=== PATIENT | female | born 1970 | race Caucasian/White ===

== ENCOUNTER → 2023-10-17 13:31 | Outpatient (REF) | payer OTHER, SELFPAY | LOC: RAD 13:31 | PROVIDERS: ATTENDING PHYSICIAN Internal Medicine Gastroenterology; FAMILY PHYSICIAN Family Medicine | DX: K51.211 Ulcerative (chronic) proctitis with rectal bleeding (principal) | CPT/HCPCS: 74177; Q9967 ==

== ENCOUNTER 2023-11-07 18:48 | Emergency (ER) | payer OTHER, SELFPAY ==
[2023-11-07 19:04] VITALS: BP 142/96
[2023-11-07 19:51] VITALS: BP 127/93
[2023-11-07 20:00] VITALS: BP 137/91
[2023-11-07] MEDS: MOTRIN 600 MG PO (20:14)
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
[2023-11-07 23:48] VITALS: BP 110/91
== END 2023-11-07 23:53 | disposition home or self-care (01) ==
LOC: EMR 18:48
PROVIDERS: EMERGENCY PHYSICIAN Emergency Medicine
DX: S09.90XA Unspecified injury of head, initial encounter (principal); Y04.8XXA Assault by other bodily force, initial encounter; R11.0 Nausea; H53.8 Other visual disturbances; J45.909 Unspecified asthma, uncomplicated; K21.9 Gastro-esophageal reflux disease without esophagitis; E03.9 Hypothyroidism, unspecified; E78.00 Pure hypercholesterolemia, unspecified
CPT/HCPCS: 99283; 73140

== ENCOUNTER 2023-11-15 03:37 | Inpatient (IN) | payer OTHER, MEDICARE, SELFPAY ==
[2023-11-14 23:42] VITALS: BMI 19.6
[2023-11-14 23:53] VITALS: BP 133/82
[2023-11-15] VITALS (19 sets, daily range): BP systolic 101–122; BP diastolic 67–89; PULSE 94–107; O2SAT 96–97; BMI 19.6; BMI 18.6
--- NOTE | 2023-11-15 00:40 | ED.GENMED ---
History of Present Illness
General
Chief Complaint: Vomiting Blood
Source: patient
Exam Limitations: none
Time Seen by Provider: 11/15/23 00:24
Travel History
Have you had any contact with someone who has COVID-19?: No
Do you have any symptoms of coronavirus? Fever > 100 degrees, chills, cough, shortness of breath, sore throat, loss of taste or smell, muscle aches, or headache?: No
History of Present Illness
History of Present Illness:
This is a 53 year old female that comes in with multiple complaints. States that she had Botox first and then the next day she had Remicade and the next day she had a pudental nerve block. States that after this she started with vomiting in her
sleep and this seems to be happening every night. States that she also lost control of her bowels. States that she has a sore throat and has been dizzy and off balance. States that she has white spots in her mouth and has trouble swallowing. States
that she has a fever of 100, SOB with a cough, nausea, vomiting, and diarrhea. States that she has a headache and is off balance when she walks. Denies any chills, chest pain, abd pain, urinary burning.
Past History
Past History
ED Past Medical History: Asthma, GERD, Hypercholesterolemia, Seizures, Hypothyroidism, Psychiatric and Other ( Raynaud's Syndrome, PNA, Ulcerative colitis, UTI, Interstitial cystitis, ADD, Kidney stones, POTS, thoracic outlet syndrome, Von
Willebrand disease. Gastroporesis)
ED Past Surgical History: Gynecological (Uterine ablation, ), Orthopedic (Hand surgery, neck surgery, ) and Other (Breast reduction, cataracts, Eye surgery, )
Social History
Tobacco: Non-smoker
Alcohol: Occasional
Drug: None
Personal:
Living: with family
Employment: Employed
Family History
Family History: Hypertension
Review of Systems
Review of Systems
All Other Systems: ROS reviewed and negative except as documented in HPI and ROS
Constitutional: Reports fever (Low grade); Denies chills
EENT: Reports sore throat and other (difficulty swallowing)
Respiratory: Reports cough and trouble breathing
Cardiac: Denies chest pain
ABD/GI: Reports nausea, vomiting and diarrhea; Denies abdominal pain
: Reports no symptoms; Denies dysuria, frequency or urgency
Musculoskeletal: Reports no symptoms
Skin: Reports no symptoms
Neurological: Reports dizzy and headache
Psychiatric: Reports suicidal
Phy Exam
General Physical Exam
General Presentation: no apparent distress
General age: appears stated age
General Skin: warm and dry
General Habitus: normal
General Mental: alert
General Hydration: appears well hydrated
ENT Exam
ENT Exam: TM's normal, neck supple, pharyngeal erythema (with exudate) and tonsillar exudate
Eye Exam
Eye Exam: EOMI
Cardiovascular Exam
Cardiovascular Exam: regular rate/rhythm, no edema, no murmur and normal peripheral pulses
Pulmonary Exam
Pulmonary Exam: lungs clear, no respiratory distress, no rales, chest non tender, no crackles, no rhonchi, no wheezing and no cough
Gastrointestinal Exam
Gastrointestinal Exam: normal bowel sounds, non tender, soft, no organomegaly, no pulsatile mass and non distended
Musculoskeletal Exam
Musculoskeletal Exam: full ROM and no edema
Skin Exam
Skin Exam: normal color, warm/dry, no rash and no petechia
Psychiatric Exam
Psychiatric Exam: normal mood/affect
Course
Orders/Labs/Results
Orders:
Orders
11/15/23 00:38
0.9% Sodium Chloride 1000 ml [Nss] 1,000 ml IV BOLUS
Ondansetron Injectable [Zofran] 4 mg IV NOW STA
11/15/23 00:39
CR Chest - 2 Views Urgent
Comment:
Reason For Exam: COUGh, SOB, vomiting in sleep
03/21/24 00:43
CT Head W/o Iv Contrast Urgent
Comment:
Reason For Exam: headache, off balance
11/15/23 01:34
COVID-19 Antigen Urgent
Source: Nasal Swab
Complete Blood Count/With Diff Urgent
Comprehensive Metabolic Panel Urgent
Lactic Acid Urgent
Influenza A+B Rapid Molecular Urgent
SAM Source: Nasal Swab
Specimen Description:
Rapid Strep Group A Urgent
SAM Source: Throat/Pharynx
Specimen Description:
Date Specimen was Collected: 11/15/23
Time Specimen was Collected: 00:59
11/15/23 01:35
LevoFLOXacin 500 MG/100 ML [Levaquin] 500 mg in 100 ml IV NOW
11/15/23 01:36
Electrocardiogram (*1) Urgent
Reason for Study: Shortness of Breath
EKG- Treatment ONCE
11/15/23 01:38
Urinalysis Reflex To Culture Urgent
11/15/23 01:45
Blood Culture Q30M
SAM Source: Blood/Venous
Specimen Description:
11/15/23 02:15
Blood Culture Q30M
SAM Source: Blood/Venous
Specimen Description:
Abnormal Lab Results
11/15/23
01:34
WBC 19.6 H 10^3/uL
(4.8-10.8)
Hct 36.7 L %
(37.0-47.0)
Abs Immat Gran (auto) 0.1 H 10^3/uL
(0-0.05)
Absolute Neuts (auto) 16.0 H 10^3/uL
(1.4-6.5)
Absolute Monos (auto) 1.4 H 10^3/uL
(0.1-0.6)
Neutrophils % 81.7 H %
(42.2-75.2)
Lymphocytes % 10.3 L %
(20.5-51.1)
Creatinine 0.4 L mg/dL
(0.6-1.0)
Glucose 118 H mg/dl
(70-99)
11/15/23 01:34
11/15/23 01:34
Leukocytosis, rapid strep negative. Glucose nonfasting COVID negative, rapid strep negative, Influenza negative.
Vital Signs
Initial and Last Documented VS:
Initial Vital Signs
Temp Pulse Resp BP Pulse Ox
98.5 F 114 16 133/82 97
11/14/23 23:53 11/14/23 23:53 11/14/23 23:53 11/14/23 23:53 11/14/23 23:53
Last Documented Vital Signs
Temp Pulse Resp BP Pulse Ox
98.5 F 114 16 133/82 97
11/14/23 23:53 11/14/23 23:53 11/14/23 23:53 11/14/23 23:53 11/14/23 23:53
MDM/Problems Addressed
Differential Diagnosis Includes:
Strep throat. Thrush, GI viral syndrome.
MDM/Problems Addressed:
This is a 53 year old female that comes in with multiple complaints. States that she had Botox first, then the next day Remicade and the after this a Pudental nerve block. States that she has been vomiting every since when she is asleep and has a
sore throat. States that she has a headache, dizziness and her balance is off. States that she is having a hard time swallowing.
Will check labs, Chest x-ray. Give IV fluids and Zofran.
back into see patient. Explained that she does have a Pneumonia. Will admit and start on antibiotics. Patient at this time is also requesting a urine be checked to make sure she doesn't have a UTI.
Chronic conditions affecting care:
Ulcerative colitis,
Acute Exacerbation and/or Progression of Chronic Illness:
Ulcerative colitis
*Radiology
Radiology exam reviewed: radiology read reviewed (Ct head night hawk- No acute hemorrhage, herniation or hydrocephalus. No calvarial fracture. The visualized paranasal sinuses and mastoid air cells are clear. )
*Pulse Oximetry
Patient hypoxic: no
*EKG
Interpreted by ED Provider?: NA
Rate: EKG- N/A
*Critical Care Note
Total Time (30-74mins, 75-104mins- exclusive of procedures): Not Applicable
ED Attending Note
-
Portions of this chart may have been created with voice recognition software.� Occasional wrong word or��sound alike� substitutions may have occurred due to the inherent limitations of voice recognition software.
Discharge Plan
Departure
Patient Disposition: Admit
Date of Disposition: 11/15/23
Time of Disposition: 02:08
Admit to: Med/Surg
Presentation/result/management discussed w/ accepting MD/DO: Hospitalist
Patient with high blood pressure during this ER visit?: Yes
Condition: Good
Covid-19: Negative COVID-19
Discharge Problem:
right sided Pneumonia
Prescriptions:
No Action
prednisolone acetate 1 % Drops,Suspension
1 drp RIGHT EYE TID
difluprednate [Durezol] 0.05 % Drops
1 drp RIGHT EYE HS
thyroid (pork) [[place] Thyroid] 90 mg Tablet
90 mg PO HS
tramadol 100 mg Tablet
100 mg PO TID PRN (Reason: PAIN)
Wegovy 2.4 mg/0.75 mL Pen Injector
2.4 mg SC MO
estradiol
1 dose IM .TWICEAWEEK
progesterone 200 MG
200 mg HS
testosterone cypionate
1 dose IM .TWICEAWEEK
infliximab [Remicade] 100 mg Recon Soln
100 mg IV MONTHLY
ondansetron 4 mg tablet,disintegrating
4 mg PO TIDPRN PRN (Reason: nausea/vomiting) Qty: 20 0RF
Paxlovid 300 mg (150 mg x 2)-100 mg tablets,dose pack
See Rx Instructions .ROUTE .COMPLEX Qty: 30 0RF
Rx Instructions:
take TWO 150 mg tablets of nirmatrelvir with ONE 100 mg tablet of ritonavir twice daily for 5 days
erythromycin 5 mg/gram (0.5 %) ointment
0.5 inch ophthalmic (eye) QID 7 Days Qty: 3.5 0RF
diclofenac sodium [Voltaren Arthritis Pain] 1 % gel
2 g topical QID Qty: 100 0RF
Interventions
Interventions:
*Risk Screen - Suicide Last Done: 11/14/23 23:53
*Neglect/Abuse Screening Last Done: 11/14/23 23:53
*ED COVID-19 Vaccine History Last Done: 11/14/23 23:53
[2023-11-15] MEDS: NSS 1000 IV ×2 (01:46→15:32)
[2023-11-15] MEDS: ZOFRAN 4 MG IV (01:47)
[2023-11-15 01:48] LABS: % Basophils 0.2 % (0-2); % Eosinophils 0.4 % (0-6); % Immature Granulocytes 0.5 % (0-0.5); % Lymphocytes 10.3 % (20.5-51.1); % Monocytes 6.9 % (1.7-9.3); % Neutrophils 81.7 % (42.2-75.2); Absolute Eosinophils 0.1 10^3/uL (0-0.7); Absolute Immature Granulocytes 0.1 10^3/uL (0-0.05); Absolute Monocytes 1.4 10^3/uL (0.1-0.6); Hematocrit 36.7 % (37.0-47.0); Hemoglobin 12.7 g/dL (12.0-16.0); Mean Corp Hgb Conc. 34.6 g/dL (33.0-37.0); Mean Corpuscular Hgb 29.5 pg (27.0-31.0); Mean Corpuscular Volume 85.2 fL (81.0-99.0); Mean Platelet Volume 10.1 fL (7.4-10.4); Nucleated Red Blood Cells % 0 %; Platelet Count 282 10^3/uL (130-400); Red Blood Cell Count 4.31 10^6/uL (4.20-5.40); Red Cell Dist. Width 13.6 % (11.5-14.5); White Blood Cell Count 19.6 10^3/uL (4.8-10.8)
[2023-11-15 02:07] LABS: ALT (SGPT) 12 U/L (0-35); AST (SGOT) 15 U/L (14-36); Albumin 3.8 g/dl (3.5-5.0); Alkaline Phosphatase 60 U/L (38-126); Blood Urea Nitrogen 14 mg/dl (7-17); COVID-19 Antigen Negative (Negative); Calcium 9.2 mg/dl (8.4-10.2); Carbon Dioxide 28 mmol/L (22-30); Chloride 99 mmol/L (98-107); Glucose 118 mg/dl (70-99); Potassium 3.9 mmol/L (3.5-5.1); Sodium 136 mmol/L (135-145); Total Bilirubin 0.8 mg/dl (0.2-1.3); Total Protein 6.5 g/dl (6.3-8.2); eGFR > 60.00
[2023-11-15 02:13] LABS: Lactic Acid 1.1 mmol/L (0.7-2.0)
[2023-11-15] MEDS: LEVAQUIN 100 IV (02:21)
--- NOTE | 2023-11-15 03:07 | EDRN ---
Received pt. at this time, per outgoing RN pt. had 35ml of Levaquin infused IV, then began to develop red streaks up arm at IV site, infusion stopped and flushed, MD Rosado aware. Pt. w/ no airway compromise or swelling, pt. to await admitting MD
evaluation for further orders. Will continue to monitor.
--- NOTE | 2023-11-15 03:14 | HPS.HSE ---
Addendum entered and electronically signed by Curtis De Leon MD 11/15/23 03:43:
Correction
Dizziness with subjective balance dysfunction
NEG Nystagmus. <del>Nystagmus</del>
Symmetric coordination
- Ortho VSS
- NEG HCT'
- PT/OT
Original Note:
Family Physician
-
Family Physician:
Chief Complaint
-
vomiting, fever , cough, sore throat
History of Present Illness
53F Extensive PMHx including Asthma, UC, gastroparesis p/w multple complaints.
Reports vomiting in her sleep since pudentla nerve block
Cough
At home, reports fever up to 100. Denied chills
Assciated los control of bowels
ROS
Sore throat and Trouble swallowing
Dizziness and felt like balace dysfunction
Medical History
Past Medical History
Past Medical History: Reports Other
Additional Past Medical History:
Asthma/PNA
GERD
HTN
HLD
Sz
Hypothyroid
Psychiatric
Raynaud's Syndrome
Ulcerative colitiis
UTI, Interstitial cystitis
ADD
Kidney stones
POTS
Thoracic outlet syndrome,
Von Willebrand disease
Gastroporesis
Past Surgical History: Reports Other
Additional Past Surgical History:
Gynecological (Uterine ablation,
Hand surgery, neck surgery
Breast reduction
cataracts
Social History
Tobacco: Non-smoker
Alcohol: Occasional
Personal:
Living: With Family
Family History
Family History: Hypertension
Allergies / Home Medications
Allergies reflects when Allergies were last updated in [employer].
Home Medications with original date entered in [employer]
Allergy/Medication List:
Allergies
Allergy/AdvReac Type Severity Reaction Status Date / Time
latex Allergy Rash Verified 11/14/23 23:56
levetiracetam Allergy MATTY Verified 11/14/23 23:56
JOHNSONS
SYNDROME
levofloxacin [From Levaquin] Allergy Rash Verified 11/15/23 03:04
penicillin V Allergy Hives Verified 11/14/23 23:56
Penicillins Allergy Hives Verified 11/14/23 23:56
Sulfa (Sulfonamide Allergy Anaphylaxis Verified 11/14/23 23:56
Antibiotics)
sulfasalazine Allergy Anaphylaxis Verified 11/14/23 23:56
adhesive AdvReac Rash Verified 11/14/23 23:56
Cephalosporins AdvReac Nausea / Verified 11/14/23 23:56
Vomiting
ciprofloxacin [From Cipro] AdvReac Nausea / Verified 11/14/23 23:56
Vomiting
Home Medications
estradiol 1 dose IM .TWICEEEK 04/25/22
infliximab 100 mg intravenous solution (Remicade) 100 mg IV MONTHLY 04/25/22
progesterone 200 mg HS 04/25/22
semaglutide (weight loss) 2.4 mg/0.75 mL subcutaneous pen injector (Wegovy) 2.4 mg SC MO 04/25/22
testosterone cypionate 1 dose IM .TWICEEEK 04/25/22
thyroid (pork) 90 mg tablet ([place] Thyroid) 90 mg PO HS 04/25/22
erythromycin 5 mg/gram (0.5 %) eye ointment 0.5 inch ophthalmic (eye) QID 7 days #3.5 grams 08/15/22
diclofenac sodium 1 % topical gel (Voltaren Arthritis Pain) 2 g topical QID #100 grams 12/07/22
levothyroxine 50 mcg tablet 50 mcg PO DAILY 11/15/23
Review of Systems
-
Constitutional: Reports Fever
EENT: Reports Sore Throat
Respiratory: Reports Cough
Cardiac: Reports No Symptoms
Abdomen/GI: Reports Nausea and Vomiting
: Reports No Symptoms
Musculoskeletal: Reports No Symptoms
Skin: Reports No Symptoms
Neurological: Reports No Symptoms
Endocrine: Reports No Symptoms
Hematologic/Lymphatic: Reports No Symptoms
Psych: Reports No Symptoms
Physical Exam
Vital Signs
Vital Signs
Temp Pulse Resp BP Pulse Ox
98.5 F 114 16 107/75 98
11/14/23 23:53 11/14/23 23:53 11/14/23 23:53 11/15/23 02:23 11/15/23 02:30
Physical Exam
General: No Apparent Distress and Comfortable; No Chills
HEENT: NormoCephalic and Anicteric
Respiratory: Clear; No Wheezes or Rales
Cardiac: S1/S2 and Regular Rhythm
Breast: Deferred by me
GI: Soft, Non Tender, Non Distended and Normal Bowel Sounds
Rectal: Deferred by Provider
Genito-urinary: Deferred by me
Musculoskeletal: No Edema
Skin: Warm and Dry
Neuro: AO x 3
Psych: Calm
Laboratory Results
-
11/15/23 01:34
11/15/23 01:34
Laboratory Results
Lactic Acid 1.1 mmol/L (0.7-2.0) 11/15/23:34
Total Bilirubin 0.8 mg/dl (0.2-1.3) 11/15/23:34
AST 15 U/L (14-36) 11/15/23 01:34
ALT 12 U/L (0-35) 11/15/23:34
Alkaline Phosphatase 60 U/L (38-126) 11/15/23 01:34
Data Reviewed
-
Diagnostic Radiology: Image Personally Visualized and interpreted
Lab Data: Labs Reviewed by me
Old Records: Reviewed
Impression/Plan
-
Data
WCC 19s
Unremarkable CMP
BG 118
Pending LA
Pending PCT
NEG Covid
NEG HCT
My read on CXR - PNA on the right ?
ASSESSMENT & PLAN
Presumed sepsis - Rt side PNA plus tachycardia and Leucocytosis
? Aspiration pneumonitis with vomiting while asleep
Adequate Oxygenation on RA
HX PCN allergy
- await LA. PCT
- f/u radiologist read on CXR
- Empiric IV LVQ and Flagyl
- Monitor QTc
- Trend WCC and T
- f/u BCx
Sore throat with pharyngeal erythema with exudate and tonsillar exudate
- rapid Steep Group A Antigen
- on IV Zosyn for possible PNA
Vomiting DDX: Gastroparesis flare
- Hr Systems Analyst consult for suggestion
Dizziness with subjective balance dysfunction
Nystagmus
Coordination
- NEG HCT'
- PT/OT
Hypothyroid on LT5
- check TSH
HX chronic pelvic pain
s/p 3rd pudendal block
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
HX CAD age 31.
HX Hypercalcemia
HX Attention deficit disorder
Anxiety
DVT Px: LMWH
Full code
Ip MS
--- NOTE | 2023-11-15 05:01 | EDRN ---
RN notified admitting team via [place] [employer] that pt. is allergic to Levaquin, notified that pt. immediately got rash at IV site traveling up arm s/p Levaquin administration during ED stay.
[2023-11-15 05:44] LABS: Urine Albumin Negative (Neg - Trace); Urine Bilirubin Negative (Negative); Urine Character Clear (Clear); Urine Color Yellow; Urine Glucose Negative (Negative); Urine Ketone Negative (Negative); Urine Leukocyte Negative (Negative); Urine Nitrite Negative (Negative); Urine Occult Blood Negative (Negative); Urine Urobilinogen Negative (Neg - 1+)
--- NOTE | 2023-11-15 05:55 | W.PN.UPDATE ---
Update Note
Progress Note Update
RN noted rash at IV site upon IV Levaquin infusion, RN stoped the IV Levaquin. Patient has multiple antibiotic allergies, will consult ID. Dr. Bansal made aware.
[2023-11-15 06:06] LABS: Procalcitonin < 0.05 ng/ml (0.0-0.25)
[2023-11-15] MEDS: FLAGYL 500 MG 100 IV ×3 (06:19→23:23)
--- NOTE | 2023-11-15 08:41 | CON.ID ---
Consultation
-
Date/Time Consultation Requested: 11/15/2023, 0554
Date/Time Consultation Performed: 11/15/2023, 0845
Requesting Provider: Dr. Sonya Fletcher
Performing Provider: Dr. Aleksandra Mayen
Reason for Consultation: Sepsis, multiple abx allergies
Chief Complaint / Past History
Chief Complaint
vomiting, difficulty swallowing
History of Present Illness
53 year old female with multiple medical problems with UC on infliximab, raynaud's, thoracic outlet syndrome s/p scalene botox 14d ago, constipation/chronic pelvic pain s/p pudendal block 11/09/23 who has been having dysphagia for the past one to two
weeks. 2 days ago, she started vomiting during sleep. She thinks she aspirated. She also developed through pain, worsening difficulty swallowing. + dry cough today. + temp 100.1. Also had episode of stool incontinence at home. She noted her white
coating on her tongue. She came to the ED last night. WBC 19.6. Rapid group A strep negative. She was given a dose of IV levofloxacin then developed redness along the vein during infusion; abx discontinued. Denies ill-contacts. + frontal PAULSON. No
sinus congestion or rhinorrhea. Both conjunctiva are pink - she thinks either from vomiting or her scratching her eyes while under anaesthesia (has happend before). No recent abx use.
Past History
Additional Past Medical History:
Ulcerative colitis on infliximab q 6 weeks
Hypothyroidism
Asthma
Raynaud's
gastroparesis
nephrolithiasis
POTS( thoracic outlet syndrome) - tx with botox to scalene muscles
ADD
Interstitial cystitis
hx of hyperglycemia, placed on Wegovey since 2020
Von Willebrand disease
Chronic pelvic pain - tx with pudendal block
Hand surgery
breast reduction
Allergy History:
latex Allergy (Verified 11/14/23 23:56)
Rash
levetiracetam Allergy (Verified 11/14/23 23:56)
MATTY JOHNSONS SYNDROME
levofloxacin [From Levaquin] Allergy (Verified 11/15/23 03:04)
Rash
penicillin V Allergy (Verified 11/14/23 23:56)
Hives
Penicillins Allergy (Verified 11/14/23 23:56)
Hives
Sulfa (Sulfonamide Antibiotics) Allergy (Verified 11/14/23 23:56)
Anaphylaxis
sulfasalazine Allergy (Verified 11/14/23 23:56)
Anaphylaxis
adhesive Adverse Reaction (Verified 11/14/23 23:56)
Rash
Cephalosporins Adverse Reaction (Verified 11/14/23 23:56)
Nausea / Vomiting
ciprofloxacin [From Cipro] Adverse Reaction (Verified 11/14/23 23:56)
Nausea / Vomiting
Medications Reviewed: Yes
Current Antibiotics:
s/p levofloxacin
metronidazole
Social History
Tobacco: Non-Smoker
Alcohol: Occasional
Drug: None
Personal:
Living: With Family ()
Family History
Family History: Not Pertinent
Review of Systems
Review of Systems
General: Fever, Chills and Change in Appetite
HEENT: Headache and Pharyngitis; Negative Sinus Problems
Respiratory: Dyspnea and Cough; Negative Sputum Production
Gasteroenterology: Vomiting and Other (no diarrhea)
Genital / Urological: Dysuria and Flank Pain
Endocrine: Weakness
Skin / Hair / Nails: Negative Rash
Neurological: Headache and Dizziness
All systems: All other systems were reviewed and were negative
Vital Signs
Temp Pulse Resp BP Pulse Ox
98.5 F 101 16 121/76 94
11/14/23 23:53 11/15/23 03:05 11/15/23 03:05 11/15/23 06:01 11/15/23 06:45
Physical Exam
Physical Exam
Constitutional: No Acute Distress and Other (thin)
Eyes: Sclera Anicteric and Erythema (Mild conjunctival erythema L>R)
Oral: Thrush (Significant white patches on bilateral buccal mucosa, tongue, and few on pharynx. Patches scrapes off. )
Cardiovascular: Regular Rate and S1/S2
Pulmonary: Clear
Gastrointestinal: Soft, Non Tender, Non Distended and Normal Bowel Sounds
Genito-Urinary: Negative Ramey or CVA Tenderness
Extremities: Negative Edema
Neurological: AO x 3; Negative Meningeal Signs
Lab / Diagnostic Study Results
11/15/23:34
11/15/23:34
Abs Immat Gran (auto) 0.1 10^3/uL (0-0.05) H 11/15/23:34
Absolute Neuts (auto) 16.0 10^3/uL (1.4-6.5) H 11/15/23:34
Absolute Lymphs (auto) 2.0 10^3/uL (1.2-3.4) 11/15/23:34
Absolute Monos (auto) 1.4 10^3/uL (0.1-0.6) H 11/15/23:34
Absolute Basos (auto) 0.0 10^3/uL (0-0.2) 11/15/23:34
Immature Gran % 0.5 % (0-0.5) 11/15/23:34
Neutrophils % 81.7 % (42.2-75.2) H 11/15/23:34
Lymphocytes % 10.3 % (20.5-51.1) L 11/15/23:34
Monocytes % 6.9 % (1.7-9.3) 11/15/23:34
Eosinophils % 0.4 % (0-6) 11/15/23:34
Basophils % 0.2 % (0-2) 11/15/23:34
Lactic Acid 1.0 mmol/L (0.7-2.0) 11/15/23 03:16
Procalcitonin < 0.05 ng/ml (0.0-0.25) 11/15/23 05:18
Microbiology Results
Micro:
11/15/23 02:30 Blood Culture - Pending
Blood/Venous
11/15/23 01:34 Influenza Types A & B (TORI) - Final
Nasal Swab Negative for Influenza A & B, NAAT
Negative results must be combined with clinical observations
and patient history.
Nucleic Acid Amplification test (NAAT)performed on the
[employer] platform.
11/15/23 01:34 Streptococcus Screen (SAM) - Pending
Throat/Pharynx Streptococcus Rapid Screen - Final
Rapid Strep Screen (Group A) Negative
11/15/23 01:45 Blood Culture - Pending
Blood/Venous
11/15/[address]: normal
Assessment / Plan
# Severe oropharyngeal candidiasis
# Dysphagia - suspect salvador esophagitis
- DC nystatin
- Start fluconazole 200mg IV q24. QTc normal.
-Pt verbally consented to HIV screen.
# R lung aspiration pneumonia
-Risk factor: emesis during sleep and dysphagia from candidiasis
- Start ceftriaxone IV.
-Continue metronidazole for now.
# Leukocytosis
- trend wbc
#Additional medical history
Ulcerative colitis on infliximab q 6 weeks
Hypothyroidism
Asthma
Raynaud's
gastroparesis
nephrolithiasis
POTS( thoracic outlet syndrome) - tx with botox to scalene muscles
ADD
Interstitial cystitis
hx of hyperglycemia, placed on Wegovey since 2020
Von Willebrand disease
Chronic pelvic pain - tx with pudendal block
Hand surgery
breast reduction
Care Review
Plan reviewed with: Physician (Dr. Fletcher)
[2023-11-15] MEDS: ERYTHROMYCIN 0.5% OPHTHALMIC OINTMENT 1 APPLIC OPHTH ×4 (08:57→23:34)
--- NOTE | 2023-11-15 09:41 | W.PN.HOSP.TC ---
Today's Communication/Plan
-
IVF
aquaphor for skin irritation on face (patient states from vomit)
abx per ID
PT/OT
Nystatin
Assessment / Plan
Assessment / Plan
CXR
IMPRESSION:
1. Airspace consolidation within the right middle lobe and possibly right upper lobe, suggestive of pneumonia.
2. No significant parapneumonic effusion.
ASSESSMENT & PLAN
Sepsis 2/2 Right Sided Pneumonia
concern for aspiration as patient reports vomiting while sleeping
Adequate Oxygenation on RA
HX PCN allergy
- procal negative but with elevated WBC and CXR finding would continue antibiotics
- IV Flagyl ordered
- ID consulted given hx multiple allergies. Discussed starting cef doxy - will follow up further ID recs
- IVF
- PT/OT
Sore throat with� pharyngeal erythema with exudate and tonsillar exudate
- rapid Steep Group A Antigen negative
- thrush seen on exam - start nystatin
- abx as above
Vomiting� DDX: Gastroparesis flare
- Counter Helper consult for suggestion
Dizziness with subjective balance dysfunction
Nystagmus
Coordination
- improving this AM with fluids
- NEG HCT'
- PT/OT
Hypothyroid on LT5
- TSH low in setting of infection - repeat as outpatient
HX chronic pelvic pain
s/p 3rd pudendal block
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
HX CAD� age 31.
HX Hypercalcemia
HX Attention deficit disorder
Anxiety
DVT Px: LMWH
Full code
Ip MS
Anticipated Discharge: 24 - 48 hours
Subjective/Interval History
-
Date of Service: November 15, 2023
she is feeling a little better this morning
Objective Data
-
Labs:
Laboratory Results
11/15/23
01:34
WBC 19.6 H
Hgb 12.7
Hct 36.7 L
Plt Count 282
Sodium 136
Potassium 3.9
Chloride 99
Carbon Dioxide 28
BUN 14
Creatinine 0.4 L
Glucose 118 H
Calcium 9.2
Total Bilirubin 0.8
AST 15
ALT 12
Alkaline Phosphatase 60
Vital Signs:
Vital Signs
Temp Pulse Resp BP Pulse Ox
98.2 F 97 16 101/75 97
11/15/23 09:28 11/15/23 09:28 11/15/23 03:05 11/15/23 09:02 11/15/23 09:02
Review of Systems
-
History Source: Patient
All other systems: Reviewed and negative
Physical Exam
-
General: No Apparent Distress
HEENT: PERRLA and Other (skin irritation under eyes )
Respiratory: Clear to Auscultation; Negative Wheezes
Cardiac: Regular Rhythm and S1/S2
GI: Soft and Nontender
Musculoskeletal: No Edema
Skin: Warm, Dry and Rash (under eyes )
Neuro: AO x 3
Psych: Calm
Data Reviewed
-
Diagnostic Radiology: Report Reviewed by me
Labs: Labs Reviewed by me
--- NOTE | 2023-11-15 10:43 | PTCARENOTE ---
pt aaox3. states having a sore throat. tongue and mouth white. relayed to DR holland. room air bilat base diminished.
--- NOTE | 2023-11-15 12:16 | PTOTSP ---
pt currently demonstrates ability to complete simple ADLs, functional transfers, ambulation with supervision to no assistance. no acute OT needs identified at this time, will sign off.
--- NOTE | 2023-11-15 15:20 | PTCARENOTE ---
pt states that she feels food is stuck in her throat. and she is afraid she is going to choke and vomit like at home. dr holland notified. changed diet to full liquids and consult speech for eval.
[2023-11-15] MEDS: ROCEPHIN 1000 MG IV (15:32)
[2023-11-15] MEDS: STERILE WATER FOR INJECTION 10 ML IV (15:32)
[2023-11-15] MEDS: TORADOL 15 MG IV ×2 (15:58→23:01)
--- NOTE | 2023-11-15 16:40 | PTCARENOTE ---
pt transferred to floor with all belongings. ivf running.
[2023-11-15] MEDS: CYTOMEL 10 MICROGRAM PO (17:04)
[2023-11-15] MEDS: DETROL LA 2 MG PO (17:04)
[2023-11-15] MEDS: ARMOUR THYROID 60 MG PO (17:05)
[2023-11-15] MEDS: HYDROPHOR 1 APPLIC TOPICAL ×2 (17:05→23:35)
[2023-11-15] MEDS: DIFLUCAN 200 MG 100 IV (17:06)
[2023-11-15] MEDS: LOVENOX 40 MG SC (17:49)
[2023-11-15] MEDS: VALIUM 2.5 MG VAG ×3 (17:53→23:44)
[2023-11-15] MEDS: LYRICA 75 MG PO (17:53)
[2023-11-15] MEDS: TOBREX 0.3% EYE DROPS 1 DROP BOTH EYES (18:26)
[2023-11-15] MEDS: PROTONIX 40 MG PO (23:17)
[2023-11-15] MEDS: MELATONIN 5 MG PO (23:44)
[2023-11-16] MEDS: TORADOL 15 MG IV ×3 (04:31→20:49)
[2023-11-16] MEDS: FLAGYL 500 MG 100 IV ×3 (06:08→21:46)
[2023-11-16] MEDS: ERYTHROMYCIN 0.5% OPHTHALMIC OINTMENT 1 APPLIC OPHTH ×4 (08:10→21:54)
[2023-11-16] MEDS: LYRICA 75 MG PO (08:10)
[2023-11-16] MEDS: PROTONIX 40 MG PO ×2 (08:10→20:49)
[2023-11-16 08:14] VITALS: BP 124/78
[2023-11-16] MEDS: HYDROPHOR 1 APPLIC TOPICAL ×3 (08:30→21:54)
[2023-11-16] MEDS: ARMOUR THYROID 60 MG PO (09:19)
[2023-11-16] MEDS: CYTOMEL 10 MICROGRAM PO (09:19)
[2023-11-16] MEDS: DETROL LA 2 MG PO (09:19)
[2023-11-16 09:41] LABS: Hematocrit 35.1 % (37.0-47.0); Hemoglobin 11.8 g/dL (12.0-16.0); Mean Corp Hgb Conc. 33.6 g/dL (33.0-37.0); Mean Corpuscular Hgb 29.1 pg (27.0-31.0); Mean Corpuscular Volume 86.7 fL (81.0-99.0); Mean Platelet Volume 10.8 fL (7.4-10.4); Platelet Count 278 10^3/uL (130-400); Red Blood Cell Count 4.05 10^6/uL (4.20-5.40); Red Cell Dist. Width 13.7 % (11.5-14.5); White Blood Cell Count 12.1 10^3/uL (4.8-10.8)
[2023-11-16 09:50] VITALS: BP 124/81; BP 127/82; PULSE 91
[2023-11-16 10:20] LABS: ALT (SGPT) 10 U/L (0-35); AST (SGOT) 15 U/L (14-36); Albumin 3.3 g/dl (3.5-5.0); Alkaline Phosphatase 56 U/L (38-126); Blood Urea Nitrogen 15 mg/dl (7-17); Calcium 9.2 mg/dl (8.4-10.2); Carbon Dioxide 26 mmol/L (22-30); Chloride 100 mmol/L (98-107); Estimated Creatinine Clearance 89 ml/min; Glucose 98 mg/dl (70-99); Potassium 4.1 mmol/L (3.5-5.1); Sodium 134 mmol/L (135-145); Total Bilirubin 1.3 mg/dl (0.2-1.3); eGFR > 60.00
--- NOTE | 2023-11-16 12:40 | W.PN.HOSP.TC ---
Addendum entered and electronically signed by Sonya Fletcher MD 11/16/23 13:54:
Underweight
-appreciate dietary
Original Note:
Today's Communication/Plan
-
IV Cef/Flagyl
IV Fluconazole
increase Lyrica; discussed outpatient accupuncture
appreciate ID
ST consult
Fulls for now
Assessment / Plan
Assessment / Plan
CXR
IMPRESSION:
1. Airspace consolidation within the right middle lobe and possibly right upper lobe, suggestive of pneumonia.
2. No significant parapneumonic effusion.
ASSESSMENT & PLAN
Sepsis 2/2 Right Sided Pneumonia
concern for aspiration as patient reports vomiting while sleeping
Adequate Oxygenation on RA
HX PCN allergy
- procal negative but with elevated WBC and CXR finding would continue antibiotics
- IV Ceftriaxone/Flagyl
- ID consulted appreciated
- IVF now off
- PT/OT
Candidial Esophagitis
-appreciate ID, IV Fluconazole started on 11/14
-will need GI consult if fails to improve on this therapy; reassuring some improvement today
-full liquids for now
Vomiting� DDX: Gastroparesis flare
- Sewing Room Supervisor consult for suggestion
-ST consult
-she is on full liquids for now
Dizziness with subjective balance dysfunction
Nystagmus
Coordination
- improving this AM
- NEG HCT'
- PT/OT
Hypothyroid on LT5
- TSH low in setting of infection - repeat as outpatient
HX chronic pelvic pain
s/p 3rd pudendal block without efect
-will increase Lyrica
-discussed with patient trial of accupuncture
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
HX CAD� age 31.
HX Hypercalcemia
HX Attention deficit disorder
Anxiety
DVT Px: LMWH
Full code
Ip MS
Anticipated Discharge: 24 - 48 hours
Subjective/Interval History
-
Date of Service: November 16, 2023
states some improvement in pain today; mouth looks better
she didn't vomit last night, able to eat a little bit
Objective Data
-
Labs:
Laboratory Results
11/16/23
07:29
WBC 12.1 H
Hgb 11.8 L
Hct 35.1 L
Plt Count 278
Sodium 134 L
Potassium 4.1
Chloride 100
Carbon Dioxide 26
BUN 15
Creatinine 0.5 L
Glucose 98
Calcium 9.2
Total Bilirubin 1.3
AST 15
ALT 10
Alkaline Phosphatase 56
Vital Signs:
Vital Signs
Temp Pulse Resp BP Pulse Ox
97.7 F 85 16 124/78 95
11/16/23 08:14 11/16/23 08:14 11/16/23 08:14 11/16/23 08:14 11/16/23 08:14
I&O
11/15/23 11/16/23 11/17/23
06:59 06:59 06:59
Intake Total 480 / 480
Balance 480 / 480
Review of Systems
-
History Source: Patient
All other systems: Reviewed and negative
Physical Exam
-
General: No Apparent Distress
HEENT: PERRLA and Other (skin irritation under eyes improving; thrush improving )
Respiratory: Clear to Auscultation; Negative Wheezes
Cardiac: Regular Rhythm and S1/S2
GI: Soft and Nontender
Musculoskeletal: No Edema
Skin: Warm, Dry and Rash (under eyes )
Neuro: AO x 3
Psych: Calm
Data Reviewed
-
Diagnostic Radiology: Report Reviewed by me
Labs: Labs Reviewed by me
--- NOTE | 2023-11-16 12:51 | PN.CDI ---
CDI
- -
CDI:
Physician Documentation Request
Admit Date: 11/15/23 03:37
Dear Doctor Justine,
Patient admitted with sepsis.
Please review the following and provide your response in the progress notes.
Clinical Indicators:
Height: 5' 6'
Weight: 115 lb 6 oz
BMI: 18.6
Please provide an associated diagnosis related to the abnormal BMI, such as:
Underweight
Cachectic
Anorexia
BMI is not significant
Other
BMI < or = to 19
Underweight
Weight Loss
Cachectic
Anorexia
Use of terms such as suspected, likely, concern for, or probable (associated with a specific diagnosis that is being evaluated, monitored, or treated as if it exists) are acceptable and can be coded in the inpatient setting, when documented at the
time of discharge.
Thank you,
Shante RICE,RN,CCDS
CDI Specialist
Available via [employer] text
Please use your independent medical judgment in providing your response.
--- NOTE | 2023-11-16 13:10 | CM ---
sales performance manager reviewed patient's chart and met with patient and patient states she lives with her spouse in a 2 story home, patient is independent with adl's and ambulation, no dme.
Pharmacy: [facility]
PCP: Dr. Lang.
[2023-11-16] MEDS: ROCEPHIN 1000 MG IV (13:25)
[2023-11-16] MEDS: STERILE WATER FOR INJECTION 10 ML IV (13:25)
[2023-11-16] MEDS: VALIUM 5 MG VAG ×2 (13:26→21:46)
[2023-11-16] MEDS: LYRICA 25 MG PO (13:26)
[2023-11-16] MEDS: MIRALAX 17 GRAMS PO (14:15)
[2023-11-16] MEDS: COLACE 100 MG PO ×2 (14:15→20:49)
--- NOTE | 2023-11-16 14:21 | W.PN.ID1 ---
Date of Service
Date of Service: November 16, 2023
Today's Communication
continue fluconazole
Assessment / Plan
# Severe oropharyngeal candidiasis
# Dysphagia - suspect salvador esophagitis
# Ulcerative colitis on infliximab q 6 weeks
# Cachexia
- continue fluconazole 200mg IV q24; eventual transition to oral. QTc normal.
- Pt verbally consented to HIV screen - ordered
- check a1c - reports senior living hyperglycemia, semaglutide for hyperglycemia per
- TNFaI use may be the predisposing factor
# R lung aspiration pneumonia
# Reported Allergy to Cephalosporins - however tolerating ceftriaxone
- Risk factor: emesis during sleep and dysphagia from candidiasis
- continue ceftriaxone IV.
- Continue metronidazole for now.
# Leukocytosis
- trend wbc - improved
#Additional medical history
Hypothyroidism
Asthma
Raynaud's
gastroparesis
nephrolithiasis
POTS( thoracic outlet syndrome) - tx with botox to scalene muscles
ADD
Interstitial cystitis
hx of hyperglycemia, placed on Wegovey since 2020
Von Willebrand disease
Chronic pelvic pain - tx with pudendal block
Hand surgery
breast reduction
Chief Complaint
-: Leukocytosis and Other (candidal esophagitis)
Subjective / Review of Systems
afebrile
bp stable
improving leukocytosis
cr stable
blood cultures x2 no growth
11/14 qtc 430
reports senior living hyperglycemia with semaglutide for hyperglycemia
reports ongoing dysphagia
Vital Signs / Physical Exam
Vital Signs
Vital Signs
Temp Pulse Resp BP Pulse Ox
97.7 F 85 16 124/78 95
11/16/23 08:14 11/16/23 08:14 11/16/23 08:14 11/16/23 08:14 11/16/23 08:14
Physical Exam
Constitutional: No Acute Distress and Chronically Ill
Head: Other (minimal residual thrush)
Cardiovascular: Regular Rate and S1/S2; Negative Murmur or Rub
Pulmonary: Clear and Symmetric; Negative Wheezes or Rales
Gastrointestinal: Soft, Non Tender, Non Distended and Normal Bowel Sounds
Skin: Warm and Dry; Negative Rash or Jaundice
Objective Data
Lab Data
Lab Results
11/16/23 07:29
11/16/23 07:29
Estimated Creat Clear 89 ml/min 11/16/23 07:29
Lactic Acid 1.0 mmol/L (0.7-2.0) 11/15/23 03:16
Total Bilirubin 1.3 mg/dl (0.2-1.3) 11/16/23 07:29
AST 15 U/L (14-36) 11/16/23 07:29
ALT 10 U/L (0-35) 11/16/23 07:29
Alkaline Phosphatase 56 U/L (38-126) 11/16/23 07:29
Most recent labs reviewed.
Micro Results:
11/15/23 01:34 Streptococcus Screen (SAM) - Preliminary
Throat/Pharynx Culture in Progress
Streptococcus Rapid Screen - Final
Rapid Strep Screen (Group A) Negative
11/15/23 02:30 Blood Culture - Preliminary
Blood/Venous No Growth in 24 hours- Final report to follow
11/15/23 01:45 Blood Culture - Preliminary
Blood/Venous No Growth in 24 hours- Final report to follow
11/15/23 01:34 Influenza Types A & B (TORI) - Final
Nasal Swab Negative for Influenza A & B, NAAT
Negative results must be combined with clinical observations
and patient history.
Nucleic Acid Amplification test (NAAT)performed on the
[employer] platform.
--- NOTE | 2023-11-16 15:05 | PTOTSP ---
Dysphagia Evaluation
Patient presents with signs concerning for pharyngoesophageal dysphagia (i.e., c/o stasis and coughing /'I'm aspirating' with soft solids; need for increased effort but no s/s of aspiration to swallow liquids and purees.) Patient reported symptoms
began 14 days ago after Botox in her neck as a treatment for pain related to thoracic outlet syndrome. She is also being treated for candidal esophagitis and has a history of gastroparesis which may be impacting presentation.
Recommend:
1. Continue diet as ordered (Full Liquids), Thin Liquids
2. Medications - as best tolerated
3. Strategies: upright to 90 degrees, small single sips/bites, double swallows, remain upright 30 minutes after eating/drinking
4. Video swallow study to objectively assess swallowing and rule out pharyngeal dysphagia/aspiration
[2023-11-16 15:06] VITALS: BP 134/87
[2023-11-16] MEDS: DIFLUCAN 200 MG 100 IV (16:20)
[2023-11-16] MEDS: LOVENOX 40 MG SC (16:36)
[2023-11-16] MEDS: TOBREX 0.3% EYE DROPS 1 DROP BOTH EYES (16:55)
[2023-11-16] MEDS: LYRICA 100 MG PO (20:49)
[2023-11-16] MEDS: MELATONIN 5 MG PO (21:46)
[2023-11-16 23:00] VITALS: BP 115/72
[2023-11-17] MEDS: TORADOL 15 MG IV ×2 (04:45→13:43)
[2023-11-17] MEDS: VALIUM 5 MG VAG ×2 (05:49→13:43)
[2023-11-17] MEDS: FLAGYL 500 MG 100 IV ×2 (05:50→13:13)
[2023-11-17 07:00] VITALS: BP 118/76
[2023-11-17 07:32] LABS: % Basophils 0.4 % (0-2); % Eosinophils 0.8 % (0-6); % Immature Granulocytes 0.7 % (0-0.5); % Lymphocytes 21.3 % (20.5-51.1); % Monocytes 6.7 % (1.7-9.3); % Neutrophils 70.1 % (42.2-75.2); Absolute Eosinophils 0.1 10^3/uL (0-0.7); Absolute Immature Granulocytes 0.1 10^3/uL (0-0.05); Absolute Lymphocytes 1.8 10^3/uL (1.2-3.4); Absolute Monocytes 0.6 10^3/uL (0.1-0.6); Absolute Neutrophils 5.9 10^3/uL (1.4-6.5); Hemoglobin 11.7 g/dL (12.0-16.0); Mean Corp Hgb Conc. 33.4 g/dL (33.0-37.0); Mean Corpuscular Hgb 29.1 pg (27.0-31.0); Mean Corpuscular Volume 87.1 fL (81.0-99.0); Nucleated Red Blood Cells % 0 %; Platelet Count 270 10^3/uL (130-400); Red Blood Cell Count 4.02 10^6/uL (4.20-5.40); Red Cell Dist. Width 13.4 % (11.5-14.5); White Blood Cell Count 8.5 10^3/uL (4.8-10.8)
[2023-11-17 08:25] LABS: Blood Urea Nitrogen 14 mg/dl (7-17); Calcium 8.6 mg/dl (8.4-10.2); Carbon Dioxide 25 mmol/L (22-30); Chloride 104 mmol/L (98-107); Estimated Creatinine Clearance 89 ml/min; Glucose 96 mg/dl (70-99); Potassium 4.3 mmol/L (3.5-5.1); Sodium 133 mmol/L (135-145); eGFR > 60.00
[2023-11-17] MEDS: LYRICA 100 MG PO ×2 (08:38→19:37)
[2023-11-17] MEDS: ARMOUR THYROID 60 MG PO (08:39)
[2023-11-17] MEDS: PROTONIX 40 MG PO (08:39)
[2023-11-17] MEDS: NON-FORMULARY ITEM 1 MG PO (08:40)
[2023-11-17] MEDS: CYTOMEL 10 MICROGRAM PO (08:40)
[2023-11-17] MEDS: COLACE PO (08:41)
[2023-11-17] MEDS: MIRALAX PO (08:41)
[2023-11-17] MEDS: ERYTHROMYCIN 0.5% OPHTHALMIC OINTMENT 1 APPLIC OPHTH ×4 (08:41→21:11)
[2023-11-17] MEDS: DICLOFENAC 1% TOPICAL GEL 2 GRAM TOPICAL (08:42)
[2023-11-17 08:43] LABS: Glycohemoglobin (HgbA1c) 5.4 % (4.0-5.6)
[2023-11-17] MEDS: HYDROPHOR 1 APPLIC TOPICAL ×3 (08:46→21:13)
[2023-11-17 09:06] LABS: HIV Combo Negative (Negative)
--- NOTE | 2023-11-17 11:51 | W.PN.HOSP.TC ---
Today's Communication/Plan
-
IV Fluconazole
IV Cef/Flagyl
VSE on Sunday
Ophthalmology consult
pain control
Assessment / Plan
Assessment / Plan
CXR
IMPRESSION:
1. Airspace consolidation within the right middle lobe and possibly right upper lobe, suggestive of pneumonia.
2. No significant parapneumonic effusion.
ASSESSMENT & PLAN
Sepsis 2/2 Right Sided Pneumonia
concern for aspiration as patient reports vomiting while sleeping
Adequate Oxygenation on RA
HX PCN allergy
- procal negative but with elevated WBC and CXR finding would continue antibiotics
- IV Ceftriaxone/Flagyl (day 3)
- ID consult appreciated
- IVF now off
- PT/OT
Candidial Esophagitis
Dysphagia, Odynophagia
-appreciate ID, IV Fluconazole started on 11/14
-will need GI consult if fails to improve on this therapy;
-VSE on Sunday
-appreciate ST
-full liquids for now
Vomiting� DDX: Gastroparesis flare
- Wealth Management Director consult for suggestion
-ST consult
-she is on full liquids for now
-no further vomiting this admission
Dizziness with subjective balance dysfunction
Nystagmus
Coordination
- improving
- NEG HCT'
- PT/OT
Hypothyroid on LT5
- TSH low in setting of infection - repeat as outpatient
HX chronic pelvic pain
s/p 3rd pudendal block without efect
-will increase Lyrica
-patient wants to be on Tolterodine given here (not Gemtesa prescribed outpatient)
-discussed with patient trial of accupuncture
Blurry vision left eye
-no erythema or discharge. 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
-Ophtho consulted
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
HX CAD� age 31.
HX Hypercalcemia
HX Attention deficit disorder
Anxiety
DVT Px: LMWH
Full code
Ip MS
Anticipated Discharge: > 48 hours
Subjective/Interval History
-
Date of Service: November 17, 2023
continues to complain blurry vision left eye; pain wtih eye movement
breathing stable
continues to have pain swallowing
Objective Data
-
Labs:
Laboratory Results
11/17/23
07:17
WBC 8.5
Hgb 11.7 L
Hct 35.0 L
Plt Count 270
Sodium 133 L
Potassium 4.3
Chloride 104
Carbon Dioxide 25
BUN 14
Creatinine 0.6
Glucose 96
Calcium 8.6
Vital Signs:
Vital Signs
Temp Pulse Resp BP Pulse Ox
98.1 F 98 16 118/76 96
11/17/23 07:00 11/17/23 07:00 11/17/23 07:00 11/17/23 07:00 11/17/23 07:00
I&O
11/16/23 11/17/23 11/18/23
06:59 06:59 06:59
Intake Total 480 / 480 240 / 240
Balance 480 / 480 240 / 240
Review of Systems
-
History Source: Patient
All other systems: Reviewed and negative
Physical Exam
-
General: No Apparent Distress
HEENT: PERRLA and Other (skin irritation under eyes improving; thrush improving )
Respiratory: Clear to Auscultation; Negative Wheezes
Cardiac: Regular Rhythm and S1/S2
GI: Soft and Nontender
Musculoskeletal: No Edema
Skin: Warm, Dry and Rash (under eyes )
Neuro: AO x 3
Psych: Calm
Data Reviewed
-
Diagnostic Radiology: Report Reviewed by me
Labs: Labs Reviewed by me
[2023-11-17] MEDS: ROCEPHIN 1000 MG IV (13:13)
[2023-11-17] MEDS: STERILE WATER FOR INJECTION 10 ML IV (13:13)
--- NOTE | 2023-11-17 13:39 | W.PN.ID1 ---
Date of Service
Date of Service: November 17, 2023
Today's Communication
continue fluconazole/ceftriaxone
stop metro
Assessment / Plan
# Severe oropharyngeal candidiasis
# Dysphagia - suspect salvador esophagitis
# Ulcerative colitis on infliximab q 6 weeks
# Cachexia
- continue fluconazole 200mg IV q24; eventual transition to oral. QTc normal.
- HIV negative
- a1c 5.4
- TNFaI use may be the predisposing factor
# R lung aspiration pneumonia
# Reported Allergy to Cephalosporins - however tolerating ceftriaxone
- Risk factor: emesis during sleep and dysphagia from candidiasis
- continue ceftriaxone IV.
- stop metronidazole
# Leukocytosis
- trend wbc - improved
#Additional medical history
Hypothyroidism
Asthma
Raynaud's
gastroparesis
nephrolithiasis
POTS( thoracic outlet syndrome) - tx with botox to scalene muscles
ADD
Interstitial cystitis
hx of hyperglycemia, placed on Wegovey since 2020
Von Willebrand disease
Chronic pelvic pain - tx with pudendal block
Hand surgery
breast reduction
Chief Complaint
-: Leukocytosis and Other (candidal esophagitis)
Subjective / Review of Systems
afebrile
bp stable
resolved leukocytosis
cr stable
blood cultures no growth to date
Vital Signs / Physical Exam
Vital Signs
Vital Signs
Temp Pulse Resp BP Pulse Ox
98.1 F 98 16 118/76 96
11/17/23 07:00 11/17/23 07:00 11/17/23 07:00 11/17/23 07:00 11/17/23 07:00
Objective Data
Lab Data
Lab Results
11/17/23 07:17
11/17/23 07:17
Estimated Creat Clear 89 ml/min 11/17/23 07:17
Lactic Acid 1.0 mmol/L (0.7-2.0) 11/15/23 03:16
Total Bilirubin 1.3 mg/dl (0.2-1.3) 11/16/23 07:29
AST 15 U/L (14-36) 11/16/23 07:29
ALT 10 U/L (0-35) 11/16/23 07:29
Alkaline Phosphatase 56 U/L (38-126) 11/16/23 07:29
Most recent labs reviewed.
Micro Results:
11/15/23 01:34 Streptococcus Screen (SAM) - Final
Throat/Pharynx No Beta Hemolytic Streptococci Isolated
Streptococcus Rapid Screen - Final
Rapid Strep Screen (Group A) Negative
11/15/23 02:30 Blood Culture - Preliminary
Blood/Venous No Growth in 48 hours- Final report to follow
11/15/23 01:45 Blood Culture - Preliminary
Blood/Venous No Growth in 48 hours- Final report to follow
11/15/23 01:34 Influenza Types A & B (TORI) - Final
Nasal Swab Negative for Influenza A & B, NAAT
Negative results must be combined with clinical observations
and patient history.
Nucleic Acid Amplification test (NAAT)performed on the
[employer] platform.
--- NOTE | 2023-11-17 14:08 | PTOTSP ---
ST Follow-Up
Pt exhibits signs of suspected mild to moderate pharyngoesophageal dysphagia characterized by globus sensation, reported regurgitation back into oral cavity, piecemeal deglutition, change in vocal quality, and throat clearing with thicker food
consistencies. Pt's candidiasis and dysphagia are likely related to remicade and/or botox.
Recommendations:
- Advance diet to pureed solids with thin liquids, meds whole one at a time, per pt preference
- Aspiration & reflux precautions
- Video fluoroscopic swallow study on Sunday
[2023-11-17 15:00] VITALS: BP 119/73
[2023-11-17] MEDS: DIFLUCAN 200 MG 100 IV (17:58)
[2023-11-17] MEDS: TOBREX 0.3% EYE DROPS 1 DROP BOTH EYES (17:59)
[2023-11-17] MEDS: NORCO 5/325 1 TABLET PO ×2 (18:01→22:06)
[2023-11-17] MEDS: LOVENOX SC (18:08)
[2023-11-17] MEDS: COLACE 100 MG PO (19:37)
[2023-11-17] MEDS: PROTONIX PO ×2 (19:37→22:10)
[2023-11-17] MEDS: MELATONIN 5 MG PO (22:06)
[2023-11-17 23:34] VITALS: BP 116/74
[2023-11-18] MEDS: NORCO 5/325 1 TABLET PO ×5 (03:12→21:25)
[2023-11-18 07:00] VITALS: BP 124/86
[2023-11-18] MEDS: MIRALAX PO (07:58)
[2023-11-18] MEDS: LYRICA 100 MG PO ×2 (08:00→19:42)
[2023-11-18] MEDS: CYTOMEL 10 MICROGRAM PO (08:00)
[2023-11-18] MEDS: COLACE PO ×2 (08:00→19:42)
[2023-11-18] MEDS: DETROL LA 2 MG PO (08:03)
[2023-11-18] MEDS: ERYTHROMYCIN 0.5% OPHTHALMIC OINTMENT 1 APPLIC OPHTH (08:04)
[2023-11-18] MEDS: ARMOUR THYROID 60 MG PO (08:05)
[2023-11-18] MEDS: HYDROPHOR 1 APPLIC TOPICAL ×3 (08:05→21:32)
[2023-11-18] MEDS: VALIUM 5 MG VAG ×3 (08:07→20:07)
[2023-11-18] MEDS: ZOFRAN 4 MG IV (10:23)
[2023-11-18] MEDS: PROTONIX 40 MG PO ×2 (10:23→21:24)
[2023-11-18] MEDS: TORADOL 15 MG IV ×2 (10:24→20:07)
--- NOTE | 2023-11-18 12:44 | W.PN.HOSP.TC ---
Today's Communication/Plan
-
VSE tomorrow AM
IV Cef/Flagyl
IV Fluconazole
Appreciate ID
Appreciate Ophtho
pain control for chronic pelvic pain, acute exacerbation
Assessment / Plan
Assessment / Plan
CXR
IMPRESSION:
1. Airspace consolidation within the right middle lobe and possibly right upper lobe, suggestive of pneumonia.
2. No significant parapneumonic effusion.
ASSESSMENT & PLAN
Sepsis 2/2 Right Sided Pneumonia
concern for aspiration as patient reports vomiting while sleeping
Adequate Oxygenation on RA
HX PCN allergy
- procal negative but with elevated WBC and CXR finding would continue antibiotics
- IV Ceftriaxone/Flagyl (day 4)
- ID consult appreciated
- IVF now off
- PT/OT
Candidial Esophagitis
Dysphagia, Odynophagia
-appreciate ID, IV Fluconazole started on 11/14
-will need GI consult if fails to improve on this therapy; discussed with patient will wait for results of VSE tomorrow and then may need GI consult
-VSE on Sunday
-appreciate ST
-full liquids for now
Vomiting� DDX: Gastroparesis flare
-ST consult
-she is on full liquids for now
-no further vomiting this admission
Dizziness with subjective balance dysfunction
Nystagmus
Coordination
- improving
- NEG HCT'
- PT/OT
Hypothyroid on LT5
- TSH low in setting of infection - repeat as outpatient
HX chronic pelvic pain
s/p 3rd pudendal block without effect
-will increase Lyrica
-patient wants to be on Tolterodine given here (not Gemtesa prescribed outpatient)
-discussed with patient trial of accupuncture outpatient
-norco PRN for severe pain
-*patient has telemedicine appt with her outpatient physician jo ann at 8:30 AM - given list of meds she is receiving here for this
Blurry vision left eye
-no erythema or discharge. 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
-Ophtho consult appreciated
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
HX CAD� age 31.
HX Hypercalcemia
HX Attention deficit disorder
Anxiety
DVT Px: LMWH
Full code
Ip MS
Anticipated Discharge: > 48 hours
Subjective/Interval History
-
Date of Service: November 18, 2023
states norco helped significantly with pelvic pain
left eye remains blurry
no improvement in odynophagia but then asked for solid food
Objective Data
-
Vital Signs:
Vital Signs
Temp Pulse Resp BP Pulse Ox
97.9 F 86 16 124/86 98
11/18/23 07:00 11/18/23 07:00 11/18/23 07:00 11/18/23 07:00 11/18/23 07:00
I&O
11/17/23 11/18/23 11/19/23
06:59 06:59 06:59
Intake Total 240 / 240 1680 / 1680
Balance 240 / 240 1680 / 1680
Review of Systems
-
History Source: Patient
All other systems: Reviewed and negative
Physical Exam
-
General: No Apparent Distress
HEENT: PERRLA and Other (skin irritation under eyes improving; thrush improving; EOMI, no scleral erythema, reports pain eye movement on left )
Respiratory: Clear to Auscultation; Negative Wheezes
Cardiac: Regular Rhythm and S1/S2
GI: Soft and Nontender
Musculoskeletal: No Edema
Skin: Warm, Dry and Rash (under eyes )
Neuro: AO x 3
Psych: Calm
Data Reviewed
-
Diagnostic Radiology: Report Reviewed by me
Labs: Labs Reviewed by me
[2023-11-18 15:00] VITALS: BP 137/84
[2023-11-18] MEDS: ROCEPHIN 1000 MG IV (15:17)
[2023-11-18] MEDS: STERILE WATER FOR INJECTION 10 ML IV (15:17)
[2023-11-18] MEDS: DIFLUCAN 200 MG 100 IV (16:06)
[2023-11-18] MEDS: REFRESH EYE DROPS (PF) 1 DROPS BOTH EYES ×2 (16:08→21:24)
--- NOTE | 2023-11-18 16:29 | W.PN.ID1 ---
Date of Service
Date of Service: November 18, 2023
Today's Communication
day 5 of ceftriaxone
continue fluconazole
Assessment / Plan
# Severe oropharyngeal candidiasis
# Dysphagia - suspect salvador esophagitis
# Ulcerative colitis on infliximab q 6 weeks
# Cachexia
- continue fluconazole 200mg IV q24; eventual transition to oral. QTc normal.
- HIV negative
- a1c 5.4
# R lung aspiration pneumonia
# Reported Allergy to Cephalosporins - however tolerating ceftriaxone
- Risk factor: emesis during sleep and dysphagia from candidiasis
- continue ceftriaxone IV day 5
# Leukocytosis
- trend wbc - improved
#Additional medical history
Hypothyroidism
Asthma
Raynaud's
gastroparesis
nephrolithiasis
POTS( thoracic outlet syndrome) - tx with botox to scalene muscles
ADD
Interstitial cystitis
hx of hyperglycemia, placed on Wegovey since 2020
Von Willebrand disease
Chronic pelvic pain - tx with pudendal block
Hand surgery
breast reduction
Chief Complaint
-: Leukocytosis and Other (candidal esophagitis)
Subjective / Review of Systems
afebrile
bp stable
still complaining of dysphagia
Vital Signs / Physical Exam
Vital Signs
Vital Signs
Temp Pulse Resp BP Pulse Ox
97.9 F 86 16 124/86 98
11/18/23 07:00 11/18/23 07:00 11/18/23 07:00 11/18/23 07:00 11/18/23 07:00
Physical Exam
Constitutional: No Acute Distress
Cardiovascular: Regular Rate and S1/S2; Negative Murmur or Rub
Pulmonary: Clear and Symmetric; Negative Wheezes or Rales
Gastrointestinal: Soft, Non Tender, Non Distended and Normal Bowel Sounds
Skin: Warm and Dry; Negative Rash or Jaundice
Objective Data
Lab Data
Lab Results
11/17/23 07:17
11/17/23 07:17
Estimated Creat Clear 89 ml/min 11/17/23 07:17
Lactic Acid 1.0 mmol/L (0.7-2.0) 11/15/23 03:16
Total Bilirubin 1.3 mg/dl (0.2-1.3) 11/16/23 07:29
AST 15 U/L (14-36) 11/16/23 07:29
ALT 10 U/L (0-35) 11/16/23 07:29
Alkaline Phosphatase 56 U/L (38-126) 11/16/23 07:29
Most recent labs reviewed.
Micro Results:
11/15/23 02:30 Blood Culture - Preliminary
Blood/Venous No Growth in 72 hours- Final report to follow
11/15/23 01:45 Blood Culture - Preliminary
Blood/Venous No Growth in 72 hours- Final report to follow
11/15/23 01:34 Streptococcus Screen (SAM) - Final
Throat/Pharynx No Beta Hemolytic Streptococci Isolated
Streptococcus Rapid Screen - Final
Rapid Strep Screen (Group A) Negative
11/15/23 01:34 Influenza Types A & B (TORI) - Final
Nasal Swab Negative for Influenza A & B, NAAT
Negative results must be combined with clinical observations
and patient history.
Nucleic Acid Amplification test (NAAT)performed on the
[employer] platform.
[2023-11-18] MEDS: LOVENOX 40 MG SC (17:04)
[2023-11-18] MEDS: PRED FORTE 1% EYE DROPS 1 DROP OPHTH ×2 (17:04→21:27)
[2023-11-18] MEDS: TOBREX 0.3% EYE DROPS 1 DROP BOTH EYES (17:06)
--- NOTE | 2023-11-18 19:07 | PTCARENOTE ---
Patient endorses no BM since 11/05. Miralax, colace, and PRN Dulcolax refused. Per patient, 'they do not work.'
[2023-11-18] MEDS: MELATONIN 5 MG PO (21:24)
[2023-11-18 23:00] VITALS: BP 94/57
[2023-11-19] MEDS: NORCO 5/325 1 TABLET PO ×5 (01:28→19:28)
[2023-11-19] MEDS: ZOFRAN 4 MG IV ×2 (01:51→12:46)
[2023-11-19] MEDS: TORADOL 15 MG IV ×2 (02:16→17:46)
[2023-11-19 08:08] VITALS: BP 136/96
[2023-11-19 09:35] LABS: % Basophils 0.4 % (0-2); % Eosinophils 0.4 % (0-6); % Immature Granulocytes 0.6 % (0-0.5); % Lymphocytes 29.9 % (20.5-51.1); % Monocytes 6.8 % (1.7-9.3); % Neutrophils 61.9 % (42.2-75.2); Absolute Immature Granulocytes 0.1 10^3/uL (0-0.05); Absolute Lymphocytes 2.4 10^3/uL (1.2-3.4); Absolute Monocytes 0.6 10^3/uL (0.1-0.6); Hematocrit 37.1 % (37.0-47.0); Hemoglobin 12.5 g/dL (12.0-16.0); Mean Corp Hgb Conc. 33.7 g/dL (33.0-37.0); Mean Corpuscular Hgb 29.3 pg (27.0-31.0); Mean Corpuscular Volume 87.1 fL (81.0-99.0); Mean Platelet Volume 9.8 fL (7.4-10.4); Nucleated Red Blood Cells % 0 %; Platelet Count 324 10^3/uL (130-400); Red Blood Cell Count 4.26 10^6/uL (4.20-5.40); Red Cell Dist. Width 13.2 % (11.5-14.5); White Blood Cell Count 8.1 10^3/uL (4.8-10.8)
[2023-11-19] MEDS: COLACE PO ×2 (09:47→19:30)
[2023-11-19] MEDS: MIRALAX PO (09:48)
[2023-11-19] MEDS: REFRESH EYE DROPS (PF) 1 DROPS BOTH EYES ×3 (09:50→21:12)
[2023-11-19] MEDS: DETROL LA 2 MG PO (09:51)
[2023-11-19] MEDS: ARMOUR THYROID 60 MG PO (09:51)
[2023-11-19] MEDS: CYTOMEL 10 MICROGRAM PO (09:51)
[2023-11-19] MEDS: LYRICA 100 MG PO ×2 (09:52→19:28)
[2023-11-19] MEDS: HYDROPHOR 1 APPLIC TOPICAL ×3 (09:52→21:15)
[2023-11-19] MEDS: PRED FORTE 1% EYE DROPS 1 DROP OPHTH ×4 (09:53→21:10)
--- NOTE | 2023-11-19 09:57 | CM ---
Chart reviewed and disability case manager will follow with patient progress to assist with discharge planning for patient.
Plan; Home with family when stable.
[2023-11-19 10:12] LABS: Blood Urea Nitrogen 16 mg/dl (7-17); Calcium 9.4 mg/dl (8.4-10.2); Carbon Dioxide 29 mmol/L (22-30); Chloride 96 mmol/L (98-107); Estimated Creatinine Clearance 76 ml/min; Glucose 94 mg/dl (70-99); Magnesium 2.1 mg/dl (1.6-2.3); Potassium 4.7 mmol/L (3.5-5.1); Sodium 132 mmol/L (135-145); eGFR > 60.00
[2023-11-19] MEDS: VALIUM 5 MG VAG ×2 (10:14→21:12)
[2023-11-19] MEDS: PROTONIX 40 MG PO ×2 (12:07→21:11)
--- NOTE | 2023-11-19 12:48 | W.PN.HOSP.TC ---
Today's Communication/Plan
-
monitor vitals
see plan
GI eval
cw fulls for now
Assessment / Plan
Assessment / Plan
CXR
IMPRESSION:
1. Airspace consolidation within the right middle lobe and possibly right upper lobe, suggestive of pneumonia.
2. No significant parapneumonic effusion.
ASSESSMENT & PLAN
Sepsis 2/2 Right Sided Pneumonia
concern for aspiration as patient reports vomiting while sleeping
Adequate Oxygenation on RA
HX PCN allergy
- procal negative but with elevated WBC and CXR finding would continue antibiotics
- cw CFTX
on flucanazole
- ID following
- IVF now off
- PT/OT
Candidial Esophagitis
Dysphagia, Odynophagia
-appreciate ID, IV Fluconazole started on 11/14
-VSE noted; GI consulted
-appreciate ST
-full liquids for now; can try solids when ok with GI
Vomiting� DDX: Gastroparesis flare
-ST following
-she is on full liquids for now
-no further vomiting this admission
Mild hyponatremia
monitor
Dizziness with subjective balance dysfunction
Nystagmus
Coordination
- improving
- NEG HCT'
- PT/OT
Hypothyroid on LT5
- TSH low in setting of infection - repeat as outpatient
HX chronic pelvic pain
s/p 3rd pudendal block without effect
-will increase Lyrica
-patient wants to be on Tolterodine given here (not Gemtesa prescribed outpatient)
-discussed with patient trial of accupuncture outpatient
-norco PRN for severe pain
-patient had telemedicine appt with her outpatient physician11/18; rec to continue narco for pain
Blurry vision left eye
-no erythema or discharge. 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
-Ophtho was consulted by dr holland; patient to f/u outpt
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
HX CAD� age 31.
HX Hypercalcemia
HX Attention deficit disorder
Anxiety
DVT Px: LMWH
Full code
General: No Apparent Distress
HEENT: PERRLA
Respiratory: Clear to Auscultation; Negative Wheezes
Cardiac: Regular Rhythm and S1/S2
GI: Soft and Nontender
Musculoskeletal: No Edema
Neuro: AO x 3
Psych: Calm
I spent a total of 52 minutes with the patient or on the floor. More than 50% of this time involved counseling and coordination of care.
Anticipated Discharge: > 48 hours
Subjective/Interval History
-
Date of Service: November 19, 2023
Still having difficulty with eating
Objective Data
-
Labs:
Laboratory Results
11/19/23
09:05
WBC 8.1
Hgb 12.5
Hct 37.1
Plt Count 324
Sodium 132 L
Potassium 4.7
Chloride 96 L
Carbon Dioxide 29
BUN 16
Creatinine 0.7
Glucose 94
Calcium 9.4
Vital Signs:
Vital Signs
Temp Pulse Resp BP Pulse Ox
98.4 F 98 18 136/96 96
11/19/23 08:08 11/19/23 08:08 11/19/23 08:08 11/19/23 08:08 11/19/23 08:08
I&O
11/18/23 11/19/23 11/20/23
06:59 06:59 06:59
Intake Total 1680 / 1680 1500 / 1500
Balance 1680 / 1680 1500 / 1500
[2023-11-19] MEDS: ROCEPHIN 1000 MG IV (14:53)
[2023-11-19] MEDS: STERILE WATER FOR INJECTION 10 ML IV (14:53)
--- NOTE | 2023-11-19 15:12 | PTOTSP ---
Video Swallow Study
Patient presents with WFL oral and WFL-mild pharyngeal stage of swallowing. No aspiration occurred. Esophageal stage concerning for esophageal dysphagia due to retention throughout the esophagus after solids which did not clear with a liquid wash.
Risk for bottom up aspiration is elevated. Suspect esophageal dysphagia is the cause of reported episodes of regurgitation back to oral/nasal cavity. Please see patient care note for full details of penetration and swallowing physiology.
Recommend:
1. Continue diet as ordered (Full Liquids) until GI consult completed. Can advance solids to regular if cleared by GI.
2. Medications - as best tolerated
3. Strategies: upright to 90 degrees, small single sips/bites, double swallows, alternate solids and liquids, remain upright 30 minutes after eating/drinking
4. Gastroenterology consult to further assess esophageal stage of swallowing.
5. Will follow up briefly for patient education and instruction in compensations.
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
[2023-11-19 16:01] VITALS: BP 119/85
--- NOTE | 2023-11-19 16:01 | W.PN.ID1 ---
Date of Service
Date of Service: November 19, 2023
Today's Communication
Continue current antibiotics. For tentative EGD tomorrow. Rpt EKG in AM.
Assessment / Plan
# Severe oropharyngeal candidiasis
# Dysphagia - suspect salvador esophagitis
# Ulcerative colitis on infliximab q 6 weeks
# Cachexia
- continue fluconazole 200mg IV q24; eventual transition to oral. QTc normal.
- HIV negative
- a1c 5.4
# R lung aspiration pneumonia
# Reported Allergy to Cephalosporins - however tolerating ceftriaxone
- Risk factor: emesis during sleep and dysphagia from candidiasis
- continue ceftriaxone IV day 5
# Leukocytosis
- trend wbc - improved
#Additional medical history
Hypothyroidism
Asthma
Raynaud's
gastroparesis
nephrolithiasis
POTS( thoracic outlet syndrome) - tx with botox to scalene muscles
ADD
Interstitial cystitis
hx of hyperglycemia, placed on Wegovey since 2020
Von Willebrand disease
Chronic pelvic pain - tx with pudendal block
Hand surgery
breast reduction
Chief Complaint
-: Leukocytosis and Other (candidal esophagitis)
Subjective / Review of Systems
Patient seen and examined. Reports odynophagia has improved.
Review of Systems: No Fever and No Chills
Vital Signs / Physical Exam
Vital Signs
Vital Signs
Temp Pulse Resp BP Pulse Ox
98.4 F 98 18 136/96 96
11/19/23 08:08 11/19/23 08:08 11/19/23 08:08 11/19/23 08:08 11/19/23 08:08
Physical Exam
Constitutional: No Acute Distress, Comfortable and Non-toxic
Oropharyngeal: Negative Thrush or Ulcers
Pulmonary: Non Labored
Extremities: Negative Edema
Neurological: Awake and Alert
Psychological: Calm
Objective Data
Lab Data
Lab Results
11/19/23 09:05
11/19/23 09:05
Estimated Creat Clear 76 ml/min 11/19/23 09:05
Lactic Acid 1.0 mmol/L (0.7-2.0) 11/15/23 03:16
Total Bilirubin 1.3 mg/dl (0.2-1.3) 11/16/23 07:29
AST 15 U/L (14-36) 11/16/23 07:29
ALT 10 U/L (0-35) 11/16/23 07:29
Alkaline Phosphatase 56 U/L (38-126) 11/16/23 07:29
Most recent labs reviewed.
Micro Results:
11/15/23 02:30 Blood Culture - Preliminary
Blood/Venous No Growth in 4 days- Final report to follow
11/15/23 01:45 Blood Culture - Preliminary
Blood/Venous No Growth in 4 days- Final report to follow
11/15/23 01:34 Streptococcus Screen (SAM) - Final
Throat/Pharynx No Beta Hemolytic Streptococci Isolated
Streptococcus Rapid Screen - Final
Rapid Strep Screen (Group A) Negative
11/15/23 01:34 Influenza Types A & B (TORI) - Final
Nasal Swab Negative for Influenza A & B, NAAT
Negative results must be combined with clinical observations
and patient history.
Nucleic Acid Amplification test (NAAT)performed on the
[employer] platform.
[2023-11-19] MEDS: LOVENOX 40 MG SC (17:32)
[2023-11-19] MEDS: VISBIOME 1 CAP PO (17:33)
[2023-11-19] MEDS: TOBREX 0.3% EYE DROPS 1 DROP BOTH EYES (17:35)
[2023-11-19] MEDS: DIFLUCAN 200 MG IV (18:02)
[2023-11-19] MEDS: DIFLUCAN 200 MG 100 MG IV (18:43)
[2023-11-19 23:00] VITALS: BP 94/64
[2023-11-20] MEDS: NORCO 5/325 1 TABLET PO ×6 (00:13→23:29)
[2023-11-20] MEDS: TORADOL 15 MG IV ×4 (00:13→22:59)
[2023-11-20 07:40] VITALS: BP 126/77
[2023-11-20 08:21] LABS: % Basophils 0.5 % (0-2); % Eosinophils 0.4 % (0-6); % Immature Granulocytes 0.7 % (0-0.5); % Lymphocytes 29.5 % (20.5-51.1); % Monocytes 7.4 % (1.7-9.3); % Neutrophils 61.5 % (42.2-75.2); Absolute Basophils 0.1 10^3/uL (0-0.2); Absolute Immature Granulocytes 0.1 10^3/uL (0-0.05); Absolute Lymphocytes 3.2 10^3/uL (1.2-3.4); Absolute Monocytes 0.8 10^3/uL (0.1-0.6); Absolute Neutrophils 6.6 10^3/uL (1.4-6.5); Hemoglobin 13.5 g/dL (12.0-16.0); Mean Corp Hgb Conc. 32.9 g/dL (33.0-37.0); Mean Corpuscular Hgb 29.3 pg (27.0-31.0); Mean Corpuscular Volume 88.9 fL (81.0-99.0); Mean Platelet Volume 9.9 fL (7.4-10.4); Nucleated Red Blood Cells % 0 %; Platelet Count 406 10^3/uL (130-400); Red Blood Cell Count 4.61 10^6/uL (4.20-5.40); Red Cell Dist. Width 13.3 % (11.5-14.5); White Blood Cell Count 10.8 10^3/uL (4.8-10.8)
[2023-11-20] MEDS: CYTOMEL 10 MICROGRAM PO (08:28)
[2023-11-20] MEDS: DETROL LA 2 MG PO (08:28)
[2023-11-20] MEDS: ARMOUR THYROID 60 MG PO (08:28)
[2023-11-20] MEDS: LYRICA 100 MG PO ×2 (08:28→19:27)
[2023-11-20] MEDS: VISBIOME 1 CAP PO (08:28)
[2023-11-20] MEDS: PRED FORTE 1% EYE DROPS 1 DROP OPHTH ×4 (08:29→21:28)
[2023-11-20] MEDS: MIRALAX PO (08:29)
[2023-11-20] MEDS: REFRESH EYE DROPS (PF) 1 DROPS BOTH EYES ×3 (08:30→21:28)
[2023-11-20] MEDS: HYDROPHOR 1 APPLIC TOPICAL ×3 (08:31→21:33)
[2023-11-20] MEDS: PROTONIX PO (08:37)
[2023-11-20] MEDS: COLACE PO ×2 (08:37→19:28)
[2023-11-20 08:39] LABS: Blood Urea Nitrogen 15 mg/dl (7-17); Calcium 9.8 mg/dl (8.4-10.2); Carbon Dioxide 33 mmol/L (22-30); Chloride 96 mmol/L (98-107); Estimated Creatinine Clearance 59 ml/min; Glucose 98 mg/dl (70-99); Potassium 4.1 mmol/L (3.5-5.1); Sodium 135 mmol/L (135-145); eGFR > 60.00
[2023-11-20] MEDS: VALIUM 5 MG VAG ×3 (08:44→22:20)
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
--- NOTE | 2023-11-20 12:57 | W.PN.ID1 ---
Date of Service
Date of Service: November 20, 2023
Today's Communication
Continue current antibiotics for now.
Assessment / Plan
# Severe oropharyngeal candidiasis, improving
# Dysphagia - suspect salvador esophagitis, improving
# Ulcerative colitis on infliximab q 6 weeks
# Cachexia
- continue fluconazole 200mg IV q24 (d6) for now.
eventual transition to oral; pt reports she aspirated during barium esophagram this am with dysphagia again.
- HIV negative
- a1c 5.4
# R lung aspiration pneumonia
# Reported Allergy to Cephalosporins - however tolerating ceftriaxone
- Risk factor: emesis during sleep and dysphagia from candidiasis
- continue ceftriaxone IV day 6.
Eventual po abx when dysphagia improves.
# Leukocytosis -resolved
#Additional medical history
Hypothyroidism
Asthma
Raynaud's
gastroparesis
nephrolithiasis
POTS( thoracic outlet syndrome) - tx with botox to scalene muscles
ADD
Interstitial cystitis
hx of hyperglycemia, placed on Wegovey since 2020
Von Willebrand disease
Chronic pelvic pain - tx with pudendal block
Hand surgery
breast reduction
Chief Complaint
-: Leukocytosis and Other (candidal esophagitis)
Subjective / Review of Systems
Thrush better.
She reports she aspirated during barium esophagram study this am. + cough again.
Vital Signs / Physical Exam
Vital Signs
Vital Signs
Temp Pulse Resp BP Pulse Ox
97.9 F 91 16 126/77 97
11/20/23 07:40 11/20/23 07:40 11/20/23 07:40 11/20/23 07:40 11/20/23 07:40
Physical Exam
Constitutional: No Acute Distress and Comfortable
Oropharyngeal: Thrush (improving, few white patches on tongue)
Cardiovascular: Regular Rate and S1/S2
Pulmonary: Coarse (bases)
Gastrointestinal: Soft, Non Tender and Non Distended
Neurological: AO x 3
Objective Data
Lab Data
Lab Results
11/20/23 07:43
11/20/23 07:43
Estimated Creat Clear 59 ml/min 11/20/23 07:43
Lactic Acid 1.0 mmol/L (0.7-2.0) 11/15/23 03:16
Total Bilirubin 1.3 mg/dl (0.2-1.3) 11/16/23 07:29
AST 15 U/L (14-36) 11/16/23 07:29
ALT 10 U/L (0-35) 11/16/23 07:29
Alkaline Phosphatase 56 U/L (38-126) 11/16/23 07:29
Most recent labs reviewed.
Micro Results:
11/15/23 02:30 Blood Culture - Final
Blood/Venous No Growth - Final Report
11/15/23 01:45 Blood Culture - Final
Blood/Venous No Growth - Final Report
11/15/23 01:34 Streptococcus Screen (SAM) - Final
Throat/Pharynx No Beta Hemolytic Streptococci Isolated
Streptococcus Rapid Screen - Final
Rapid Strep Screen (Group A) Negative
11/15/23 01:34 Influenza Types A & B (TORI) - Final
Nasal Swab Negative for Influenza A & B, NAAT
Negative results must be combined with clinical observations
and patient history.
Nucleic Acid Amplification test (NAAT)performed on the
[employer] platform.
[2023-11-20] MEDS: ROCEPHIN 1000 MG IV (12:59)
[2023-11-20] MEDS: STERILE WATER FOR INJECTION 10 ML IV (12:59)
[2023-11-20 15:30] VITALS: BP 126/89
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
[2023-11-20] MEDS: DIFLUCAN 200 MG 100 MG IV (17:33)
[2023-11-20] MEDS: CYTOTEC 200 MCG PO (17:33)
[2023-11-20] MEDS: LOVENOX 40 MG SC (17:33)
[2023-11-20] MEDS: TOBREX 0.3% EYE DROPS 1 DROP BOTH EYES (17:35)
[2023-11-20] MEDS: PROTONIX 40 MG PO (21:28)
[2023-11-20] MEDS: MELATONIN 5 MG PO (21:29)
[2023-11-20 22:33] VITALS: BP 127/84
[2023-11-21] MEDS: NORCO 5/325 1 TABLET PO ×3 (03:35→12:22)
--- NOTE | 2023-11-21 03:40 | DOWNTIME ---
There was a [facility]TT Client Center Lead Consultant Downtime on 11/21/2023 from 0100 to 11/21/2023 at 0322. Downtime documentation of patient's care, including medication administrations, has been reconciled in the electronic record per guidelines. Refer to the
patient's paper chart under the miscellaneous tab to see printed paper medication records and downtime forms.
[2023-11-21 07:50] LABS: % Basophils 0.5 % (0-2); % Eosinophils 0.3 % (0-6); % Immature Granulocytes 0.8 % (0-0.5); % Lymphocytes 30.9 % (20.5-51.1); % Monocytes 5.9 % (1.7-9.3); % Neutrophils 61.6 % (42.2-75.2); Absolute Immature Granulocytes 0.1 10^3/uL (0-0.05); Absolute Lymphocytes 2.4 10^3/uL (1.2-3.4); Absolute Monocytes 0.5 10^3/uL (0.1-0.6); Absolute Neutrophils 4.7 10^3/uL (1.4-6.5); Hematocrit 33.3 % (37.0-47.0); Hemoglobin 11.5 g/dL (12.0-16.0); Mean Corp Hgb Conc. 34.5 g/dL (33.0-37.0); Mean Corpuscular Hgb 29.6 pg (27.0-31.0); Mean Corpuscular Volume 85.6 fL (81.0-99.0); Mean Platelet Volume 9.8 fL (7.4-10.4); Nucleated Red Blood Cells % 0 %; Platelet Count 285 10^3/uL (130-400); Red Blood Cell Count 3.89 10^6/uL (4.20-5.40); Red Cell Dist. Width 13.1 % (11.5-14.5); White Blood Cell Count 7.7 10^3/uL (4.8-10.8)
[2023-11-21 08:15] VITALS: BP 115/73
[2023-11-21] MEDS: VISBIOME 1 CAP PO (08:21)
[2023-11-21] MEDS: REFRESH EYE DROPS (PF) 1 DROPS BOTH EYES (08:21)
[2023-11-21 08:22] LABS: Blood Urea Nitrogen 15 mg/dl (7-17); Carbon Dioxide 28 mmol/L (22-30); Chloride 100 mmol/L (98-107); Estimated Creatinine Clearance 76 ml/min; Glucose 89 mg/dl (70-99); Potassium 4.1 mmol/L (3.5-5.1); Sodium 132 mmol/L (135-145); eGFR > 60.00
[2023-11-21] MEDS: DETROL LA 2 MG PO (08:22)
[2023-11-21] MEDS: LYRICA 100 MG PO (08:22)
[2023-11-21] MEDS: ARMOUR THYROID 60 MG PO (08:22)
[2023-11-21] MEDS: CYTOMEL 10 MICROGRAM PO (08:22)
[2023-11-21] MEDS: MIRALAX PO (08:22)
[2023-11-21] MEDS: HYDROPHOR 1 APPLIC TOPICAL (08:23)
[2023-11-21] MEDS: COLACE PO (08:23)
[2023-11-21] MEDS: PRED FORTE 1% EYE DROPS 1 DROP OPHTH ×2 (08:24→12:21)
[2023-11-21] MEDS: PROTONIX 40 MG PO (08:25)
[2023-11-21] MEDS: CYTOTEC 200 MCG PO ×2 (09:03→12:20)
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
--- NOTE | 2023-11-21 11:54 | W.PN.ID1 ---
Date of Service
Date of Service: November 21, 2023
Today's Communication
transition to po fluconazole 200mg qd x 7 more days
dc ceftriaxone.
Assessment / Plan
# Severe oropharyngeal candidiasis, resolving
# Dysphagia - suspect salvador esophagitis, improving
# Ulcerative colitis on infliximab q 6 weeks
# Cachexia
- transition IV fluconazole 200mg IV q24 (d7) to po fluconazole 200mg qd x 7 more days
- HIV negative
- a1c 5.4
# R lung aspiration pneumonia
# Reported Allergy to Cephalosporins - however tolerating ceftriaxone
- Risk factor: emesis during sleep and dysphagia from candidiasis
- Can discontinue ceftriaxone IV (d7)
# Leukocytosis -resolved
#Additional medical history
Hypothyroidism
Asthma
Raynaud's
gastroparesis
nephrolithiasis
POTS( thoracic outlet syndrome) - tx with botox to scalene muscles
ADD
Interstitial cystitis
hx of hyperglycemia, placed on Wegovey since 2020
Von Willebrand disease
Chronic pelvic pain - tx with pudendal block
Hand surgery
breast reduction
Chief Complaint
-: Other (candidal esophagitis)
Subjective / Review of Systems
Feels better.
Vital Signs / Physical Exam
Vital Signs
Vital Signs
Temp Pulse Resp BP Pulse Ox
98.1 F 74 16 115/73 96
11/21/23 08:15 11/21/23 08:15 11/21/23 08:15 11/21/23 08:15 11/21/23 08:15
Physical Exam
Constitutional: No Acute Distress
Oropharyngeal: Thrush (mild)
Pulmonary: Clear
Gastrointestinal: Soft, Non Tender and Non Distended
Objective Data
Lab Data
Lab Results
11/21/23 06:50
11/21/23 06:50
Estimated Creat Clear 76 ml/min 11/21/23 06:50
Lactic Acid 1.0 mmol/L (0.7-2.0) 11/15/23 03:16
Total Bilirubin 1.3 mg/dl (0.2-1.3) 11/16/23 07:29
AST 15 U/L (14-36) 11/16/23 07:29
ALT 10 U/L (0-35) 11/16/23 07:29
Alkaline Phosphatase 56 U/L (38-126) 11/16/23 07:29
Most recent labs reviewed.
Micro Results:
11/15/23 02:30 Blood Culture - Final
Blood/Venous No Growth - Final Report
11/15/23 01:45 Blood Culture - Final
Blood/Venous No Growth - Final Report
11/15/23 01:34 Streptococcus Screen (SAM) - Final
Throat/Pharynx No Beta Hemolytic Streptococci Isolated
Streptococcus Rapid Screen - Final
Rapid Strep Screen (Group A) Negative
11/15/23 01:34 Influenza Types A & B (TORI) - Final
Nasal Swab Negative for Influenza A & B, NAAT
Negative results must be combined with clinical observations
and patient history.
Nucleic Acid Amplification test (NAAT)performed on the
[employer] platform.
Care Review
Plan reviewed with: Physician (Dr. Robles)
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
[2023-11-21] MEDS: ROCEPHIN 1000 MG IV (13:13)
[2023-11-21] MEDS: STERILE WATER FOR INJECTION 10 ML IV (13:13)
== END 2023-11-21 14:20 | disposition home or self-care (01) | DRG 871 ==
LOC: 4 WEST ACU 03:37
PROVIDERS: Clinical Nurse Specialist Family Health; Student in an Organized Health Care Education/Training Program; ADMITTING PHYSICIAN Internal Medicine; ATTENDING PHYSICIAN Internal Medicine; CONSULT PHYSICIAN Internal Medicine Gastroenterology; CONSULT PHYSICIAN Ophthalmology; EMERGENCY PHYSICIAN Emergency Medicine; FAMILY PHYSICIAN Family Medicine; OTHER PHYSICIAN Internal Medicine Infectious Disease
DX: A41.89 Other specified sepsis (principal); J69.0 Pneumonitis due to inhalation of food and vomit; K51.90 Ulcerative colitis, unspecified, without complications; Z68.1 Body mass index [BMI] 19.9 or less, adult; E87.1 Hypo-osmolality and hyponatremia; Z11.52 Encounter for screening for COVID-19; E03.9 Hypothyroidism, unspecified; R63.6 Underweight
CPT/HCPCS: 70450; 71046; 74221; 74230; 80048; 80053; 81003; 83036; 83605; 83735; 84145; 84439; 84443; 85025; 85027; 87040; 87070; 87389; 87502; 87811; 87880; 92526; 92610; 92611; 93005; 96361; 96365; 96375; 97116; 97165; 99285

== ENCOUNTER 2023-11-26 01:25 | Observation (INO) | payer OTHER, MEDICARE, SELFPAY ==
[2023-11-25 21:33] VITALS: BP 130/66
--- NOTE | 2023-11-25 23:09 | ED.GENMED ---
History of Present Illness
General
Chief Complaint: Urinary Symptoms
Source: patient
Exam Limitations: none
Time Seen by Provider: 11/25/23 23:08
Nursing documentation reviewed up to this point in time: agreed with
Travel History
Have you had any contact with someone who has COVID-19?: No
Do you have any symptoms of coronavirus? Fever > 100 degrees, chills, cough, shortness of breath, sore throat, loss of taste or smell, muscle aches, or headache?: No
History of Present Illness
History of Present Illness:
53-year-old female that presents with abdominal pain, pink tissue per rectum, bladder issues and generalized chronic pain. Patient has a history of constipation and states that 'she has not had a bowel movement in 3 months. 'Patient also has
gastroparesis, anxiety, and chronic pelvic pain. She states that for the last day she has been having lower rectal pain. Last evening, her significant other had to 'push some pink tissue back into her '. They are unsure if it was rectal or
vaginal. Patient states that she has a rectocele and is due to have surgery in January with colorectal surgery, pain management, and GI. Patient states that the pain has increased for the last few days. She states that she has had some yellow
discharge from what she thinks is her rectum. Patient is on Remicade and had a pudendal nerve block and Botox treatment. Patient has a recent history of losing control of her bowels.
Past History
Past History
ED Past Medical History: Asthma, GERD, Hypercholesterolemia, Seizures, Hypothyroidism, Psychiatric and Other ( Raynaud's Syndrome, PNA, Ulcerative colitis, UTI, Interstitial cystitis, ADD, Kidney stones, POTS, thoracic outlet syndrome, Von
Willebrand disease. Gastroporesis)
ED Past Surgical History: Gynecological (Uterine ablation, ), Orthopedic (Hand surgery, neck surgery, ) and Other (Breast reduction, cataracts, Eye surgery, )
Social History
Tobacco: Non-smoker
Alcohol: Occasional
Drug: None
Personal:
Living: with family
Employment: Employed
Family History
Family History: Hypertension
Review of Systems
Review of Systems
Allergies reviewed?: Yes
All Other Systems: ROS reviewed and negative except as documented in HPI and ROS
ABD/GI: Reports abdominal pain and constipated
Neurological: Reports no symptoms
Hematologic/Lymphatic: Reports no symptoms
Phy Exam
General Physical Exam
General Presentation: well appearing and mild distress
General age: appears stated age
General Skin: warm and dry
General Habitus: normal
General Mental: alert and anxious
Gastrointestinal Exam
Palpation: generalized: Minimal tenderness
Rectal Exam: hemorrhoids (prolapsed), tight spinchter tone and other (Rectal exam performed in the presence of nursing)
Neurological Exam
Neurological Exam: alert and oriented x3
Musculoskeletal Exam
Musculoskeletal Exam: full ROM
Skin Exam
Skin Exam: normal color and warm/dry
Psychiatric Exam
Psychiatric Exam: normal mood/affect and anxious
Course
Orders/Labs/Results
Orders:
Orders
11/25/23 23:24
CR Obstruct Series W/pa Chest Urgent
Comment:
Reason For Exam: abdominal pain
11/25/23 23:47
Complete Blood Count/With Diff Urgent
Comprehensive Metabolic Panel Urgent
Lipase Urgent
11/25/23 23:51
Urinalysis Reflex To Culture Urgent
Date Specimen was Collected: 11/25/23
Time Specimen was Collected: 23:49
Urine Microscopic Reflex Cult Urgent
11/26/23 00:59
Admit/Transfer Patient As Directed
Co-Sign Provider:
Level of Care: Observation services
Assign to:: Medical/Surgical
Physician / Group: [email or web address]
Diagnosis: acute rectal pain,External thrombosed hemorrhoid, Possible rectal prolapse
11/26/23 01:02
Code Status As Directed
Resuscitation Status: Full Code
11/26/23 01:31
Acetaminophen [Tylenol] 1,000 mg PO DAILYPRN PRN
HYDROmorphone [Dilaudid] 0.5 mg IV Q4HPRN PRN
diazepam See Dose Instructions VAG TIDPRN PRN
11/26/23 01:31
ColoRectal Surgery Consult Routine
Consulting Provider: Ignacio Fox
Was physician already notified: No
Reason for consult: Acute rectal pain with reducible pick tissue prolapse ? rectal prolaspe
Consult Notification Routine
Specialty to Notify: Colorectal Surgery
Activity As Directed
Activity Level: With Assistance
Vital Signs As Directed
Frequency: Per unit guidelines
DX Deep Vein Thrombosis Video Routine
11/26/23 Breakfast
Regular
Basic Metabolic Panel IN AM
Complete Blood Count/No Diff IN AM
11/26/23 07:30
miSOPROStol [Cytotec] 200 mcg PO AC
11/26/23 08:00
Artificial Tears (Pf) [Refresh Eye Drops (Pf)] 1 drops BOTH EYES TID
Docusate Sodium [Colace] 100 mg PO BID
Fluconazole [Diflucan] 200 mg PO DAILY
Lactobac/Bifidobac [Visbiome] 1 cap PO DAILY
Liothyronine [Cytomel] 10 microgram PO DAILY
Pantoprazole [Protonix] 40 mg PO BID
Polyethylene Glycol Powder [Miralax] 17 grams PO DAILY
Prednisolone Acetate [Pred Forte 1% Eye Drops] 1 drop OPHTH QID
Pregabalin [Lyrica] 75 mg PO BID
plecanatide [Trulance] See Dose Instructions PO DAILY
11/26/23 15:00
Tobramycin 0.3% [Tobrex 0.3% Eye Drops] 2 drop BOTH EYES DAILY@1500
11/26/23 18:00
Enoxaparin Sodium [Lovenox] 40 mg SC QPM
11/26/23 22:00
Anusol Hc Suppository [Anusol Hc] 25 mg RECTAL HS
bimatoprost See Dose Instructions BOTH EYES HS
progesterone micronized See Dose Instructions PO HS
Abnormal Lab Results
11/25/23 11/25/23
23:47 23:51
RBC 4.13 L 10^6/uL
(4.20-5.40)
Hct 34.8 L %
(37.0-47.0)
Abs Immat Gran (auto) 0.1 H 10^3/uL
(0-0.05)
Immature Gran % 0.6 H %
(0-0.5)
Sodium 132 L mmol/L
(135-145)
Glucose 101 H mg/dl
(70-99)
ALT 45 H U/L
(0-35)
Ur Occult Blood Reflex 1+ A
(Negative)
11/25/23 23:47
11/25/23 23:47
Vital Signs
Initial and Last Documented VS:
Initial Vital Signs
Temp Pulse Resp BP Pulse Ox
97.9 F 91 16 130/66 97
11/25/23 21:33 11/25/23 21:33 11/25/23 21:33 11/25/23 21:33 11/25/23 21:33
Last Documented Vital Signs
Temp Pulse Resp BP Pulse Ox
97.9 F 83 16 112/66 98
11/25/23 21:33 11/26/23 02:15 11/26/23 00:32 11/26/23 02:15 11/26/23 02:15
*Critical Care Note
Total Time (30-74mins, 75-104mins- exclusive of procedures): Not Applicable
Update Note
Update Note:
53-year-old female with multiple complaints. I feel she had a recent rectal prolapse based on significant other's description of the tissue protruding from her rectum. Currently she has 2 external hemorrhoids which appear to be thrombosed. Rectal
exam, performed in the presence of female, patient severe pain on digital exam.
Differential includes rectal prolapse, thrombosed hemorrhoid, constipation
ED Attending Note
-
Portions of this chart may have been created with voice recognition software.� Occasional wrong word or��sound alike� substitutions may have occurred due to the inherent limitations of voice recognition software.
Discharge Plan
Departure
Patient Disposition: Admit
Date of Disposition: 11/26/23
Time of Disposition: 00:20
Admit to: Med/Surg
Presentation/result/management discussed w/ accepting MD/DO: Hospitalist
Condition: Good
Discharge Problem:
External hemorrhoid, thrombosed, Possible rectal prolapse, Chronic pain, Constipation
Interventions
Interventions:
*Risk Screen - Suicide Last Done: 11/25/23 21:33
*Neglect/Abuse Screening Last Done: 11/25/23 21:33
ED- Fall Risk Assessment Last Done: 11/25/23 21:33
*ED COVID-19 Vaccine History Last Done: 11/25/23 21:33
ED-Female Genitourinary Assessment Last Done: 11/26/23 00:19
[2023-11-25 23:54] LABS: % Basophils 0.5 % (0-2); % Eosinophils 0.3 % (0-6); % Immature Granulocytes 0.6 % (0-0.5); % Lymphocytes 33.3 % (20.5-51.1); % Monocytes 6.9 % (1.7-9.3); % Neutrophils 58.4 % (42.2-75.2); Absolute Immature Granulocytes 0.1 10^3/uL (0-0.05); Absolute Lymphocytes 2.9 10^3/uL (1.2-3.4); Absolute Monocytes 0.6 10^3/uL (0.1-0.6); Absolute Neutrophils 5.1 10^3/uL (1.4-6.5); Hematocrit 34.8 % (37.0-47.0); Hemoglobin 12.1 g/dL (12.0-16.0); Mean Corp Hgb Conc. 34.8 g/dL (33.0-37.0); Mean Corpuscular Hgb 29.3 pg (27.0-31.0); Mean Corpuscular Volume 84.3 fL (81.0-99.0); Mean Platelet Volume 9.7 fL (7.4-10.4); Nucleated Red Blood Cells % 0 %; Platelet Count 332 10^3/uL (130-400); Red Blood Cell Count 4.13 10^6/uL (4.20-5.40); White Blood Cell Count 8.7 10^3/uL (4.8-10.8)
[2023-11-25 23:57] LABS: Urine Albumin Negative (Neg - Trace); Urine Bilirubin Negative (Negative); Urine Character Clear (Clear); Urine Color Yellow; Urine Glucose Negative (Negative); Urine Ketone Negative (Negative); Urine Leukocyte Negative (Negative); Urine Nitrite Negative (Negative); Urine Occult Blood 1+ (Negative); Urine Specific Gravity 1.005 (<1.030); Urine Urobilinogen Negative (Neg - 1+)
[2023-11-26] VITALS (7 sets, daily range): BP systolic 110–127; BP diastolic 66–96
[2023-11-26 00:16] LABS: Urine Squamous Cell >30 /LPF (Few)
[2023-11-26 00:16] LABS: ALT (SGPT) 45 U/L (0-35); AST (SGOT) 25 U/L (14-36); Albumin 3.8 g/dl (3.5-5.0); Alkaline Phosphatase 47 U/L (38-126); Blood Urea Nitrogen 15 mg/dl (7-17); Calcium 9.4 mg/dl (8.4-10.2); Carbon Dioxide 28 mmol/L (22-30); Chloride 101 mmol/L (98-107); Glucose 101 mg/dl (70-99); Lipase 110 U/L (23-300); Potassium 4.1 mmol/L (3.5-5.1); Sodium 132 mmol/L (135-145); Total Protein 6.5 g/dl (6.3-8.2); eGFR > 60.00
[2023-11-26 00:17] LABS: Urine Red Blood Cell 0-2 /HPF (0-2); Urine White Cell 0-2 /HPF (0-5)
--- NOTE | 2023-11-26 00:50 | HPS.HSE ---
Family Physician
-
Family Physician: Matty Lang
Chief Complaint
-
rectal pain
History of Present Illness
53F HX chronic pelvic pain, HX pudendal block Tx, HX ulcerative colitis on Remicade q6wks at home, asthma, GERD, Gastroparesis, hyperlipidemia, Raynaud's, UTI, interstitial cystitis, ADD, kidney stone, POTS, thoracic outlet syndrome, Botox
performed on 11/08/2023.
She was DC'd on 11/20 s/p sepsis, Rt sided PNA, Carol Esophagitis who pw abdominal pain, prolapse pink tissue per rectum, bladder issues and generalized chronic pelvic pain.
Yesterday , onset of lower rectal pain associated with prolapse of pick issue per rectum witnessed by spouse.
Last evening, her significant other had to 'push some pink tissue back into her '.
Per patient HX rectocele and is due to have surgery in January with colorectal surgery, pain management, and GI.
Patient has a recent history of losing control of her bowels.
Medical History
Past Medical History
Past Medical History: Reports Other
Additional Past Medical History:
Asthma/PNA
GERD
HTN
HLD
Sz
Hypothyroid
Psychiatric
Raynaud's Syndrome
Ulcerative colitiis
UTI, Interstitial cystitis
ADD
Kidney stones
POTS
Thoracic outlet syndrome,
Von Willebrand disease
Gastroporesis
Past Surgical History: Reports Other
Additional Past Surgical History:
Uterine ablation,
Hand surgery, neck surgery
Breast reduction
cataracts
Social History
Tobacco: Non-smoker
Alcohol: Occasional
Personal:
Living: With Family
Family History
Family History: Not pertinent
Allergies / Home Medications
Allergies reflects when Allergies were last updated in [facility].
Home Medications with original date entered in [facility]
Allergy/Medication List:
Allergies
Allergy/AdvReac Type Severity Reaction Status Date / Time
adhesive Allergy Rash Verified 11/15/23 14:47
Cephalosporins Allergy Nausea / Verified 11/16/23 14:23
Vomiting/HIVES
CHILD
ciprofloxacin [From Cipro] Allergy Nausea / Verified 11/15/23 14:47
Vomiting
latex Allergy Rash Verified 11/14/23 23:56
levetiracetam Allergy MATTY Verified 11/14/23 23:56
JOHNSONS
SYNDROME
levofloxacin [From Levaquin] Allergy Phlebitis Verified 11/15/23 10:43
at IV site
during
infusion
penicillin V Allergy HIVES Verified 11/15/23 15:58
CHILD
Penicillins Allergy HIVES Verified 11/15/23 15:58
CHILD
Sulfa (Sulfonamide Allergy Anaphylaxis Verified 11/14/23 23:56
Antibiotics)
sulfasalazine Allergy Anaphylaxis Verified 11/14/23 23:56
Home Medications
acetaminophen 500 mg tablet (Tylenol Extra Strength) 1,000 mg PO DAILYPRN PRN mild pain 11/15/23
bimatoprost 0.03 % eye drops 1 drp BOTH EYES HS Eye Condition 11/15/23
diazepam 5 mg vaginal TIDPRN PRN pelvic spasm 11/15/23
diclofenac sodium 1 % topical gel 2 g topical QID PRN apply to B/L neck 11/15/23
estradiol cypionate 1 dose IM MOTH@0800 11/15/23
ferrous sulfate 325 mg (65 mg iron) tablet (iron) 325 mg PO DAILY Supplement 11/15/23
ibuprofen 200 mg tablet 400 mg PO Q6H PRN mild pain 11/15/23
infliximab 100 mg intravenous solution (Remicade) 0 mg IV Q6W Autoimmune Disorder 11/15/23
liothyronine 5 mcg tablet 10 mcg PO DAILY Thyroid 11/15/23
pantoprazole 40 mg tablet,delayed release 40 mg PO BID Gastrointestinal Issue 11/15/23
plecanatide 3 mg tablet (Trulance) 3 mg PO DAILY Constipation 11/15/23
pregabalin 75 mg capsule 75 mg PO BID Neurological Condition 11/15/23
progesterone micronized 100 mg capsule 100 mg vaginal HS 11/15/23
semaglutide (weight loss) 2.4 mg/0.75 mL subcutaneous pen injector (Wegovy) 2.4 mg SC SALMERON@0800 11/15/23
testosterone cypionate 200 mg/mL intramuscular oil 8 mg IM MOTH@0800 11/15/23
thyroid (pork) 60 mg tablet ([place] Thyroid) 60 mg PO DAILY Thyroid 11/15/23
tobramycin 0.3 % eye drops 2 drp BOTH EYES .AFTERNOON Eye Condition 11/15/23
tretinoin 0.025 % topical cream 1 applic topical Q48H@2200 apply to face 11/15/23
zinc 1 tab PO DAILY 11/15/23
Lactobac/Bifidobac [Visbiome] 1 cap PO DAILY ##0 11/21/23
docusate sodium 100 mg capsule 100 mg PO BID #0 caps 11/21/23
fluconazole 200 mg tablet 200 mg PO DAILY #7 tabs 11/21/23
hydrocodone 5 mg-acetaminophen 325 mg tablet 1 tab PO Q4HPRN PRN SEVERE PAIN #20 tabs 11/21/23
misoprostol 200 mcg tablet 200 mcg PO AC #0 tabs 11/21/23
polyethylene glycol 3350 17 gram oral powder packet (HealthyLax) 17 g PO DAILY #0 ea 11/21/23
polyvinyl alcohol-povidone (PF) 1.4 %-0.6 % eye drops in a dropperette (Refresh Classic (PF)) 1 drp BOTH EYES TID #50 ea 11/21/23
prednisolone acetate 1 % eye drops,suspension 1 drp ophthalmic (eye) QID #15 mL 11/21/23
white petrolatum 42 % topical ointment (Hydrophor) 1 applic topical TID #454 grams 11/21/23
Review of Systems
-
Constitutional: Reports No Symptoms
EENT: Reports No Symptoms
Respiratory: Reports No Symptoms
Cardiac: Reports No Symptoms
Abdomen/GI: Reports See HPI
: Reports No Symptoms
Musculoskeletal: Reports No Symptoms
Skin: Reports No Symptoms
Neurological: Reports No Symptoms
Endocrine: Reports No Symptoms
Hematologic/Lymphatic: Reports No Symptoms
Psych: Reports No Symptoms
Physical Exam
Vital Signs
Vital Signs
Temp Pulse Resp BP Pulse Ox
97.9 F 94 16 119/78 95
11/25/23 21:33 11/26/23 00:32 11/26/23 00:32 11/26/23 00:32 11/26/23 00:32
Physical Exam
General: Conversant and Appears in Distress (mild )
HEENT: NormoCephalic, Anicteric and Moist mucous membranes
Respiratory: Clear
Cardiac: S1/S2 and Regular Rhythm
Breast: Deferred by me
GI: Soft, Non Tender and Non Distended
Rectal: Deferred by Provider
Genito-urinary: Deferred by me
Musculoskeletal: No Edema
Neuro: AO x 3
Psych: Anxious
Laboratory Results
-
11/25/23 23:47
11/25/23 23:47
Laboratory Results
Total Bilirubin 1.0 mg/dl (0.2-1.3) 11/25/23 23:47
AST 25 U/L (14-36) 11/25/23 23:47
ALT 45 U/L (0-35) H 11/25/23 23:47
Alkaline Phosphatase 47 U/L (38-126) 11/25/23 23:47
Lipase 110 U/L (23-300) 11/25/23 23:47
Data Reviewed
-
Diagnostic Radiology: Report Reviewed by me
Lab Data: Labs Reviewed by me
Old Records: Reviewed
Impression/Plan
-
Reviewed VS: unremarkable and stable
11/26/23 CXR/AXR : pending final report
11/20/23 RF Esophagus-Double Contrast
Mild gastroesophageal reflux. No stricture or obstruction. No hiatal hernia. No radiographic evidence of esophagitis.
10/17/23 CT Enterography
1. No acute findings within the abdomen or pelvis.
2. Moderate amount of stool within the proximal colon. The distal colon and rectum is underdistended, limiting evaluation.
3. Couple of mildly prominent right inguinal and right pelvic sidewall lymph nodes, which may be reactive in nature. These nodes are slightly enlarged compared to the prior CT from 08/17/2022.
4. 12 mm right renal cyst.
5. Additional findings above.
Last hospitalist admission: 11/15/23 -11/21/23 DC Dxs:
Sepsis secondary to right-sided pneumonia, esophagitis, Dysphagia, odynophagia
Chronic pelvic pain
Suspect keratitis
ASSESSMENT & PLAN
Acute rectal pain with reducible pick tissue prolapse
Per ER attd NITO: External hemorrhoid, thrombosed, Possible rectal prolapse - too painful with initial NITO so did not complete
HX Rectocele per patient : due to have surgery in January with colorectal surgery, pain management, and GI
- Narcotic Pain control PRN
- Anusol HS
- CRS consult eval in AM
Recent HX sepsis 2/2 Right Sided Pneumonia concern for aspiration on last admission
HX PCN allergy but tolerate cephalosporins
S/P CFTX for 7 days
Carol Esophagitis on PO Fluconazole 7 moreday from 11/21/23 (total 14 days course)
NEG HIV
Dysphagia, Odynophagia
-appreciate ID, IV Fluconazole started on 11/14
- Evaluation completed such as VSE, Barium Esophagram 11/19 on last admission
- Patient is now tolerating regular diet
HX ulcerative colitis on Remicade(every 6 weeks) with her last infusion on 11/07/2023
Dizziness with subjective balance dysfunction
- NEG HCT' on last admission
Hypothyroid on liothyronine
HX chronic pelvic pain
s/p 3rd pudendal block without effect
- on Lyrica
- narcotic PRN for severe pain
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
HX CAD age 31.
HX Hypercalcemia
HX Attention deficit disorder
Anxiety
DVT Px: LMWH
Full code
Obs MS
--- NOTE | 2023-11-26 01:38 | EDRN ---
Patient placed in hospital bed for comfort and given a waffle cushion for her bottom, patient reports she gets bed sores, asked if she is able to ambulate around, patient can, she was able to stand so I a hospital bed could be brought in and swapped
out with ER stretcher. Patient asked about melatonin, dominik texted hospitalist to ask for order
[2023-11-26] MEDS: MELATONIN 5 MG PO ×2 (02:03→22:05)
[2023-11-26] MEDS: DILAUDID 0.5 MG IV ×4 (02:08→20:10)
--- NOTE | 2023-11-26 02:15 | EDRN ---
Patient asking for pain meds, gave as ordered, call ames in reach.
[2023-11-26 06:51] LABS: Hematocrit 34.7 % (37.0-47.0); Mean Corp Hgb Conc. 34.6 g/dL (33.0-37.0); Mean Corpuscular Hgb 29.5 pg (27.0-31.0); Mean Corpuscular Volume 85.3 fL (81.0-99.0); Mean Platelet Volume 9.9 fL (7.4-10.4); Platelet Count 273 10^3/uL (130-400); Red Blood Cell Count 4.07 10^6/uL (4.20-5.40); Red Cell Dist. Width 13.1 % (11.5-14.5); White Blood Cell Count 7.2 10^3/uL (4.8-10.8)
[2023-11-26 07:33] LABS: Blood Urea Nitrogen 12 mg/dl (7-17); Calcium 9.2 mg/dl (8.4-10.2); Carbon Dioxide 26 mmol/L (22-30); Chloride 102 mmol/L (98-107); Glucose 94 mg/dl (70-99); Potassium 3.9 mmol/L (3.5-5.1); Sodium 133 mmol/L (135-145); eGFR > 60.00
[2023-11-26] MEDS: VISBIOME 1 CAP PO (07:37)
[2023-11-26] MEDS: PROTONIX 40 MG PO ×2 (07:37→19:57)
[2023-11-26] MEDS: CYTOTEC 200 MCG PO ×3 (07:38→17:09)
[2023-11-26] MEDS: CYTOMEL 10 MICROGRAM PO (07:38)
[2023-11-26] MEDS: DIFLUCAN 200 MG PO (07:39)
[2023-11-26] MEDS: LYRICA 75 MG PO ×2 (07:39→09:39)
[2023-11-26] MEDS: COLACE PO (07:46)
[2023-11-26] MEDS: MIRALAX PO (07:46)
[2023-11-26] MEDS: PRED FORTE 1% EYE DROPS 1 DROP OPHTH ×4 (07:49→22:05)
[2023-11-26] MEDS: REFRESH EYE DROPS (PF) 1 DROPS BOTH EYES ×3 (07:49→22:07)
[2023-11-26] MEDS: MIRALAX 17 GRAMS PO (09:30)
--- NOTE | 2023-11-26 13:03 | CON.CRS ---
Consultation
-
Date/Time Consultation Requested: 11/26/2023, 01:31
Date/Time Consultation Performed: 11/26/2023, 09:30
Requesting Provider: Curtis De Leon MD
Performing Provider: Guillermo Duckworth MD
Reason for Consultation: Hemorrhoid
Medical History
-
Chief Complaint: Rectal pain and prolapse
History of Present Illness:
53-year-old female with a history of ulcerative colitis on Remicade, gastroparesis, Raynaud's syndrome, interstitial cystitis, known rectocele, internal hemorrhoids, presents to the ER with rectal pain for the past couple days. The patient states
that she was recently hospitalized at [facility] due to oropharyngeal candidiasis and right lung aspiration pneumonia and has been vomiting and having diarrhea in her sleep. Due to the diarrhea she felt a hemorrhoid occur a few days ago.
She took a picture and send it to her mother who is a nurse and she was advised to go to the ER. She states she has had no bleeding. Her pain is little bit better.
She is currently a patient of Dr. Kumar with gastroenterology due to her ulcerative proctitis. She also saw Dr. Vazquez in consult and recently spoke to him and February. She wants to be considered for hemorrhoidectomy. She was to follow-up with
Dr. Janna Pettit about whether she is a candidate for InterStim. At that time he was advised hold off on hemorrhoid surgery for now until other pelvic floor issues were addressed.
Past Medical History
Past Medical History: Other (Asthma/PNA, GERD, HTN, HLD, Sz Hypothyroid, Raynaud's Syndrome, Ulcerative colitis, UTI, Interstitial cystitis, ADD, Kidney stones, POTS Thoracic outlet syndrome, Von Willebrand disease, Gastroporesis)
Past Surgical History: Other (Hand surgery, neck surgery, uterine ablation, breast reduction, cataracts)
Social History
Tobacco: Non-Smoker
Alcohol: Occasional
Personal:
Family History
Family History: Reviewed & Not Pertinent
Allergies / Home Medications
Allergy/AdvReac Type Severity Reaction Status Date / Time
adhesive Allergy Rash Verified 11/15/23 14:47
Cephalosporins Allergy Nausea / Verified 11/16/23 14:23
Vomiting/HIVES
CHILD
ciprofloxacin [From Cipro] Allergy Nausea / Verified 11/15/23 14:47
Vomiting
latex Allergy Rash Verified 11/14/23 23:56
levetiracetam Allergy MATTY Verified 11/14/23 23:56
JOHNSONS
SYNDROME
levofloxacin [From Levaquin] Allergy Phlebitis Verified 11/15/23 10:43
at IV site
during
infusion
penicillin V Allergy HIVES Verified 11/15/23 15:58
CHILD
Penicillins Allergy HIVES Verified 11/15/23 15:58
CHILD
Sulfa (Sulfonamide Allergy Anaphylaxis Verified 11/14/23 23:56
Antibiotics)
sulfasalazine Allergy Anaphylaxis Verified 11/14/23 23:56
�Medication �Instructions �Recorded �Confirmed �Type
diazepam 5 mg vaginal TID 11/15/23 11/26/23 History
diclofenac sodium 1 % topical gel 2 g topical QID PRN apply to B/L 11/15/23 11/26/23 History
neck
estradiol cypionate 1 dose IM MOTH@0800 Hormonal Agent 11/15/23 11/26/23 History
ibuprofen 200 mg tablet 400 mg PO Q6H PRN mild pain 11/15/23 11/26/23 History
infliximab 100 mg intravenous 0 mg IV Q6W Ulcerative Colitis 11/15/23 11/26/23 History
solution (Remicade)
liothyronine 5 mcg tablet 10 mcg PO DAILY Thyroid 11/15/23 11/26/23 History
pantoprazole 40 mg tablet,delayed 40 mg PO BID Gastrointestinal Issue 11/15/23 11/26/23 History
release
pregabalin 75 mg capsule 150 mg PO BID Neurological 11/15/23 11/26/23 History
Condition
progesterone micronized 100 mg 100 mg vaginal HS Hormonal Agent 11/15/23 11/26/23 History
capsule
testosterone cypionate 200 mg/mL 8 mg IM MOTH@0800 Hormonal Agent 11/15/23 11/26/23 History
intramuscular oil
thyroid (pork) 60 mg tablet 60 mg PO DAILY Thyroid 11/15/23 11/26/23 History
([place] Thyroid)
tobramycin 0.3 % eye drops 2 drp BOTH EYES .AFTERNOON Eye 11/15/23 11/26/23 History
Condition
tretinoin 0.025 % topical cream 1 applic topical WEEKLY apply to 11/15/23 11/26/23 History
face
zinc 1 tab PO DAILY Supplement 11/15/23 11/26/23 History
Lactobac/Bifidobac [Visbiome] 1 cap PO DAILY ##0 11/21/23 11/26/23 Rx
misoprostol 200 mcg tablet 200 mcg PO AC #0 tabs 11/21/23 11/26/23 Rx
polyethylene glycol 3350 17 gram 17 g PO DAILY #0 ea 11/21/23 11/26/23 Rx
oral powder packet (HealthyLax)
polyvinyl alcohol-povidone (PF) 1 drp BOTH EYES TID #50 ea 11/21/23 11/26/23 Rx
1.4 %-0.6 % eye drops in a
dropperette (Refresh Classic (PF))
prednisolone acetate 1 % eye 1 drp ophthalmic (eye) QID #15 mL 11/21/23 11/26/23 Rx
drops,suspension
white petrolatum 42 % topical 1 applic topical TID #454 grams 11/21/23 11/26/23 Rx
ointment (Hydrophor)
bimatoprost 0.03 % drops with 1 applic topical HS 11/26/23 11/26/23 History
applicator, eyelash base
estradiol 0.01% (0.1 mg/gram) 1 applic vaginal MOWEFR@2000 11/26/23 11/26/23 History
vaginal cream
fluconazole 100 mg tablet 100 mg PO DAILY 11/26/23 11/26/23 History
hydrocodone 5 mg-acetaminophen 325 1 tab PO Q4 chronic pain 11/26/23 11/26/23 History
mg tablet
linaclotide 290 mcg capsule 290 mcg PO DAILY 11/26/23 11/26/23 History
(Linzess)
meloxicam 15 mg tablet 15 mg PO DAILYPRN PRN mild pain 11/26/23 11/26/23 History
metaxalone 800 mg tablet 800 mg PO DAILY PRN muscle spasm 11/26/23 11/26/23 History
mirabegron 25 mg tablet,extended 25 mg PO DAILY 11/26/23 11/26/23 History
release 24 hr (Myrbetriq)
plecanatide 3 mg tablet (Trulance) 3 mg PO DAILY 11/26/23 11/26/23 History
Review of Systems
-
History Source: Patient
Abdomen/GI: Other (Rectal pain and prolapse)
A 10 point review of systems was completed, and was negative except as per HPI.
Physical Exam
Vital Signs
Temp 97.6 F 11/26/23 06:52
Pulse 78 11/26/23 06:52
Resp Rate 16 11/26/23 06:52
Blood pressure 111/76 11/26/23 06:52
SaO2 98 11/26/23 06:52
11/25/23 11/26/23 11/27/23
06:59 06:59 06:59
Actual Weight 55 kg
Lab Results / Allergies
11/26/23 06:26
11/26/23 06:26
WBC 7.2 10^3/uL (4.8-10.8) 11/26/23 06:26
Hgb 12.0 g/dL (12.0-16.0) 11/26/23 06:26
Hct 34.7 % (37.0-47.0) L 11/26/23 06:26
Plt Count 273 10^3/uL (130-400) 11/26/23 06:26
Abs Immat Gran (auto) 0.1 10^3/uL (0-0.05) H 11/25/23 23:47
Neutrophils % 58.4 % (42.2-75.2) 11/25/23 23:47
Allergy/AdvReac Type Severity Reaction Status Date / Time
adhesive Allergy Rash Verified 11/15/23 14:47
Cephalosporins Allergy Nausea / Verified 11/16/23 14:23
Vomiting/HIVES
CHILD
ciprofloxacin [From Cipro] Allergy Nausea / Verified 11/15/23 14:47
Vomiting
latex Allergy Rash Verified 11/14/23 23:56
levetiracetam Allergy MATTY Verified 11/14/23 23:56
JOHNSONS
SYNDROME
levofloxacin [From Levaquin] Allergy Phlebitis Verified 11/15/23 10:43
at IV site
during
infusion
penicillin V Allergy HIVES Verified 11/15/23 15:58
CHILD
Penicillins Allergy HIVES Verified 11/15/23 15:58
CHILD
Sulfa (Sulfonamide Allergy Anaphylaxis Verified 11/14/23 23:56
Antibiotics)
sulfasalazine Allergy Anaphylaxis Verified 11/14/23 23:56
Physical Exam
General: Well Developed, Well Nourished and No Apparent Distress
GI: Soft, Non Tender and Non Distended
Rectal: Other (Left posterior thrombosed hemorrhoid on visual inspection, NITO: Rectocele noted, stool in the rectal vault, no impaction noted)
Neuro: AO x 3
Data Reviewed
-
Labs: Labs Reviewed by me and Discussed with Nurse
Assessment / Plan
-
Assessment: 53-year-old female with a history of hemorrhoids and pelvic floor issues, presents to the ER complaining of rectal pain. Posterior thrombosed hemorrhoid found on exam.
Plan: Given the patient has had this problem for 3 days, we advised her to hold off on any surgery for this at this time. At this point the thrombosed hemorrhoid will start to resolve in about 4 to 5 days and surgery would not help with her pain.
We recommended she apply Dibucaine to the area as needed. Sitz bath twice a day for a week. Tylenol or ibuprofen as needed for pain control. Daily fiber supplement. Stool softeners as needed if using narcotics. Follow-up in the office as an
outpatient with Dr. Vazquez for any hemorrhoid related symptoms.
--- NOTE | 2023-11-26 15:11 | W.PN.UPDATE ---
Update Note
Progress Note Update
Pt seen independently of operator helper
agree with his plan
spouse and pt mother updated
pt and family with concerns regarding constipation have requested GI to see
[2023-11-26] MEDS: NULYTELY SOLUTION 2 LITERS PO (16:29)
[2023-11-26] MEDS: TOBREX 0.3% EYE DROPS 2 DROP BOTH EYES (16:30)
[2023-11-26] MEDS: LOVENOX 40 MG SC (19:55)
[2023-11-26] MEDS: COLACE 100 MG PO (19:57)
[2023-11-26] MEDS: ZOFRAN 4 MG IV (19:57)
[2023-11-26] MEDS: LYRICA 150 MG PO (19:57)
[2023-11-27 00:10] VITALS: BP 123/85
[2023-11-27] MEDS: DILAUDID 0.5 MG IV ×3 (01:23→14:09)
[2023-11-27 07:00] VITALS: BP 96/62
[2023-11-27] MEDS: NUPERCAINAL 1% OINTMENT 1 APPLIC TOPICAL (08:19)
[2023-11-27] MEDS: CYTOMEL 10 MICROGRAM PO (08:19)
[2023-11-27] MEDS: CYTOTEC 200 MCG PO ×2 (08:20→13:59)
[2023-11-27] MEDS: LYRICA 150 MG PO (08:20)
[2023-11-27] MEDS: PROTONIX 40 MG PO (08:20)
[2023-11-27] MEDS: DIFLUCAN 200 MG PO (08:20)
[2023-11-27] MEDS: REFRESH EYE DROPS (PF) 1 DROPS BOTH EYES (08:20)
[2023-11-27] MEDS: VISBIOME 1 CAP PO (08:21)
[2023-11-27] MEDS: PRED FORTE 1% EYE DROPS 1 DROP OPHTH ×2 (08:21→14:00)
[2023-11-27] MEDS: COLACE PO (08:24)
[2023-11-27] MEDS: MIRALAX PO (08:24)
[2023-11-27 08:43] LABS: % Basophils 0.8 % (0-2); % Eosinophils 0.5 % (0-6); % Immature Granulocytes 0.7 % (0-0.5); % Lymphocytes 45.7 % (20.5-51.1); % Monocytes 6.5 % (1.7-9.3); % Neutrophils 45.8 % (42.2-75.2); Absolute Basophils 0.1 10^3/uL (0-0.2); Absolute Immature Granulocytes 0.1 10^3/uL (0-0.05); Absolute Lymphocytes 3.4 10^3/uL (1.2-3.4); Absolute Monocytes 0.5 10^3/uL (0.1-0.6); Absolute Neutrophils 3.4 10^3/uL (1.4-6.5); Hematocrit 35.1 % (37.0-47.0); Hemoglobin 11.9 g/dL (12.0-16.0); Mean Corp Hgb Conc. 33.9 g/dL (33.0-37.0); Mean Corpuscular Hgb 29.2 pg (27.0-31.0); Mean Platelet Volume 10.3 fL (7.4-10.4); Nucleated Red Blood Cells % 0 %; Platelet Count 289 10^3/uL (130-400); Red Blood Cell Count 4.08 10^6/uL (4.20-5.40); Red Cell Dist. Width 13.2 % (11.5-14.5); White Blood Cell Count 7.4 10^3/uL (4.8-10.8)
[2023-11-27 09:14] LABS: ALT (SGPT) 37 U/L (0-35); AST (SGOT) 23 U/L (14-36); Albumin 3.6 g/dl (3.5-5.0); Alkaline Phosphatase 38 U/L (38-126); Blood Urea Nitrogen 12 mg/dl (7-17); Calcium 9.2 mg/dl (8.4-10.2); Carbon Dioxide 28 mmol/L (22-30); Chloride 102 mmol/L (98-107); Estimated Creatinine Clearance 93 ml/min; Glucose 88 mg/dl (70-99); Potassium 4.3 mmol/L (3.5-5.1); Sodium 133 mmol/L (135-145); Total Protein 6.1 g/dl (6.3-8.2); eGFR > 60.00
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
--- NOTE | 2023-11-27 11:29 | CM ---
Patient seen bedside, initial assessment completed. Patient reports she lives with her spouse in a two story home, two steps to enter. Patient reports she has an IV nurse come to her home every 6 weeks, denies SNF. Patient denies DME in home,
reports she will use the wall to hold on if she needs. Patient confirms PCP Francis Lang, pharmacy [facility]. CM provided [facility] form, patient refused to sign, patient upset she is observation status. TT sent to CM regarding observation
status. CM will continue to follow for discharge planning needs.
Plan; home no needs, watch for VN needs.
[2023-11-27] MEDS: TOBREX 0.3% EYE DROPS 2 DROP BOTH EYES (14:00)
--- NOTE | 2023-11-27 14:58 | W.DS.TRANS ---
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
-
Discharge Instructions:
Instructions:
Stand-Alone Forms:
Changes to Home Medications: No
Discharge Medications:
DC Medications w/original date entered in [employer]
diazepam 5 mg vaginal TID SPASMS 11/15/23
diclofenac sodium 1 % topical gel 2 g topical QID PRN apply to B/L neck 11/15/23
estradiol cypionate 1 dose IM MOTH@0800 Hormonal Agent 11/15/23
ibuprofen 200 mg tablet 400 mg PO Q6H PRN mild pain 11/15/23
infliximab 100 mg intravenous solution (Remicade) 0 mg IV Q6W Ulcerative Colitis 11/15/23
liothyronine 5 mcg tablet 10 mcg PO DAILY Thyroid 11/15/23
pantoprazole 40 mg tablet,delayed release 40 mg PO BID Gastrointestinal Issue 11/15/23
pregabalin 75 mg capsule 150 mg PO BID Neurological Condition 11/15/23
progesterone micronized 100 mg capsule 100 mg vaginal HS Hormonal Agent 11/15/23
testosterone cypionate 200 mg/mL intramuscular oil 8 mg IM MOTH@0800 Hormonal Agent 11/15/23
thyroid (pork) 60 mg tablet ([place] Thyroid) 60 mg PO DAILY Thyroid 11/15/23
tobramycin 0.3 % eye drops 2 drp BOTH EYES .AFTERNOON Eye Condition 11/15/23
tretinoin 0.025 % topical cream 1 applic topical WEEKLY apply to face 11/15/23
zinc 1 tab PO DAILY Supplement 11/15/23
Lactobac/Bifidobac [Visbiome] 1 cap PO DAILY ##0 11/21/23
misoprostol 200 mcg tablet 200 mcg PO AC #0 tabs 11/21/23
polyethylene glycol 3350 17 gram oral powder packet (HealthyLax) 17 g PO DAILY #0 ea 11/21/23
polyvinyl alcohol-povidone (PF) 1.4 %-0.6 % eye drops in a dropperette (Refresh Classic (PF)) 1 drp BOTH EYES TID #50 ea 11/21/23
prednisolone acetate 1 % eye drops,suspension 1 drp ophthalmic (eye) QID #15 mL 11/21/23
white petrolatum 42 % topical ointment (Hydrophor) 1 applic topical TID #454 grams 11/21/23
bimatoprost 0.03 % drops with applicator, eyelash base 1 applic topical HS Eye Condition 11/26/23
estradiol 0.01% (0.1 mg/gram) vaginal cream 1 applic vaginal MOWEFR@1999 Hormonal Agent 11/26/23
fluconazole 100 mg tablet 100 mg PO DAILY Infection 11/26/23
hydrocodone 5 mg-acetaminophen 325 mg tablet 1 tab PO Q4 chronic pain 11/26/23
linaclotide 290 mcg capsule (Linzess) 290 mcg PO DAILY bowels 11/26/23
meloxicam 15 mg tablet 15 mg PO DAILYPRN PRN mild pain 11/26/23
metaxalone 800 mg tablet 800 mg PO DAILY PRN muscle spasm 11/26/23
mirabegron 25 mg tablet,extended release 24 hr (Myrbetriq) 25 mg PO DAILY Urinary Issue 11/26/23
plecanatide 3 mg tablet (Trulance) 3 mg PO DAILY Gastrointestinal Issue 11/26/23
Home Medication Changes
Pending Results: No
Total time spent discharging patient (in min): 39
--- NOTE | 2023-11-27 15:08 | W.PN.UPDATE ---
Update Note
Progress Note Update
billing purposes only
--- NOTE | 2023-11-27 15:08 | W.DCSUMMARY ---
Discharge Summary
Discharge Data
Date of Admission: 11/26/23
Date of Discharge: 11/27/23
Total time spent discharging patient (in min): 39
-
Pending Results: No
Hospital Course
53 F presents with rectal pain from prolapsed hemorrhoid, improved. Seen by CRS, recommended no acute surgery. Pt seen by GI for constipation related to pelvic floor dysfunction, longstanding issue, pt did have bm with go-lytely.
GEN: NAD
HEENT : NO JVD
LUNGS : CTA B
PSYCH: CALM
ABD: NON DISTENDED POS BOWEL NON TENDER
NEURO : NO FOCAL
EXTREM: NO EDEMA
CV: RRR NO MRG
ASSESSMENT & PLAN
Acute rectal pain with reducible pick tissue prolapse
External hemorrhoid, thrombosed,
HX Rectocele per patient : due to have surgery in January with colorectal surgery, pain management, and GI
- Narcotic Pain control PRN
- Anusol HS
- CRS consult eval in AM - sitz bath, tylenol, conservative measures. No acute surgical intervention. Outpt follow up with CRS service.
Constipation, refractory
Pt with complex hx of constipation thought to be from pelvic floor dysfunction
apprec GI
ok for discharge
misoprostol stopped -> colchicine
pt did have BM here.
Recent HX sepsis 2/2 Right Sided Pneumonia concern for aspiration on last admission
HX PCN allergy but tolerate cephalosporins
S/P CFTX for 7 days
Carol Esophagitis on PO Fluconazole 7 moreday from 11/21/23 (total 14 days course)
NEG HIV
Dysphagia, Odynophagia
-appreciate ID, IV Fluconazole started on 11/14
- Evaluation completed such as VSE, Barium Esophagram 11/19 on last admission
- Patient is now tolerating regular diet
HX ulcerative colitis on Remicade(every 6 weeks) with her last infusion on 11/07/2023
Dizziness with subjective balance dysfunction
- NEG HCT' on last admission
Hypothyroid on liothyronine
HX chronic pelvic pain
s/p 3rd pudendal block without effect
- on Lyrica
- narcotic PRN for severe pain
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
HX CAD age 31.
HX Hypercalcemia
HX Attention deficit disorder
Anxiety
DVT Px: LMWH
Full code
Obs MS
Discharge Plan
-
Patient Disposition: Home (Routine Discharge)
Discharge Diagnosis/Procedures: hemorrhoid
Diet: As tolerated
Activity: As tolerated
Referrals:
Francis Lang DO [Family Provider] -
Prescriptions:
New
plecanatide 3 mg Tablet
3 mg PO DAILY Qty: 30 0RF
bimatoprost 0.03 % Drops
1 drp BOTH EYES HS Qty: 5 0RF
docusate sodium 100 mg Capsule
100 mg PO BID Qty: 60 0RF
colchicine 0.6 mg capsule
0.6 mg PO TID Qty: 180 0RF
Continued
tretinoin 0.025 % Cream
1 applic TOPICAL WEEKLY
liothyronine 5 mcg Tablet
10 mcg PO DAILY
Rx Instructions:
11/15/2023, take with 60 mg of [place] Thyroid daily.
pantoprazole 40 mg Tablet,Delayed Release (Dr/Ec)
40 mg PO BID
tobramycin 0.3 % Drops
2 drp BOTH EYES .AFTERNOON
infliximab [Remicade] 100 mg Recon Soln
0 mg IV Q6W
ibuprofen 200 mg Tablet
400 mg PO Q6H PRN (Reason: mild pain)
testosterone cypionate 200 mg/mL Oil
8 mg IM MOTH@0800
progesterone micronized 100 mg Capsule
100 mg vaginal HS
pregabalin 75 mg Capsule
150 mg PO BID
Patient Comments:
11/15/2023, pt. filled this med. on 11/03/2023 for 60 capsules per PDMP.
diclofenac sodium 1 % Gel
2 g TOPICAL QID PRN (Reason: apply to B/L neck)
thyroid (pork) [[place] Thyroid] 60 mg Tablet
60 mg PO DAILY
Rx Instructions:
11/15/2023, take with 10 mcg of Liothyronine daily.
diazepam 5 mg tablet
5 mg vaginal TID
Patient Comments:
11/15/2023, inserted vaginally/rectally; pt. filled this med. on 10/29/2023 for 90 tablets per PDMP.
estradiol cypionate 5 mg/ml oil
1 dose IM MOTH@0800
Patient Comments:
11/14/2024, per pt., they use '0.15mg/10ml'.
zinc
1 tab PO DAILY
white petrolatum [Hydrophor] 42 % Ointment
1 applic topical TID Qty: 454 0RF
polyethylene glycol 3350 [HealthyLax] 17 gram Powder In Packet
17 g PO DAILY Qty: 0 0RF
Refresh Classic (PF) 1.4-0.6 % Dropperette
1 drp BOTH EYES TID Qty: 50 0RF
prednisolone acetate 1 % Drops,Suspension
1 drp ophthalmic (eye) QID Qty: 15 0RF
Patient Comments:
left eye
Lactobac/Bifidobac [Visbiome]
1 cap PO DAILY Qty: 0 0RF
fluconazole 100 mg tablet
100 mg PO DAILY
hydrocodone-acetaminophen 5-325 mg tablet
1 tab PO Q4
meloxicam 15 mg tablet
15 mg PO DAILYPRN PRN (Reason: mild pain)
estradiol 0.01 % (0.1 mg/gram) cream
1 applic VAGINAL MOWEFR@2000
metaxalone 800 mg tablet
800 mg PO DAILY PRN (Reason: muscle spasm)
bimatoprost 0.03 % drops with applicator
1 applic TOPICAL HS
Rx Instructions:
both eyes
Myrbetriq 25 mg tablet extended release 24 hr
25 mg PO DAILY
Linzess 290 mcg capsule
290 mcg PO DAILY
Trulance 3 mg tablet
3 mg PO DAILY
Discontinued
misoprostol 200 mcg Tablet
200 mcg PO AC Qty: 0 0RF
Discharge Orders:
Discharge Patient (As Directed); Ordered 11/27/23
Ordered By: Neela Felipe
Discharge Date and Time
Print Language: FAROESE
[2023-11-27 15:37] VITALS: BP 120/78
[2023-11-27] MEDS: REFRESH EYE DROPS (PF) BOTH EYES (15:51)
[2023-11-27] MEDS: CYTOTEC PO (15:52)
--- NOTE | 2023-11-27 16:22 | PTCARENOTE ---
Pt DC'd by YUVAL Wiley
== END 2023-11-27 16:18 | disposition home or self-care (01) ==
LOC: 4 WEST ACU 01:25
PROVIDERS: ADMITTING PHYSICIAN Internal Medicine; ATTENDING PHYSICIAN Internal Medicine; EMERGENCY PHYSICIAN Student in an Organized Health Care Education/Training Program; FAMILY PHYSICIAN Family Medicine; OTHER PHYSICIAN Internal Medicine Gastroenterology; OTHER PHYSICIAN Surgery
DX: K64.5 Perianal venous thrombosis (principal); G89.29 Other chronic pain; B37.0 Candidal stomatitis; K31.84 Gastroparesis; R15.9 Full incontinence of feces; I73.00 Raynaud's syndrome without gangrene; N81.6 Rectocele; J18.9 Pneumonia, unspecified organism; R10.2 Pelvic and perineal pain; K59.09 Other constipation; G54.0 Brachial plexus disorders; G90.A Postural orthostatic tachycardia syndrome [POTS]; F41.9 Anxiety disorder, unspecified; J45.909 Unspecified asthma, uncomplicated; D68.00 Von Willebrand disease, unspecified; E78.00 Pure hypercholesterolemia, unspecified; K64.8 Other hemorrhoids; I10 Essential (primary) hypertension; E03.9 Hypothyroidism, unspecified; K21.00 Gastro-esophageal reflux disease with esophagitis, without bleeding; I25.10 Atherosclerotic heart disease of native coronary artery without angina pectoris; K51.20 Ulcerative (chronic) proctitis without complications; Z82.49 Family history of ischemic heart disease and other diseases of the circulatory system; Z87.440 Personal history of urinary (tract) infections; Z87.442 Personal history of urinary calculi; Z87.01 Personal history of pneumonia (recurrent); Z87.19 Personal history of other diseases of the digestive system; Z79.890 Hormone replacement therapy; Z88.0 Allergy status to penicillin; Z88.2 Allergy status to sulfonamides; Z88.1 Allergy status to other antibiotic agents; Z91.040 Latex allergy status
CPT/HCPCS: 74022; 80048; 80053; 81003; 81015; 83690; 85025; 85027; 93005; 99285; G0378

== ENCOUNTER → 2023-12-10 16:43 | Outpatient (REF) | payer OTHER, SELFPAY | LOC: RAD 16:43 | PROVIDERS: ATTENDING PHYSICIAN Internal Medicine Gastroenterology; FAMILY PHYSICIAN Family Medicine | DX: K59.00 Constipation, unspecified (principal) | CPT/HCPCS: 74018 ==

== ENCOUNTER → 2023-12-11 11:07 | Outpatient (REF) | payer OTHER, SELFPAY | LOC: RAD 11:07 | PROVIDERS: ATTENDING PHYSICIAN Family Medicine | DX: J15.8 Pneumonia due to other specified bacteria (principal) | CPT/HCPCS: 71046 ==

== ENCOUNTER 2023-12-17 13:08 | Outpatient (RCR) | payer OTHER, SELFPAY | END 2023-12-17 23:59 | disposition home or self-care (01) | LOC: RPT 13:08 | PROVIDERS: ATTENDING PHYSICIAN Urology; FAMILY PHYSICIAN Family Medicine | DX: N81.6 Rectocele (principal); Z73.6 Limitation of activities due to disability; K59.00 Constipation, unspecified; N30.10 Interstitial cystitis (chronic) without hematuria; K52.9 Noninfective gastroenteritis and colitis, unspecified; K31.84 Gastroparesis | CPT/HCPCS: 97162; 97535 ==

== ENCOUNTER → 2024-01-14 06:30 | Day surgery (SDC) | payer OTHER, SELFPAY ==
[2024-01-11 08:10] VITALS: BMI 16.6
[2024-01-11 08:51] LABS: % Basophils 0.6 % (0-2); % Eosinophils 2.8 % (0-6); % Immature Granulocytes 0.4 % (0-0.5); % Lymphocytes 31.1 % (20.5-51.1); % Monocytes 6.1 % (1.7-9.3); Absolute Basophils 0.1 10^3/uL (0-0.2); Absolute Eosinophils 0.2 10^3/uL (0-0.7); Absolute Lymphocytes 2.5 10^3/uL (1.2-3.4); Absolute Monocytes 0.5 10^3/uL (0.1-0.6); Absolute Neutrophils 4.7 10^3/uL (1.4-6.5); Hematocrit 40.7 % (37.0-47.0); Hemoglobin 13.4 g/dL (12.0-16.0); Mean Corp Hgb Conc. 32.9 g/dL (33.0-37.0); Mean Corpuscular Hgb 29.4 pg (27.0-31.0); Mean Corpuscular Volume 89.3 fL (81.0-99.0); Mean Platelet Volume 10.4 fL (7.4-10.4); Nucleated Red Blood Cells % 0 %; Platelet Count 264 10^3/uL (130-400); Red Blood Cell Count 4.56 10^6/uL (4.20-5.40); Red Cell Dist. Width 13.2 % (11.5-14.5); White Blood Cell Count 7.9 10^3/uL (4.8-10.8)
[2024-01-11 08:54] LABS: Urine Albumin Negative (Neg - Trace); Urine Bilirubin 1+ (Negative); Urine Character Slightly Cloudy (Clear); Urine Color Yellow; Urine Glucose Negative (Negative); Urine Ketone Trace (Negative); Urine Leukocyte Trace (Negative); Urine Nitrite Negative (Negative); Urine Occult Blood 2+ (Negative); Urine Specific Gravity 1.025 (<1.030); Urine Urobilinogen Negative (Neg - 1+)
[2024-01-11 09:00] LABS: INR 1.06; PT 13.7 Sec (11.4-14.6)
[2024-01-11 09:01] LABS: APTT 28.8 Sec (23.4-35.0)
[2024-01-11 09:05] LABS: Blood Urea Nitrogen 12 mg/dl (7-17); Calcium 9.5 mg/dl (8.4-10.2); Carbon Dioxide 27 mmol/L (22-30); Chloride 101 mmol/L (98-107); Estimated Creatinine Clearance 84 ml/min; Glucose 86 mg/dl (70-99); Potassium 3.6 mmol/L (3.5-5.1); Sodium 136 mmol/L (135-145); eGFR > 60.00
[2024-01-11 09:12] LABS: Urine Mucus Moderate; Urine Squamous Cell >30 /LPF (Few)
[2024-01-11 09:14] LABS: Urine Amorphous Seen; Urine Bacteria Few (Negative); Urine Red Blood Cell 0-2 /HPF (0-2); Urine White Cell 0-2 /HPF (0-5)
[2024-01-14] VITALS (11 sets, daily range): BP systolic 85–132; BP diastolic 54–90; BMI 16.6
[2024-01-14] MEDS: Pyridium 200 MG PO (07:41)
[2024-01-14] MEDS: NORMOSOL-R 1000 IV (08:21)
[2024-01-14] MEDS: DILAUDID 0.25 MG IV ×2 (09:55→10:08)
[2024-01-14] MEDS: VALIUM 5 MG PO (10:14)
--- NOTE | 2024-01-14 12:51 | PTCARENOTE ---
pt called [facility] today at [address] Pettit wanted her to take an antibiotic at home. [facility] RN reached out to Dr Pettit. per no other antibiotics needed. [facility] RN called pt and left her a message at 1245 to notify her.
== END ==
LOC: SDS 06:30
PROVIDERS: ATTENDING PHYSICIAN Urology; FAMILY PHYSICIAN Family Medicine; OTHER PHYSICIAN Obstetrics & Gynecology
DX: N30.10 Interstitial cystitis (chronic) without hematuria (principal); G89.29 Other chronic pain; G24.9 Dystonia, unspecified
CPT/HCPCS: 52287; 52260; 88305; 36415; 80048; 81003; 81015; 85025; 85610; 85730; 87086; 93005; J0585

== ENCOUNTER 2024-01-22 14:08 | Outpatient (RCR) | payer OTHER, SELFPAY | END 2024-01-22 23:59 | disposition home or self-care (01) | LOC: RPT 14:08 | PROVIDERS: ATTENDING PHYSICIAN Urology; FAMILY PHYSICIAN Family Medicine | DX: N30.00 Acute cystitis without hematuria (principal); M62.89 Other specified disorders of muscle; R10.2 Pelvic and perineal pain; G58.8 Other specified mononeuropathies | CPT/HCPCS: 97110; 97140; 97530 ==

== ENCOUNTER → 2024-01-29 07:10 | Outpatient (REF) | payer OTHER, SELFPAY | LOC: RCS 07:10 | PROVIDERS: ATTENDING PHYSICIAN Internal Medicine Cardiovascular Disease; FAMILY PHYSICIAN Family Medicine; REFERRING PHYSICIAN Internal Medicine Critical Care Medicine | DX: R07.9 Chest pain, unspecified (principal); R06.02 Shortness of breath | CPT/HCPCS: 93017; 93306 ==

== ENCOUNTER 2024-02-15 13:12 | Outpatient (RCR) | payer OTHER, SELFPAY | END 2024-02-15 23:59 | disposition home or self-care (01) | LOC: RPT 13:12 | PROVIDERS: ATTENDING PHYSICIAN Urology; FAMILY PHYSICIAN Family Medicine | DX: N30.00 Acute cystitis without hematuria (principal); M62.89 Other specified disorders of muscle; R10.2 Pelvic and perineal pain; G58.8 Other specified mononeuropathies; Z73.6 Limitation of activities due to disability | CPT/HCPCS: 97140; 97530 ==

== ENCOUNTER 2024-03-26 14:04 | Outpatient (RCR) | payer OTHER, SELFPAY | END 2024-03-26 23:59 | disposition home or self-care (01) | LOC: RPT 14:04 | PROVIDERS: ATTENDING PHYSICIAN Urology; FAMILY PHYSICIAN Family Medicine | DX: N30.00 Acute cystitis without hematuria (principal); M62.89 Other specified disorders of muscle; R10.2 Pelvic and perineal pain; G58.8 Other specified mononeuropathies | CPT/HCPCS: 97140; 97530 ==

== ENCOUNTER 2024-04-09 19:23 | Emergency (ER) | payer OTHER, SELFPAY ==
[2024-04-09 19:26] VITALS: BP 124/89
--- NOTE | 2024-04-09 19:54 | ED.GENMED ---
History of Present Illness
General
Chief Complaint: Cold/Flu/URI Symptoms
Source: patient
Exam Limitations: none
Time Seen by Provider: 04/09/24 19:36
History of Present Illness
History of Present Illness:
This is a 54 year old female that comes in with c/o SOB. States that she has COVID 12 days ago. States that she is not feeling any better. States that she is SOB when she goes up the steps and is dizzy. States that she chronicle has abd pain and she
has vomited. States that she has a headache and feel lightheaded. States that she also has left sided chest pain. Denies any fever, chills, nausea, diarrhea. urinary burning.
Past History
Past History
ED Past Medical History: Asthma, GERD, Hypercholesterolemia, Seizures, Hypothyroidism, Psychiatric (Denies anxiety history), Other ( Raynaud's Syndrome, PNA, Ulcerative colitis, UTI, Interstitial cystitis, ADD, Kidney stones, POTS, thoracic outlet
syndrome, Von Willebrand disease. Gastroparesis, Back and neck pain, ) and Other (Slow Motility, Difficulty swallowing that she is being worked up for. )
ED Past Surgical History: Gynecological (Uterine ablation, ), Orthopedic (Hand surgery, neck surgery, ) and Other (Breast reduction, cataracts, Eye surgery, )
Social History
Tobacco: Non-smoker
Alcohol: Occasional
Drug: None
Personal:
Living: with family
Employment: Employed
Family History
Family History: Hypertension
Review of Systems
Review of Systems
All Other Systems: ROS reviewed and negative except as documented in HPI and ROS
Constitutional: Reports no symptoms; Denies fever or chills
EENT: Reports no symptoms
Respiratory: Reports trouble breathing; Denies cough
Cardiac: Reports chest pain (Left sided)
ABD/GI: Reports abdominal pain (Chronic) and vomiting; Denies nausea or diarrhea
: Reports no symptoms; Denies dysuria, frequency, incontinence or urgency
Musculoskeletal: Reports no symptoms
Skin: Reports no symptoms
Neurological: Reports headache and other (Lightheaded)
Psychiatric: Reports no symptoms
Phy Exam
General Physical Exam
General Presentation: well appearing and no apparent distress
General age: appears stated age
General Skin: warm and dry
General Habitus: normal
General Mental: alert
General Hydration: appears well hydrated
ENT Exam
ENT Exam: TM's normal, pharynx normal and neck supple
Eye Exam
Eye Exam: EOMI
Cardiovascular Exam
Cardiovascular Exam: regular rate/rhythm, no edema, no murmur and normal peripheral pulses
Pulmonary Exam
Pulmonary Exam: lungs clear, no respiratory distress, no rales, chest non tender, no crackles, no rhonchi, no wheezing and no cough
Gastrointestinal Exam
Gastrointestinal Exam: normal bowel sounds, non tender, soft, no organomegaly, no pulsatile mass and non distended
Musculoskeletal Exam
Musculoskeletal Exam: full ROM and no edema
Skin Exam
Skin Exam: normal color, warm/dry, no rash and no petechia
Psychiatric Exam
Psychiatric Exam: normal mood/affect
Course
Orders/Labs/Results
Orders:
Orders
04/09/24 19:30
Electrocardiogram (*1) Urgent
Reason for Study: Shortness of Breath
EKG- Treatment ONCE
04/09/24 19:54
CR Chest - 2 Views Urgent
Comment:
Reason For Exam: SOB
04/09/24 20:06
Complete Blood Count/With Diff Urgent
Comprehensive Metabolic Panel Urgent
D-Dimer Urgent
Troponin I Urgent
04/09/24 22:44
Troponin I Urgent
Abnormal Lab Results
04/09/24
20:06
Sodium 134 L mmol/L
(135-145)
Glucose 103 H mg/dl
(70-99)
Total Bilirubin 1.7 H mg/dl
(0.2-1.3)
04/09/24 20:06
04/09/24 20:06
Glucose nonfasting. Total nancy slightly elevated. D-dimer <0.27, Troponin 0.018
Troponin 0.017
Vital Signs
Initial and Last Documented VS:
Initial Vital Signs
Temp Pulse Resp BP Pulse Ox
97.8 F 125 18 124/89 98
04/09/24 19:26 04/09/24 19:26 04/09/24 19:26 04/09/24 19:26 04/09/24 19:26
Last Documented Vital Signs
Temp Pulse Resp BP Pulse Ox
97.8 F 125 18 124/89 98
04/09/24 19:26 04/09/24 19:26 04/09/24 19:26 04/09/24 19:26 04/09/24 19:26
MDM/Problems Addressed
Differential Diagnosis Includes:
Post COVID SOB, PE
MDM/Problems Addressed:
This is a 54 year old female that comes in with c/o SOB. State that she has COVID 12 days ago and feels that she is not betting any better. State that she is SOB when going up the steps and has left sided chest pain. .
Will check labs, Chest x-ray, D-dimer
Back into see patient. Explained that her Chest X-ray is normal and her D-dimer is negative. Troponin is normal but will repeat. As long as stays negative will discharge patient home with follow up with the family doctor.
Back into see patient and her second Troponin is also normal. Will discharge patient home and have patient followup with the Family doctor. This may all be related to post COVID. Patient to return with any concerns.
Chronic conditions affecting care:
NA
Acute Exacerbation and/or Progression of Chronic Illness:
NA
*Radiology
Radiology exam reviewed: radiology read reviewed (Chest- No acute cardiopulmonary process. )
*Pulse Oximetry
Patient hypoxic: no
*EKG
Interpreted by ED Provider?: Yes
Heart Rate: 113
Rate: tachycardiac
Rhythm: sinus tachycardia
[place]: normal axis
Interval: normal interval
QRS Pattern: normal QRS
Ischemia: no ischemia
*Surgical Pathologist Interpretation
Rate: Surgical Pathologist- N/A
*Critical Care Note
Total Time (30-74mins, 75-104mins- exclusive of procedures): Not Applicable
ED Attending Note
-
Portions of this chart may have been created with voice recognition software.� Occasional wrong word or��sound alike� substitutions may have occurred due to the inherent limitations of voice recognition software.
Discharge Plan
Departure
Patient Disposition: Home (Routine Discharge)
Date of Disposition: 04/09/24
Time of Disposition: 23:36
Patient with high blood pressure during this ER visit?: No
Condition: Good
Covid-19: Not Applicable
Discharge Problem:
Chest pain, SOB (shortness of breath)
Instructions: Shortness of breath, Chest Pain PCP Follow Up
Prescriptions:
No Action
liothyronine 5 mcg Tablet
10 mcg PO DAILY
Rx Instructions:
11/15/2023, take with 60 mg of Sunspot Thyroid daily.
pantoprazole 40 mg Tablet,Delayed Release (Dr/Ec)
40 mg PO BID
infliximab [Remicade] 100 mg Recon Soln
0 mg IV Q6W
ibuprofen 200 mg Tablet
400 mg PO Q6H PRN (Reason: mild pain)
testosterone cypionate 200 mg/mL Oil
8 mg IM MOTH@0800
diclofenac sodium 1 % Gel
2 g TOPICAL PRN PRN (Reason: apply to B/L neck)
diazepam 5 mg tablet
15 mg vaginal TID
Patient Comments:
11/15/2023, inserted vaginally/rectally; pt. filled this med. on 10/29/2023 for 90 tablets per PDMP.
estradiol cypionate 5 mg/ml oil
15 dose IM MOTH@0800
Patient Comments:
11/14/2024, per pt., they use '0.15mg/10ml'.
white petrolatum [Hydrophor] 42 % Ointment
1 applic topical TID Qty: 454 0RF
polyethylene glycol 3350 [HealthyLax] 17 gram Powder In Packet
17 g PO DAILY Qty: 0 0RF
Refresh Classic (PF) 1.4-0.6 % Dropperette
1 drp BOTH EYES TID Qty: 50 0RF
estradiol 0.01 % (0.1 mg/gram) cream
1 applic VAGINAL MOTH
colchicine 0.6 mg capsule
0.6 mg PO TID Qty: 180 0RF
clotrimazole [Mycelex] 10 mg Loi
10 mg MUCOUS MEMBRANE 5/D
metaxalone 400 mg Tablet
400 mg PO PRN PRN (Reason: Pain)
tamsulosin 0.4 mg Capsule
0.4 mg PO DAILY
calcium carbonate [Tums] 200 mg calcium (500 mg) Tablet,Chewable
200 mg PO MEALS
pregabalin [Lyrica] 100 mg Capsule
150 mg PO DAILY
progesterone micronized 100 mg Insert
100 mg vaginal HS
Rx Instructions:
Rectal
thyroid (pork) [Sunspot Thyroid] 60 mg Tablet
60 mg PO DAILY
Movantik 25 mg Tablet
25 mg PO DAILY
Gemtesa 75 mg Tablet
75 mg PO DAILY
Epidiolex 100 mg/mL Solution
1 PO PRN PRN (Reason: Pain)
Referrals:
Francis Lang DO [Family Provider] - Follow up in 2-3 days
Activity Restrictions/Additional Instructions:
As discussed, your blood work is normal. Both Troponin are negative an your D-dimer is negative. This may be related to COVID. This will just take time to go away. Please follow up the family doctor for further evaluation. IF YOU HAVE INCREASED OR
CHANGING PAIN, OR YOU HAVE ANY OTHER CONCERNS PLEASE RETURN TO THE EMERGENCY ROOM.
Interventions
Interventions:
ED- Pulmonary Assessment Last Done: 04/09/24 20:14
Discharge Date and Time
Print Language: MONTENEGRIN
[2024-04-09 20:11] LABS: % Basophils 0.4 % (0-2); % Eosinophils 0.6 % (0-6); % Immature Granulocytes 0.5 % (0-0.5); % Lymphocytes 25.8 % (20.5-51.1); % Monocytes 7.6 % (1.7-9.3); % Neutrophils 65.1 % (42.2-75.2); Absolute Eosinophils 0.1 10^3/uL (0-0.7); Absolute Lymphocytes 2.1 10^3/uL (1.2-3.4); Absolute Monocytes 0.6 10^3/uL (0.1-0.6); Absolute Neutrophils 5.2 10^3/uL (1.4-6.5); Hematocrit 38.4 % (37.0-47.0); Hemoglobin 13.6 g/dL (12.0-16.0); Mean Corp Hgb Conc. 35.4 g/dL (33.0-37.0); Mean Corpuscular Hgb 28.7 pg (27.0-31.0); Mean Platelet Volume 10.2 fL (7.4-10.4); Nucleated Red Blood Cells % 0 %; Platelet Count 334 10^3/uL (130-400); Red Blood Cell Count 4.74 10^6/uL (4.20-5.40); Red Cell Dist. Width 13.2 % (11.5-14.5)
[2024-04-09 20:26] LABS: D-Dimer < 0.27 ug/mlFEU (0.00-0.50)
[2024-04-09 20:48] LABS: ALT (SGPT) 14 U/L (0-35); AST (SGOT) 20 U/L (14-36); Alkaline Phosphatase 49 U/L (38-126); Blood Urea Nitrogen 13 mg/dl (7-17); Calcium 9.7 mg/dl (8.4-10.2); Carbon Dioxide 24 mmol/L (22-30); Chloride 102 mmol/L (98-107); Glucose 103 mg/dl (70-99); Sodium 134 mmol/L (135-145); Total Bilirubin 1.7 mg/dl (0.2-1.3); Total Protein 6.5 g/dl (6.3-8.2); eGFR > 60.00
[2024-04-09 20:59] LABS: Troponin I 0.018 ng/ml
[2024-04-09 23:14] LABS: Troponin I 0.017 ng/ml
[2024-04-09 23:49] VITALS: BP 105/75
== END 2024-04-09 23:50 | disposition home or self-care (01) ==
LOC: EMR 19:23
PROVIDERS: Clinical Nurse Specialist Family Health; EMERGENCY PHYSICIAN Emergency Medicine; FAMILY PHYSICIAN Family Medicine
DX: R07.89 Other chest pain (principal); R06.02 Shortness of breath; R42 Dizziness and giddiness; R51.9 Headache, unspecified; R11.10 Vomiting, unspecified; U07.1 COVID-19; R13.10 Dysphagia, unspecified; K21.9 Gastro-esophageal reflux disease without esophagitis; J45.909 Unspecified asthma, uncomplicated; E78.00 Pure hypercholesterolemia, unspecified; K31.84 Gastroparesis; D68.00 Von Willebrand disease, unspecified; R56.9 Unspecified convulsions; I73.00 Raynaud's syndrome without gangrene; K51.90 Ulcerative colitis, unspecified, without complications; G90.A Postural orthostatic tachycardia syndrome [POTS]; G54.0 Brachial plexus disorders; E03.9 Hypothyroidism, unspecified; Z87.440 Personal history of urinary (tract) infections; Z87.442 Personal history of urinary calculi; Z88.1 Allergy status to other antibiotic agents; Z88.3 Allergy status to other anti-infective agents; Z91.040 Latex allergy status; Z88.0 Allergy status to penicillin; Z88.2 Allergy status to sulfonamides; Z88.8 Allergy status to other drugs, medicaments and biological substances; Z91.048 Other nonmedicinal substance allergy status
CPT/HCPCS: 99283; 71046; 80053; 84484; 85025; 85379; 93005

== ENCOUNTER 2024-04-29 20:55 | Inpatient (IN) | payer OTHER, SELFPAY ==
[2024-04-29 14:44] VITALS: BP 112/72
[2024-04-29 15:05] LABS: % Basophils 0.3 % (0-2); % Eosinophils 0.1 % (0-6); % Immature Granulocytes 0.4 % (0-0.5); % Lymphocytes 12.9 % (20.5-51.1); % Monocytes 4.7 % (1.7-9.3); % Neutrophils 81.6 % (42.2-75.2); Absolute Basophils 0.1 10^3/uL (0-0.2); Absolute Immature Granulocytes 0.1 10^3/uL (0-0.05); Absolute Lymphocytes 2.6 10^3/uL (1.2-3.4); Absolute Neutrophils 16.8 10^3/uL (1.4-6.5); Hematocrit 34.4 % (37.0-47.0); Mean Corp Hgb Conc. 34.9 g/dL (33.0-37.0); Mean Corpuscular Hgb 29.1 pg (27.0-31.0); Mean Corpuscular Volume 83.5 fL (81.0-99.0); Nucleated Red Blood Cells % 0 %; Platelet Count 302 10^3/uL (130-400); Red Blood Cell Count 4.12 10^6/uL (4.20-5.40); Red Cell Dist. Width 14.2 % (11.5-14.5); White Blood Cell Count 20.5 10^3/uL (4.8-10.8)
[2024-04-29 15:16] LABS: ALT (SGPT) 14 U/L (0-35); AST (SGOT) 19 U/L (14-36); Albumin 3.9 g/dl (3.5-5.0); Alkaline Phosphatase 46 U/L (38-126); Blood Urea Nitrogen 9 mg/dl (7-17); Calcium 9.2 mg/dl (8.4-10.2); Carbon Dioxide 23 mmol/L (22-30); Chloride 104 mmol/L (98-107); Glucose 98 mg/dl (70-99); Lipase 52 U/L (23-300); Potassium 3.9 mmol/L (3.5-5.1); Sodium 136 mmol/L (135-145); Total Bilirubin 2.6 mg/dl (0.2-1.3); Total Protein 6.3 g/dl (6.3-8.2); eGFR > 60.00
--- NOTE | 2024-04-29 15:36 | ED.GENMED ---
History of Present Illness
<Yvette Hancock PA-C - Last Filed: 04/30/24 09:04>
General
Chief Complaint: Abdominal Pain
Source: patient
Exam Limitations: none
Time Seen by Provider: 04/29/24 15:35
Nursing documentation reviewed up to this point in time: agreed with
History of Present Illness
History of Present Illness:
Patient is a 54 year old female presenting to the emergency department with abdominal pain associated with vomiting and fever. Patient states yesterday evening she started with lower abdominal discomfort. Pain was so severe she began vomiting and
then 'fell asleep on the toilet'. She has been unable to have a bowel movement. Patient's last bowel movement was 5 days ago, although this is normal per patient. This morning�patient states she had a fever of 102F at home. In addition�this
morning patient felt she was having a hard time urinating. Patient denies any chest pain, shortness of breath, cough.
Patient spoke with her GI doctor, Dr. Graham who recommended she come to the emergency department for evaluation.
Patient does have a history of ulcerative colitis and ongoing issues with her esophagus and constipation for which she follows with GI.
Past History
<Yvette Hancock PA-C - Last Filed: 04/30/24 09:04>
Past History
ED Past Medical History: Asthma, GERD, Hypercholesterolemia, Seizures, Hypothyroidism, Psychiatric (Denies anxiety history), Other ( Raynaud's Syndrome, PNA, Ulcerative colitis, UTI, Interstitial cystitis, ADD, Kidney stones, POTS, thoracic outlet
syndrome, Von Willebrand disease. Gastroparesis, Back and neck pain, ) and Other (Slow Motility, Difficulty swallowing that she is being worked up for. )
ED Past Surgical History: Gynecological (Uterine ablation, ), Orthopedic (Hand surgery, neck surgery, ) and Other (Breast reduction, cataracts, Eye surgery, )
Social History
Tobacco: Non-smoker
Alcohol: Occasional
Drug: None
Personal:
Living: with family
Employment: Employed
Family History
Family History: Hypertension
Phy Exam
<Yvette Hancock PA-C - Last Filed: 04/30/24 09:04>
Physical Exam
Physical Exam:
Vitals: Tachycardic, otherwise vital signs stable on arrival. Afebrile
General: Patient is uncomfortable appearing due to pain.
Skin: Warm and dry, no rashes or lesions
Head: Normocephalic, atraumatic
Eyes: Sclera nonicteric. EOMs intact. No nystagmus.
Throat: Protecting airway
Neck: Normal ROM, no cervical spine tenderness, no meningismus
Cardiac: Tachycardic, normal rhythm, no murmurs.
Pulm: Normal respiratory effort, no wheezes, rales, rhonchi heard on exam.
Abdomen: Abdomen soft. Moderate diffuse abdominal tenderness without rebound tenderness or guarding. No CVA tenderness
Extremities: No evidence of cyanosis or edema. Great distal pulses
Neuro: Grossly intact.
Psychiatric: Normal affect.
Course
<Yvette Hancock PA-C - Last Filed: 04/30/24 09:04>
Orders/Labs/Results
Orders:
Orders
04/29/24 Breakfast
NPO
Allow oral meds: No
Allow clear liquids: Sips of Clears
NPO with Ice Chips: Yes
04/29/24 14:52
Complete Blood Count/With Diff Urgent
Comprehensive Metabolic Panel Urgent
HCG, Serum Qualitative Screen Urgent
Comment: ADD ON
Lipase Urgent
04/29/24 15:48
Add On- LAB Urgent
Tests Added?: lipase, HCG
Morphine Sulfate 4 mg IV NOW STA
Ondansetron Injectable [Zofran] 4 mg IV NOW STA
04/29/24 15:52
CT Abd/Pel (IV only)-DH only Urgent
Comment: hx UC
Reason For Exam: diffuse abdominal pain, vomiting
0.9% Sodium Chloride 1000 ml [Nss] 1,000 ml IV BOLUS
04/29/24 16:15
Lactic Acid Q4H
Comment: CANCEL 2nd LACTIC ACID IF 1st LACTIC ACID IS LESS THAN 2
Blood Culture Urgent
SAM Source: Blood/Venous
Specimen Description:
04/29/24 16:31
Blood Culture Urgent
SAM Source: Blood/Venous
Specimen Description:
04/29/24 16:34
Cefepime HCl [Maxipime] 2,000 mg IV NOW STA
MetroNIDAZOLE 500 MG/100 ML [Flagyl 500 mg] 100 ml IV NOW
04/29/24 16:46
Chest Single View Frontal CR [CR Chest Single View] Urgent
Comment:
Reason For Exam: severe abdominal pain
04/29/24 17:08
Urinalysis Reflex To Culture Urgent
Date Specimen was Collected: 04/29/24
Time Specimen was Collected: 17:05
04/29/24 19:53
Admit/Transfer Patient As Directed
Co-Sign Provider:
Level of Care: Inpatient admission
Assign to:: Medical/Surgical
Physician / Group: Iveth
Diagnosis: Abdominal Pain / GI Dysmotility
Reason for Hospitalization: IVFs, IV abx
Expected length of stay greater than two midnights?: Yes
ELOS- Estimated Length of Stay in days: 3
I certify the patient meets the requirements for IP care: Yes
PRN Pain Medication Management As Directed
May give lesser potent ordered pain med per pt: Yes
preference::
Protocol:: Medication orders for pain may be administered in a
manner that supports deferring to patient preference
when the pt is:
- Requesting an ordered lesser potent pain medication.
Least to most potent pain medications are defined
as: acetaminophen < NSAID < tramadol < opioids
(morphine, oxycodone, hydromorphone).
- Requesting a lesser dose of the same medication IF
ORDERED.
- Requesting a less intrusive route of administration
if both routes are prescribed by the provider (PO <
IV).
04/29/24 19:57
Code Status As Directed
Resuscitation Status: Full Code
04/29/24 20:20
Gastrointestinal Tubes As Directed
Type: [place] sump
To suction?: Yes
Type of suction: Low intermittent
Irrigate tube?: No
04/29/24 22:56
Acetaminophen 1000MG/100Ml [Ofirmev] 1,000 mg in 100 ml IV Q6HPRN
Acetaminophen IV Indication:: Ileus/Delayed Bowel Func.
Dextrose 5%/0.9%Sodchl 1000 ml [D5/0.9% Sodium Chloride] 1,000 ml IV 100 mls/hr
HYDROmorphone [Dilaudid] 0.25 mg IV Q3HPRN PRN
Ondansetron Injectable [Zofran] 4 mg IV Q6HPRN PRN
04/29/24 22:56
GASTROINTESTINAL CONSULT Routine
Consulting Provider: Jarrod Johnston
Was physician already notified: Yes
SURGICAL CONSULT Routine
Consulting Provider: Ignacio Fox
Was physician already notified: Yes
Activity As Directed
Activity Level: Out of Bed-Early Mobility
With Assistance
I&O [Intake/ Output] As Directed
Frequency: q12h
Vital Signs As Directed
Frequency: Per unit guidelines
Weight As Directed
Frequency: Daily
DX Deep Vein Thrombosis Video Routine
04/30/24 00:00
Piperacillin/Tazo 3.375 Gram [Zosyn] 3.375 gram in 50 ml IV Q6H
04/30/24 05:08
Basic Metabolic Panel IN AM
Magnesium IN AM
04/30/24 18:00
Enoxaparin Sodium [Lovenox] 40 mg SC QPM
Abnormal Lab Results
04/29/24
14:52
WBC 20.5 H 10^3/uL
(4.8-10.8)
RBC 4.12 L 10^6/uL
(4.20-5.40)
Hct 34.4 L %
(37.0-47.0)
Abs Immat Gran (auto) 0.1 H 10^3/uL
(0-0.05)
Absolute Neuts (auto) 16.8 H 10^3/uL
(1.4-6.5)
Absolute Monos (auto) 1.0 H 10^3/uL
(0.1-0.6)
Neutrophils % 81.6 H %
(42.2-75.2)
Lymphocytes % 12.9 L %
(20.5-51.1)
Creatinine 0.5 L mg/dL
(0.6-1.0)
Total Bilirubin 2.6 H mg/dl
(0.2-1.3)
04/29/24 14:52
04/29/24 14:52
Vital Signs
Initial and Last Documented VS:
Initial Vital Signs
Temp Pulse Resp BP Pulse Ox
97.7 F 109 16 112/72 98
04/29/24 14:44 04/29/24 14:44 04/29/24 14:44 04/29/24 14:44 04/29/24 14:44
Last Documented Vital Signs
Temp Pulse Resp BP Pulse Ox
97.6 F 83 18 88/51 99
04/30/24 07:35 04/30/24 07:35 04/30/24 07:35 04/30/24 07:35 04/30/24 08:52
<Tia Zimmer MD - Last Filed: 04/29/24 19:08>
Orders/Labs/Results
Orders:
Orders
04/29/24 Breakfast
NPO
Allow oral meds: No
Allow clear liquids: Sips of Clears
NPO with Ice Chips: Yes
04/29/24 14:52
Complete Blood Count/With Diff Urgent
Comprehensive Metabolic Panel Urgent
HCG, Serum Qualitative Screen Urgent
Comment: ADD ON
Lipase Urgent
04/29/24 15:48
Add On- LAB Urgent
Tests Added?: lipase, HCG
Morphine Sulfate 4 mg IV NOW STA
Ondansetron Injectable [Zofran] 4 mg IV NOW STA
04/29/24 15:52
CT Abd/Pel (IV only)-DH only Urgent
Comment: hx UC
Reason For Exam: diffuse abdominal pain, vomiting
0.9% Sodium Chloride 1000 ml [Nss] 1,000 ml IV BOLUS
04/29/24 16:15
Lactic Acid Q4H
Comment: CANCEL 2nd LACTIC ACID IF 1st LACTIC ACID IS LESS THAN 2
Blood Culture Urgent
SAM Source: Blood/Venous
Specimen Description:
04/29/24 16:31
Blood Culture Urgent
SAM Source: Blood/Venous
Specimen Description:
04/29/24 16:34
Cefepime HCl [Maxipime] 2,000 mg IV NOW STA
MetroNIDAZOLE 500 MG/100 ML [Flagyl 500 mg] 100 ml IV NOW
04/29/24 16:46
Chest Single View Frontal CR [CR Chest Single View] Urgent
Comment:
Reason For Exam: severe abdominal pain
04/29/24 17:08
Urinalysis Reflex To Culture Urgent
Date Specimen was Collected: 04/29/24
Time Specimen was Collected: 17:05
04/29/24 19:53
Admit/Transfer Patient As Directed
Co-Sign Provider:
Level of Care: Inpatient admission
Assign to:: Medical/Surgical
Physician / Group: Iveth
Diagnosis: Abdominal Pain / GI Dysmotility
Reason for Hospitalization: IVFs, IV abx
Expected length of stay greater than two midnights?: Yes
ELOS- Estimated Length of Stay in days: 3
I certify the patient meets the requirements for IP care: Yes
PRN Pain Medication Management As Directed
May give lesser potent ordered pain med per pt: Yes
preference::
Protocol:: Medication orders for pain may be administered in a
manner that supports deferring to patient preference
when the pt is:
- Requesting an ordered lesser potent pain medication.
Least to most potent pain medications are defined
as: acetaminophen < NSAID < tramadol < opioids
(morphine, oxycodone, hydromorphone).
- Requesting a lesser dose of the same medication IF
ORDERED.
- Requesting a less intrusive route of administration
if both routes are prescribed by the provider (PO <
IV).
04/29/24 19:57
Code Status As Directed
Resuscitation Status: Full Code
04/29/24 20:20
Gastrointestinal Tubes As Directed
Type: [place] sump
To suction?: Yes
Type of suction: Low intermittent
Irrigate tube?: No
04/29/24 22:56
Acetaminophen 1000MG/100Ml [Ofirmev] 1,000 mg in 100 ml IV Q6HPRN
Acetaminophen IV Indication:: Ileus/Delayed Bowel Func.
Dextrose 5%/0.9%Sodchl 1000 ml [D5/0.9% Sodium Chloride] 1,000 ml IV 100 mls/hr
HYDROmorphone [Dilaudid] 0.25 mg IV Q3HPRN PRN
Ondansetron Injectable [Zofran] 4 mg IV Q6HPRN PRN
04/29/24 22:56
GASTROINTESTINAL CONSULT Routine
Consulting Provider: Jarrod Johnston
Was physician already notified: Yes
SURGICAL CONSULT Routine
Consulting Provider: Ignacio Fox
Was physician already notified: Yes
Activity As Directed
Activity Level: Out of Bed-Early Mobility
With Assistance
I&O [Intake/ Output] As Directed
Frequency: q12h
Vital Signs As Directed
Frequency: Per unit guidelines
Weight As Directed
Frequency: Daily
DX Deep Vein Thrombosis Video Routine
04/30/24 00:00
Piperacillin/Tazo 3.375 Gram [Zosyn] 3.375 gram in 50 ml IV Q6H
04/30/24 05:08
Basic Metabolic Panel IN AM
Magnesium IN AM
04/30/24 18:00
Enoxaparin Sodium [Lovenox] 40 mg SC QPM
Abnormal Lab Results
04/29/24
14:52
WBC 20.5 H 10^3/uL
(4.8-10.8)
RBC 4.12 L 10^6/uL
(4.20-5.40)
Hct 34.4 L %
(37.0-47.0)
Abs Immat Gran (auto) 0.1 H 10^3/uL
(0-0.05)
Absolute Neuts (auto) 16.8 H 10^3/uL
(1.4-6.5)
Absolute Monos (auto) 1.0 H 10^3/uL
(0.1-0.6)
Neutrophils % 81.6 H %
(42.2-75.2)
Lymphocytes % 12.9 L %
(20.5-51.1)
Creatinine 0.5 L mg/dL
(0.6-1.0)
Total Bilirubin 2.6 H mg/dl
(0.2-1.3)
04/29/24 14:52
04/29/24 14:52
Vital Signs
Initial and Last Documented VS:
Initial Vital Signs
Temp Pulse Resp BP Pulse Ox
97.7 F 109 16 112/72 98
04/29/24 14:44 04/29/24 14:44 04/29/24 14:44 04/29/24 14:44 04/29/24 14:44
Last Documented Vital Signs
Temp Pulse Resp BP Pulse Ox
97.6 F 83 18 88/51 99
04/30/24 07:35 04/30/24 07:35 04/30/24 07:35 04/30/24 07:35 04/30/24 08:52
<Yvette Hancock PA-C - Last Filed: 04/30/24 09:04>
MDM/Problems Addressed
Differential Diagnosis Includes:
Not limited to: Small bowel obstruction, large bowel obstruction, bowel perforation, fistula, ulcerative colitis flare, diverticulitis, appendicitis, UTI
MDM/Problems Addressed:
54-year-old female with extensive abdominal history including ulcerative colitis presenting to the emergency department with 1 day of lower abdominal discomfort, vomiting, fever. Temp of 102F at home. Last bowel movement was 5 days ago�which is
normal for patient. Patient not tolerating oral intake since last night. Patient closely followed by Dr. Graham with GI. Patient tachycardic, otherwise vital signs stable on arrival. Patient is afebrile. Patient does appear uncomfortable due
to pain. Physical exam as above. Patient's abdomen is soft diffusely tender in lower abdomen. Heart regular rate and rhythm. Lungs clear bilaterally. Patient is perfusing well. Labs initiated in triage show a leukocytosis of 20.5 with left
shift. No other clinically significant abnormalities on chemistry. Patient does have an elevated total bilirubin of 2.6�although hx Gilbert syndrome. Urine does not appear infected. Differential broad although concern for possible acute
intra-abdominal infection versus ulcerative colitis complication including flare versus fistula, bowel obstruction, or perforation. Will check lactic, blood cultures. Will obtain CT abdomen/pelvis with IV contrast�as patient will not tolerate oral
contrast at this time. Given patient's significant leukocytosis and history of fever�concern for possible infectious etiology. Will empirically start broad-spectrum antibiotics with a dose of cefepime and Flagyl given patient's penicillin allergy.
She has tolerated Rocephin in the past. Will give IV fluids, pain management. Patient will likely require admission. Will closely monitor and reassess.
1 view chest x-ray obtained which shows no evidence of free air. Into reassess patient and patient's pain under much better control. At this point�Case was signed out to attending physician pending CT report. Anticipate admission.
Chronic conditions affecting care:
Ulcerative colitis
Acute Exacerbation and/or Progression of Chronic Illness:
N/A
<Yvette Hancock PA-C - Last Filed: 04/30/24 09:04>
*Radiology
Radiology exam reviewed: preliminary read by ED provider and radiology read reviewed (Chest x-ray shows no free air)
*Pulse Oximetry
Patient hypoxic: no
*EKG
Interpreted by ED Provider?: NA
*Custodial Services Manager Interpretation
Rate: Custodial Services Manager- N/A
*Critical Care Note
Total Time (30-74mins, 75-104mins- exclusive of procedures): Not Applicable
ED Attending Note
<Yvette Hancock PA-C - Last Filed: 04/30/24 09:04>
-
Portions of this chart may have been created with voice recognition software.� Occasional wrong word or��sound alike� substitutions may have occurred due to the inherent limitations of voice recognition software.
<Tia Zimmer MD - Last Filed: 04/29/24 19:08>
ED Attending Note
Patient seen and examined by attending physician: Yes
I performed the substantive portion of visit, reviewed & personally made and approve the management plan that is documented in note by myself or SASKIA.: Yes
ED Attending Note:
Patient is a 54-year-old woman with history of extensive past abdominal history including history of ulcerative colitis on Remicade presented to the emergency department with abdominal pain fevers and vomiting. She states that the abdominal pain is
suprapubic. She is also been having difficulty urinating though she does have interstitial cystitis. She had a fever of 102 this morning. Last bowel movement was 5 days ago but that is normal for her. No chest pain or difficulty breathing. She
does state that she has history of sepsis. She has ongoing issues with her esophagus as well. She is afebrile here. Exam she is well-appearing though she does have abdominal tenderness worse in the suprapubic region to palpation. Concern for
complications of ulcerative colitis such as fistula or flare or could be obstruction or UTI. Will empirically give antibiotics. White count is elevated. Will obtain lactate blood cultures. Will obtain CT scan. Patient will need admission.
Discharge Plan
Departure
Patient Disposition: Admit
Date of Disposition: 04/29/24
Time of Disposition: 19:07
Presentation/result/management discussed w/ accepting MD/DO: Hospitalist
Discharge Problem:
Abdominal pain
Interventions
Interventions:
*Risk Screen - Suicide Last Done: 04/29/24 14:44
*General Assessment Last Done: 04/29/24 14:44
*Neglect/Abuse Screening Last Done: 04/29/24 14:44
ED- Fall Risk Assessment Last Done: 04/29/24 17:04
*ED COVID-19 Vaccine History Last Done: 04/29/24 16:02
*Nursing Disposition Last Done: 04/29/24 23:19
WW-Lyxyhd-Zlaojxcgpw Assessment Last Done: 04/29/24 17:04
Discharge Date and Time
Discharge Date/Time: 04/29/24 23:19
[2024-04-29 16:01] VITALS: BMI 18.3
[2024-04-29 16:06] VITALS: BP 108/69
[2024-04-29] MEDS: NSS 1000 IV (16:17)
[2024-04-29] MEDS: ZOFRAN 4 MG IV (16:17)
[2024-04-29] MEDS: MORPHINE SULFATE 4 MG IV (16:18)
[2024-04-29 16:25] LABS: HCG, Serum Qualitative Screen Negative
[2024-04-29 16:40] LABS: Lactic Acid 0.8 mmol/L (0.7-2.0)
[2024-04-29 17:19] LABS: Urine Albumin Negative (Neg - Trace); Urine Bilirubin Negative (Negative); Urine Character Clear (Clear); Urine Glucose Negative (Negative); Urine Ketone Negative (Negative); Urine Leukocyte Negative (Negative); Urine Nitrite Negative (Negative); Urine Occult Blood Negative (Negative); Urine Urobilinogen Negative (Neg - 1+)
[2024-04-29] MEDS: MAXIPIME 2000 MG IV (18:09)
[2024-04-29] MEDS: FLAGYL 500 MG 100 IV (18:09)
[2024-04-29 18:14] VITALS: BP 108/77
[2024-04-29 19:00] VITALS: BP 113/78
[2024-04-29 20:00] VITALS: BP 101/67
--- NOTE | 2024-04-29 20:05 | HPS.HSE ---
Family Physician
-
Family Physician: Hien Graham MD
Chief Complaint
-
Abdominal Pain
History of Present Illness
Patient is a 54 y/o female past medical history of ulcerative colitis, gastroparesis and GI motility disorder who presents with increased abdominal pain, vomiting and fever. Patient reports acute worsening of her symptoms since yesterday. She
reports severe vomiting yesterday, and notes sleeping in the bathroom as her symptoms were so severe. She reports constipation without a bowel movement for 5 days, though notes this is not uncommon. This morning she notes fever at home of 102F.
She was in touch with her local GI physician who instructed her to come to the emergency department for evaluation.
Medical History
Past Medical History
Past Medical History: Reports Other
Additional Past Medical History:
Ulcerative Colitis
Gastroparesis / Motility Disorder
Interstitial Cystitis
Asthma
Essential Hypertension
Hyperlipidemia
Coronary Artery Disease
Raynaud's
Chronic Pelvic Pain s/p Pudendal Block
Hypothyroidism
ADD
POTS
Thoracic
Past Surgical History: Reports Other
Additional Past Surgical History:
Uterine ablation,
Hand surgery, neck surgery
Breast reduction
cataracts
Social History
Tobacco: Non-smoker
Alcohol: Occasional
Personal:
Living: With Family
Family History
Family History: Not pertinent
Allergies / Home Medications
Allergies reflects when Allergies were last updated in [facility].
Home Medications with original date entered in [facility]
Allergy/Medication List:
Allergies
Allergy/AdvReac Type Severity Reaction Status Date / Time
adhesive Allergy Rash Verified 04/29/24 14:44
Cephalosporins Allergy Nausea / Verified 04/29/24 14:44
Vomiting/HIVES
CHILD
ciprofloxacin [From Cipro] Allergy Nausea / Verified 04/29/24 14:44
Vomiting
latex Allergy Rash Verified 04/29/24 14:44
levetiracetam Allergy MATTY Verified 04/29/24 14:44
JOHNSONS
SYNDROME
levofloxacin [From Levaquin] Allergy Phlebitis Verified 04/29/24 14:44
at IV site
during
infusion
penicillin V Allergy took Verified 04/29/24 14:44
amoxicillin
w/o
adverse
reaction
Penicillins Allergy ok w/ Verified 04/29/24 14:44
amoxicillin
silver Allergy Redness, Verified 04/29/24 14:44
[From Tegaderm AG Mesh] eczema
reaction
Sulfa (Sulfonamide Allergy Recently Verified 04/29/24 14:44
Antibiotics) took w/o
adverse
reaction
sulfasalazine Allergy Recently Verified 04/29/24 14:44
took sulfa
med w/o
adverse
reaction
Home Medications
estradiol cypionate 15 dose IM MOTH@0800 Hormonal Agent 11/15/23
ibuprofen 200 mg tablet 400 mg PO Q6HPRN PRN mild pain 11/15/23
infliximab 100 mg intravenous solution (Remicade) 0 mg IV Q6W Ulcerative Colitis 11/15/23
liothyronine 5 mcg tablet 10 mcg PO DAILY Thyroid 11/15/23
testosterone cypionate 200 mg/mL intramuscular oil 8 mg IM MOTH@0800 Hormonal Agent 11/15/23
polyethylene glycol 3350 17 gram oral powder packet (HealthyLax) 17 g PO DAILY #0 ea 11/21/23
polyvinyl alcohol-povidone (PF) 1.4 %-0.6 % eye drops in a dropperette (Refresh Classic (PF)) 1 drp BOTH EYES TID #50 ea 11/21/23
estradiol 0.01% (0.1 mg/gram) vaginal cream 1 applic vaginal MOTH Hormonal Agent 11/26/23
colchicine 0.6 mg capsule 0.6 mg PO TID #180 caps 11/27/23
calcium carbonate (Tums) 200 mg PO MEALS 01/10/24
metaxalone 400 mg tablet 400 mg PO DAILYPRN PRN Mild Pain 01/10/24
progesterone micronized 100 mg vaginal insert 100 mg vaginal HS 01/10/24
thyroid (pork) 60 mg tablet ([place] Thyroid) 60 mg PO DAILY 01/10/24
Amitriptyline-Baclofen 1 dose vaginal DAILYPRN PRN pelvic pain 04/29/24
Cbd 1 drp PO DAILYPRN PRN mild pain 04/29/24
albuterol sulfate 90 mcg/actuation aerosol inhaler (Ventolin HFA) 2 puff inhalation R QIDPRN PRN sob 04/29/24
clotrimazole 10 mg lindsay 10 mg mucous membrane 5/D PRN with antibiotics 04/29/24
cranberry extract 200 mg capsule (Ellura) 200 mg PO BID 04/29/24
diazepam 15 mg vaginal TID 04/29/24
methenam 118 mg-m.blue 10 mg-s.phos 40.8 mg-p.salic 36 mg-hyos capsule (Uro-MP) 1 tab PO QID 04/29/24
minocycline 100 mg capsule 100 mg PO BID 04/29/24
mirabegron 25 mg tablet,extended release 24 hr (Myrbetriq) 25 mg PO DAILY 04/29/24
Review of Systems
-
A 12 point ROS was completed and negative except as noted: Yes
Constitutional: Reports Fever; Denies Chills
Respiratory: Denies Cough or Trouble Breathing
Cardiac: Denies Chest Pain or Palpitations
Abdomen/GI: Reports See HPI
Physical Exam
Vital Signs
Vital Signs
Temp Pulse Resp BP Pulse Ox
97.7 F 94 13 113/78 98
04/29/24 14:44 04/29/24 19:15 04/29/24 19:15 04/29/24 19:00 04/29/24 14:44
Physical Exam
General: Comfortable and Conversant
HEENT: Anicteric and Moist mucous membranes
Respiratory: Clear and Non Labored Respirations
Cardiac: S1/S2 and Regular Rhythm
GI: Soft, Non Tender and Other (Hypoactive Bowel Sounds)
Rectal: Deferred by Provider
Genito-urinary: Clear Urine
Musculoskeletal: No Clubbing, No Cyanosis and No Edema
Skin: Warm and Dry
Neuro: Awake, Oriented and Nonfocal/grossly intact
Psych: Calm
Laboratory Results
-
04/29/24 14:52
04/29/24 14:52
Laboratory Results
Lactic Acid 0.8 mmol/L (0.7-2.0) 04/29/24 16:15
Total Bilirubin 2.6 mg/dl (0.2-1.3) H 04/29/24 14:52
AST 19 U/L (14-36) 04/29/24 14:52
ALT 14 U/L (0-35) 04/29/24 14:52
Alkaline Phosphatase 46 U/L (38-126) 04/29/24 14:52
Lipase 52 U/L (23-300) 04/29/24 14:52
Abd/Pelvis CT Scan
Fluid distention throughout the duodenum extending to the junction of the third and fourth segments, where there appears to be transition in caliber at the level of the superior mesenteric artery. This raises possibility of SMA syndrome in the
proper clinical setting.
No other evidence to suggest bowel obstruction.
There are a few small bowel loops in the anterior mid pelvis, demonstrating intraluminal solid content, without associated dilatation. This could suggest nonspecific dysmotility.
Data Reviewed
-
CT Scan: Report Reviewed by me
Lab Data: Labs Reviewed by me
Impression/Plan
-
Abdominal Pain secondary to possibly SMA syndrome vs acute exacerbation of chronic GI motlity disorder
-Consult Surgery and GI
-Place NG tube
-Continue IVFs
-Continue anti-emetics, and pain control - Attempt to limit narcotic
-Continue Zosyn in setting of reported fever pending culture data
Hypothyroidism
-Oral meds on hold - Consider IV if unable to resume in a few days
Ulcerative Colitis
-Last Remicade dose Apr 21
Interstitial Cystitis
DVT proph: Lovenox
Code Status: Full Code
--- NOTE | 2024-04-29 21:13 | W.PN.UPDATE ---
Update Note
Progress Note Update
Patient seen and discussed with COOK HOUSE SUPERVISOR. I agree with findings on history and physical as well as are assessment and plan
This is a 54-year-old female with past medical history of ulcerative colitis on Remicade, history of gastroparesis and recurrent constipation who presents to the emergency department with acute episode of abdominal discomfort with nausea and
vomiting that started today. She also reports 1 episode of fever to about 101 �F today without chills diaphoresis. She denies any respiratory symptoms. There is been no rash. She denies having any diarrhea.
In the ED she had a CT of the abdomen pelvis which showed distention of the distal duodenum with possible SMA syndrome. There was no mention of colitis or abscess. Chest x-ray was clear. She had significant leukocytosis to 20,000. Otherwise her
labs are unremarkable.
Plan
Bowel obstruction - SBO possibly secondary to SMA
- npo, ng tube placement, maintenance fluids, pain control and antiemetics
- Gen surg consult, GI consult
Fever - No fever in ED, no respiratory symptoms, clear lungs and xray, no rash, joint swelling. U/A is clear. No recurrence
- blood cultures sent in ED
- check CoVID
- s/p zosyn x 1 pending results given recent remicaide infusion.
Rest of plan per COOK HOUSE SUPERVISOR note.
[2024-04-29 23:43] VITALS: BP 116/77; BMI 17.8
--- NOTE | 2024-04-30 00:02 | PTCARENOTE ---
Received pt from the ED via stretcher, pt ambulated steadily into the room to hospital bed, reports generalized weakness/malaise. AAOx3, lungs sound clear/diminished, regular heart tones noted. Remainder of assessment as documented. Pt's at
the bedside; both pt and anxious about NG tube placement. Thorough education provided on NG tube benefits vs risks, reason for order and steps for procedure. Pt oriented to unit and call ames, updated on POC for the evening, including NG
tube placement.
[2024-04-30] MEDS: ZOSYN 50 IV ×4 (00:15→22:59)
[2024-04-30] MEDS: D5/0.9% SODIUM CHLORIDE 1000 IV ×2 (00:15→16:02)
[2024-04-30] MEDS: DILAUDID 0.25 MG IV ×5 (00:55→20:49)
--- NOTE | 2024-04-30 01:25 | PTCARENOTE ---
Pt ordered NG tube; Pt and expressing concerns about pt's GI PMHx (esophageal achalasia). Pt states previously she's had to have an NG tube placed by scope. D/c covering MACHINE SPLITTER who spoke to admitting PA, no contraindication for bedside RN to
place NG tube. Pt and agreeable. Pt medicated appropriately prior to procedure, PRN 0.25mg IV Dilaudid given, see MAR. Pt states in previous years, NG tube placement through the L nare has been unsuccessful. NG tube placement attempted x1
through R nare, met with resistance approximately at the pharnyx; pt reports she is too uncomfortable, is not agreeable to another attempt. Covering MACHINE SPLITTER made aware. GI and general surgery consulted for pt in the AM.
[2024-04-30] MEDS: ZOFRAN 4 MG IV ×2 (04:29→19:27)
[2024-04-30 06:00] VITALS: BMI 17.8
[2024-04-30 07:07] LABS: COVID-19 Antigen Negative (Negative)
[2024-04-30 07:10] LABS: Blood Urea Nitrogen 6 mg/dl (7-17); Calcium 8.1 mg/dl (8.4-10.2); Carbon Dioxide 24 mmol/L (22-30); Chloride 109 mmol/L (98-107); Estimated Creatinine Clearance 84 ml/min; Glucose 87 mg/dl (70-99); Magnesium 1.7 mg/dl (1.6-2.3); Potassium 3.4 mmol/L (3.5-5.1); Sodium 137 mmol/L (135-145); eGFR > 60.00
[2024-04-30 07:35] VITALS: BP 88/51
--- NOTE | 2024-04-30 07:58 | CON.GI ---
Addendum entered and electronically signed by Juanpablo Robbins DO 04/30/24 12:16:
I saw and examined the patient.
The TECHNICAL OPERATIONS SPECIALIST's note was reviewed and I agree with the note.
Comment: Ms Persaud is a 54 y.o female with an extensive past medical history including UC (on IFX 5 mg/kg) in remission, severe chronic constipation, pelvic floor dysfunction, esophageal dysmotility (c/f achalasia ?), aspiration pneumonia, and
Raynaud's who initially came to the ED for abdominal pain along with nausea/vomiting and fevers. She is well known to our GI practice here and follows closely with Dr. Graham for her several chronic GI conditions and was felt to be doing well when
she was last seen during a telemedicine vist on 03/27 and has also been following with Dr. Lamb (at [place]) for her chronic GI issues and work-up of achalasia. However, over the past few days she states worsening abdominal cramping that came on
suddenly after eating [place] food. She denies any other known sick contacts, but does note previous COVID-19 infection about 3 weeks ago with URI symptoms. She noted her symptoms became worse yesterday with multiple episodes of non-bloody, bilious
emesis with fevers. Denies any bloody stools or diarrhea, but notes significant constipation with her last BM being approximately two weeks ago. She reports significant chronic constipation at baseline, moving her bowels once every two weeks despite
several regiments (including Amitiza, Linzess, misoprostol, Movantik, Ibsrela and Trulance). Breifly regarding her UC history, her last colonoscopy was back on 07/2023 and revealed Mcconnell Score 0 and nml biopsies consistent with deep remission. She is
compliance with her IFX with last dose about one week ago and without any current symptoms to suggset a UC flare. Given her worsening nausea/vomiting and abdominal pain she came to the ED for further evaluation. Labs notable for leukocytosis with
WBC 20.5k, BUN 6 and Insulation Batting Machine Operator 0.6. Lipase 52. CT Abd/pelvis w/ IV contrast revealed fluid distention throughout the duodenum extending to the junction of the third and fourth segments where there appears to be a transition in caliber at the level of the
superior mesenteric artery raising possibility of SMA syndrome. There is no other evidence of bowel obstruction.
Overall impression is concerning for an infectious etiology given her fevers, leukocytosis and possibly an underlying gastroenteritis given her acute onset of symptoms after recent concern for spoiled food (? ate [place] food and shortly developed
symptoms). Possible superimposed bacterial infection after her recent COVID-19 infection given her profound leukocytosis and fever of 102 in an immunosuppressed patient given her IBD and on IFX. No other concern for UC flare given her symptoms and
most recent colonoscopy back on 07/2023. However, CT concerning for possible SMA syndrome given her distension extending to the junction at the third and fourth segments with an abrupt transition. She does report weight loss and given her BMI < 18
SMA syndrome remains on differential, however unclear if this is fully responsible for her acute presentation.
Recommendations:
- Keep NPO pending UGIS and trial with small sips of liquids
- Continue IVF to maintain euvolemia. Optimize electrolytes, K > 4.0 and Mg > 2.0
- Recommend UGI with SBFT today. Discussed with surgery at bedside and in agreement
- Continue infectious work-up and monitoring blood cultures
- Agree with empiric IV antibiotics with IV Zosyn for now
- No concern for UC flare at this time and no role for steroids
- Limit narcotics as much as possible as this may worsen her underlying abdominal pain and chronic GI motility disorder
- Strict avoidance of all NSAIDs
- Ensure VTE ppx as IBD pts are high risk for VTE while in hospital
- Surgery following, appreciate recs
- Would benefit from Nutrition consult once able to tolerate p.o intake and supplementation with Ensures
- Will need close follow-up with both her primary Insight Director, Dr. Graham along with her GI provider at [facility]
- Rest of care per primary team
GI team will continue to follow while inpatient.
Original Note:
Consultation
-
Date/Time Consultation Requested: 04/29/24 @ 22:56
Date/Time Consultation Performed: 04/30/24 @ 08:45
Requesting Provider: Barbie Fitzpatrick PA-C
Performing Provider: RYLEI Hansen; Dr. Juanpablo Robbins
Reason for Consultation: abdominal pain, ?SMA syndrome v motility disorder
Medical History
Chief Complaint / HPI
Chief Complaint: abdominal pain
History of Present Illness:
The patient is a 54-year-old female, with a past medical history significant for ulcerative colitis on infliximab 5 mg/kg every 6 weeks in remission, chronic constipation, pelvic floor dysfunction, esophageal dysmotility undergoing workup for
achalasia, aspiration pneumonia, chronic heartburn, anxiety, Raynaud's, ADD, asthma, who presented to the emergency room with complaints of abdominal pain which we are being asked to evaluate for. Upon review of records she is well-known to "Carmelo"Gladys in our office, following with her closely for a multitude of chronic GI complaints primarily with chronic GI motility disorder. She was last seen via telemedicine visit on 03/27 continue on her infliximab therapy for ulcerative colitis which
is in remission upon most recent colonoscopy and based upon symptoms. She also suffers from chronic constipation and has tried a multitude of regimens including Amitiza, Linzess, misoprostol, Movantik, Ibsrela, and Trulance. She has been on
colchicine 3 times daily. She is also following with Dr. Lamb and Dr. Campbell out of [place] for second opinion for her chronic GI issues/workup of achalasia given her abnormal esophageal manometry study and aspiration pneumonia. She is on
twice daily PPI along with Gaviscon postprandial for her chronic reflux is symptoms. Today she reports 2 days ago she developed cramping in her abdomen. Overall she was not feeling very well. Prior to this she had eaten [place] food and thought
maybe she was developing a stomach virus. She then yesterday began vomiting with multiple episodes of bilious emesis. She continues to feel unwell and developed a fever of as high as 102. She did take Tylenol and Motrin and this resolved her
fever and has had no fever since. She notes she did have some small amount of runny stools during this episode but this has since resolved. She does have chronic constipation and has tried numerous medications as above, now maintained on
colchicine 3 times daily although she feels this has stopped working at this point. She also notes that she typically does not drink alcohol but did have [place] bloody [place] in [place]. She also
reports having COVID about 19 days ago but feels she has improved since that time. She chronically has constipation moving her bowels once every 2 weeks on average. She denies any overt melena or hematochezia. She reports that she is having
surgery on Sunday for a repair of her rectocele that she is hoping that she will not have to miss. She also is seeing a doctor at [facility] [place] Dr. Lamb for workup of her chronic GI problems and had testing done last Sunday in which she was told she has
achalasia. She has chronic heartburn despite use of PPI and Gaviscon. She reports that she takes Zofran on a daily basis which helps keep her vomiting and nausea controlled. She reports that she has early satiety with every meal and is only able
to eat a small amount at a time otherwise she will vomit. She does admit to an 8 pound weight loss over the past several months due to her ongoing GI issues. She denies any smoking history. She denies any regular use of NSAIDs. She is compliant
with her infliximab with her last dose about 8 days ago. Her last colonoscopy was done in July 2023 showing Mcconnell score 0 with no inflammation in the colon consistent with quiescent colitis. She had a CT enterography in September 2023 which
showed a moderate amount of stool otherwise no acute findings in the small bowel with some enlarged lymph nodes that were thought to be reactive in nature. Routine labs on admission showed WBC 20.5, hemoglobin 12.0, platelets 302,000, sodium 137,
potassium 3.4, BUN 6, creatinine 0.6, magnesium 1.7, total bilirubin 2.6, AST 19, ALT 14, alk phos 46, lipase 52, hCG negative. A CT of the abdomen and pelvis with IV contrast only was done showing fluid distention throughout the duodenum extending
to the junction of the third and fourth segments where there appears to be a transition in caliber at the level of the superior mesenteric artery raising possibility of SMA syndrome. There is no other evidence of bowel obstruction. Other findings
of the small bowel loops could suggest possible nonspecific dysmotility. Other findings as noted below. Chest x-ray was done showing no evidence of pneumonia. An NG tube placement was attempted but they were unable to place this. She has not had
no further vomiting. She was made n.p.o., admitted for further evaluation by GI and general surgery due to the abnormal CT findings. She was placed on Zosyn given her fevers and leukocytosis.
Past Medical History
Past Medical History: Asthma, GERD, Psychiatric (Anxiety) and Other (Ulcerative colitis on infliximab 5 mg/kg every 6 weeks, chronic constipation, GI dysmotility, rectocele, Raynaud's, gastroparesis, hemorrhoids)
Past Surgical History: Gynecological (Vaginal surgery), Orthopedic (Left hand surgery) and Other (Breast reduction, cataract surgery, prior nerve block)
Social History
Tobacco: Non-Smoker
Alcohol: Other (Rare alcohol use)
Drug: None
Family History
Family History: Reviewed & Not Pertinent
Allergies / Home Medications
Allergy/AdvReac Type Severity Reaction Status Date / Time
adhesive Allergy Rash Verified 04/29/24 14:44
Cephalosporins Allergy Nausea / Verified 04/29/24 14:44
Vomiting/HIVES
CHILD
ciprofloxacin [From Cipro] Allergy Nausea / Verified 04/29/24 14:44
Vomiting
latex Allergy Rash Verified 04/29/24 14:44
levetiracetam Allergy MATTY Verified 04/29/24 14:44
JOHNSONS
SYNDROME
levofloxacin [From Levaquin] Allergy Phlebitis Verified 04/29/24 14:44
at IV site
during
infusion
penicillin V Allergy took Verified 04/29/24 22:58
amoxicillin
w/o
adverse
reaction
Penicillins Allergy ok w/ Verified 04/29/24 22:58
amoxicillin
silver Allergy Redness, Verified 04/29/24 14:44
[From Tegaderm AG Mesh] eczema
reaction
Sulfa (Sulfonamide Allergy Recently Verified 04/29/24 22:58
Antibiotics) took w/o
adverse
reaction
sulfasalazine Allergy Recently Verified 04/29/24 22:58
took sulfa
med w/o
adverse
reaction
�Medication �Instructions �Recorded
estradiol cypionate 15 dose IM MOTH@0800 Hormonal Agent 11/15/23
ibuprofen 200 mg tablet 400 mg PO Q6HPRN PRN mild pain 11/15/23
infliximab 100 mg intravenous 0 mg IV Q6W Ulcerative Colitis 11/15/23
solution (Remicade)
liothyronine 5 mcg tablet 10 mcg PO DAILY Thyroid 11/15/23
testosterone cypionate 200 mg/mL 8 mg IM MOTH@0800 Hormonal Agent 11/15/23
intramuscular oil
polyethylene glycol 3350 17 gram 17 g PO DAILY #0 ea 11/21/23
oral powder packet (HealthyLax)
polyvinyl alcohol-povidone (PF) 1 drp BOTH EYES TID #50 ea 11/21/23
1.4 %-0.6 % eye drops in a
dropperette (Refresh Classic (PF))
estradiol 0.01% (0.1 mg/gram) 1 applic vaginal MOTH Hormonal 11/26/23
vaginal cream Agent
colchicine 0.6 mg capsule 0.6 mg PO TID #180 caps 11/27/23
calcium carbonate (Tums) 200 mg PO MEALS 01/10/24
metaxalone 400 mg tablet 400 mg PO DAILYPRN PRN Mild Pain 01/10/24
progesterone micronized 100 mg 100 mg vaginal HS 01/10/24
vaginal insert
thyroid (pork) 60 mg tablet 60 mg PO DAILY 01/10/24
(Redding Thyroid)
Amitriptyline-Baclofen 1 dose vaginal DAILYPRN PRN pelvic 04/29/24
pain
Cbd 1 drp PO DAILYPRN PRN mild pain 04/29/24
albuterol sulfate 90 mcg/actuation 2 puff inhalation R QIDPRN PRN sob 04/29/24
aerosol inhaler (Ventolin HFA)
clotrimazole 10 mg lindsay 10 mg mucous membrane 5/D PRN with 04/29/24
antibiotics
cranberry extract 200 mg capsule 200 mg PO BID 04/29/24
(Ellura)
diazepam 15 mg vaginal TID 04/29/24
methenam 118 mg-m.blue 10 1 tab PO QID 04/29/24
mg-s.phos 40.8 mg-p.salic 36
mg-hyos capsule (Uro-MP)
minocycline 100 mg capsule 100 mg PO BID 04/29/24
mirabegron 25 mg tablet,extended 25 mg PO DAILY 04/29/24
release 24 hr (Myrbetriq)
Review of Systems
-
History Source: Patient
Constitutional: Reports Fever, Weight Loss, Fatigue and Chills
EENT: Reports No Symptoms
Respiratory: Reports No Symptoms
Cardiac: Reports No Symptoms
Abdomen/GI: Reports Abdominal Pain, Nausea, Vomiting, Constipated and Anorexia
: Reports No Symptoms
Musculoskeletal: Reports No Symptoms
Skin: Reports No Symptoms
Vital Signs
Temp Pulse Resp BP Pulse Ox
97.6 F 90 17 116/77 97
04/29/24 23:43 04/29/24 23:43 04/29/24 23:43 04/29/24 23:43 04/29/24 23:43
Physical Exam
Exam
General: Well Developed, Well Nourished, No Apparent Distress and Poor Appetite
HEENT: Normocephalic, Anicteric and Atraumatic
Respiratory: Clear
Cardiac: S1/S2 and Regular Rhythm
Breast: Deferred by me
GI: Soft, Non Distended, Normal Bowel Sounds and Tender (generalized abdominal tenderness)
Rectal: Deferred by Provider
Musculoskeletal: No Edema
Skin: Warm and Dry
Neuro: Awake, Alert and Oriented
Psych: Other (anxious, cooperative)
Results
WBC 20.5 10^3/uL (4.8-10.8) H 04/29/24 14:52
Hgb 12.0 g/dL (12.0-16.0) 04/29/24 14:52
Hct 34.4 % (37.0-47.0) L 04/29/24 14:52
MCV 83.5 fL (81.0-99.0) 04/29/24 14:52
Plt Count 302 10^3/uL (130-400) 04/29/24 14:52
Absolute Neuts (auto) 16.8 10^3/uL (1.4-6.5) H 04/29/24 14:52
Sodium 137 mmol/L (135-145) 04/30/24 05:08
Potassium 3.4 mmol/L (3.5-5.1) L 04/30/24 05:08
Chloride 109 mmol/L (98-107) H 04/30/24 05:08
Carbon Dioxide 24 mmol/L (22-30) 04/30/24 05:08
BUN 6 mg/dl (7-17) L 04/30/24 05:08
Creatinine 0.6 mg/dL (0.6-1.0) 04/30/24 05:08
Calcium 8.1 mg/dl (8.4-10.2) L 04/30/24 05:08
Total Bilirubin 2.6 mg/dl (0.2-1.3) H 04/29/24 14:52
AST 19 U/L (14-36) 04/29/24 14:52
ALT 14 U/L (0-35) 04/29/24 14:52
Alkaline Phosphatase 46 U/L (38-126) 04/29/24 14:52
Lipase 52 U/L (23-300) 04/29/24 14:52
Diagnostic Image Results:
04/29/24 CT A/P w/IV contrast: IMPRESSION: Fluid distention throughout the duodenum extending to the junction of the third and fourth segments, where there appears to be transition in caliber at the level of the superior mesenteric artery. This raises
possibility of SMA syndrome in the proper clinical setting. No other evidence to suggest bowel obstruction. There are a few small bowel loops in the anterior mid pelvis, demonstrating intraluminal solid content, without associated dilatation. This
could suggest nonspecific dysmotility. No obstructive uropathy. The appendix is difficult to identify with certainty. No secondary signs to suggest acute appendicitis.
04/29/24 CXR: No radiographically demonstrable pneumonia. No evidence of pneumothorax or pleural effusion. The heart is normal in size. Hilar and mediastinal margins are unremarkable
11/20/23 esophagram:IMPRESSION: Mild gastroesophageal reflux. No stricture or obstruction. No hiatal hernia. No radiographic evidence of esophagitis.
Prior GI Procedures:
EGD: none one file
Colonoscopy: 08/22/2023 Dr. Graham: The examined portion of the ileum was normal. Biopsied. Inactive (Mcconnell Score 0) proctitis ulcerative colitis, in remission since the last examination. Biopsied. Internal hemorrhoids. Mild diverticulosis at
the hepatic flexure.
08/15/2022 Dr. Graham: Preparation of the colon was poor. The examined portion of the ileum was normal. Biopsied. Inactive (Mcconnell Score 0) ulcerative colitis, in remission, improved since the last examination.
Biopsied. Diverticulosis at the hepatic flexure. Internal hemorrhoids. Anal papilla(e) were hypertrophied. Stool in the entire examined colon.
Assessment / Plan
-
The patient is a 54-year-old female, with a past medical history significant for ulcerative colitis on infliximab 5 mg/kg every 6 weeks in remission, chronic constipation, pelvic floor dysfunction, esophageal dysmotility undergoing workup for
achalasia, aspiration pneumonia, chronic heartburn, anxiety, Raynaud's, ADD, asthma, hypothyroidism, interstitial cystitis, who presented to the emergency room with complaints of abdominal pain with findings concerning for possible SMA syndrome with
fluid distention throughout the duodenum extending to the junction of the third and fourth segments with appearance of a transition in caliber at the level of the superior mesenteric artery along with a few small bowel loops in the anterior mid
pelvis demonstrating intraluminal soft contents suggestive of possible nonspecific dysmotility. She notes acute onset of abdominal cramping with nausea and vomiting above her baseline and fevers as high as 102. She has a chronic GI motility issues
including chronic constipation and currently undergoing workup for achalasia at [facility]. She is a longstanding patient of Dr. Graham'madhuri with extensive workup outpatient. She also has history of ulcerative colitis which has been in clinical and
endoscopic remission on infliximab 5 mg/kg every 6 weeks which she is compliant with. Pertinent labs on admission include WBC 20.5, total bilirubin 2.6, lipase 52, AST 19, ALT 14, alk phos 46, BUN 9, creatinine 0.5, sodium 136, potassium 3.9.
Urinalysis was normal. Chest x-ray showing no findings to explain suggest infection/pneumonia. She was started on IV Zosyn pending evaluation by surgery and GI.
Problem list:
-abdominal pain, CT showing fluid distention of the duodenum with transition in caliber at the SMA
-leukocytosis and fever
-acute on chronic nausea/vomiting
-severe esophageal dysmotility, undergoing w/u for achalasia
-chronic constipation on colchicine TID (failed numerous other regimens)
-hypokalemia, mild
-UC on Infliximab [id number], in histologic and clinical remission
Other pertinent medical hx:
-Pelvic floor dysfunction
-Aspiration pneumonia
-Chronic heartburn
-Asthma
-Raynaud's
-Hypothyroidism
-Interstitial cystitis
-rectocele
Recommendations:
-Etiology of current symptoms suspicious for underlying infectious process given her leukocytosis and fevers (superimposed gastroenteritis) versus chronic motility disorder exacerbated with recent COVID infection versus less likely obstructive
process versus other. CT findings also suggest possible SMA syndrome.
-At this time given her clinical picture this sounds more infectious. Agree with IV antibiotics for now.
-Discussed with Dr. Robbins who spoke with surgery with plan for upper GI series with small bowel follow-through
-Can start with sips of clears as tolerated after UGI study given she has had no further vomiting
-PRN antiemetics
-Limit use of narcotics as able
-Pending upper GI study to consider further imaging if she has ongoing symptoms to evaluate for SMA syndrome
-Very unlikely to be a flare of her IBD. No role for steroids at this time.
-Monitor for recurrent fever
-Replete electrolytes, defer to hospitalist
-She will need close outpatient follow-up with Dr. Graham and her doctor at [facility] for her workup and treatment of her ongoing chronic GI motility disorder
-Further management forthcoming
-
-
Thank you for consultation and allowing me to participate in the patient's care. Please call the chronic manager GI physician during the after hours with any questions or concerns.
[2024-04-30] MEDS: FLUSH (NSS) 1 FLUSH IV ×4 (08:03→19:27)
--- NOTE | 2024-04-30 10:45 | CON.GS ---
Consultation
-
Requesting Provider: Thad
Performing Provider: Dominique
Reason for Consultation: Concern for SMA syndrome
Medical History
-
Chief Complaint: PO intolerance, abd pain
History of Present Illness:
54F with long and complex GI history with known UC, gastroparesis, possible motility disorder with progressive mod-sev lower abd pain. Reports 102F fever at home. Reports progressive difficulty with PO over past few months along with about a 15lb wt
loss. Currently being evaluated downtown for possible endoscopic procedure for achalasia. No BM for several days, reports this is normal for her. Unable to place NGT in ED.
Past Medical History
Past Medical History: Other (Ulcerative Colitis Gastroparesis / Motility Disorder Interstitial Cystitis Asthma Essential Hypertension Hyperlipidemia Coronary Artery Disease Raynaud's Chronic Pelvic Pain s/p Pudendal Block Hypothyroidism ADD POTS)
Past Surgical History: Other (Uterine ablation, Hand surgery, neck surgery Breast reduction cataracts)
Social History
Tobacco: Non-Smoker
Alcohol: Occasional
Personal:
Living: With Family
Family History
Family History: Reviewed & Noncontributory
Allergies / Home Medications
Allergy/AdvReac Type Severity Reaction Status Date / Time
adhesive Allergy Rash Verified 04/29/24 14:44
Cephalosporins Allergy Nausea / Verified 04/29/24 14:44
Vomiting/HIVES
CHILD
ciprofloxacin [From Cipro] Allergy Nausea / Verified 04/29/24 14:44
Vomiting
latex Allergy Rash Verified 04/29/24 14:44
levetiracetam Allergy MATTY Verified 04/29/24 14:44
JOHNSONS
SYNDROME
levofloxacin [From Levaquin] Allergy Phlebitis Verified 04/29/24 14:44
at IV site
during
infusion
penicillin V Allergy took Verified 04/29/24 22:58
amoxicillin
w/o
adverse
reaction
Penicillins Allergy ok w/ Verified 04/29/24 22:58
amoxicillin
silver Allergy Redness, Verified 04/29/24 14:44
[From Tegaderm AG Mesh] eczema
reaction
Sulfa (Sulfonamide Allergy Recently Verified 04/29/24 22:58
Antibiotics) took w/o
adverse
reaction
sulfasalazine Allergy Recently Verified 04/29/24 22:58
took sulfa
med w/o
adverse
reaction
�Medication �Instructions �Recorded �Confirmed �Type
estradiol cypionate 15 dose IM MOTH@0800 Hormonal Agent 11/15/23 04/29/24 History
ibuprofen 200 mg tablet 400 mg PO Q6HPRN PRN mild pain 11/15/23 04/29/24 History
infliximab 100 mg intravenous 0 mg IV Q6W Ulcerative Colitis 11/15/23 04/29/24 History
solution (Remicade)
liothyronine 5 mcg tablet 10 mcg PO DAILY Thyroid 11/15/23 04/29/24 History
testosterone cypionate 200 mg/mL 8 mg IM MOTH@0800 Hormonal Agent 11/15/23 04/29/24 History
intramuscular oil
polyethylene glycol 3350 17 gram 17 g PO DAILY #0 ea 11/21/23 04/29/24 Rx
oral powder packet (HealthyLax)
polyvinyl alcohol-povidone (PF) 1 drp BOTH EYES TID #50 ea 11/21/23 04/29/24 Rx
1.4 %-0.6 % eye drops in a
dropperette (Refresh Classic (PF))
estradiol 0.01% (0.1 mg/gram) 1 applic vaginal MOTH Hormonal 11/26/23 04/29/24 History
vaginal cream Agent
colchicine 0.6 mg capsule 0.6 mg PO TID #180 caps 11/27/23 04/29/24 Rx
calcium carbonate (Tums) 200 mg PO MEALS 01/10/24 04/29/24 History
metaxalone 400 mg tablet 400 mg PO DAILYPRN PRN Mild Pain 01/10/24 04/29/24 History
progesterone micronized 100 mg 100 mg vaginal HS 01/10/24 04/29/24 History
vaginal insert
thyroid (pork) 60 mg tablet 60 mg PO DAILY 01/10/24 04/29/24 History
(Deaver Thyroid)
Amitriptyline-Baclofen 1 dose vaginal DAILYPRN PRN pelvic 04/29/24 04/29/24 History
pain
Cbd 1 drp PO DAILYPRN PRN mild pain 04/29/24 04/29/24 History
albuterol sulfate 90 mcg/actuation 2 puff inhalation R QIDPRN PRN sob 04/29/24 04/29/24 History
aerosol inhaler (Ventolin HFA)
clotrimazole 10 mg lindsay 10 mg mucous membrane 5/D PRN with 04/29/24 04/29/24 History
antibiotics
cranberry extract 200 mg capsule 200 mg PO BID 04/29/24 04/29/24 History
(Ellura)
diazepam 15 mg vaginal TID 04/29/24 04/29/24 History
methenam 118 mg-m.blue 10 1 tab PO QID 04/29/24 04/29/24 History
mg-s.phos 40.8 mg-p.salic 36
mg-hyos capsule (Uro-MP)
minocycline 100 mg capsule 100 mg PO BID 04/29/24 04/29/24 History
mirabegron 25 mg tablet,extended 25 mg PO DAILY 04/29/24 04/29/24 History
release 24 hr (Myrbetriq)
Review of Systems
-
A 10 point review of systems was completed, and was negative except as per HPI.
Physical Exam
Vital Signs
Temp Pulse Resp BP Pulse Ox
97.6 F 83 18 88/51 99
04/30/24 07:35 04/30/24 07:35 04/30/24 07:35 04/30/24 07:35 04/30/24 08:52
04/29/24 04/30/24 05/01/24
06:59 06:59 06:59
Actual Weight 50.037 kg
Body Mass Index (BMI) 17.8
Lab Results
04/29/24 14:52
04/30/24 05:08
WBC 20.5 10^3/uL (4.8-10.8) H 04/29/24 14:52
Hgb 12.0 g/dL (12.0-16.0) 04/29/24 14:52
Hct 34.4 % (37.0-47.0) L 04/29/24 14:52
Plt Count 302 10^3/uL (130-400) 04/29/24 14:52
Abs Immat Gran (auto) 0.1 10^3/uL (0-0.05) H 04/29/24 14:52
Neutrophils % 81.6 % (42.2-75.2) H 04/29/24 14:52
Physical Exam
HEENT: Other (thin)
GI: Soft, Non Distended and Tender (very mild ttp to suprapubic area)
Skin: Warm and Dry
Neuro: AO x 3
Psych: Calm
Data Reviewed
-
CT Scan: Image Personally Visualized and interpreted, Report Reviewed by me, Discussed with Physician and Discussed with Patient
Labs: Labs Reviewed by me
Old Records: Reviewed
Assessment / Plan
-
54F with possible SMA syndrome
There is recent 15lb wt loss, BMI <18, n/v, and dilated proximal duodenum on CT with apparent abrupt transition at the midline. Unclear why stomach is not also dilated.
Plan for UGI with SBFT today
NPO/IVF
GI is following with us
Further mgmt will be guided by imaging result
All other care as per primary team
[2024-04-30 11:32] VITALS: BMI 17.8
--- NOTE | 2024-04-30 14:30 | W.PN.UPDATE ---
Update Note
Progress Note Update
Patient is down in X-Ray Department for small bowel follow-through study and morning down. Repeat evaluation in
Re attempt to see in afternoon and again in radio department. will try to find patient in radiology department.
--- NOTE | 2024-04-30 14:44 | W.PN.HOSP.TC ---
Today's Communication/Plan
-
Further management will be guided by imaging results
Assessment / Plan
Assessment / Plan
1. Abdominal pain
Nausea, Vomiting
Bowel Obstruction
Possible SMA
- No fever, has not had a bowel movement for several days
- Leucocytosis- wbc count 20.5 (04/29)
- Ct scan abdomen pelvis (04/29) - distention in the duodenum extending to the third and fourth segments, appears to be a transition at the level of superior mesenteric artery. Raises the possibility of SMA syndrome.
- Chest xray (04/29)- Normal
- upper gastrointestinal xray series done today (04/30)- results pending
- Blood cultures ordered, might be an infectious source, pt has no fever at admission- results pending
- Continue on Zosyn IV
- Avoid narcotics/ Nsaids
- Supplement with Ensure
- ordered Miralax 17 g now
- F/u with [facility], Dr. Graham.
- VTE prophylaxes with Lovenox
Anticipated Discharge: 24 - 48 hours
Subjective/Interval History
-
Date of Service: April 30, 2024
Pt was getting upper gastrointestinal series xray in the morning and not in the room. Pt is NPO.
Objective Data
-
Labs:
Laboratory Results
04/30/24
05:08
Sodium 137
Potassium 3.4 L
Chloride 109 H
Carbon Dioxide 24
BUN 6 L
Creatinine 0.6
Glucose 87
Calcium 8.1 L
Vital Signs:
Vital Signs
Temp Pulse Resp BP Pulse Ox
97.6 F 83 18 88/51 99
04/30/24 07:35 04/30/24 07:35 04/30/24 07:35 04/30/24 07:35 04/30/24 08:52
I&O
04/29/24 04/30/24 05/01/24
06:59 06:59 06:59
Intake Total 700 / 700
Balance 700 / 700
Review of Systems
-
Unable to obtain full review of systems at this time due to: Other (pt not in room b/c getting UGI)
Physical Exam
-
General: Well Developed and Well Nourished
Data Reviewed
-
Labs: Labs Reviewed by me and Discussed with Physician
[2024-04-30 15:20] VITALS: BP 104/68
[2024-04-30] MEDS: ZOSYN IV (15:20)
--- NOTE | 2024-04-30 16:17 | PTCARENOTE ---
Pt returned from UGI series via stretcher; ambulatory to bed; no c/o weakness/dizziness. VSS. On room air- pulse ox 98%, no SOB noted. Abd soft, sl rounded, pt still c/o lower mid-abd discomfort; IV Dilaudid given; will assess effectiveness. To
start clear liquid diet. Voiding in BR without difficulty. IVF's D5 NSS @ 100 ml/hr resumed via Rt forearm site; currently infusing without sx of infiltration. Resting in bed at present. Will continue to monitor.
[2024-04-30] MEDS: MIRALAX 17 GRAMS PO (16:58)
[2024-04-30] MEDS: OFIRMEV 100 IV (17:14)
[2024-04-30] MEDS: LOVENOX 40 MG SC (17:32)
--- NOTE | 2024-04-30 19:32 | PTCARENOTE ---
Pt vomited large amts orange-timged fluid after clearliquid dinner; c/o nausea. Zofran 4 mg IV given. Will continue to monitor.
[2024-04-30 23:43] VITALS: BP 113/36
[2024-05-01] MEDS: DILAUDID 0.25 MG IV ×5 (00:53→15:14)
[2024-05-01] MEDS: D5/0.9% SODIUM CHLORIDE 1000 IV (04:10)
[2024-05-01] MEDS: ZOSYN 50 IV ×3 (04:10→15:15)
[2024-05-01 06:00] VITALS: BMI 18.4
[2024-05-01 07:24] LABS: Blood Urea Nitrogen 4 mg/dl (7-17); Calcium 8.2 mg/dl (8.4-10.2); Carbon Dioxide 25 mmol/L (22-30); Chloride 106 mmol/L (98-107); Estimated Creatinine Clearance 87 ml/min; Glucose 93 mg/dl (70-99); Potassium 3.3 mmol/L (3.5-5.1); Sodium 140 mmol/L (135-145); eGFR > 60.00
[2024-05-01 08:12] LABS: Hematocrit 27.9 % (37.0-47.0); Hemoglobin 9.5 g/dL (12.0-16.0); Mean Corp Hgb Conc. 34.1 g/dL (33.0-37.0); Mean Corpuscular Hgb 29.4 pg (27.0-31.0); Mean Corpuscular Volume 86.4 fL (81.0-99.0); Mean Platelet Volume 10.3 fL (7.4-10.4); Platelet Count 213 10^3/uL (130-400); Red Blood Cell Count 3.23 10^6/uL (4.20-5.40); White Blood Cell Count 5.1 10^3/uL (4.8-10.8)
--- NOTE | 2024-05-01 08:26 | CM ---
met with patient at bedside.patient lives with her and son in house with 3 ivonne,her bed and bath is on the second floor.she amb i and is i with her adl.she received iv remicade infusion every 6 weeks from [facility] in [place].she has
never been to ip rehab.
pcp is dr annel smith and she uses [facility] in [place].
PMH:gerd,raynaud's disease,pna,add,asthma,pot,gastroparesis
patient is adm with abd pain/dysmobility.patient has a complicated gi history.she had a sb follow through,on iv zosyn,not able to pass ng tube in the ed.is now on clear liquids but continues with vomiting,wbc down from 20 to 5.1.she mentions being
transferred to [facility] [place] for sma.she is also asking for her records to be placed on disc but is having dificulty doing this..plan:home with no needs vs transfer to acute hospital.
--- NOTE | 2024-05-01 08:38 | W.PN.UPDATE ---
Addendum entered and electronically signed by Roberto Lynn MD 05/01/24 16:20:
Add on diagnosis list :
Moderate PCM
Original Note:
Update Note
Progress Note Update
I saw and evaluated the patient. I reviewed the resident�s note and agree with findings and plan as documented in the resident�s note.
Patient unable to have any clear liquid overnight. Underwent bilious vomiting after trying
Continues to have right-sided abdominal pain
Patient visibly frustrated and agitated, concerned about CT abdomen pelvis suggestive of possible SMA syndrome. Discussed findings of small bowel follow-through
CT a/p
Fluid distention throughout the duodenum extending to the junction of the third and fourth segments, where there appears to be transition in caliber at the level of the superior mesenteric artery. This raises possibility of SMA syndrome in the
proper clinical setting.
No other evidence to suggest bowel obstruction.
There are a few small bowel loops in the anterior mid pelvis, demonstrating intraluminal solid content, without associated dilatation. This could suggest nonspecific dysmotility.
No obstructive uropathy.
The appendix is difficult to identify with certainty. No secondary signs to suggest acute appendicitis.

1. Intractable Nausea/vomiting
Chronic abdominal pain
Suspected motility disorder
- Patient continues to have persistent nausea/vomiting, not able to tolerate liquid diet
- Patient have long history of GI issues and following with GI outpatient basis. Patient has been following up with [facility] for presumed motility issues
- CT abdomen pelvis finding as above.
- Question of SMA syndrome on CT abdomen pelvis although small bowel follow-through showing contrast passing through SB, contrast slow to pass through
- General Surgery/GI following and discussed care plan
- Trial of few days of IV Reglan to help improve nausea and vomiting
- Maintain on clear liquid diet for now
2. Postmenopausal replacement therapy
- F/us with Dr Murray from [facility] and being given estradiol/progesterone/testosterone
3. Ulcerative colitis
- No clinical concern of flare-up
- GI recommended to strongly avoid NSAIDs
- Patient to be given every 6 periodically infliximab
Patient have complex medical history and on complex regimen.
Care plan discussed with GI/GS
Discussed with [facility] consultant for possible need of transfer patient unable to tolerate diet with medical therapy.
DVTPPX - Lovenox
Full code
Total time spent : 60 mins
I personally saw and examined the patient.
I have reviewed all diagnostic interpretations and treatment plans as written.
Time includes patient management by me, time spent at the patients bedside, time to review lab and imaging results, discussing patient care, documentation in the medical record, and time spent with the family or caregiver and discussing care plan
with RN/Consultants.
[2024-05-01 08:44] VITALS: BP 110/74
[2024-05-01] MEDS: REGLAN 10 MG IV (08:53)
--- NOTE | 2024-05-01 10:47 | W.PN.GI.CBS2 ---
Today's Communication / Plan
-
Improving symptoms and tolerating diet. Recommending discontinuing IV abx. SBFT with delayed SB transit. Needs further motility testing as outpatient (has appt at [facility] on 05/02). See full recommendations as detailed below.
Assessment / Plan
-
#Leukocytosis #Fevers- Resolved
#Abnormal CT Scan with fluid distention c/f possible SMA Syndrome
#Intractable Nausea/Vomiting- Improving
#Hx of Severe Esophageal Dysmotility (c/f Achalasia -undergoing EGD with [facility] for further w/u ?)
#Severe, Chronic Idiopathic Constipation likely 2/2 #Underlying SB Motility Disorder #Delayed SB Transit
#Hx of UC (in deep remission, well controlled on IFX q 6 weeks)
Ms Persaud is a 54 y.o female with an extensive past medical history including UC (on IFX 5 mg/kg) in remission, severe chronic constipation, pelvic floor dysfunction, esophageal dysmotility (c/f achalasia ?), aspiration pneumonia, and Raynaud's who
initially came to the ED for abdominal pain along with nausea/vomiting and fevers. She is well known to our GI practice here and follows closely with Dr. Graham for her several chronic GI conditions and was felt to be doing well when she was last
seen during a telemedicine vist on 03/27 and has also been following with Dr. Lamb (at [place]) for her chronic GI issues and work-up of achalasia. However, over the past few days she states worsening abdominal cramping that came on suddenly after
eating [place] food. She denies any other known sick contacts, but does note previous COVID-19 infection about 3 weeks ago with URI symptoms. She noted her symptoms became worse yesterday with multiple episodes of non-bloody, bilious emesis with
fevers. Denies any bloody stools or diarrhea, but notes significant constipation with her last BM being approximately two weeks ago. She reports significant chronic constipation at baseline, moving her bowels once every two weeks despite several
regiments (including Amitiza, Linzess, misoprostol, Movantik, Ibsrela and Trulance). Breifly regarding her UC history, her last colonoscopy was back on 07/2023 and revealed Mcconnell Score 0 and nml biopsies consistent with deep remission. She is
compliance with her IFX with last dose about one week ago and without any current symptoms to suggset a UC flare. Given her worsening nausea/vomiting and abdominal pain she came to the ED for further evaluation. Labs notable for leukocytosis with
WBC 20.5k, BUN 6 and Referral Agent 0.6. Lipase 52. CT Abd/pelvis w/ IV contrast revealed fluid distention throughout the duodenum extending to the junction of the third and fourth segments where there appears to be a transition in caliber at the level of the
superior mesenteric artery raising possibility of SMA syndrome. There is no other evidence of bowel obstruction.
Overall impression is concerning for an infectious etiology given her fevers, leukocytosis and possibly an underlying gastroenteritis given her acute onset of symptoms after recent concern for spoiled food (? ate [place] food and shortly developed
symptoms). Possible superimposed bacterial infection after her recent COVID-19 infection given her profound leukocytosis and subjective fever (up to 102 at home - afebrile here in hospital) in an immunosuppressed patient given her IBD and on IFX. No
other concern for UC flare given her symptoms and most recent colonoscopy back on 07/2023. However, CT concerning for possible SMA syndrome given her distension extending to the junction at the third and fourth segments with an abrupt transition.
She does report weight loss and given her BMI < 18 SMA syndrome remains on differential, however unclear if this is fully contributing to her symptomatology and suspect underlying SB motility disorder given her severe, idiopathic constipatoin
(despite multiple regimens) and delayed transit on SBFT without obstruction.
Etiology of current symptoms suspicious for underlying infectious process given her leukocytosis and fevers (superimposed gastroenteritis) versus chronic motility disorder exacerbated with recent COVID infection versus less likely obstructive
process versus other. CT findings also suggest possible SMA syndrome and SBFT with significant delayed SB transit further supporting an underlying motitilty disorder
UGIS w/ SBFT 04/30: with delayed passage of oral contrast material through the SB which does not reach the colon until 3 hrs and 45 minutes; otherwise, no evidence of mechanical SBO, only noting mild distension of proximal duodenum without evidence of
obstruction
Recommendations:
- Tolerating CLD with improvement, okay to ADAT to low-fiber, low-residue diet as tolerated
- Supplement diet with Ensures and Boosts given her BMI and significant sarcopenia. Appreciate Nutrition recommendations regarding further optimization
- Further weight gain may help given concern for the possibility of SMA, surgery following
- Infectious w/u thus far negative and resolved leukocytosis (possibly reactive ?), consider discontinuing IV antibiotics while monitoring blood cultures. Currently NGTD x 24 hrs
- Continue home bowel regimen (on cholchicine) as an outpatient along with anti-emetics
- Agree with IV Reglan while inpatient especially given her improvement, but would not discharge on this given concern for irreversible custodial side effects (ie tardive dyskinesia). Discussed with patient
- No other concern for UC flare, she should continue her IFX q 6 weeks
- Will further discuss with Dr. Graham later today as well as sending records for her appointment at [facility] tomorrow, 05/02/2024, if patient continues to improve over next 24 hours
- If patient continues to improve, reasonable to discharge so she might make her appointment in [place] tomorrow. Needs very close follow-up with GI along with Nutrition
- Avoidance of all opioids, NSAIDs
- Rest of care per primary team
Discussed with internal medicine team this AM.
Subjective
Subjective
Date of Service: May 01, 2024
- UGIS w/ SBFT 04/30: with delayed passage of oral contrast material through the SB which does not reach the colon until 3 hrs and 45 minutes; otherwise, no evidence of mechanical SBO, only noting mild distension of proximal duodenum without evidence
of obstruction
- Worsening nausea overnight, otherwise no acute events
Feeling much better this morning, tolerated her entire breakfast (liquids) without difficulty. Denies any abdominal pain or worsening distension. Nausea much improved with starting IV Reglan ordered by primary team. Passing flatus, but has not yet
had a BM. No fevers, chills or other constitutional symptoms. Has a follow-up appointment tomorrow at [facility], hoping to be discharged later this evening to make it to her GI appt.
Objective
Data Reviewed
Laboratory Data:
Laboratory Results
05/01/24 06:29
05/01/24 06:29
Laboratory Results
Magnesium 1.7 mg/dl (1.6-2.3) 04/30/24 05:08
Total Bilirubin 2.6 mg/dl (0.2-1.3) H 04/29/24 14:52
AST 19 U/L (14-36) 04/29/24 14:52
ALT 14 U/L (0-35) 04/29/24 14:52
Alkaline Phosphatase 46 U/L (38-126) 04/29/24 14:52
Lipase 52 U/L (23-300) 04/29/24 14:52
Vital Signs and I&O:
Vital Signs
Temp Pulse Resp BP Pulse Ox
97.9 F 83 16 110/74 98
05/01/24 08:44 05/01/24 08:44 05/01/24 08:44 05/01/24 08:44 05/01/24 08:44
I&O
04/30/24 05/01/24 05/02/24
06:59 06:59 06:59
Intake Total 700 / 700 1410 / 1410 1200 / 1200
Balance 700 / 700 1410 / 1410 1200 / 1200
Physical Exam
Physical Exam
HEENT: Anicteric and Moist mucous membranes
Cardiology: Normal Sinus Rhythm
Pulmonary: Clear and Other (Normal WOB on room air)
GI: Soft, Non Distended, Flat and Non Tender
Extremities: No Edema
Neuro: Non Focal
--- NOTE | 2024-05-01 11:14 | VATNOTE ---
R arm IV site phlebitis noted, IV removed and restarted in L arm. Heat applied to phlebitic site.
[2024-05-01] MEDS: KCL 160 MEQ IV (12:06)
--- NOTE | 2024-05-01 13:07 | PN.CDI ---
CDI
- -
CDI:
Physician Documentation Request
Admit Date: 04/29/24 20:55
Dear Doctor Shane,
Clinical Indicators:
Patient admitted with intractable nausea & vomiting.
BMI 18.4
05/01 GI PN, '-Supplement diet with Ensures and Boosts given her BMI and significant sarcopenia.'
RD note/assessment: -'BMI 17.8 underweight range...RD able to observe temporal wasting, protrusion of clavical,
dark circles under orbital area.'
-'With < 75% estimated needs > 1 month and observed muscle and fat wasting pt meets
AND/ASPEN criteria for moderate proten calorie malnutrition of chronic illness. '
Based on the above information and your assessment, which of the following most accurately represents the patient's nutritional status?
Moderate Protein Calorie Malnutrition
Mild Protein Calorie Malnutrition
Underweight without malnutrition
Other (please specify)
[place] Criteria (ACP Hospitalist 2017)
2 or more criteria must be present for either
non severe or severe malnutrition
Note that the criteria differs related to the
presence of an acute or chronic illness
Acute Illness Chronic Illness
Energy Intake Non Severe: <75% for >7 days Non Severe: <75% for >1 month
Severe: <50% for >5 days Severe: <75% for >1 month
Weight Loss Non Severe: 1-2% over 1 week Non Severe: 5% over 1 month
5% over 1 month 7.5% over 3 months
7.5% over 3 months 10% over 6 months
1 year N/A 20% over 1 year
Severe: >2% over 1 week Severe: >5% over 1 month
>5% over 1 month >7.5% over 3 months
>7.5% over 3 months >10% over 6 months
1 year N/A >20% over 1 year
Body Fat Non Severe: Mild Decrease Non Severe: Mild Loss
Severe: Moderate Decrease Severe: Severe Loss
Muscle Mass Non Severe: Mild Decrease Non Severe: Mild Loss
Severe: Moderate Decrease Severe: Severe Loss
Fluid Accumulation Non Severe: Mild Accumulation Non Severe: Mild Accumulation
Severe: Moderate to severe Severe: Moderate to severe
accumulation accumulation
Reduced Moth Proofer Strength Non Severe: N/A Non Severe: N/A
Severe: Measurably reduced Severe: Measurably reduced
Additional criteria that can be used to Determine if Mild or Moderate Malnutrition (Merck Manual 2018)
Mild Moderate Severe
Albumin gm/dl <3.0 gm/dl <2.5 gm/dl <2.0 gm/dl
Pre Albumin mg/dl <15 gm/dl <10 mg/dl <5.0 mg/dl
BMI <18.5 <17 <16
Use of terms such as suspected, likely, concern for, or probable (associated with a specific diagnosis that is being evaluated, monitored, or treated as if it exists) are acceptable and can be coded in the inpatient setting, when documented at the
time of discharge.
Thank you,
Cora Sheehan RN BSN
CDI Specialist
available via tiger text
Please use your independent medical judgment in providing your response.
--- NOTE | 2024-05-01 13:19 | CM ---
CM following for discharge vs. possible transfer to another hospital. Pt has been cleared for discharge to home today. She has an appointment at [facility] tomorrow. Family will transport to that visit.
Plan: Discharge to home with family; plan for f/u at [facility] for testing tomorrow.
[2024-05-01] MEDS: MIRALAX 17 GRAMS PO (13:33)
[2024-05-01] MEDS: D5/0.9% SODIUM CHLORIDE IV (14:18)
[2024-05-01 16:13] VITALS: BP 115/62
== END 2024-05-01 18:15 | disposition home or self-care (01) | DRG 392 ==
LOC: 4 EAST ACU 20:55
PROVIDERS: Emergency Medicine; Physician Assistant; Physician Assistant Medical; ADMITTING PHYSICIAN Internal Medicine; ATTENDING PHYSICIAN Hospitalist; CONSULT PHYSICIAN Surgery; EMERGENCY PHYSICIAN Student in an Organized Health Care Education/Training Program; FAMILY PHYSICIAN Internal Medicine Gastroenterology; OTHER PHYSICIAN Student in an Organized Health Care Education/Training Program
DX: K31.84 Gastroparesis (principal); K51.90 Ulcerative colitis, unspecified, without complications; D84.821 Immunodeficiency due to drugs; Z68.1 Body mass index [BMI] 19.9 or less, adult; E44.0 Moderate protein-calorie malnutrition; K56.609 Unspecified intestinal obstruction, unspecified as to partial versus complete obstruction; J45.909 Unspecified asthma, uncomplicated; E03.9 Hypothyroidism, unspecified; I10 Essential (primary) hypertension; R63.4 Abnormal weight loss; G90.A Postural orthostatic tachycardia syndrome [POTS]; N30.10 Interstitial cystitis (chronic) without hematuria; G89.29 Other chronic pain; K21.9 Gastro-esophageal reflux disease without esophagitis; E78.00 Pure hypercholesterolemia, unspecified; F41.9 Anxiety disorder, unspecified; I25.10 Atherosclerotic heart disease of native coronary artery without angina pectoris; K22.4 Dyskinesia of esophagus; I73.00 Raynaud's syndrome without gangrene; K64.9 Unspecified hemorrhoids; N81.6 Rectocele; R13.10 Dysphagia, unspecified; M54.2 Cervicalgia; M54.9 Dorsalgia, unspecified; Z79.620 Long term (current) use of immunosuppressive biologic; Z79.899 Other long term (current) drug therapy; Z86.16 Personal history of COVID-19; Z86.19 Personal history of other infectious and parasitic diseases; Z88.0 Allergy status to penicillin; Z88.1 Allergy status to other antibiotic agents; Z88.2 Allergy status to sulfonamides; Z91.040 Latex allergy status
CPT/HCPCS: 51798; 71045; 74177; 74240; 74248; 80048; 80053; 81003; 83605; 83690; 83735; 84703; 85025; 85027; 87040; 87811; 96361; 96365; 96375; 99285; Q9967

== ENCOUNTER 2024-05-05 06:22 | Day surgery (SDC) | payer OTHER, SELFPAY ==
--- NOTE | 2024-04-29 15:53 | PTCARENOTE ---
Abnormal EKG reviewed by Dr Craft, no further action requested.
[2024-05-05 10:49] VITALS: BMI 17.6
[2024-05-05 10:50] VITALS: BP 120/78; BMI 17.6
[2024-05-05] MEDS: Pyridium 200 MG PO (10:56)
[2024-05-05 11:19] LABS: B.E. - POC 0.3 mmol/L; Glucose - POC 76 mg/dl (70-99); HCO3 - POC 25 mmol/L (21-29); Hematocrit - POC 34 % PCV (37-47); Hemodilution- POC No; Hemoglobin Calculated - POC 11.4; Ionized Calcium - POC 1.27 mmol/L (1.12-1.27); O2 Saturation %Calculated-POC 65.3 5 (92-96); PCO2 - POC 39 mmHg (35-45); PO2 - POC 33 mmHg (80-100); Potassium - POC 3.3 mmol/L (3.6-5.0); Sodium - POC 138 mmol/L (135-145); pH - POC 7.42 (7.35-7.45)
[2024-05-05 11:30] LABS: Hematocrit 32.9 % (37.0-47.0); Hemoglobin 11.2 g/dL (12.0-16.0); Mean Corpuscular Hgb 28.5 pg (27.0-31.0); Mean Corpuscular Volume 83.7 fL (81.0-99.0); Mean Platelet Volume 10.1 fL (7.4-10.4); Platelet Count 276 10^3/uL (130-400); Red Blood Cell Count 3.93 10^6/uL (4.20-5.40); Red Cell Dist. Width 14.1 % (11.5-14.5); White Blood Cell Count 8.6 10^3/uL (4.8-10.8)
[2024-05-05] MEDS: NORMOSOL-R/PLASMALYTE-A 1000 IV (11:30)
[2024-05-05 11:47] LABS: Blood Urea Nitrogen 6 mg/dl (7-17); Carbon Dioxide 21 mmol/L (22-30); Chloride 102 mmol/L (98-107); Estimated Creatinine Clearance 83 ml/min; Glucose 80 mg/dl (70-99); Potassium 3.5 mmol/L (3.5-5.1); Sodium 139 mmol/L (135-145); eGFR > 60.00
== END 2024-05-05 15:43 | disposition home or self-care (01) ==
LOC: SDS 06:22
PROVIDERS: ATTENDING PHYSICIAN Obstetrics & Gynecology
DX: N81.6 Rectocele (principal); Z53.8 Procedure and treatment not carried out for other reasons
CPT/HCPCS: 57520; 80048; 85027; 86850; 86900; 86901; J1580

== ENCOUNTER → 2024-05-13 15:08 | Outpatient (REF) | payer OTHER, SELFPAY ==
[2024-05-13 15:57] LABS: INR 1.02; PT 13.2 Sec (11.4-14.6)
[2024-05-13 15:58] LABS: APTT 30.7 Sec (23.4-35.0)
== END ==
LOC: REG 15:08
PROVIDERS: ATTENDING PHYSICIAN Internal Medicine Hematology & Oncology; FAMILY PHYSICIAN Family Medicine; OTHER PHYSICIAN Obstetrics & Gynecology
DX: D68.9 Coagulation defect, unspecified (principal); N62 Hypertrophy of breast
CPT/HCPCS: 36415; 85240; 85245; 85246; 85247; 85610; 85730

== ENCOUNTER 2024-06-25 16:29 | Inpatient (IN) | payer OTHER, SELFPAY ==
--- NOTE | 2024-06-25 12:29 | EDRN ---
[facility], she was not speaking or responding when spoken to by this triage pivot RN, male friend speaking for pt during this time. This RN stood and approached pt with additional triage question sheet for
screening and pt refused to answer. Pt was immediately seen by RN and triaged, noted to have thrush issue and when pt returned to waiting are pt asked with clear and appropriate voice for copy of questionnaire. Pts male friend approached this RN
and asked why pt was asked these questions, informed pts friend it is a screening for triage and that she had not been able to state her chief complaint. Male spoke under his breath and walked away from desk. Pt appears in no acute distress in
waiting area and male friend is seated next to her. Will continue to monitor.
[2024-06-25 12:32] VITALS: BP 121/85
--- NOTE | 2024-06-25 13:52 | ED.GENMED ---
History of Present Illness
General
Chief Complaint: Throat Problem
Source: patient
Exam Limitations: none
Time Seen by Provider: 06/25/24 12:58
Nursing documentation reviewed up to this point in time: agreed with
History of Present Illness
History of Present Illness:
54 yo female w extensive past medical history including UC on Remicaide, last dose 8 days ago, severe chronic constipation, pelvic floor dysfunction, thoracic outlet syndrome s/p scalene botox 14d ago esophageal dysmotility (c/f achalasia ?),
aspiration pneumonia, and Raynaud's, s/p pudendal block 11/09/23 and 06/19/24
She was intubated for the pudendal block 6 days ago, her throat has gotten progressively more sore and irritated. She notes thrush infection (she has had this in the past and needed hospitalization for IV Diflucan and ID intervention) and feels her
symptoms are the same as at that time. She did take Diflucan 2 days ago with worsening symptoms and now she feels burning in her bronchial airways similar to in the past. Her last Remicade was 10 days ago.
She denies fever/chills. Is swallowing her saliva but much discomfort with swallowing fluids.
Past History
Past History
ED Past Medical History: Asthma, GERD, Hypercholesterolemia, Seizures, Hypothyroidism, Psychiatric (Denies anxiety history), Other ( Raynaud's Syndrome, PNA, Ulcerative colitis, UTI, Interstitial cystitis, ADD, Kidney stones, POTS, thoracic outlet
syndrome, Von Willebrand disease. Gastroparesis, Back and neck pain, ) and Other (Slow Motility, Difficulty swallowing that she is being worked up for. )
ED Past Surgical History: Gynecological (Uterine ablation, ), Orthopedic (Hand surgery, neck surgery, ) and Other (Breast reduction, cataracts, Eye surgery, )
Social History
Tobacco: Non-smoker
Alcohol: Occasional
Drug: None
Personal:
Living: with family
Employment: Employed
Family History
Family History: Hypertension
Review of Systems
Review of Systems
Allergies reviewed?: Yes
All Other Systems: ROS reviewed and negative except as documented in HPI and ROS
Constitutional: Denies fever
EENT: Reports sore throat
Respiratory: Reports other (feels 'burning pain' esophagus and upper airway); Denies cough or trouble breathing
Cardiac: Denies chest pain
ABD/GI: Denies abdominal pain, nausea or vomiting
Musculoskeletal: Reports no symptoms
Skin: Reports no symptoms
Neurological: Reports no symptoms
Phy Exam
Physical Exam
Physical Exam:
GENERAL: No acute distress. A&Ox3.
CONSTITUTIONAL: Afebrile.
EYES: clear, conjunctivae normal
Neck: Supple
ENMT: moist mucus membranes, tongue and pharynx with white patches of thrush. Speaking in whisper, swallowing saliva and sucking on ice chips.
RESPIRATORY: Regular respirations, nonlabored, lungs clear.
CARDIOVASCULAR: Regular rate and rhythm, no murmurs, no rubs.
GI: Soft, nontender
MUSCULOSKELETAL: Moves with ease. Well perfused.
SKIN: Warm, dry, pink
PSYCH: Normal mood and affect. Well kept, interactive and appropriate
NEUROLOGIC: Awake, alert and oriented. No focal neurological deficits
Course
Orders/Labs/Results
Orders:
Orders
06/25/24 Lunch
Regular
At Your Request: Full Participation
Does patient need a safe tray?: No
06/25/24 14:39
Complete Blood Count/With Diff Urgent
Comprehensive Metabolic Panel Urgent
Direct Bilirubin Urgent
Comment: ADD ON
LDH Urgent
Comment: ADD ON
TSH Urgent
Comment: ADD ON
06/25/24 15:11
Add On- LAB Routine
Tests Added?: TSH
CR Chest - 2 Views Urgent
Comment:
Reason For Exam: throat pain
06/25/24 15:17
COVID-19 Antigen Stat
Source: Nasal Swab
06/25/24 15:41
Admit/Transfer Patient As Directed
Co-Sign Provider:
Level of Care: Inpatient admission
Assign to:: Medical/Surgical
Physician / Group: Timoteo Lerma
Diagnosis: Fungal esophagitis
Reason for Hospitalization: Fungal esophagitis
Expected length of stay greater than two midnights?: Yes
ELOS- Estimated Length of Stay in days: 3
I certify the patient meets the requirements for IP care: Yes
06/25/24 15:43
PRN Pain Medication Management As Directed
May give lesser potent ordered pain med per pt: Yes
preference::
Protocol:: Medication orders for pain may be administered in a
manner that supports deferring to patient preference
when the pt is:
- Requesting an ordered lesser potent pain medication.
Least to most potent pain medications are defined
as: acetaminophen < NSAID < tramadol < opioids
(morphine, oxycodone, hydromorphone).
- Requesting a lesser dose of the same medication IF
ORDERED.
- Requesting a less intrusive route of administration
if both routes are prescribed by the provider (PO <
IV).
06/25/24 15:44
Code Status As Directed
Resuscitation Status: Full Code
06/25/24 15:48
Add On- LAB Routine
Tests Added?: direct bili, LDH
06/25/24 15:51
Carol/Yeast Culture Routine
SAM Source: Mouth/Oral Cavity
Specimen Description:
Fluconazole 400 mg/200 ml [Diflucan 400 mg] 200 ml IV NOW
06/25/24 15:54
INFECTIOUS DISEASE CONSULT Routine
Consulting Provider: Judy Enrique
Was physician already notified: Yes
06/25/24 16:00
Flush (0.9% Sodium Chloride) [Flush (Nss)] See Dose Instructions IV PER PROTOCOL
06/25/24 17:09
Fungus Blood Culture Routine
SAM Source: Blood/Venous
Specimen Description:
Date Specimen was Collected: 06/25/24
Time Specimen was Collected: 16:12
HIV Combo Routine
06/25/24 18:28
0.9% Sodium Chloride 1000 ml [Nss] 1,000 ml IV 100 mls/hr
CefTRIAXone [Rocephin] 1,000 mg IV Q24H
Doxycycline Hyclate [Vibramycin] 100 mg 0.9% Sodium Chloride 250 ml [Nss] 250 ml IV Q12H
Enoxaparin Sodium [Lovenox] 40 mg SC QPM
Fluconazole 200 mg/100 ml [Diflucan 200 mg] 100 ml IV Q24H
Mag&Al/Sim/Diphenhyd/Lidocaine [First-Mouthwash Blm Suspension] 5 ml PO QIDPRN PRN
06/25/24 18:28
Activity As Directed
Activity Level: Ambulate
Vital Signs As Directed
Frequency: Per unit guidelines
DX Deep Vein Thrombosis Video Routine
06/26/24 06:00
Basic Metabolic Panel IN AM
Complete Blood Count/No Diff IN AM
06/27/24 06:00
Basic Metabolic Panel IN AM
Complete Blood Count/No Diff IN AM
06/28/24 06:00
Basic Metabolic Panel IN AM
Complete Blood Count/No Diff IN AM
Abnormal Lab Results
06/25/24
14:39
WBC 19.6 H 10^3/uL
(4.8-10.8)
Abs Immat Gran (auto) 0.1 H 10^3/uL
(0-0.05)
Absolute Neuts (auto) 15.5 H 10^3/uL
(1.4-6.5)
Absolute Monos (auto) 1.1 H 10^3/uL
(0.1-0.6)
Immature Gran % 0.6 H %
(0-0.5)
Neutrophils % 78.8 H %
(42.2-75.2)
Lymphocytes % 14.5 L %
(20.5-51.1)
Total Bilirubin 1.7 H mg/dl
(0.2-1.3)
06/25/24 14:39
06/25/24 14:39
Vital Signs
Initial and Last Documented VS:
Initial Vital Signs
Temp Pulse Resp BP Pulse Ox
97.8 F 122 20 121/85 100
06/25/24 12:32 06/25/24 12:32 06/25/24 12:32 06/25/24 12:32 06/25/24 12:32
Last Documented Vital Signs
Temp Pulse Resp BP Pulse Ox
97.8 F 96 18 102/64 99
06/25/24 12:32 06/25/24 17:12 06/25/24 17:12 06/25/24 17:12 06/25/24 17:12
MDM/Problems Addressed
MDM/Problems Addressed:
54 yo female w extensive past medical history including UC on Remicaide, last dose 8 days ago, severe chronic constipation, pelvic floor dysfunction, thoracic outlet syndrome s/p scalene botox 14d ago esophageal dysmotility (c/f achalasia ?),
aspiration pneumonia, and Raynaud's, s/p pudendal block 11/09/23 and 06/19/24
She was intubated for the pudendal block 6 days ago, her throat has gotten progressively more sore and irritated. She notes thrush infection (she has had this in the past and needed hospitalization for IV Diflucan and ID intervention) and feels her
symptoms are the same as at that time. She did take Diflucan 2 days ago with worsening symptoms and now she feels burning in her bronchial airways similar to in the past. Her last Remicade was 10 days ago.
She denies fever/chills. Is swallowing her saliva but much discomfort with swallowing fluids.
3:00 p.m.
CBC: WBC 19.6
CMP with no clinically significant abnormality
Plan admit: significant thrush esophagitis nonresponsive to outpatient Diflucan, leukocytosis
ID and Hospitalist notified of admission.
*Critical Care Note
Total Time (30-74mins, 75-104mins- exclusive of procedures): Not Applicable
ED Attending Note
-
Portions of this chart may have been created with voice recognition software.� Occasional wrong word or��sound alike� substitutions may have occurred due to the inherent limitations of voice recognition software.
Discharge Plan
Departure
Patient Disposition: Admit
Date of Disposition: 06/25/24
Time of Disposition: 15:06
Admit to: Med/Surg
Presentation/result/management discussed w/ accepting MD/DO: Hospitalist
Condition: Fair
Discharge Problem:
Esophagitis
Interventions
Interventions:
*Risk Screen - Suicide Last Done: 06/25/24 13:44
*General Assessment Last Done: 06/25/24 13:44
*Neglect/Abuse Screening Last Done: 06/25/24 13:44
ED- Fall Risk Assessment Last Done: 06/25/24 13:44
*ED COVID-19 Vaccine History Last Done: 06/25/24 13:44
ED-EENT Assessment Last Done: 06/25/24 13:44
ED- Pulmonary Assessment Last Done: 06/25/24 13:44
[2024-06-25 14:49] LABS: % Basophils 0.4 % (0-2); % Eosinophils 0.3 % (0-6); % Immature Granulocytes 0.6 % (0-0.5); % Lymphocytes 14.5 % (20.5-51.1); % Monocytes 5.4 % (1.7-9.3); % Neutrophils 78.8 % (42.2-75.2); Absolute Basophils 0.1 10^3/uL (0-0.2); Absolute Eosinophils 0.1 10^3/uL (0-0.7); Absolute Immature Granulocytes 0.1 10^3/uL (0-0.05); Absolute Lymphocytes 2.9 10^3/uL (1.2-3.4); Absolute Monocytes 1.1 10^3/uL (0.1-0.6); Absolute Neutrophils 15.5 10^3/uL (1.4-6.5); Hematocrit 38.9 % (37.0-47.0); Hemoglobin 13.3 g/dL (12.0-16.0); Mean Corp Hgb Conc. 34.2 g/dL (33.0-37.0); Mean Corpuscular Hgb 29.7 pg (27.0-31.0); Mean Corpuscular Volume 86.8 fL (81.0-99.0); Mean Platelet Volume 9.9 fL (7.4-10.4); Nucleated Red Blood Cells % 0 %; Platelet Count 349 10^3/uL (130-400); Red Blood Cell Count 4.48 10^6/uL (4.20-5.40); Red Cell Dist. Width 12.8 % (11.5-14.5); White Blood Cell Count 19.6 10^3/uL (4.8-10.8)
[2024-06-25 15:09] LABS: ALT (SGPT) 14 U/L (0-35); AST (SGOT) 17 U/L (14-36); Albumin 4.3 g/dl (3.5-5.0); Alkaline Phosphatase 45 U/L (38-126); Blood Urea Nitrogen 12 mg/dl (7-17); Calcium 9.8 mg/dl (8.4-10.2); Carbon Dioxide 27 mmol/L (22-30); Chloride 99 mmol/L (98-107); Glucose 89 mg/dl (70-99); Potassium 4.1 mmol/L (3.5-5.1); Sodium 138 mmol/L (135-145); Total Bilirubin 1.7 mg/dl (0.2-1.3); Total Protein 7.2 g/dl (6.3-8.2); eGFR > 60.00
--- NOTE | 2024-06-25 15:17 | HPS.HSE ---
Family Physician
-
Family Physician:
Chief Complaint
-
Mouth/throat sores
History of Present Illness
Patient is a [id number] with past medical history significant for ulcerative colitis on Remicade, pelvic floor dysfunction, history of gastroparesis and GI motility disorder who presented to [facility] for evaluation of sore throat and mouth.
Patient states that just about a week ago she had a pudendal block with complete intubation and has had difficulty every since. She stated this happened with thrush infection previous (s/p intubation) and required IV Diflucan to treat. Patients last
Remicade injection was approximately 10 days ago. Patient complains of discomfort with even just swallowing salvia and swallowing fluids or food is very painful. She denies fever any fevers or chills.
Medical History
Past Medical History
Past Medical History: Reports Other
Additional Past Medical History:
Ulcerative colitis on Remicade
Gastroparesis / Motility Disorder
pelvic floor dysfunction
hypothyroidism
Asthma
Essential Hypertension
Hyperlipidemia
Coronary Artery Disease
Raynaud's
Past Surgical History: Reports None
Additional Past Surgical History:
Uterine ablation,
Hand surgery, neck surgery
Breast reduction
cataracts
Social History
Tobacco: Non-smoker
Alcohol: Occasional
Drug: None
Personal:
Living: With Family
Employment: Disabled
Family History
Family History: Not pertinent
Allergies / Home Medications
Allergies reflects when Allergies were last updated in [employer].
Home Medications with original date entered in [employer]
Allergy/Medication List:
Allergies
Allergy/AdvReac Type Severity Reaction Status Date / Time
adhesive Allergy Rash Verified 06/25/24 12:33
Cephalosporins Allergy Nausea / Verified 06/25/24 12:33
Vomiting/HIVES
CHILD
ciprofloxacin [From Cipro] Allergy Nausea / Verified 06/25/24 12:33
Vomiting
latex Allergy Rash Verified 06/25/24 12:33
levetiracetam Allergy MATTY Verified 06/25/24 12:33
JOHNSONS
SYNDROME
levofloxacin [From Levaquin] Allergy Phlebitis Verified 06/25/24 12:33
at IV site
during
infusion
penicillin V Allergy took Verified 06/25/24 12:33
amoxicillin
w/o
adverse
reaction
Penicillins Allergy ok w/ Verified 06/25/24 12:33
amoxicillin
silver Allergy Redness, Verified 06/25/24 12:33
[From Tegaderm AG Mesh] eczema
reaction
Sulfa (Sulfonamide Allergy Recently Verified 06/25/24 12:33
Antibiotics) took w/o
adverse
reaction
sulfasalazine Allergy Recently Verified 06/25/24 12:33
took sulfa
med w/o
adverse
reaction
Home Medications
estradiol cypionate 1 dose IM MOTH@0800 Hormonal Agent 11/15/23
ibuprofen 200 mg tablet 400 mg PO Q6HPRN PRN mild pain 11/15/23
infliximab 100 mg intravenous solution (Remicade) 0 mg IV Q6W Ulcerative Colitis 11/15/23
liothyronine 5 mcg tablet 5 mcg PO DAILY Thyroid 11/15/23
testosterone cypionate 200 mg/mL intramuscular oil 8 mg IM MOTH@0800 Hormonal Agent 11/15/23
estradiol 0.01% (0.1 mg/gram) vaginal cream 1 applic vaginal MOTH Hormonal Agent 11/26/23
calcium carbonate (Tums) 200 mg PO MEALS 01/10/24
progesterone micronized 100 mg vaginal insert 200 mg vaginal HS 01/10/24
thyroid (pork) 60 mg tablet ([place] Thyroid) 60 mg PO DAILY 01/10/24
Amitriptyline-Baclofen 1 dose vaginal DAILYPRN PRN pelvic pain 04/29/24
albuterol sulfate 90 mcg/actuation aerosol inhaler (Ventolin HFA) 2 puff inhalation R QIDPRN PRN sob 04/29/24
cranberry extract 200 mg capsule (Ellura) 200 mg PO BID 04/29/24
diazepam 15 mg vaginal TID 04/29/24
methenam 118 mg-m.blue 10 mg-s.phos 40.8 mg-p.salic 36 mg-hyos capsule (Uro-MP) 1 tab PO QID 04/29/24
dibucaine 1 dose SD TIDPRN PRN rectal pain 05/05/24
Lactobac no.2-Bifidobac no.1-S. thermo 112.5 billion cell capsule (Visbiome) 1 cap PO DAILY 06/25/24
clotrimazole 10 mg lindsay 10 mg mucous membrane DAILYPRN PRN with oral antibiotics 06/25/24
cyclosporine 0.05 % eye drops in a dropperette 1 drp BOTH EYES TID 06/25/24
nortriptyline 10 mg capsule 10 mg PO TID 06/25/24
omeprazole 40 mg capsule,delayed release 40 mg PO DAILY 06/25/24
ondansetron 4 mg disintegrating tablet 4 mg PO DAILYPRN PRN nausea 06/25/24
prucalopride 2 mg tablet (Motegrity) 2 mg PO DAILY 06/25/24
semaglutide (weight loss) 2.4 mg/0.75 mL subcutaneous pen injector (Wegovy) 2.4 mg SC SALMERON 06/25/24
tretinoin 0.025 % topical cream 1 applic topical HS face 06/25/24
vibegron 75 mg tablet (Gemtesa) 75 mg PO DAILY 06/25/24
Review of Systems
-
History Source: Patient
Constitutional: Reports No Symptoms
EENT: Reports Sore Throat, Mouth Pain and Other (difficulty swallowing)
Respiratory: Reports No Symptoms
Cardiac: Reports No Symptoms
Abdomen/GI: Reports No Symptoms
: Reports No Symptoms
Musculoskeletal: Reports No Symptoms
Skin: Reports No Symptoms
Neurological: Reports No Symptoms
Endocrine: Reports No Symptoms
Hematologic/Lymphatic: Reports No Symptoms
Psych: Reports No Symptoms
Physical Exam
Vital Signs
Vital Signs
Temp Pulse Resp BP Pulse Ox
97.8 F 122 20 121/85 100
06/25/24 12:32 06/25/24 12:32 06/25/24 12:32 06/25/24 12:32 06/25/24 12:32
Physical Exam
General: Well Developed, Well Nourished, No Apparent Distress and Comfortable
HEENT: NormoCephalic, Moist mucous membranes, Atraumatic, Thrush (severe), Nose Appears Normal and Ears Appear Normal
Respiratory: Clear and Non Labored Respirations; No Wheezes, Rales, Rhonchi or Crackles
Cardiac: S1/S2 and Regular Rhythm; No Murmur, Rub or Gallop
Breast: Deferred by me
GI: Soft, Non Tender, Non Distended and Normal Bowel Sounds; No Organomegaly
Rectal: Deferred by Provider
Genito-urinary: Deferred by me
Musculoskeletal: No Clubbing, No Cyanosis, No Edema and Normal Gait & Station
Skin: Warm, Dry and IV/Catheter Site; No Rash
Neuro: Awake, Alert, AO x 3 and Nonfocal/grossly intact
Hematologic/Lymphatic: No Lymphadenopathy
Psych: Calm and Intact Judgment/Insight
Laboratory Results
-
06/25/24 14:39
06/25/24 14:39
Laboratory Results
Total Bilirubin 1.7 mg/dl (0.2-1.3) H 06/25/24 14:39
AST 17 U/L (14-36) 06/25/24 14:39
ALT 14 U/L (0-35) 06/25/24 14:39
Alkaline Phosphatase 45 U/L (38-126) 06/25/24 14:39
Data Reviewed
-
Lab Data: Labs Reviewed by me (WBC 19.6, Neut 78.8, )
Impression/Plan
-
IMPRESSION/PLAN:
#Fungal esophagitis
#thrush
- Admit to M/S
- bacterial vs. fungal infection
- Consult ID
- Fungal mouth swab, fungal blood cultures: pending
- Covid swab pending
- Hx repeat fungal infections, ageed to HIV testing
- Diflucan IV
- PRN magic mouthwash
- IVF
#Cough with recent intubation
- CXR pending
- Ceftriaxone IV
- Doxycycline IV
#pelvic floor dysfunction
#hx chronic pelvic pain
- s/p pudendal block last week
- continue home hormonal regimen
#Asthma
- continue PRN albuterol
#Hypothyroidism
- continue thyroid, lothyronine
#Ulcerative colitis on Remicade
- Last Remicade injection 10 days ago
#Gastroparesis / Motility Disorder
- hold semaglutide
Full Code
DVT Px: Lovenox Sq
--- NOTE | 2024-06-25 15:49 | W.PN.UPDATE ---
Addendum entered and electronically signed by Timoteo Lerma MD 06/25/24 17:12:
I have independently examined the patient and agree with H&P written on the same date
Original Note:
Update Note
Progress Note Update
54yo F with UC on Ramicade, esophageal dysmotilety, asthma, GERD, seizure d/o, hypothyroidism, Raynaud, POTS, von Willebrand disease came with worsening throat pain and significant oral thrush started few days ago as per patient after she had
pudendial block and was intubated for it. Also started with cough and generalized malaise. Hx of significant candidal infection in December 2023.CBC showed leukocytosis
A/P:
#Oral thrush, possible salvador esophagitis in immunocompromised patient
IV Fluconazol
Fungal cultures of the oral lesions and blood
ID consult
Patient is agreeable for HIV test
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
Magic mouthwash before meals
#Cough with recent intubation
high risk for aspiration
Ceftriaxone/DOxy pending chest XR
#chronic mild bilirubinemai
at least since 2012
check direct bili and LDH
#Asthma, not in exacerbation
#Raynaulds
#Seoizure d/o
#GERD
#Hypothyroidism
#POTS
IVF
check TSH
cont home meds
Seizure precautions
DVT ppx on lovenox
Full code
I have spent at least 78min reviewing chart, test results, communication with consultants and direct patient care
[2024-06-25 16:01] LABS: COVID-19 Antigen Negative (Negative)
[2024-06-25 16:15] LABS: Direct Bilirubin 0.2 mg/dl (0.0-0.4); LDH 147 U/L (120-246)
[2024-06-25 16:40] LABS: TSH 1.18 uIU/ml (0.47-4.68)
[2024-06-25] MEDS: DIFLUCAN 400 MG 200 IV (17:10)
[2024-06-25 17:12] VITALS: BP 102/64
[2024-06-25 19:18] VITALS: BMI 17.8
[2024-06-25 19:50] VITALS: BP 110/86; BMI 17.0
[2024-06-25] MEDS: NSS 1000 IV (21:29)
[2024-06-25] MEDS: ROCEPHIN 1000 MG IV (21:36)
[2024-06-25] MEDS: LOVENOX 40 MG SC (21:36)
[2024-06-25] MEDS: STERILE WATER FOR INJECTION 10 ML IV (21:36)
[2024-06-25] MEDS: RESTASIS 0.05% OPHTHALMIC EMULSION 1 DROPS BOTH EYES (21:37)
--- NOTE | 2024-06-25 22:00 | PTCARENOTE ---
pt arrived to 3 via stretcher and ambulated to bed. Assessment and admission completed by RN. VSS, medications administered, no further requests at this time.
[2024-06-25] MEDS: VIBRAMYCIN 260 MG IV (22:21)
[2024-06-25] MEDS: PAMELOR 10 MG PO (22:22)
[2024-06-25] MEDS: FIRST-MOUTHWASH BLM SUSPENSION 5 ML PO (22:22)
[2024-06-25 23:10] VITALS: BP 107/64
[2024-06-26] MEDS: ARMOUR THYROID 60 MG PO (06:15)
[2024-06-26] MEDS: CYTOMEL 5 MICROGRAM PO (06:15)
[2024-06-26 06:50] LABS: Hematocrit 36.5 % (37.0-47.0); Hemoglobin 12.2 g/dL (12.0-16.0); Mean Corp Hgb Conc. 33.4 g/dL (33.0-37.0); Mean Corpuscular Hgb 28.1 pg (27.0-31.0); Mean Corpuscular Volume 84.1 fL (81.0-99.0); Mean Platelet Volume 9.8 fL (7.4-10.4); Platelet Count 303 10^3/uL (130-400); Red Blood Cell Count 4.34 10^6/uL (4.20-5.40); Red Cell Dist. Width 12.8 % (11.5-14.5); White Blood Cell Count 9.4 10^3/uL (4.8-10.8)
[2024-06-26 07:29] LABS: Blood Urea Nitrogen 11 mg/dl (7-17); Calcium 8.8 mg/dl (8.4-10.2); Carbon Dioxide 25 mmol/L (22-30); Chloride 103 mmol/L (98-107); Estimated Creatinine Clearance 80 ml/min; Glucose 100 mg/dl (70-99); Potassium 4.6 mmol/L (3.5-5.1); Sodium 138 mmol/L (135-145); eGFR > 60.00
[2024-06-26 07:53] VITALS: BP 102/66
--- NOTE | 2024-06-26 08:27 | W.PN.HOSP.TC ---
Today's Communication/Plan
-
Thrush resolved
cont Abx, pending ID
Assessment / Plan
Assessment / Plan
54yo F with UC on Ramicade, esophageal dysmotilety, asthma, GERD, seizure d/o, hypothyroidism, Raynaud, POTS, von Willebrand disease came with worsening throat pain and significant oral thrush started few days ago as per patient after she had
pudendial block and was intubated for it. Also started with cough and generalized malaise. Hx of significant candidal infection in December 2023.CBC showed leukocytosis
A/P:
#Oral thrush, possible salvador esophagitis in immunocompromised patient
IV Fluconazol
Fungal cultures of the oral lesions and blood
ID consult
Patient is agreeable for HIV test
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
Magic mouthwash before meals
#Cough with recent intubation with concern for CAP, with unspecified organism
high risk for aspiration
Ceftriaxone/DOxy
chest XR with Mild patchy left midlung airspace disease
COVID-19 neg
#chronic mild indirect bilirubinemia most likely 2/2 [place]
LDH WNL
at least since 2012
#Asthma, not in exacerbation
#Raynaulds
#Seoizure d/o
#GERD
#Hypothyroidism
#POTS
IVF
TSH WNL
cont home meds
Seizure precautions
DVT ppx on lovenox
Full code
I have spent at least 58min reviewing chart, test results, communication with consultants and direct patient care
Anticipated Discharge: Within 24 hours
Subjective/Interval History
-
Date of Service: June 26, 2024
Objective Data
-
Labs:
Laboratory Results
06/26/24
06:25
WBC 9.4
Hgb 12.2
Hct 36.5 L
Plt Count 303
Sodium 138
Potassium 4.6
Chloride 103
Carbon Dioxide 25
BUN 11
Creatinine 0.5 L
Glucose 100 H
Calcium 8.8
Vital Signs:
Vital Signs
Temp Pulse Resp BP Pulse Ox
98.2 F 91 16 102/66 98
06/26/24 07:53 06/26/24 07:53 06/26/24 07:53 06/26/24 07:53 06/26/24 08:03
I&O
06/25/24 06/26/24 06/27/24
06:59 06:59 06:59
Intake Total 1480 / 1480
Balance 1480 / 1480
Review of Systems
-
History Source: Patient
All other systems: Reviewed and negative
Physical Exam
-
General: No Apparent Distress
HEENT: Normocephalic
Respiratory: Clear to Auscultation
Cardiac: Regular Rhythm
GI: Soft
Musculoskeletal: No Clubbing, No Cyanosis and No Edema
Skin: Warm
Neuro: Awake, Alert, Oriented and AO x 3
Psych: Calm
[2024-06-26] MEDS: DETROL LA 4 MG PO (09:17)
[2024-06-26] MEDS: VIBRAMYCIN 100 MG PO (09:17)
[2024-06-26] MEDS: PAMELOR 10 MG PO ×2 (09:17→17:19)
[2024-06-26] MEDS: PROTONIX 40 MG PO (09:17)
[2024-06-26] MEDS: RESTASIS 0.05% OPHTHALMIC EMULSION 1 DROPS BOTH EYES ×2 (09:18→17:20)
[2024-06-26] MEDS: VISBIOME 1 CAP PO (09:18)
[2024-06-26] MEDS: FIRST-MOUTHWASH BLM SUSPENSION 5 ML PO (09:18)
[2024-06-26] MEDS: NSS 1000 IV (09:19)
[2024-06-26] MEDS: VIBRAMYCIN IV (09:39)
--- NOTE | 2024-06-26 10:15 | CON.ID ---
Addendum entered and electronically signed by Aleksandra Mayen MD 06/26/24 12:31:
Also dc doxycycline.
Per now taking po meds. Change IV fluconazole to po 200mg daily x 10 day course.
Original Note:
Consultation
-
Date/Time Consultation Requested: June 25, 2024 1554
Date/Time Consultation Performed: June 26, 2024 1015
Requesting Provider: Dr. Timoteo Lerma
Performing Provider: Dr. Aleksandra Mayen
Reason for Consultation: Esophagitis
Chief Complaint / Past History
Chief Complaint
difficulty swallowing
History of Present Illness
54 year old female with multiple medical problems with UC on infliximab, raynaud's, thoracic outlet syndrome receives scalene botox, gastropareses/GI motility disorder constipation/chronic pelvic pain s/p pudendal block under full anaesthesia 06/19.
She was extubated then discharged to home. However that evening she had severe esophageal spasms all night with burning chest pain, cough and she believes she may have aspirated. She then developed the white coating on her throat and tongue as
previous. She could not swallow food or drink fluids. Has significant odynophagia. No fever. She came to the ER yesterday. White count 19.6 which resolved. She was started on IV fluconazole and ceftriaxone. Today she reports the white coating
has significantly improved. She had similar episode back in October 2023 with severe Carol esophagitis improved with fluconazole. Patient reports also she gets vaginal yeast infections. She has made an appointment with Immunology at [facility]
to assess for immune deficiency. HIV was negative. No fevers or chills. No cough.
Past History
Additional Past Medical History:
Ulcerative colitis on infliximab q 6 weeks
Hypothyroidism
Asthma
Raynaud's
gastroparesis/GI motility disorder
nephrolithiasis
POTS( thoracic outlet syndrome) - tx with botox to scalene muscles
ADD
Interstitial cystitis
hx of hyperglycemia, placed on Wegovey since 2021
Von Willebrand disease
Chronic pelvic pain - tx with pudendal block
Hand surgery
breast reduction
Allergy History:
adhesive Allergy (Verified 06/25/24 12:33)
Rash
Cephalosporins Allergy (Verified 06/25/24 12:33)
Nausea / Vomiting/HIVES CHILD
ciprofloxacin [From Cipro] Allergy (Verified 06/25/24 12:33)
Nausea / Vomiting
latex Allergy (Verified 06/25/24 12:33)
Rash
levetiracetam Allergy (Verified 06/25/24 12:33)
MATTY JOHNSONS SYNDROME
levofloxacin [From Levaquin] Allergy (Verified 06/25/24 12:33)
Phlebitis at IV site during infusion
penicillin V Allergy (Verified 06/25/24 12:33)
took amoxicillin w/o adverse reaction
Penicillins Allergy (Verified 06/25/24 12:33)
ok w/ amoxicillin
silver [From Tegaderm AG Mesh] Allergy (Verified 06/25/24 12:33)
Redness, eczema reaction
Sulfa (Sulfonamide Antibiotics) Allergy (Verified 06/25/24 12:33)
Recently took w/o adverse reaction
sulfasalazine Allergy (Verified 06/25/24 12:33)
Recently took sulfa med w/o adverse reaction
Medications Reviewed: Yes
Current Antibiotics:
IV fluconazole
ceftriaxone
Social History
Tobacco: Non-Smoker
Alcohol: Occasional
Drug: None
Personal:
Living: With Family ()
Family History
Family History: Not Pertinent
Review of Systems
Review of Systems
General: Change in Appetite; Negative Fever or Chills
HEENT: Pharyngitis; Negative Sinus Problems or Headache
Cardiovascular: Negative Chest Pain
Respiratory: Negative Dyspnea or Cough
Gasteroenterology: Negative Diarrhea
Genital / Urological: Negative Dysuria or Flank Pain
Neurological: Negative Headache or Dizziness
All systems: All other systems were reviewed and were negative
Vital Signs
Temp Pulse Resp BP Pulse Ox
98.2 F 91 16 102/66 98
06/26/24 07:53 06/26/24 07:53 06/26/24 07:53 06/26/24 07:53 06/26/24 08:03
Physical Exam
Physical Exam
Constitutional: No Acute Distress and Cachetic
Head: Other (No frontal or max or sinus tenderness)
Eyes: No Conjunctival Hemorrhage and Sclera Anicteric
Pharynx: Negative Erythema
Oral: Thrush (on tongue, buccal mucosa)
Cardiovascular: Regular Rate and S1/S2
Pulmonary: Clear
Gastrointestinal: Soft, Non Tender, Non Distended and Normal Bowel Sounds
Extremities: Negative Edema
Neurological: AO x 3
Lab / Diagnostic Study Results
06/26/24 06:25
06/26/24 06:25
Abs Immat Gran (auto) 0.1 10^3/uL (0-0.05) H 06/25/24 14:39
Absolute Neuts (auto) 15.5 10^3/uL (1.4-6.5) H 06/25/24 14:39
Absolute Lymphs (auto) 2.9 10^3/uL (1.2-3.4) 06/25/24 14:39
Absolute Monos (auto) 1.1 10^3/uL (0.1-0.6) H 06/25/24 14:39
Absolute Basos (auto) 0.1 10^3/uL (0-0.2) 06/25/24 14:39
Immature Gran % 0.6 % (0-0.5) H 06/25/24 14:39
Neutrophils % 78.8 % (42.2-75.2) H 06/25/24 14:39
Lymphocytes % 14.5 % (20.5-51.1) L 06/25/24 14:39
Monocytes % 5.4 % (1.7-9.3) 06/25/24 14:39
Eosinophils % 0.3 % (0-6) 06/25/24 14:39
Basophils % 0.4 % (0-2) 06/25/24 14:39
Microbiology Results
Micro:
06/25/24 17:09 Blood Fungal Culture - Pending
Blood/Venous
06/15/24 CXR: Mild patchy left midlung airspace disease may reflect atelectasis or pneumonia.
Assessment / Plan
# Suspect oropharyngeal candidiasis - recurrent
# Odynophagia/dysphagia after recent intubation for procedure
# GI motility disorder
# UC on Remicade
- Can continue IV fluconazole until able to take po.
- Can dc ceftriaxone.
- For outpt immunodeficiency workup with Allergy/[facility].
[2024-06-26] MEDS: ZOFRAN 4 MG IV (11:02)
--- NOTE | 2024-06-26 11:35 | PTOTSP ---
Patient demonstrates independence with mobility and managing her IV pole without issues.
Does not demonstrate further need for skilled therapy at this time; will discharge.
If needs change, please re-consult.
[2024-06-26 12:42] VITALS: BMI 17.0
--- NOTE | 2024-06-26 12:55 | W.DCSUMMARY ---
Addendum entered and electronically signed by Timoteo Lerma MD 06/27/24 13:56:
#MAlnutrition, protein calorie
BMI 17.0
Advised to increase calorie intake
Original Note:
Discharge Summary
Discharge Data
Date of Admission: 06/25/24
Date of Discharge: 06/26/24
-
Pending Results: Yes
Additional Pending Results:
Blood fungal Cx and Yeast Cx
Hospital Course
54yo F with UC on Remicade, esophageal dysmotility, asthma, GERD, seizure d/o, hypothyroidism, Raynaud, POTS, von Willebrand disease came with worsening throat pain and significant oral thrush started few days ago as per patient after she had
pudendal block and was intubated for it. Also started with cough and generalized malaise. Hx of significant candidal infection in December 2023.CBC showed leukocytosis. Patient had minimal cough and XR concerning for airway disease in midlung. With
recent intubation will favor short course of Doxy/Cefpodoxime (patient was informed to avoid direct sunlight and calcium supplements while taking doxy also tolerated Ceftiraxone without adverse reaction in hospital). As per ID - can start oral
Fluconazole for 10 days. Patient able to keep food down and medically stable for d/c
I have spent 39min discharging the patient
Patient was managed for:
#Oral thrush, possible salvador esophagitis in immunocompromised patient
#Cough with recent intubation with concern for CAP, with unspecified organism
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
#Asthma, not in exacerbation
#Raynaud
#Seizure d/o
#GERD
#Hypothyroidism
#POTS
Discharge Plan
-
Patient Disposition: Home (Routine Discharge)
Discharge Diagnosis/Procedures: Oral thrush
Diet: Regular
Activity: As tolerated
Driving Restrictions: As prior to admission
Referrals:
Francis Lang, [Family Provider] -
Prescriptions:
New
fluconazole 200 mg Tablet
200 mg PO Q24H Qty: 10 0RF
doxycycline hyclate 100 mg capsule
100 mg PO BID Qty: 10 0RF
cefpodoxime 200 mg tablet
200 mg PO BID Qty: 10 0RF
Continued
liothyronine 5 mcg Tablet
5 mcg PO DAILY
infliximab [Remicade] 100 mg Recon Soln
0 mg IV Q6W
ibuprofen 200 mg Tablet
400 mg PO Q6HPRN PRN (Reason: mild pain)
testosterone cypionate 200 mg/mL Oil
8 mg IM MOTH@0800
estradiol cypionate 5 mg/ml oil
1 dose IM MOTH@0800
estradiol 0.01 % (0.1 mg/gram) cream
1 applic VAGINAL MOTH
calcium carbonate [Tums] 200 mg calcium (500 mg) Tablet,Chewable
200 mg PO MEALS
progesterone micronized 100 mg Insert
200 mg vaginal HS
Rx Instructions:
Rectal
thyroid (pork) [[place] Thyroid] 60 mg Tablet
60 mg PO DAILY
Amitriptyline-Baclofen cream
1 dose vaginal DAILYPRN PRN (Reason: pelvic pain)
albuterol sulfate [Ventolin HFA] 90 mcg/actuation Hfa Aerosol Inhaler
2 puff INHALATION R QIDPRN PRN (Reason: sob)
Uro-MP 118-10-40.8-36 mg Capsule
1 tab PO QID
dibucaine
1 dose OR TIDPRN PRN (Reason: rectal pain)
cranberry extract [Ellura] 200 mg Capsule
200 mg PO BID
diazepam 15 mg suppository
15 mg vaginal TID
Patient Comments:
06/25/2024: last filled 06/24/24, 90 doses for 30 days from [facility]
tretinoin 0.025 % Cream
1 applic TOPICAL HS
omeprazole 40 mg Capsule,Delayed Release(Dr/Ec)
40 mg PO DAILY
nortriptyline 10 mg Capsule
10 mg PO TID
ondansetron 4 mg Tablet,Disintegrating
4 mg PO DAILYPRN PRN (Reason: nausea)
cyclosporine 0.05 % Dropperette
1 drp BOTH EYES TID
Visbiome 112.5 billion cell Capsule
1 cap PO DAILY
Motegrity 2 mg Tablet
2 mg PO DAILY
Gemtesa 75 mg Tablet
75 mg PO DAILY
Wegovy 2.4 mg/0.75 mL Pen Injector
2.4 mg SC SALMERON
clotrimazole 10 mg lindsay
10 mg mucous membrane DAILYPRN PRN (Reason: with oral antibiotics)
Discharge Date and Time
Print Language: GERMAN
[2024-06-26 15:30] VITALS: BP 131/86
[2024-06-26] MEDS: DIFLUCAN 200 MG PO (17:19)
--- NOTE | 2024-06-27 11:08 | PN.CDI ---
CDI
- -
CDI:
Physician Documentation Request
Admit Date: 06/25/24 16:29
Dear Doctor,
Please review the following and provide your response in the progress notes.
Clinical Indicators:
RD note on 06/26: Patient meets ASPEN/AND criteria for Severe Protein Calorie Malnutrition based on unintended weight loss >10% in 6 months and nutrion intake </= 75% of estimated needs for >/= 1 month.
BMI 17.0
To ensure the quality of the medical record, based on the above information and the recognized standards for malnutrition , could you please verify in your progress notes which of the following responses best reflects the patient's nutritional
status:
Severe Malnutrition
Other (please specify)
[place] Criteria ([facility] Hospitalist 2017)
2 or more criteria must be present for either
non severe or severe malnutrition
Note that the criteria differs related to the
presence of an acute or chronic illness
Acute Illness Chronic Illness
Energy Intake Non Severe: <75% for >7 days Non Severe: <75% for >1 month
Severe: <50% for >5 days Severe: <75% for >1 month
Weight Loss Non Severe: 1-2% over 1 week Non Severe: 5% over 1 month
5% over 1 month 7.5% over 3 months
7.5% over 3 months 10% over 6 months
1 year N/A 20% over 1 year
Severe: >2% over 1 week Severe: >5% over 1 month
>5% over 1 month >7.5% over 3 months
>7.5% over 3 months >10% over 6 months
1 year N/A >20% over 1 year
Body Fat Non Severe: Mild Decrease Non Severe: Mild Loss
Severe: Moderate Decrease Severe: Severe Loss
Muscle Mass Non Severe: Mild Decrease Non Severe: Mild Loss
Severe: Moderate Decrease Severe: Severe Loss
Fluid Accumulation Non Severe: Mild Accumulation Non Severe: Mild Accumulation
Severe: Moderate to severe Severe: Moderate to severe
accumulation accumulation
Reduced Crusher Strength Non Severe: N/A Non Severe: N/A
Severe: Measurably reduced Severe: Measurably reduced
)
Use of terms such as suspected, likely, concern for, or probable (associated with a specific diagnosis that is being evaluated, monitored, or treated as if it exists) are acceptable and can be coded in the inpatient setting, when documented at the
time of discharge.
Thank you,
Minoo Benjamin
CDI Specialist
Please use your independent medical judgment in providing your response.
[2024-06-27 13:21] LABS: HIV Combo Negative (Negative)
== END 2024-06-26 18:38 | disposition home or self-care (01) | DRG 369 ==
LOC: 3 WEST ACU 16:29
PROVIDERS: Nurse Practitioner Family; Registered Nurse; ADMITTING PHYSICIAN Internal Medicine; CONSULT PHYSICIAN Internal Medicine Infectious Disease; EMERGENCY PHYSICIAN Emergency Medicine; FAMILY PHYSICIAN Family Medicine
DX: B37.81 Candidal esophagitis (principal); D68.00 Von Willebrand disease, unspecified; K51.90 Ulcerative colitis, unspecified, without complications; D84.821 Immunodeficiency due to drugs; B37.0 Candidal stomatitis; E03.9 Hypothyroidism, unspecified; G40.909 Epilepsy, unspecified, not intractable, without status epilepticus; I10 Essential (primary) hypertension; J45.909 Unspecified asthma, uncomplicated; G54.0 Brachial plexus disorders; G90.A Postural orthostatic tachycardia syndrome [POTS]; E78.00 Pure hypercholesterolemia, unspecified; G89.29 Other chronic pain; I25.10 Atherosclerotic heart disease of native coronary artery without angina pectoris; I73.00 Raynaud's syndrome without gangrene; K22.4 Dyskinesia of esophagus; K31.84 Gastroparesis; R73.9 Hyperglycemia, unspecified; M54.2 Cervicalgia; K21.9 Gastro-esophageal reflux disease without esophagitis; K59.00 Constipation, unspecified; K62.89 Other specified diseases of anus and rectum; R13.10 Dysphagia, unspecified; Z79.620 Long term (current) use of immunosuppressive biologic; Z79.899 Other long term (current) drug therapy; Z87.442 Personal history of urinary calculi; Z87.440 Personal history of urinary (tract) infections; Z88.0 Allergy status to penicillin; Z88.1 Allergy status to other antibiotic agents; Z88.2 Allergy status to sulfonamides; Z88.8 Allergy status to other drugs, medicaments and biological substances
CPT/HCPCS: 71046; 80048; 80053; 82248; 83615; 84443; 85025; 85027; 87102; 87103; 87389; 87811; 93005; 97162; 97165; 99284

== ENCOUNTER 2024-08-04 06:08 | Day surgery (SDC) | payer OTHER, SELFPAY ==
[2024-08-04] VITALS (12 sets, daily range): BP systolic 98–136; BP diastolic 59–92; BMI 17.4
[2024-08-04 06:56] LABS: Glucose - Point of Care 94 mg/dl (70-99)
[2024-08-04] MEDS: Pyridium 200 MG PO ×2 (07:07→11:35)
[2024-08-04] MEDS: ZOFRAN 4 MG IV (10:13)
[2024-08-04] MEDS: ROXICODONE 5 MG PO (11:35)
[2024-08-04] MEDS: VALIUM 5 MG PO (12:10)
== END 2024-08-04 13:19 | disposition home or self-care (01) ==
LOC: SDS 06:08
PROVIDERS: Urology; ATTENDING PHYSICIAN Obstetrics & Gynecology
PROC: 0JQC0ZZ Repair Pelvic Region Subcutaneous Tissue and Fascia, Open Approach (ICD-10-PCS; 2024-08-04)
PROC: 0T7B8ZZ Dilation of Bladder, Via Natural or Artificial Opening Endoscopic (ICD-10-PCS; 2024-08-04)
PROC: 0USG7ZZ Reposition Vagina, Via Natural or Artificial Opening (ICD-10-PCS; 2024-08-04)
DX: N81.2 Incomplete uterovaginal prolapse (principal); N30.10 Interstitial cystitis (chronic) without hematuria
CPT/HCPCS: 57260; 57282; 52260; 82962; 86850; 86900; 86901

== ENCOUNTER 2024-08-12 22:37 | Inpatient (IN) | payer OTHER, MEDICARE, SELFPAY ==
[2024-08-12 16:03] VITALS: BMI 17.4
[2024-08-12 16:06] VITALS: BP 100/70
[2024-08-12 16:32] LABS: % Basophils 0.3 % (0-2); % Eosinophils 0.3 % (0-6); % Immature Granulocytes 0.4 % (0-0.5); % Lymphocytes 12.4 % (20.5-51.1); % Monocytes 6.8 % (1.7-9.3); % Neutrophils 79.8 % (42.2-75.2); Absolute Immature Granulocytes 0.1 10^3/uL (0-0.05); Absolute Lymphocytes 1.8 10^3/uL (1.2-3.4); Absolute Neutrophils 11.5 10^3/uL (1.4-6.5); Hematocrit 38.6 % (37.0-47.0); Hemoglobin 12.9 g/dL (12.0-16.0); Mean Corp Hgb Conc. 33.4 g/dL (33.0-37.0); Mean Corpuscular Hgb 28.4 pg (27.0-31.0); Mean Corpuscular Volume 84.8 fL (81.0-99.0); Mean Platelet Volume 9.8 fL (7.4-10.4); Nucleated Red Blood Cells % 0 %; Platelet Count 355 10^3/uL (130-400); Red Blood Cell Count 4.55 10^6/uL (4.20-5.40); Red Cell Dist. Width 13.2 % (11.5-14.5); White Blood Cell Count 14.4 10^3/uL (4.8-10.8)
[2024-08-12 16:59] LABS: ALT (SGPT) 51 U/L (0-35); AST (SGOT) 37 U/L (14-36); Albumin 4.1 g/dl (3.5-5.0); Alkaline Phosphatase 81 U/L (38-126); Blood Urea Nitrogen 9 mg/dl (7-17); Calcium 9.4 mg/dl (8.4-10.2); Carbon Dioxide 27 mmol/L (22-30); Chloride 96 mmol/L (98-107); Glucose 97 mg/dl (70-99); Potassium 4.2 mmol/L (3.5-5.1); Sodium 134 mmol/L (135-145); Total Bilirubin 0.8 mg/dl (0.2-1.3); Total Protein 7.1 g/dl (6.3-8.2); eGFR > 60.00
[2024-08-12 17:22] LABS: COVID-19 Antigen Negative (Negative)
[2024-08-12 17:47] VITALS: BP 98/51
--- NOTE | 2024-08-12 17:48 | ED.GENMED ---
ED Provider Triage
<Bert Larios Jr., PA-C - Last Filed: 08/12/24 17:55>
-
Patient seen by provider in Triage?: Seen in Triage
Attestation: A medical screening examination has been initiated by a qualified medical provider. Based on the assessment performed at this time, it has been determined that an emergent medical condition may exist and the patient has been informed
that further medical evaluation and possible additional diagnostic testing may be needed.
HPI: 54-year-old female recent rectocele cystocele 1 week ago. At this point worsening fever generalized weakness fatigue. temperature of 102.1 at home tachycardic on arrival here. Ongoing abdominal pain plan for CT scan for assessment of
possible surgical infection. Additionally concerns of difficulty hearing in bilateral ears.
GENERAL: Alert , in no apparent distress
EYE: No visual abnormalities.
NECK: Trachea midline
ENT: No visible abnormalities.
LUNGS: No acute respiratory distress
NEUROLOGICAL: Alert and oriented
SKIN: Skin intact. No visible changes.
MUSCULOSKELETAL: Moving extremities normally
PSYCH: Normal and appropriate interaction.
This is a medical evaluation conducted in person to initiate diagnostic evaluation and provide initial therapeutics. Please see further documentation by the treating clinician.
History of Present Illness
<Bert Larios Jr., PA-C - Last Filed: 08/12/24 17:55>
General
Chief Complaint: Fever
Time Seen by Provider: 08/12/24 19:11
<Kyleigh Samson NP - Last Filed: 08/14/24 01:03>
General
Source: patient
Exam Limitations: none
Nursing documentation reviewed up to this point in time: agreed with
History of Present Illness
History of Present Illness:
54-year-old female here for fever, 102.1 2 p.m. last Ibuprofen 3 p.m., Also here for no BM for 8 days, until today, moderate liquid stool. Has been texting with her GI motility specialist who is recommending therapy to get bowels moving. Last
contact with her was today and recommended the prep used for colonoscopies.
Also states she feels the same way she usually does with her chronic intermittent candidal albicans infection: can't swallow due to sore scratchy throat, trouble 'hearing my own voice,' inability to taste.
Pt with history of ulcerative colitis on Remicade, gastroparesis and GI motility disorder, candidal esophagitis, had uterine anterior and posterior prolapse, interstitial cystitis, had cystoscopy hydrodistention of the bladder on 08/04/2024 by
Janna Pettit DO.
Pt states she is healing well post bladder surgery.
Hysteropexy with sacrospinous ligament fixation.
2. Anterior-posterior colporrhaphy with perineoplasty.
3. Cystoscopy.
Past History
<Bert Larios Jr., PA-C - Last Filed: 08/12/24 17:55>
Past History
ED Past Medical History: Asthma, GERD, Hypercholesterolemia, Seizures, Hypothyroidism, Psychiatric (Denies anxiety history), Other ( Raynaud's Syndrome, PNA, Ulcerative colitis, UTI, Interstitial cystitis, ADD, Kidney stones, POTS, thoracic outlet
syndrome, Von Willebrand disease. Gastroparesis, Back and neck pain, ) and Other (Slow Motility, Difficulty swallowing that she is being worked up for. )
ED Past Surgical History: Gynecological (Uterine ablation, ), Orthopedic (Hand surgery, neck surgery, ) and Other (Breast reduction, cataracts, Eye surgery, )
Social History
Tobacco: Non-smoker
Alcohol: Occasional
Drug: None
Personal:
Living: with family
Employment: Employed
Family History
Family History: Hypertension
Review of Systems
<Kyleigh Samson ASSISTANT ATTORNEY GENERAL - Last Filed: 08/14/24 01:03>
Review of Systems
Allergies reviewed?: Yes
All Other Systems: ROS reviewed and negative except as documented in HPI and ROS
Constitutional: Reports fever
EENT: Reports sore throat
Respiratory: Denies trouble breathing
Cardiac: Denies chest pain
ABD/GI: Reports diarrhea and anorexia; Denies abdominal pain, nausea, vomiting, bloody stools or black stools
: Denies dysuria or difficulty voiding
Musculoskeletal: Reports no symptoms
Skin: Reports no symptoms
Neurological: Reports no symptoms
Phy Exam
<Kyleigh Samson, ASSISTANT ATTORNEY GENERAL - Last Filed: 08/14/24 01:03>
Physical Exam
Physical Exam:
GENERAL: No acute distress. A&Ox3.
CONSTITUTIONAL: Afebrile.
EYES: Clear, conjunctivae normal
Neck: Supple
ENMT: moist mucus membranes, Pharynx nl, TMs normal
RESPIRATORY: Regular respirations, nonlabored, lungs clear.
CARDIOVASCULAR: Regular rate and rhythm, no murmurs, no rubs.
GI: Soft, nontender, no audible BS
: speculum exam: purulent discharge noted
MUSCULOSKELETAL: Moves with ease. Well perfused.
SKIN: Warm, dry, pink
PSYCH: Normal mood and affect. Well kept, interactive and appropriate
NEUROLOGIC: Awake, alert and oriented. No focal neurological deficits
Sepsis
<Bert Larios Jr., PA-C - Last Filed: 08/12/24 17:55>
Sepsis Screen
Sepsis Screen: Possible Sepsis
Date: 08/12/24
Time: 17:48
<Kyleigh Samson, ASSISTANT ATTORNEY GENERAL - Last Filed: 08/14/24 01:03>
Sepsis Screening
Sepsis Assessment: Sepsis
Sepsis Screen
Sepsis Screen: Sepsis
Date: 08/14/24
Time: 01:02
Course
<MYRANDA Campos Jr.C - Last Filed: 08/12/24 17:55>
Orders/Labs/Results
Orders:
Orders
08/12/24 16:18
COVID-19 Antigen Urgent
Source: Nasal Swab
Complete Blood Count/With Diff Urgent
Comprehensive Metabolic Panel Urgent
Influenza A+B Rapid Molecular Urgent
SAM Source: Nasal Swab
Specimen Description:
08/12/24 17:53
CT Abd/Pel (IV only)-DH only Urgent
Comment:
Reason For Exam: lower abd pain recent suergery cystocele, rectocel
08/12/24 18:02
Lactic Acid Urgent
08/12/24 20:45
Urinalysis Reflex To Culture Urgent
Date Specimen was Collected: 08/12/24
Time Specimen was Collected: 20:39
Urine Microscopic Reflex Cult Urgent
08/12/24 21:29
Consult Infectious Disease [INFECTIOUS DISEASE CONSULT] Urgent
Consulting Provider: Judy Enrique
Was physician already notified: Yes
Reason for consult: fever post op, multiple drug allergies, need antibiotic recommendation
08/12/24 21:30
Consult Urology [UROLOGY CONSULT] Urgent
Consulting Provider: Amilcar Webster
Was physician already notified: Yes
Comment: fever 8 days post op
08/12/24 22:04
Lactic Acid Q4H
Comment: CANCEL 2nd LACTIC ACID IF 1st LACTIC ACID IS LESS THAN 2
Blood Culture Q30M
SAM Source: Blood/Venous
Specimen Description:
08/12/24 22:19
0.9% Sodium Chloride 1000 ml [Nss] 1,000 ml IV BOLUS
08/12/24 22:20
Meropenem [Merrem] 1,000 mg IV NOW STA
Sterile Water [Sterile Water For Injection] 20 ml IV ONCE ONE
08/12/24 22:21
Admit/Transfer Patient As Directed
Co-Sign Provider:
Level of Care: Inpatient admission
Assign to:: Medical/Surgical
Physician / Group: johanne
Diagnosis: infected hematoma
Reason for Hospitalization: infected hematoma
Expected length of stay greater than two midnights?: Yes
ELOS- Estimated Length of Stay in days: 2
I certify the patient meets the requirements for IP care: Yes
PRN Pain Medication Management As Directed
May give lesser potent ordered pain med per pt: Yes
preference::
Protocol:: Medication orders for pain may be administered in a
manner that supports deferring to patient preference
when the pt is:
- Requesting an ordered lesser potent pain medication.
Least to most potent pain medications are defined
as: acetaminophen < NSAID < tramadol < opioids
(morphine, oxycodone, hydromorphone).
- Requesting a lesser dose of the same medication IF
ORDERED.
- Requesting a less intrusive route of administration
if both routes are prescribed by the provider (PO <
IV).
08/12/24 22:22
Code Status As Directed
Resuscitation Status: Full Code
08/12/24 22:26
Sterile Water [Sterile Water For Injection] 20 ml IV NOW STA
08/12/24 22:31
C difficile Antigen & Toxins Urgent
SAM Source: Feces/Stool
Specimen Description:
Date Specimen was Collected: 08/13/24
Time Specimen was Collected: 17:01
Norovirus by PCR Urgent
SAM Source: Feces/Stool
Specimen Description:
Date Specimen was Collected: 08/13/24
Time Specimen was Collected: 17:01
Ova & Parasites Giardia/Crypto AG [Giardia/Cryptosporidium Ag] Urgent
SAM Source: Feces/Stool
Specimen Description:
Date Specimen was Collected: 08/13/24
Time Specimen was Collected: 17:01
Stool Culture Urgent
SAM Source: Feces/Stool
Specimen Description:
Date Specimen was Collected: 08/13/24
Time Specimen was Collected: 17:01
08/12/24 22:33
Urinalysis Reflex To Culture Urgent (Cancelled)
08/12/24 23:20
Blood Culture Q30M
SAM Source: Blood/Venous
Specimen Description:
08/13/24 00:00
Fluconazole 200 mg/100 ml [Diflucan 200 mg] 100 ml IV Q24H
08/13/24 01:02
0.9% Sodium Chloride 1000 ml [Nss] 1,000 ml IV 80 mls/hr
Acetaminophen [Tylenol] 650 mg PO Q4HPRN PRN
08/13/24 01:02
Activity As Directed
Activity Level: As Tolerated
Pneumatic Compression Sleeves As Directed
Type: Knee high
Vital Signs As Directed
Frequency: Per unit guidelines
DX Deep Vein Thrombosis Video Routine
08/13/24 02:19
Lactic Acid Q4H
Comment: CANCEL 2nd LACTIC ACID IF 1st LACTIC ACID IS LESS THAN 2
08/13/24 04:00
Ondansetron Injectable [Zofran] 4 mg IV Q6HPRN PRN
08/13/24 07:24
Complete Blood Count/With Diff IN AM
Comprehensive Metabolic Panel IN AM
08/13/24 12:00
Meropenem [Merrem] 1,000 mg IV Q12H
Abnormal Lab Results
08/12/24 08/12/24
16:18 20:45
WBC 14.4 H 10^3/uL
(4.8-10.8)
Abs Immat Gran (auto) 0.1 H 10^3/uL
(0-0.05)
Absolute Neuts (auto) 11.5 H 10^3/uL
(1.4-6.5)
Absolute Monos (auto) 1.0 H 10^3/uL
(0.1-0.6)
Neutrophils % 79.8 H %
(42.2-75.2)
Lymphocytes % 12.4 L %
(20.5-51.1)
Sodium 134 L mmol/L
(135-145)
Chloride 96 L mmol/L
(98-107)
AST 37 H U/L
(14-36)
ALT 51 H U/L
(0-35)
Ur Occult Blood Reflex 1+ A
(Negative)
Leukocyte Esterase Rfl Trace A
(Negative)
Urine Bacteria (Reflex) Few A
(Negative)
08/12/24 16:18
08/12/24 16:18
Vital Signs
Initial and Last Documented VS:
Initial Vital Signs
Temp Pulse Resp BP Pulse Ox
97.8 F 125 20 100/70 95
08/12/24 16:06 08/12/24 16:06 08/12/24 16:06 08/12/24 16:06 08/12/24 16:06
Last Documented Vital Signs
Temp Pulse Resp BP Pulse Ox
98.1 F 83 16 99/65 98
08/13/24 23:10 08/13/24 23:10 08/13/24 23:10 08/13/24 23:10 08/13/24 23:10
<Kyliegh Samson, ASSISTANT ATTORNEY GENERAL - Last Filed: 08/14/24 01:03>
Orders/Labs/Results
Orders:
Orders
08/12/24 16:18
COVID-19 Antigen Urgent
Source: Nasal Swab
Complete Blood Count/With Diff Urgent
Comprehensive Metabolic Panel Urgent
Influenza A+B Rapid Molecular Urgent
SAM Source: Nasal Swab
Specimen Description:
08/12/24 17:53
CT Abd/Pel (IV only)-DH only Urgent
Comment:
Reason For Exam: lower abd pain recent suergery cystocele, rectocel
08/12/24 18:02
Lactic Acid Urgent
08/12/24 20:45
Urinalysis Reflex To Culture Urgent
Date Specimen was Collected: 08/12/24
Time Specimen was Collected: 20:39
Urine Microscopic Reflex Cult Urgent
08/12/24 21:29
Consult Infectious Disease [INFECTIOUS DISEASE CONSULT] Urgent
Consulting Provider: Judy Enrique
Was physician already notified: Yes
Reason for consult: fever post op, multiple drug allergies, need antibiotic recommendation
08/12/24 21:30
Consult Urology [UROLOGY CONSULT] Urgent
Consulting Provider: Amilcar Webster
Was physician already notified: Yes
Comment: fever 8 days post op
08/12/24 22:04
Lactic Acid Q4H
Comment: CANCEL 2nd LACTIC ACID IF 1st LACTIC ACID IS LESS THAN 2
Blood Culture Q30M
SAM Source: Blood/Venous
Specimen Description:
08/12/24 22:19
0.9% Sodium Chloride 1000 ml [Nss] 1,000 ml IV BOLUS
08/12/24 22:20
Meropenem [Merrem] 1,000 mg IV NOW STA
Sterile Water [Sterile Water For Injection] 20 ml IV ONCE ONE
08/12/24 22:21
Admit/Transfer Patient As Directed
Co-Sign Provider:
Level of Care: Inpatient admission
Assign to:: Medical/Surgical
Physician / Group: johanne
Diagnosis: infected hematoma
Reason for Hospitalization: infected hematoma
Expected length of stay greater than two midnights?: Yes
ELOS- Estimated Length of Stay in days: 2
I certify the patient meets the requirements for IP care: Yes
PRN Pain Medication Management As Directed
May give lesser potent ordered pain med per pt: Yes
preference::
Protocol:: Medication orders for pain may be administered in a
manner that supports deferring to patient preference
when the pt is:
- Requesting an ordered lesser potent pain medication.
Least to most potent pain medications are defined
as: acetaminophen < NSAID < tramadol < opioids
(morphine, oxycodone, hydromorphone).
- Requesting a lesser dose of the same medication IF
ORDERED.
- Requesting a less intrusive route of administration
if both routes are prescribed by the provider (PO <
IV).
08/12/24 22:22
Code Status As Directed
Resuscitation Status: Full Code
08/12/24 22:26
Sterile Water [Sterile Water For Injection] 20 ml IV NOW STA
08/12/24 22:31
C difficile Antigen & Toxins Urgent
SAM Source: Feces/Stool
Specimen Description:
Date Specimen was Collected: 08/13/24
Time Specimen was Collected: 17:01
Norovirus by PCR Urgent
SAM Source: Feces/Stool
Specimen Description:
Date Specimen was Collected: 08/13/24
Time Specimen was Collected: 17:01
Ova & Parasites Giardia/Crypto AG [Giardia/Cryptosporidium Ag] Urgent
SAM Source: Feces/Stool
Specimen Description:
Date Specimen was Collected: 08/13/24
Time Specimen was Collected: 17:01
Stool Culture Urgent
SAM Source: Feces/Stool
Specimen Description:
Date Specimen was Collected: 08/13/24
Time Specimen was Collected: 17:01
08/12/24 22:33
Urinalysis Reflex To Culture Urgent (Cancelled)
08/12/24 23:20
Blood Culture Q30M
SAM Source: Blood/Venous
Specimen Description:
08/13/24 00:00
Fluconazole 200 mg/100 ml [Diflucan 200 mg] 100 ml IV Q24H
08/13/24 01:02
0.9% Sodium Chloride 1000 ml [Nss] 1,000 ml IV 80 mls/hr
Acetaminophen [Tylenol] 650 mg PO Q4HPRN PRN
08/13/24 01:02
Activity As Directed
Activity Level: As Tolerated
Pneumatic Compression Sleeves As Directed
Type: Knee high
Vital Signs As Directed
Frequency: Per unit guidelines
DX Deep Vein Thrombosis Video Routine
08/13/24 02:19
Lactic Acid Q4H
Comment: CANCEL 2nd LACTIC ACID IF 1st LACTIC ACID IS LESS THAN 2
08/13/24 04:00
Ondansetron Injectable [Zofran] 4 mg IV Q6HPRN PRN
08/13/24 07:24
Complete Blood Count/With Diff IN AM
Comprehensive Metabolic Panel IN AM
08/13/24 12:00
Meropenem [Merrem] 1,000 mg IV Q12H
Abnormal Lab Results
08/12/24 08/12/24
16:18 20:45
WBC 14.4 H 10^3/uL
(4.8-10.8)
Abs Immat Gran (auto) 0.1 H 10^3/uL
(0-0.05)
Absolute Neuts (auto) 11.5 H 10^3/uL
(1.4-6.5)
Absolute Monos (auto) 1.0 H 10^3/uL
(0.1-0.6)
Neutrophils % 79.8 H %
(42.2-75.2)
Lymphocytes % 12.4 L %
(20.5-51.1)
Sodium 134 L mmol/L
(135-145)
Chloride 96 L mmol/L
(98-107)
AST 37 H U/L
(14-36)
ALT 51 H U/L
(0-35)
Ur Occult Blood Reflex 1+ A
(Negative)
Leukocyte Esterase Rfl Trace A
(Negative)
Urine Bacteria (Reflex) Few A
(Negative)
08/12/24 16:18
08/12/24 16:18
Vital Signs
Initial and Last Documented VS:
Initial Vital Signs
Temp Pulse Resp BP Pulse Ox
97.8 F 125 20 100/70 95
08/12/24 16:06 08/12/24 16:06 08/12/24 16:06 08/12/24 16:06 08/12/24 16:06
Last Documented Vital Signs
Temp Pulse Resp BP Pulse Ox
98.1 F 83 16 99/65 98
08/13/24 23:10 08/13/24 23:10 08/13/24 23:10 08/13/24 23:10 08/13/24 23:10
<Kyleigh Samson, ASSISTANT ATTORNEY GENERAL - Last Filed: 08/14/24 01:03>
MDM/Problems Addressed
Differential Diagnosis Includes:
candidal esophagitis, bowel obstruction,
MDM/Problems Addressed:
54-year-old female pt with history of ulcerative colitis on Remicade, gastroparesis and GI motility disorder, candidal esophagitis, esophageal achalasia, had uterine anterior and posterior prolapse, interstitial cystitis, had cystoscopy
hydrodistention of the bladder on 08/04/2024 by Janna Pettit DO. here for fever, 102.1 2 p.m. last Ibuprofen 3 p.m., Also here for no BM for 8 days, until today, moderate liquid stool. Has been texting with her GI motility specialist who is
recommending therapy to get bowels moving. Last contact with her was today and recommended the prep used for colonoscopies.
Also states she feels the same way she usually does with her chronic intermittent candidal albicans infection: can't swallow due to sore scratchy throat, trouble 'hearing my own voice,' inability to taste.
No abdominal pain, no vaginal drainage, no indication of bladder post op infection
Pt states she is healing well post bladder surgery.
CBC: WBC 14.4
CMP unremarkable.
Covid neg
Flu neg
8:[address] abd/pelvis with IV only contrast radiology report read: IMPRESSION:
Right supralevator collection measuring 5.5 cm in length by 1.5 cm diameter. The differential includes evolving hematoma with surgical Gelfoam versus abscess.
No upper abdominal free air or ascites. No upper abdominal focal collection or abscess.
Bowel assessment is limited by lack of oral contrast. No evidence of bowel obstruction. Mild to moderate colonic fecal burden in the rectosigmoid colon. Small amount of solid fecal residue and liquid fecal material in the remainder the colon which
is normal in caliber. There is mild wall thickening and enhancement involving both small and large bowel. Inflammatory bowel disease or infectious enterocolitis may be considered in the proper clinical setting.
No obstructive uropathy. Small renal cysts.
Case discussed with Urology Dr. Webster, requests admit IV antibiotics and he will see in a.m.
Notified ID Dr. Enrique and consult in.
Hospitalist notified of admission.
In to discuss the list of allergies to antibiotics that patient has in her chart.
Cephalosporins was nausea/vomiting, not a true allergy
Levaquin upset stomach, not a true allergy
Sulfa drugs after taking it once she had difficulty breathing but has taken it since and has had no adverse reaction
History penicillins no history of allergic reaction
Aerobic and anaerobic cultures sent from cervix, purulent drainage noted
<Kyleigh Samson ASSISTANT ATTORNEY GENERAL - Last Filed: 08/14/24 01:03>
*Critical Care Note
Total Time (30-74mins, 75-104mins- exclusive of procedures): Not Applicable
ED Attending Note
<Bert Larios Jr., PA-C - Last Filed: 08/12/24 17:55>
-
Portions of this chart may have been created with voice recognition software.� Occasional wrong word or��sound alike� substitutions may have occurred due to the inherent limitations of voice recognition software.
Discharge Plan
Departure
Patient Disposition: Admit
Date of Disposition: 08/12/24
Time of Disposition: 21:38
Admit to: Med/Surg
Presentation/result/management discussed w/ accepting MD/DO: Hospitalist
Condition: Fair
Discharge Problem:
Dysphagia, SIRS (systemic inflammatory response syndrome)
Interventions
Interventions:
*Risk Screen - Suicide Last Done: 08/13/24 01:07
*General Assessment Last Done: 08/12/24 16:06
*Neglect/Abuse Screening Last Done: 08/12/24 16:06
ED- Fall Risk Assessment Last Done: 08/12/24 19:16
*ED COVID-19 Vaccine History Last Done: 08/13/24 01:07
*Nursing Disposition Last Done: 08/13/24 01:04
ED- Neurological Assessment Last Done: 08/12/24 19:14
ED-Skin Assessment Last Done: 08/12/24 19:14
Discharge Date and Time
Discharge Date/Time: 08/13/24 01:05
[2024-08-12 18:19] LABS: Lactic Acid 0.9 mmol/L (0.7-2.0)
[2024-08-12 19:09] VITALS: BP 100/64
[2024-08-12 20:50] LABS: Urine Albumin Trace (Neg - Trace); Urine Bilirubin Negative (Negative); Urine Character Clear (Clear); Urine Color Yellow; Urine Glucose Negative (Negative); Urine Ketone Negative (Negative); Urine Leukocyte Trace (Negative); Urine Nitrite Negative (Negative); Urine Occult Blood 1+ (Negative); Urine Urobilinogen Negative (Neg - 1+)
[2024-08-12 20:56] LABS: Urine Red Blood Cell 0-2 /HPF (0-2); Urine Squamous Cell >30 /LPF (Few)
[2024-08-12 20:57] LABS: Urine Bacteria Few (Negative)
[2024-08-12 21:00] VITALS: BP 101/71
--- NOTE | 2024-08-12 22:34 | HPS.HSE ---
Family Physician
-
Family Physician: NOT KNOW UNKNOWN - PT DOES
Chief Complaint
-
fever
History of Present Illness
54-year-old female with past medical history of ulcerative colitis on Remicade, esophageal dysmotility, gastroparesis, oral thrush, possible candidal esophagitis, asthma, GERD, seizure disorder, hypothyroidism, Raynaud's, POTS disease, von
Willebrand disease, interstitial cystitis, uterine anterior and posterior prolapse, presenting for fever.
She recently underwent history of plexi sacrospinous ligament fixation, anterior posterior colporrhaphy and perineoplasty, cystoscopy for pelvic organ prolapse on 08/04/2024. She also underwent cystoscopy hydrodistention of the bladder for
interstitial cystitis. She states that she is healing well after the surgery.
Today she developed fever. She is generally constipated due to motility disorder which she has been after the surgery but yesterday she started developing loose watery stools. She also complains of urinary burning and frequency and was apparently
recently told that she had a UTI treated with antibiotic.
Patient also feels that she cannot swallow due to scratchy sore throat, difficulty swallowing, which is how she feels when she intermittently gets candidal infection. This has been ongoing for the past 8 days.
She denies any cough, sore throat or runny nose. Denies any nausea or vomiting.
Patient is in the process of being evaluated for immunodeficiency.
Patient recently admitted on 06/25 for oral thrush and possible Carol esophagitis.
Medical History
Past Medical History
Past Medical History: Reports Other (ulcerative colitis on Remicade, esophageal dysmotility, gastroparesis, oral thrush, possible candidal esophagitis, asthma, GERD, seizure disorder, hypothyroidism, Raynaud's, POTS disease, von Willebrand disease,
interstitial cystitis, uterine anterior and posterior prolapse,)
Past Surgical History: Reports Other (Gynecological (Uterine ablation, ), Orthopedic (Hand surgery, neck surgery, ) and Other (Breast reduction, cataracts, Eye surgery, ))
Social History
Tobacco: Non-smoker
Alcohol: Occasional
Drug: None
Family History
Family History: Not pertinent
Allergies / Home Medications
Allergies reflects when Allergies were last updated in [facility] [facility].
Home Medications with original date entered in [address]
Allergy/Medication List:
Allergies
Allergy/AdvReac Type Severity Reaction Status Date / Time
adhesive Allergy Rash Verified 08/12/24 16:14
Cephalosporins Allergy Nausea / Verified 08/12/24 16:14
Vomiting/HIVES
CHILD
ciprofloxacin [From Cipro] Allergy Nausea / Verified 08/12/24 16:14
Vomiting
latex Allergy Rash Verified 08/12/24 16:14
levetiracetam Allergy MATTY Verified 08/12/24 16:14
JOHNSONS
SYNDROME
levofloxacin [From Levaquin] Allergy Phlebitis Verified 08/12/24 16:14
at IV site
during
infusion
penicillin V Allergy took Verified 08/12/24 16:14
amoxicillin
w/o
adverse
reaction
Penicillins Allergy ok w/ Verified 08/12/24 16:14
amoxicillin
silver Allergy Redness, Verified 08/12/24 16:14
[From Tegaderm AG Mesh] eczema
reaction
Sulfa (Sulfonamide Allergy Recently Verified 08/12/24 16:14
Antibiotics) took w/o
adverse
reaction
sulfasalazine Allergy Recently Verified 08/12/24 16:14
took sulfa
med w/o
adverse
reaction
Home Medications
estradiol cypionate 1 dose IM MOTH@0800 Hormonal Agent 11/15/23
infliximab 100 mg intravenous solution (Remicade) 0 mg IV Q6W Ulcerative Colitis 11/15/23
testosterone cypionate 200 mg/mL intramuscular oil 10 mg IM MOTH@0800 Hormonal Agent 11/15/23
Amitriptyline-Baclofen 1 dose vaginal DAILYPRN PRN pelvic pain 04/29/24
albuterol sulfate 90 mcg/actuation aerosol inhaler (Ventolin HFA) 2 puff inhalation R QIDPRN PRN sob 04/29/24
diazepam 15 mg VA TIDPRN PRN pelvic floor disorder 04/29/24
dibucaine 1 dose VA TIDPRN PRN rectal pain 05/05/24
Lactobac no.2-Bifidobac no.1-S. thermo 112.5 billion cell capsule (Visbiome) 1 cap PO DAILY probiotic 06/25/24
clotrimazole 10 mg lindsay 10 mg mucous membrane DAILYPRN PRN with oral antibiotics 06/25/24
cyclosporine 0.05 % eye drops in a dropperette 1 drp BOTH EYES TID Eye Condition 06/25/24
nortriptyline 10 mg capsule 10 mg PO TID mental health 06/25/24
omeprazole 40 mg capsule,delayed release 40 mg PO DAILY Gastrointestinal Issue 06/25/24
ondansetron 4 mg disintegrating tablet 4 mg PO DAILYPRN PRN nausea 06/25/24
prucalopride 2 mg tablet (Motegrity) 2 mg PO DAILY Gastrointestinal Issue 06/25/24
tretinoin 0.025 % topical cream 1 applic topical HS face 06/25/24
Mylanta 1 dose PO MEALS 08/01/24
acetaminophen 325 mg tablet (Tylenol) 650 mg PO Q4HPRN PRN mild pain 08/01/24
cholecalciferol (vitamin D3) 50 mcg (2,000 unit) tablet (Vitamin D3) 50 mcg PO DAILY 08/01/24
colchicine 0.6 mg capsule 0.6 mg PO TID 08/04/24
diazepam 5 mg tablet 5 mg PO DAILY 08/12/24
fluconazole 200 mg tablet 200 mg PO Q72H 08/12/24
ibuprofen 600 mg tablet 600 mg PO Q8HPRN PRN mild pain 08/12/24
naloxegol 25 mg tablet (Movantik) 25 mg PO DAILY 08/12/24
oxycodone 5 mg tablet 5 mg PO Q6HPRN PRN severe pain 08/12/24
progesterone micronized 200 mg capsule 200 mg PO HS 08/12/24
sennosides 8.6 mg-docusate sodium 50 mg tablet (Senexon-S) 2 tab-cap PO HS 08/12/24
thyroid (pork) 90 mg tablet ([place] Thyroid) 90 mg PO DAILY 08/12/24
Review of Systems
-
History Source: Patient
A 12 point ROS was completed and negative except as noted: Yes
Constitutional: Reports No Symptoms
EENT: Reports See HPI
Respiratory: Reports No Symptoms
Cardiac: Reports No Symptoms
Abdomen/GI: Reports See HPI
: Reports See HPI
Musculoskeletal: Reports No Symptoms
Skin: Reports No Symptoms
Neurological: Reports No Symptoms
Endocrine: Reports No Symptoms
Hematologic/Lymphatic: Reports No Symptoms
Psych: Reports No Symptoms
Physical Exam
Vital Signs
Vital Signs
Temp Pulse Resp BP Pulse Ox
98.3 F 120 16 100/64 96
08/12/24 20:28 08/12/24 17:47 08/12/24 17:47 08/12/24 19:09 08/12/24 19:14
Physical Exam
General: Well Developed, Well Nourished and No Apparent Distress
HEENT: NormoCephalic, Moist mucous membranes and Atraumatic
Respiratory: Clear
Cardiac: S1/S2 and Regular Rhythm; No Murmur or Rub
GI: Soft, Non Tender, Non Distended and Normal Bowel Sounds; No Organomegaly
Rectal: Deferred by Provider
Musculoskeletal: No Clubbing, No Cyanosis and No Edema
Skin: No Rash
Neuro: Nonfocal/grossly intact
Laboratory Results
-
08/12/24 16:18
08/12/24 16:18
Laboratory Results
Lactic Acid 2.0 mmol/L (0.7-2.0) 08/12/24 22:04
Total Bilirubin 0.8 mg/dl (0.2-1.3) 08/12/24 16:18
AST 37 U/L (14-36) H 08/12/24 16:18
ALT 51 U/L (0-35) H 08/12/24 16:18
Alkaline Phosphatase 81 U/L (38-126) 08/12/24 16:18
Data Reviewed
-
Lab Data: Labs Reviewed by me
Old Records: Reviewed
Impression/Plan
-
IMPRESSION:
PLAN:
# Sepsis (fever, tachycardia ) secondary to right supralevator collection possibly infected hematoma versus abscess in immunocompromised patient
# Recent anterior uterine/posterior prolapse status post colporrhaphy and perineoplasty, cystoscopy
# Recent cystoscopy hydrodistention of the bladder for interstitial cystitis
-CT scan shows the fluid collection as well as mild wall thickening enhancement involving both small and large bowel possibly enterocolitis
-Dr. Webster of urogynecology consulted and will see patient in the morning
-Check blood cultures
-IV fluids
-Vancomycin/meropenem given allergies although allergies may not be real
-ID consulted
# Dysphagia concerning for recurrent candidal esophagitis
# History of recurrent oral thrush/possible recent candidal esophagitis
-Oral thrush on examination
-Start IV fluconazole as was started similarly in the past
# Acute enterocolitis
-With loose stools today this is consistent with CT scan findings
-Check stool culture, C. difficile, norovirus, ova and parasite
# Dysuria concerning for recurrent/persistent UTI
-Check urinalysis
-Meropenem
Ulcerative colitis
-On Remicade
Esophageal dysmotility/gastroparesis
-Continue Motegrity
Asthma
GERD
-Continue omeprazole
Seizure disorder
Hypothyroidism
-Continue levothyroxine
Raynaud's disease
POTS disease
Von Willebrand disease
Chronic pelvic pain
ADD
Nephrolithiasis
Hormonal deficiencies
-Patient on progesterone, testosterone
Anxiety/depression
-Continue nortriptyline
Presumed gout (not confirmed)
-Continue colchicine
Full code
DVT prophylaxis�SCDs
N.p.o.
[2024-08-12] MEDS: STERILE WATER FOR INJECTION 20 ML IV (23:31)
[2024-08-12] MEDS: MERREM 1000 MG IV (23:32)
[2024-08-12] MEDS: NSS 1000 IV (23:32)
[2024-08-12] MEDS: ZOFRAN 4 MG IV (23:33)
[2024-08-13 01:14] VITALS: BP 95/60
[2024-08-13 01:25] VITALS: BMI 17.1
[2024-08-13] MEDS: DIFLUCAN 200 MG 100 IV (01:49)
[2024-08-13] MEDS: NSS 1000 IV ×2 (02:10→15:13)
[2024-08-13 02:47] LABS: Lactic Acid 0.7 mmol/L (0.7-2.0)
[2024-08-13] MEDS: VANCOCIN 200 IV (02:55)
[2024-08-13] MEDS: TYLENOL 650 MG PO (04:28)
[2024-08-13 06:00] VITALS: BMI 17.1
[2024-08-13 06:06] VITALS: BMI 17.1
[2024-08-13 07:36] VITALS: BP 93/57
--- NOTE | 2024-08-13 08:08 | CONS.URO ---
Consultation
-
Date/Time Consultation Requested: 08/13/24
Reason for Consultation: Postop fevers
Medical History
History of Present Illness
54yoF with past medical history of ulcerative colitis on Remicade, esophageal dysmotility, gastroparesis, oral thrush, possible candidal esophagitis, asthma, GERD, seizure disorder, hypothyroidism, Raynaud's, POTS disease, von Willebrand disease,
interstitial cystitis, uterine anterior and posterior prolapse admitted on 08/12 for postoperative fever. On 08/04/24 patient underwent sacrospinous ligament fixation, anterior posterior colporrhaphy and perineoplasty, cystoscopy and
hydrodistension. Minimal EBL was noted intraop and of note surgiflo was placed in area in pelvis which was noted as possible fluid collection on CT. Postop patient did not experience vaginal discharge, pelvic pain or UTI symptoms. Of note patient
had also had persistent constipation postop leading up to day of admission,.
She was afebrile during hospital stay. CT A/P noted 5.5cm-1.8cm collection in right posterior pelvis. Possible enterocolitis/IBD noted as well. WBC on admission was 14.4. UA negative, no reflux culture performed. Patient was started on Vanc/Merrem.
Patient was evaluated on AM rounds today. She has been afebrile since admission. She reported improvement of her symptoms and now having diarrhea. She has some incisional pain in vagina which has been controlled with tylenol. She notes having
continued dysuria and some vaginal discharge overnight. Denies nausea, vomiting, sob, chest pain, pelvic pain.
Allergies/Home Medications
Allergies
Allergy/AdvReac Type Severity Reaction Status Date / Time
adhesive Allergy Rash Verified 08/12/24 16:14
Cephalosporins Allergy Nausea / Verified 08/12/24 16:14
Vomiting/HIVES
CHILD
ciprofloxacin [From Cipro] Allergy Nausea / Verified 08/12/24 16:14
Vomiting
latex Allergy Rash Verified 08/12/24 16:14
levetiracetam Allergy MATTY Verified 08/12/24 16:14
JOHNSONS
SYNDROME
levofloxacin [From Levaquin] Allergy Phlebitis Verified 08/12/24 16:14
at IV site
during
infusion
penicillin V Allergy took Verified 08/12/24 16:14
amoxicillin
w/o
adverse
reaction
Penicillins Allergy ok w/ Verified 08/12/24 16:14
amoxicillin
silver Allergy Redness, Verified 08/12/24 16:14
[From Tegaderm AG Mesh] eczema
reaction
Sulfa (Sulfonamide Allergy Recently Verified 08/12/24 16:14
Antibiotics) took w/o
adverse
reaction
sulfasalazine Allergy Recently Verified 08/12/24 16:14
took sulfa
med w/o
adverse
reaction
Home Medications
�Medication �Instructions �Recorded �Confirmed �Type
estradiol cypionate 1 dose IM MOTH@0800 Hormonal Agent 11/15/23 08/12/24 History
infliximab 100 mg intravenous 0 mg IV Q6W Ulcerative Colitis 11/15/23 08/12/24 History
solution (Remicade)
testosterone cypionate 200 mg/mL 10 mg IM MOTH@0800 Hormonal Agent 11/15/23 08/12/24 History
intramuscular oil
Amitriptyline-Baclofen 1 dose vaginal DAILYPRN PRN pelvic 04/29/24 08/12/24 History
pain
albuterol sulfate 90 mcg/actuation 2 puff inhalation R QIDPRN PRN sob 04/29/24 08/12/24 History
aerosol inhaler (Ventolin HFA)
diazepam 15 mg RI TIDPRN PRN pelvic floor 04/29/24 08/12/24 History
disorder
dibucaine 1 dose RI TIDPRN PRN rectal pain 05/05/24 08/12/24 History
Lactobac no.2-Bifidobac no.1-S. 1 cap PO DAILY probiotic 06/25/24 08/12/24 History
thermo 112.5 billion cell capsule
(Visbiome)
clotrimazole 10 mg lindsay 10 mg mucous membrane DAILYPRN PRN 06/25/24 08/12/24 History
with oral antibiotics
cyclosporine 0.05 % eye drops in a 1 drp BOTH EYES TID Eye Condition 06/25/24 08/12/24 History
dropperette
nortriptyline 10 mg capsule 10 mg PO TID mental health 06/25/24 08/12/24 History
omeprazole 40 mg capsule,delayed 40 mg PO DAILY Gastrointestinal 06/25/24 08/12/24 History
release Issue
ondansetron 4 mg disintegrating 4 mg PO DAILYPRN PRN nausea 06/25/24 08/12/24 History
tablet
prucalopride 2 mg tablet 2 mg PO DAILY Gastrointestinal 06/25/24 08/12/24 History
(Motegrity) Issue
tretinoin 0.025 % topical cream 1 applic topical HS face 06/25/24 08/12/24 History
Mylanta 1 dose PO MEALS Gastrointestinal 08/01/24 08/12/24 History
Issue
acetaminophen 325 mg tablet 650 mg PO Q4HPRN PRN mild pain 08/01/24 08/12/24 History
(Tylenol)
cholecalciferol (vitamin D3) 50 50 mcg PO DAILY Supplement 08/01/24 08/12/24 History
mcg (2,000 unit) tablet (Vitamin
D3)
colchicine 0.6 mg capsule 0.6 mg PO TID Gout 08/04/24 08/12/24 History
diazepam 5 mg tablet 5 mg PO DAILY Mental Health/Anxiety 08/12/24 08/12/24 History
fluconazole 200 mg tablet 200 mg PO Q72H Infection 08/12/24 08/12/24 History
ibuprofen 600 mg tablet 600 mg PO Q8HPRN PRN mild pain 08/12/24 08/12/24 History
naloxegol 25 mg tablet (Movantik) 25 mg PO DAILY Gastrointestinal 08/12/24 08/12/24 History
Issue
oxycodone 5 mg tablet 5 mg PO Q6HPRN PRN severe pain 08/12/24 08/12/24 History
progesterone micronized 200 mg 200 mg PO HS Hormonal Agent 08/12/24 08/12/24 History
capsule
sennosides 8.6 mg-docusate sodium 2 tab-cap PO HS Gastrointestinal 08/12/24 08/12/24 History
50 mg tablet (Senexon-S) Issue
thyroid (pork) 90 mg tablet 90 mg PO DAILY Thyroid 08/12/24 08/12/24 History
([place] Thyroid)
Review of Systems
-
Constitutional: Reports See HPI
EENT: Reports See HPI
Respiratory: Reports See HPI
Cardiac: Reports See HPI
Abdomen/GI: Reports See HPI
: Reports See HPI
Musculoskeletal: Reports See HPI
Skin: Reports See HPI
Neurological: Reports See HPI
Endocrine: Reports See HPI
Hematologic/Lymphatic: Reports See HPI
Psych: Reports See HPI
Physical Exam
Vital Signs
Vital Signs
Temp Pulse Resp BP Pulse Ox
97.6 F 81 12 93/57 97
08/13/24 07:36 08/13/24 07:36 08/13/24 07:36 08/13/24 07:36 08/13/24 07:36
Physical Exam
General: Well Developed, Well Nourished and Comfortable
HEENT: Normocephalic
Respiratory: Non Labored Respirations
Cardiac: Regular Rhythm
Breast: N/A
GI: Soft, Non Tender and Non Distended
Genito-urinary: Other (nonerythematous on exam, vaginal sutures intact, creamy/yellow discharge noted, no bleeding, tenderness to palpation, no palpable fluctunace or induration)
Skin: Warm
Neuro: Awake and Alert
Psych: Calm
Assessment / Plan
-
54yoF POD9 s/p sacrospinous ligament fixation, anterior posterior colporrhaphy and perineoplasty, cystoscopy and hydrodistension of bladder admitted with fevers/leukocytosis and found to have 5/5cm pelvic fluid collection on CT. This may be 2/2
infected hematoma vs Surgiflo vs enterocolilitis in setting of IBD.
Patient had been afebrile since admission with minimal vaginal discharge.
Followup CBC
Recommend consulting ID
Continue IV antibiotics
Recommend GI consult (Dr. Graham)
Followup blood and vaginal wound cultures
Followup stool cultures
Recommend adding Toradol for pain
Consider collecting Ucx if symptoms continue
will continue to follow
Data Reviewed
-
CT Scan: Report Reviewed by Me and Discussed with Physician
Medical Tests (Nuc Med, Echo, EKG etc): Report Reviewed by Me and Discussed with Physician
Lab Data: Labs Reviewed, Discussed with Physician and Discussed with Patient
Laboratory Results
-
08/13/24 07:24
Laboratory Results
Lactic Acid 0.7 mmol/L (0.7-2.0) 08/13/24 02:19
Total Bilirubin 0.8 mg/dl (0.2-1.3) 08/12/24 16:18
AST 37 U/L (14-36) H 08/12/24 16:18
ALT 51 U/L (0-35) H 08/12/24 16:18
Alkaline Phosphatase 81 U/L (38-126) 08/12/24 16:18
[2024-08-13 08:25] LABS: % Basophils 0.4 % (0-2); % Immature Granulocytes 0.1 % (0-0.5); % Lymphocytes 32.6 % (20.5-51.1); % Monocytes 9.5 % (1.7-9.3); % Neutrophils 56.4 % (42.2-75.2); Absolute Eosinophils 0.1 10^3/uL (0-0.7); Absolute Lymphocytes 2.4 10^3/uL (1.2-3.4); Absolute Monocytes 0.7 10^3/uL (0.1-0.6); Absolute Neutrophils 4.1 10^3/uL (1.4-6.5); Hematocrit 32.6 % (37.0-47.0); Mean Corp Hgb Conc. 33.7 g/dL (33.0-37.0); Mean Corpuscular Hgb 28.6 pg (27.0-31.0); Mean Corpuscular Volume 84.9 fL (81.0-99.0); Mean Platelet Volume 10.7 fL (7.4-10.4); Nucleated Red Blood Cells % 0 %; Platelet Count 309 10^3/uL (130-400); Red Blood Cell Count 3.84 10^6/uL (4.20-5.40); Red Cell Dist. Width 13.2 % (11.5-14.5); White Blood Cell Count 7.3 10^3/uL (4.8-10.8)
[2024-08-13] MEDS: VISBIOME 1 CAP PO (09:05)
[2024-08-13] MEDS: VALIUM 5 MG PO (09:05)
[2024-08-13] MEDS: VITAMIN D3 (cholecalciferol) 50 MCG PO (09:05)
[2024-08-13] MEDS: PROTONIX 40 MG PO (09:05)
[2024-08-13] MEDS: COLCHICINE 0.6 MG PO ×2 (09:06→17:16)
[2024-08-13] MEDS: ARMOUR THYROID 90 MG PO (09:06)
[2024-08-13] MEDS: PAMELOR 10 MG PO ×3 (09:06→22:22)
[2024-08-13] MEDS: RESTASIS 0.05% OPHTHALMIC EMULSION 1 DROPS BOTH EYES ×3 (09:07→22:21)
[2024-08-13 09:17] LABS: ALT (SGPT) 43 U/L (0-35); AST (SGOT) 33 U/L (14-36); Albumin 3.2 g/dl (3.5-5.0); Alkaline Phosphatase 73 U/L (38-126); Blood Urea Nitrogen 8 mg/dl (7-17); Calcium 8.6 mg/dl (8.4-10.2); Carbon Dioxide 24 mmol/L (22-30); Chloride 101 mmol/L (98-107); Estimated Creatinine Clearance 78 ml/min; Glucose 92 mg/dl (70-99); Potassium 3.9 mmol/L (3.5-5.1); Sodium 135 mmol/L (135-145); Total Bilirubin 0.6 mg/dl (0.2-1.3); Total Protein 5.7 g/dl (6.3-8.2); eGFR > 60.00
[2024-08-13] MEDS: MOTRIN 600 MG PO (09:20)
--- NOTE | 2024-08-13 10:15 | CON.GI ---
Addendum entered and electronically signed by Juanpablo Robbins DO 08/13/24 15:38:
I saw and examined the patient.
The SUPERVISOR CLOTH WINDING's note was reviewed and I agree with the note.
Comment: Ms Persaud is a 54 y.o female with an extensive past medical history as outlined below and notable for UC (on IFX 5 mg/kg q 6 weeks) in remission, severe chronic constipation, pelvic floor dysfunction, esophageal dysmotility (c/f achalasia
?), Raynaud's, POTS disease, previous recent admission for abdominal pain (04/2024- felt to be related to prior gastroenteritis vs possible SMA syndrome) and recent surgery given pelvic organ prolapse with sacrospinous ligament fixation with
anterior-posterior colporrhaphy with perineoplasty and cystoscopy with Urgogyn on 08/04/24 who presented to the ED with recent post-operative fevers. Patient denies any bloody stools or diarrhea. Her recent UC was felt to be in remission back on
07/2023 and has been maintained on IFX without any recent flares. CT imaging on admission revealed an approximately 5.5 cm x 1.5 cm right supralevator fluid collection felt to be either a hematoma or prior surgical Gelfoam as this was used at the
same site of the collection. There was also mention of a possible abscess, however this seems less likely. Upon review of her CT, there is marked stool burden throughout her colon with associated mild wall thickening. Clinically, she is without any
symptoms concerning for IBD/UC as she is without any bloody diarrhea or other symptoms to suggest an IBD flare. Further, she is severely constipated which argues against IBD flare and much less likely an infectious enterocolitis. Suspect this is
likely related to stool burden and possible mild stercoral changes rather than IBD. Her abdominal exam is benign and without any rebound tenderness or involuntary guarding. Clinically, doubt the recent fluid collection is related to an abscess and
likely unrelated to her minimal colonic wall thickening. Regardless, reasonable to continue IV antibiotics at this time as patient is immunocompromised along with further evaluation as per ID. She would benefit from a bowel purge as detailed below
along with further infectious w/u.
Recommendations:
- Okay to have CLD diet from GI standpoint
- Agree with full infectious w/u- blood cultures, stool studies, etc
- ID has further been consulted, appreciate recs
- No role for steroids or other concern for an IBD flare at this time
- Recommend bowel regimen as below to clean out stool given her severe constipation
- Would consider repeat CT imaging this admission particularly if worsening abd pain, fevers, or other change in clinical condition
- Limit narcotics as much as possible
- Rest of care as outlined below
GI team will continue to follow. Discussed with primary internal medicine team.
Original Note:
Consultation
-
Date/Time Consultation Requested: 08/13/24814
Date/Time Consultation Performed: 08/13/24 1015
Requesting Provider: Gabriela Noriega MD
Performing Provider: RYLIE Morales, Juanpablo Robbins DO
Reason for Consultation: fever
Medical History
Chief Complaint / HPI
Chief Complaint: abdominal pain
History of Present Illness:
The patient is a 54-year-old female, with a past medical history significant for ulcerative colitis on infliximab every 6 weeks, chronic constipation, gastroparesis, pelvic floor dysfunction, esophageal dysmotility with work up at [facility] with
esophageal disorder on daily medication with some improvement, GERD on chronic PPI, immunodeficiency disorder with work up at [facility], hemorrhoids with eventual follow up with colorectal for intervention, salvador esophagitis-
recurrent on current Fluconazole, UTI with recent treatment prior to surgery, aspiration pneumonia, Seizure disorder, von willebrand's, interstitial cystitis, POTS, anxiety, Raynaud's, ADD, asthma, uterine anterior and posterior prolapse . She
had admission in April 2024 with abdominal cramping, vomiting after eating Occitan food. Thought was likely gastroenteritis but CT scan showed possible SMA syndrome so upper GI series was performed which showed delayed passage of oral contrast
of the small bowel which does not reach the colon until 3 hours and 45 minutes after administration. Per office noted she also follow with Dr. Mg, She had an esophagram and EGD done with noted - EGD 05/23 LA Grade C esophagitis, irregular Z
line, GE flap valve Hill grade II, stomach/duodenum normal, FIP performed with some spasticity'; esophagram 06/03 'thickened fold with punctate ad linear barium densitis in the lower thoracic esophagus c/w esophagitis, small sliding HH, substantial
GERD, somewhat prominent extrinsic compression upper thoracic esophagus by the aortic arch not obstructive to the flow of thin barium liquid, hang up of barium at thoracic inlet, prominent area could be gastritis. ' She was hospitalized again
June 26 after having a pudendal block under full anesthesia June 19. She had esophageal spasm and burning chest pain concerned with aspiration as well as white coating on her throat and tongue with severe salvador. She was also noted with
uterine anterior and posterior prolapse and completed 08/04/24 patient underwent sacrospinous ligament fixation, anterior posterior colporrhaphy and perineoplasty, cystoscopy and hydrodistension with Dr. Webster and Dr. Limon. She is also due
for future interstim. She now is noted with fever. CT on admission with right supralevator collection measuring 5.5 cm in length by 1.5 cm diameter. The differential includes evolving hematoma with surgical Gelfoam versus abscess. No upper
abdominal free air or ascites. No upper abdominal focal collection or abscess.Bowel assessment is limited by lack of oral contrast. No evidence of bowel obstruction. Mild to moderate colonic fecal burden in the rectosigmoid colon. Small amount of
solid fecal residue and liquid fecal material in the remainder the colon which is normal in caliber. There is mild wall thickening and enhancement involving both small and large bowel. Inflammatory bowel disease or infectious enterocolitis may be
considered in the proper clinical setting.No obstructive uropathy. Small renal cysts.
In review with patient she is noted with periods of chest pain with esophageal spasm. She has has some improvement with medication but still admits to issue with eating at times. She has had wt loss with assisted weight 125 lbs now 105. She
also states issue with odynophagia with salvador infectious. + GERD on chronic PPI. She states no abdominal pain but mild pressure with recent surgery. She is also concerned for constipation issues. She has chronic constipation and has been on
senna 2 tabs at HS, Movantik daily, Motegrity daily. She did not have any stools for 8 days post-op then had loose stool prior to admission with still residual stool on imaging. Denies rectal bleeding.
Past Medical History
Past Medical History: Asthma, GERD, Seizures, Psychiatric (Anxiety, ADD) and Other (Ulcerative colitis on infliximab 5 mg/kg every 6 weeks, chronic constipation, GI dysmotility, rectocele, Raynaud's, gastroparesis, hemorrhoids, POTS, salvador
esophagitis, von Willebrand's disease, interstitial cystitis )
Past Surgical History: Gynecological (Vaginal surgery), Orthopedic (Left hand surgery) and Other (Breast reduction, cataract surgery, prior nerve block)
Social History
Tobacco: Non-Smoker
Alcohol: None (Rare alcohol use)
Drug: Marijuana (in past no recent use )
Personal:
Living: With Family
Family History
Family History: Other (grandfather with colon CA)
Allergies / Home Medications
Allergy/AdvReac Type Severity Reaction Status Date / Time
adhesive Allergy Rash Verified 08/12/24 16:14
Cephalosporins Allergy Nausea / Verified 08/12/24 16:14
Vomiting/HIVES
CHILD
ciprofloxacin [From Cipro] Allergy Nausea / Verified 08/12/24 16:14
Vomiting
latex Allergy Rash Verified 08/12/24 16:14
levetiracetam Allergy MATTY Verified 08/12/24 16:14
JOHNSONS
SYNDROME
levofloxacin [From Levaquin] Allergy Phlebitis Verified 08/12/24 16:14
at IV site
during
infusion
penicillin V Allergy took Verified 08/12/24 16:14
amoxicillin
w/o
adverse
reaction
Penicillins Allergy ok w/ Verified 08/12/24 16:14
amoxicillin
silver Allergy Redness, Verified 08/12/24 16:14
[From Tegaderm AG Mesh] eczema
reaction
Sulfa (Sulfonamide Allergy Recently Verified 08/12/24 16:14
Antibiotics) took w/o
adverse
reaction
sulfasalazine Allergy Recently Verified 08/12/24 16:14
took sulfa
med w/o
adverse
reaction
�Medication �Instructions �Recorded
estradiol cypionate 1 dose IM MOTH@0800 Hormonal Agent 11/15/23
infliximab 100 mg intravenous 0 mg IV Q6W Ulcerative Colitis 11/15/23
solution (Remicade)
testosterone cypionate 200 mg/mL 10 mg IM MOTH@0800 Hormonal Agent 11/15/23
intramuscular oil
Amitriptyline-Baclofen 1 dose vaginal DAILYPRN PRN pelvic 04/29/24
pain
albuterol sulfate 90 mcg/actuation 2 puff inhalation R QIDPRN PRN sob 04/29/24
aerosol inhaler (Ventolin HFA)
diazepam 15 mg MT TIDPRN PRN pelvic floor 04/29/24
disorder
dibucaine 1 dose MT TIDPRN PRN rectal pain 05/05/24
Lactobac no.2-Bifidobac no.1-S. 1 cap PO DAILY probiotic 06/25/24
thermo 112.5 billion cell capsule
(Visbiome)
clotrimazole 10 mg lindsay 10 mg mucous membrane DAILYPRN PRN 06/25/24
with oral antibiotics
cyclosporine 0.05 % eye drops in a 1 drp BOTH EYES TID Eye Condition 06/25/24
dropperette
nortriptyline 10 mg capsule 10 mg PO TID mental health 06/25/24
omeprazole 40 mg capsule,delayed 40 mg PO DAILY Gastrointestinal 06/25/24
release Issue
ondansetron 4 mg disintegrating 4 mg PO DAILYPRN PRN nausea 06/25/24
tablet
prucalopride 2 mg tablet 2 mg PO DAILY Gastrointestinal 06/25/24
(Motegrity) Issue
tretinoin 0.025 % topical cream 1 applic topical HS face 06/25/24
Mylanta 1 dose PO MEALS Gastrointestinal 08/01/24
Issue
acetaminophen 325 mg tablet 650 mg PO Q4HPRN PRN mild pain 08/01/24
(Tylenol)
cholecalciferol (vitamin D3) 50 50 mcg PO DAILY Supplement 08/01/24
mcg (2,000 unit) tablet (Vitamin
D3)
colchicine 0.6 mg capsule 0.6 mg PO TID Gout 08/04/24
diazepam 5 mg tablet 5 mg PO DAILY Mental Health/Anxiety 08/12/24
fluconazole 200 mg tablet 200 mg PO Q72H Infection 08/12/24
ibuprofen 600 mg tablet 600 mg PO Q8HPRN PRN mild pain 08/12/24
naloxegol 25 mg tablet (Movantik) 25 mg PO DAILY Gastrointestinal 08/12/24
Issue
oxycodone 5 mg tablet 5 mg PO Q6HPRN PRN severe pain 08/12/24
progesterone micronized 200 mg 200 mg PO HS Hormonal Agent 08/12/24
capsule
sennosides 8.6 mg-docusate sodium 2 tab-cap PO HS Gastrointestinal 08/12/24
50 mg tablet (Senexon-S) Issue
thyroid (pork) 90 mg tablet 90 mg PO DAILY Thyroid 08/12/24
([place] Thyroid)
Review of Systems
-
History Source: Patient
Constitutional: Reports Weight Loss and Fatigue
EENT: Reports Other (dysphagia, recurrent esophageal salvador )
Respiratory: Reports Trouble Breathing (at times )
Cardiac: Reports Chest Pain (at time related to esophageal issues )
Abdomen/GI: Reports Nausea, Vomiting (prior to admission), Diarrhea (prior to admission ) and Constipated (chronic worse since surgery )
: Reports Other (recent UTI, interstitial cystitis )
Musculoskeletal: Reports No Symptoms
Skin: Reports No Symptoms
Neurological: Reports Weakness
Endocrine: Reports No Symptoms
Hematologic/Lymphatic: Reports No Symptoms
Vital Signs
Temp Pulse Resp BP Pulse Ox
97.6 F 81 12 93/57 97
08/13/24 07:36 08/13/24 07:36 08/13/24 07:36 08/13/24 07:36 08/13/24 07:36
Physical Exam
Exam
General: Other (thin appearing no acute distress )
HEENT: Normocephalic and Anicteric
Respiratory: Clear
Cardiac: Regular Rhythm
GI: Soft, Non Distended and Tender (minimal lower tenderness)
Musculoskeletal: No Clubbing and No Cyanosis
Skin: Warm and Dry
Neuro: Awake, Alert and AO x 3
Psych: Calm
Results
WBC 7.3 10^3/uL (4.8-10.8) 08/13/24 07:24
Hgb 11.0 g/dL (12.0-16.0) L 08/13/24 07:24
Hct 32.6 % (37.0-47.0) L 08/13/24 07:24
MCV 84.9 fL (81.0-99.0) 08/13/24 07:24
Plt Count 309 10^3/uL (130-400) 08/13/24 07:24
Absolute Neuts (auto) 4.1 10^3/uL (1.4-6.5) 08/13/24 07:24
Sodium 135 mmol/L (135-145) 08/13/24 07:24
Potassium 3.9 mmol/L (3.5-5.1) 08/13/24 07:24
Chloride 101 mmol/L (98-107) 08/13/24 07:24
Carbon Dioxide 24 mmol/L (22-30) 08/13/24 07:24
BUN 8 mg/dl (7-17) 08/13/24 07:24
Creatinine 0.5 mg/dL (0.6-1.0) L 08/13/24 07:24
Calcium 8.6 mg/dl (8.4-10.2) 08/13/24 07:24
Total Bilirubin 0.6 mg/dl (0.2-1.3) 08/13/24 07:24
AST 33 U/L (14-36) 08/13/24 07:24
ALT 43 U/L (0-35) H 08/13/24 07:24
Alkaline Phosphatase 73 U/L (38-126) 08/13/24 07:24
Diagnostic Image Results:
08/12/24 CT s/p with right supralevator collection measuring 5.5 cm in length by 1.5 cm diameter. The differential includes evolving hematoma with surgical Gelfoam versus abscess. No upper abdominal free air or ascites. No upper abdominal focal
collection or abscess.Bowel assessment is limited by lack of oral contrast. No evidence of bowel obstruction. Mild to moderate colonic fecal burden in the rectosigmoid colon. Small amount of solid fecal residue and liquid fecal material in the
remainder the colon which is normal in caliber. There is mild wall thickening and enhancement involving both small and large bowel. Inflammatory bowel disease or infectious enterocolitis may be considered in the proper clinical setting.No
obstructive uropathy. Small renal cysts.
Dr. Mg, EGD 05/23 LA Grade C esophagitis, irregular Z line, GE flap valve Hill grade II, stomach/duodenum normal, FIP performed with some spasticity'
esophagram 06/03 'thickened fold with punctate ad linear barium densitis in the lower thoracic esophagus c/w esophagitis, small sliding HH, substantial GERD, somewhat prominent extrinsic compression uppn the thoacic esophagus by the aortic arch not
obstructive to the flow of thin barium liquid, hang up of barium at thoracic inlet, prominent area could be gastritis. '
12/2023: Esophageal manometry with possible hiatal hernia, spasm could represent early scleroderma. Blood work negative. Sometimes GI symptoms show up first. Recommend postprandial Gaviscon or Tums for now. 24-hour pH impedance abnormal study
consistent with reflux.
12/2023 defecography - pelvic floor dyssynfunction, anterior rectocele, rectal prolapse
11/2023 sitz marker test + in colon
CT enterography September 2023 moderate amount of stool no acute findings lymph nodes seen may be reactive in nature.
Colonoscopy 07/2023 [place] 0 no inflammation in colon. 2 tics in HF. Biopsies with TI with lymphoid tissue; colon quiescient colitis.
10/2022 moderate gastroparesis
Anorectal manometry July 2022 delayed rectal sensation, pseudo defecation borderline pelvic floor dyssynergia type III, good squeeze pressure, top normal basal anal sphincter pressure with spasm, RAIR intact.
Assessment / Plan
-
The patient is a 54-year-old female, with a past medical history significant for ulcerative colitis on infliximab every 6 weeks, chronic constipation, gastroparesis, pelvic floor dysfunction, esophageal dysmotility with work up at [facility] with
esophageal disorder on daily medication with some improvement, GERD on chronic PPI, immunodeficiency disorder with work up at [facility], hemorrhoids with eventual follow up with colorectal for intervention, salvador esophagitis-
recurrent on current Fluconazole, UTI with recent treatment prior to surgery, aspiration pneumonia, Seizure disorder, von willebrand's, interstitial cystitis, POTS, anxiety, Raynaud's, ADD, asthma, uterine anterior and posterior prolapse.
She had admission in April 2024 with abdominal cramping, vomiting after eating Occitan food. 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
contrast of the small bowel which does not reach the colon until 3 hours and 45 minutes after administration. Per office noted she also follow with Dr. Mg, She had an esophagram and EGD done with noted - EGD 05/23 LA Grade C esophagitis,
irregular Z line, GE flap valve Hill grade II, stomach/duodenum normal, FIP performed with some spasticity'; esophagram 06/03 'thickened fold with punctate ad linear barium densitis in the lower thoracic esophagus c/w esophagitis, small sliding HH,
substantial GERD, somewhat prominent extrinsic compression upper thoracic esophagus by the aortic arch not obstructive to the flow of thin barium liquid, hang up of barium at thoracic inlet, prominent area could be gastritis. ' She was hospitalized
again June 26 after having a pudendal block under full anesthesia June 19. She had esophageal spasm and burning chest pain concerned with aspiration as well as white coating on her throat and tongue with severe salvador. She was also noted with
uterine anterior and posterior prolapse and completed 08/04/24 patient underwent sacrospinous ligament fixation, anterior posterior colporrhaphy and perineoplasty, cystoscopy and hydrodistension with Dr. Webster and Dr. Limon. She is also due
for future interstim. She now is noted with fever. CT on admission with right supralevator collection measuring 5.5 cm in length by 1.5 cm diameter. The differential includes evolving hematoma with surgical Gelfoam versus abscess. No upper
abdominal free air or ascites. No upper abdominal focal collection or abscess.Bowel assessment is limited by lack of oral contrast. No evidence of bowel obstruction. Mild to moderate colonic fecal burden in the rectosigmoid colon. Small amount of
solid fecal residue and liquid fecal material in the remainder the colon which is normal in caliber. There is mild wall thickening and enhancement involving both small and large bowel. Inflammatory bowel disease or infectious enterocolitis may be
considered in the proper clinical setting.No obstructive uropathy. Small renal cysts.
-fever
-CT with 5.5 cm supralevator collection per CT
-possible entercolitis noted on CT
-chronic constipation with worsening symptoms post-op then diarrhea prior to admission -- CT with some residual stool noted
- recently completed 08/04/24 patient underwent sacrospinous ligament fixation, anterior posterior colporrhaphy and perineoplasty, cystoscopy and hydrodistension with Dr. Webster and Dr. Limon for eventual InterStim per patient
-thrombosed hemorrhoids due for eventual intervention with colorectal surgery
-wt loss
-Dysphagia/esophageal spasm -- follow at [facility] s/p EGD/esophagram as above on chronic Nortriptyline
-recurrent Oral candidiasis
-concern for immunodeficiency disorder
-hx PNA
-Hx Gastroparesis
-Ulcerative Colitis on infliximab
-hx labialplasty
-von Willebrand's
-POTS
-interstitial cystitis/recent UTI
-anxiety/ADD
-Raynaud's
-asthma
-seizures d/o
-gout
-hormonal deficiency
-hypothyroidism
Plan:
Etiology of fever unclear-- no recurrence since admission
she was noted with 8 days constipation post-op then diarrhea yesterday still feeling constipated
stool studies pending to be sent
she reviewed with GI at [facility] and recommended colyte cleanse to clear stool-- will have pt sip on prep with clear diet- zofran prior to use
pt was on Motegrity and Movantik (currently ordered but not given as not on formulary) -- asked pt to bring from home
cont to follow cx for fever work up
ID following for abx therapy
cont Nortriptyline with hx esophageal issues
discussed wt loss- add supplement with clear diet
cont PPI
OP follows with Dr. Graham and at [facility]
OP Infliximab with hx IBD
will follow
-
-
Thank you for consultation and allowing me to participate in the patient's care. Please call the engineering operations leader GI physician during the after hours with any questions or concerns.
[2024-08-13] MEDS: NULYTELY SOLUTION 2 LITERS PO (11:35)
[2024-08-13] MEDS: STERILE WATER FOR INJECTION 20 ML IV (11:35)
[2024-08-13] MEDS: MERREM 1000 MG IV (11:35)
[2024-08-13] MEDS: ZOFRAN 4 MG IV (11:52)
--- NOTE | 2024-08-13 12:31 | PHA.VAN.IN ---
Assessment
- Assessment
Renal Function: Appears similar to baseline
Concomitant Antimicrobials: meropenem
AUC Dosing Plan
- Dosing Variables
Dosing Weight (kg): 57
Dosing CrCl (ml/min): 78-95
Vd coefficient (L/kg): 0.7
BMI < 18.5:
Utilized IBW for dosing weight
Utilized CrCl calculated with both IBW and TBW for calculations
- Empiric Dosing
Initial / Loading Dose: 1000mg - 08/13 02:55
Maintenance Regimen: Vanc 750mg Q12H starting at 1800
Estimated AUC (mcg*h/mL): 470 - 563
Estimated Peak (mcg*h/mL): 29.8 - 33.3
Estimated Trough (mcg/ml): 11.9 - 15.6
Estimated Half Life (H): 8.3 - 10
- Monitoring
No levels ordered at this time: consider levels in next few days
Pharmacokinetics Vancomycin I
- -
Patient Age: 54
Patient Sex: Female
Vancomycin Day #: 1
Indication: Bacteremia
Requesting Provider: Dr. Manzanares
Pertinent Antimicrobial Allergies:
cephalosporins - N/V, hives as a child; tolerated ceftriaxone
ciprofloxacin - N/V
levofloxacin - phlebitis
penicillin - reaction as a baby; tolerated amoxicillin
sulfonamide antibiotics - recently took without adverse reaction
Height / Weight:
Height 5 ft 5 in
Actual Weight 46.584 kg
IBW in k
Pertinent Past Medical History: BMI ~17, UC on infliximab
- Vital Signs / Lab Results
Temp Pulse Resp BP Pulse Ox
97.6 F 81 12 93/57 97
08/13/24 07:36 08/13/24 07:36 08/13/24 07:36 08/13/24 07:36 08/13/24 07:36
Lab Results - Hematology
08/12/24 08/13/24
16:18 07:24
WBC 14.4 H 7.3
Lab Results - Chemistry
08/12/24 08/13/24
16:18 07:24
BUN 9 8
Creatinine 0.6 0.5 L
Estimated Creat Clear 78
Albumin 4.1 3.2 L
08/12/24 08/12/24 08/13/24
18:02 22:04 02:19
Lactic Acid 0.9 2.0 0.7
Lab Results - Urine
08/12/24
20:45
Urine Nitrite (Reflex) Negative
Leukocyte Esterase Rfl Trace A
Urine WBC (Reflex) 3-5
Ur Squamous Epith Cells >30
Urine Bacteria (Reflex) Few A
Microbiology Results
08/12/24 23:20 Gram Stain - Preliminary
Skin Surface
08/12/24 23:20 Gram Stain - Preliminary
Tissue
08/12/24 16:18 Influenza Types A & B (TORI) - Final
Nasal Swab Negative for Influenza A & B, NAAT
Negative results must be combined with clinical observations
and patient history.
Nucleic Acid Amplification test (NAAT)performed on the
[employer] platform.
--- NOTE | 2024-08-13 13:58 | CM ---
Patient seen at bedside with physicians. Patient states that she lives with her and son in a 2 story home. Patient recently here with surgery 08/04/24. Patient PCP is Dr. Lang, and [facility] in [place] in [place]. Patient plan is for
discharge home with no needs at this time. CM will continue to follow for discharge planning needs.
Plan; home with no needs anticipated.
--- NOTE | 2024-08-13 14:44 | CON.ID ---
Addendum entered and electronically signed by Judy Enrique MD 08/13/24 16:35:
will continue vancomycin, meropenem for now - follow fever, wbc count and clinically
continue fluconazole for now
UA was normal, no pyuria and high squamous cells - did not reflex to urine culture and I wouldnt send one given lack of pyuria.
Original Note:
Consultation
-
Date/Time Consultation Requested: 08/12/24 21:29
Date/Time Consultation Performed: 08/12/24 14:44
Requesting Provider: Mali FORD
Performing Provider: Dr Enrique
Reason for Consultation: fever post op, multiple drug allergies, need antibiotic recommendation
Chief Complaint / Past History
Chief Complaint
fever
History of Present Illness
Ms Persaud is a 54 year old female with history of UC on remicade, gastroparesis/esophageal dysmotility, IC, POTS, seizure disorder who presented here for fever on 08/12/24. She underwent plexi sacrospinous ligament fixation, anterior posterior
colporrhaphy and perineoplasty, cystoscopy for pelvic organ prolapse. She is planned for eventual interstim.
Since then she developed dysuria and was given an antibiotic. No vaginal discharge. She has some incisional pain in the vagina - managed with tylenol.
Subsequently with a scratchy, sore throat and difficulty swallowing. She believes she has a candidal infection. Of note she was recently admitted here for oral thrush with a positive culture for c albicans of the mouth and completed a recent
course of 10 days of fluconazole 08/04 and has PRN clotimazole troches. HIV screen was negative 1030/ and 11/17/23. Last a1c was 11/17/23 and was normal at 5.4%. Of note her BMI is just 17 and she is on wegovy. She has been previously referred to
immunology for assessment as to possible immunodeficiency (beyond the known immunosuppression) and that workup is ongoing.
She has been constipated since discharge which she attributed to motility disorder, then 08/11 she developed loose, watery stools.
Since arrival here she has been afebrile, bp with intermittent hypotension - she is not requiring pressors, wbc initially 14 now 7.3, hgb 12.9 today 11.0 , plt 355 today 309, L shift was present on admission now resolved, cr 0.6 now 0.5, lactic acid
normal x3, t bili 0.6, ast 33, alt 43, alk phos 73, UA >30 squamous cells and few bacteria, covid ag neg, 08/12 CT a/p with IV contrast only: 5.5x1.5 irrgular fluid collection in the supralevator region - hematoma vs surgical gelfoam vs abscess, no
inguinal adenopathy; mild wall thickening of small and large bowel - inflammatory bowel disease could be considered. Seen by her surgcial team - Dr Webster who commented that that surgiflo was utilized in the location of question and care appear
similar to an abscess on CT.
I was called from the ER and told she had allergies to penicillins, cephalosporins, quinolones and bactrim - the comments including previous tolerances were not shared with me though I did ask about the reactions. When I spoke with her she was
already convinced that she likely didnt have allergies to pencillins or bactrim as she has tolerated these. She cannot recall ever having an ADR to cephalosporins. She does recall having difficulties with vaccines particularly the zostavax.
Past History
Additional Past Medical History:
Asthma, GERD, Seizures, Psychiatric (Anxiety, ADD) and Other (Ulcerative colitis on infliximab 5 mg/kg every 6 weeks, chronic constipation, GI dysmotility, rectocele, Raynaud's, gastroparesis, hemorrhoids, POTS, salvador esophagitis, von Willebrand's
disease, interstitial cystitis
Additional Past Surgical History:
Gynecological (Vaginal surgery), Orthopedic (Left hand surgery) and Other (Breast reduction, cataract surgery, prior nerve block
Allergy History:
adhesive Allergy (Verified 08/12/24 16:14)
Rash
Cephalosporins Allergy (Verified 08/12/24 16:14)
Nausea / Vomiting/HIVES CHILD
ciprofloxacin [From Cipro] Allergy (Verified 08/12/24 16:14)
Nausea / Vomiting
latex Allergy (Verified 08/12/24 16:14)
Rash
levetiracetam Allergy (Verified 08/12/24 16:14)
MATTY JOHNSONS SYNDROME
levofloxacin [From Levaquin] Allergy (Verified 08/12/24 16:14)
Phlebitis at IV site during infusion
penicillin V Allergy (Verified 08/12/24 16:14)
took amoxicillin w/o adverse reaction
Penicillins Allergy (Verified 08/12/24 16:14)
ok w/ amoxicillin
silver [From Tegaderm AG Mesh] Allergy (Verified 08/12/24 16:14)
Redness, eczema reaction
Sulfa (Sulfonamide Antibiotics) Allergy (Verified 08/12/24 16:14)
Recently took w/o adverse reaction
sulfasalazine Allergy (Verified 08/12/24 16:14)
Recently took sulfa med w/o adverse reaction
Medications Reviewed: Yes
Social History
Tobacco: Non-Smoker
Alcohol: None
Drug: Marijuana
Family History
Family History: Not Pertinent
Review of Systems
Review of Systems
General: Fever
All systems: All other systems were reviewed and were negative
Vital Signs
Temp Pulse Resp BP Pulse Ox
97.6 F 81 12 93/57 97
08/13/24 07:36 08/13/24 07:36 08/13/24 07:36 08/13/24 07:36 08/13/24 07:36
Physical Exam
Physical Exam
Constitutional: No Acute Distress
Oral: No Thrush (orally)
Cardiovascular: Regular Rate and S1/S2; Negative Murmur or Rub
Pulmonary: Clear and Symmetric; Negative Wheezes, Rales or Rhonchi
Gastrointestinal: Soft, Non Tender, Non Distended and Normal Bowel Sounds
Genito-Urinary: Other (external gu exam preformed, thin yellow drainage on the pad - minimal, no swelling or odor of the perinum, no yeast)
Skin: Warm and Dry; Negative Rash or Jaundice
Lab / Diagnostic Study Results
08/13/24 07:24
08/13/24 07:24
Abs Immat Gran (auto) 0.0 10^3/uL (0-0.05) 08/13/24 07:24
Absolute Neuts (auto) 4.1 10^3/uL (1.4-6.5) 08/13/24 07:24
Absolute Lymphs (auto) 2.4 10^3/uL (1.2-3.4) 08/13/24 07:24
Absolute Monos (auto) 0.7 10^3/uL (0.1-0.6) H 08/13/24 07:24
Absolute Basos (auto) 0.0 10^3/uL (0-0.2) 08/13/24 07:24
Immature Gran % 0.1 % (0-0.5) 08/13/24 07:24
Neutrophils % 56.4 % (42.2-75.2) 08/13/24 07:24
Lymphocytes % 32.6 % (20.5-51.1) 08/13/24 07:24
Monocytes % 9.5 % (1.7-9.3) H 08/13/24 07:24
Eosinophils % 1.0 % (0-6) 08/13/24 07:24
Basophils % 0.4 % (0-2) 08/13/24 07:24
Lactic Acid 0.7 mmol/L (0.7-2.0) 08/13/24 02:19
Ur Squamous Epith Cells >30 /LPF (Few) 08/12/24 20:45
Microbiology Results
Micro:
08/12/24 23:20 Wound Culture - Pending - anaerobic culture of cervix
Skin Surface Gram Stain - Preliminary
08/12/24 23:20 Wound Culture - Pending from cervix
Tissue Gram Stain - Preliminary
08/12/24 23:20 Blood Culture - Pending
Blood/Venous
08/12/24 22:04 Blood Culture - Pending
Blood/Venous
08/12/24 16:18 Influenza Types A & B (TORI) - Final
Nasal Swab Negative for Influenza A & B, NAAT
Negative results must be combined with clinical observations
and patient history.
Nucleic Acid Amplification test (NAAT)performed on the
[employer] NOW platform.
06/26 mouth - yeast culture- c albicans
Assessment / Plan
Fever - outpatient, currently afebrile
Leukocytosis
Immunosuppression - Remicaide for UC
Possible Enterocolitis, known UC
Cachexia
Multiple reported adverse drug reactions with antibiotics
Tolerance of amoxicillin ruled out penicillin allergy. She has no reported allergy to cephalosporins and has tolerated ceftriaxone - also removed. Also note tolerance of bactrim - not an allergy - removed. Ciprofloxacin and levofloxacin
nausea/vomting and rash were ADRs not allergies - updated to ADR
Note that surgiflo was put in the area in question on the CT scan and likely explains the collection seen there
- blood cultures x2 in progress
- wound culture - aerobic and anaerobic of cervix were done in the ER - these areas are not sterile
- ua without pyuria and high number of squamous cells- not consistent with a UTI, most likely her known interstitial cystitis
Recurrent Oral candidiasis
Also h/o esophageal dysmotility
- suspect remicaide may be contributing to recurrences, however appears to have a difficult to control case of inflammatory bowel disease
- HIV negative x2 this year; not diabetic
- outpatient workup for immunodeficiency already planned - she tells me she has been a vaccine nonresponder to pneumovax, she will continue to follow up with immunology
- currently on fluconazole, also recently completed a 10 day course of fluconazole in addition to several other courses
Ruled out Von Willibrand Disease
- was tested here and it was negative
Total time spent today was 110 minutes for this encounter.� Time included reviewing laboratory tests/imaging results, reviewing pertinent medical records, extensive history taking given the complexity of her case, performing an appropriate exam,
ordering medications, tests and procedures and discussion with other MDs and clinical pharmacy.
Care Review
Plan reviewed with: Physician (Discussed with Dr Robbins and Dr Webster via tiger text)
[2024-08-13 14:56] VITALS: BMI 17.1
[2024-08-13 15:15] VITALS: BP 98/62
[2024-08-13] MEDS: VANCOCIN 150 IV (17:22)
--- NOTE | 2024-08-13 18:13 | W.PN.HOSP.TC ---
Addendum entered and electronically signed by Gabriela Noriega MD 08/13/24 19:03:
I saw and evaluated the patient independently. I reviewed the resident�s note and agree with findings and plan as documented by Dr. Canales.
GENERAL: well developed, well nourished, female in no apparent distress
HEENT: NC/AT--thrush on posterior tongue
HEART: regular rate and rhythm, +S1, +S2
LUNGS : clear to auscultation bilaterally
ABDOM: soft, nontender, nondistended, + bowel sounds
EXT: no cyanosis, clubbing, or edema
NEUROLOGIC: grossly intact
Sepsis (POA) (fever, tachy)--apprec GI/ID/UroGYN--CT scan likely not abscess or infectious colitis--Surgiflo placed in that spot by UroGYN--WBC likely reactive to constipation--follow cultures--on vanco/meropenem, low threshold to stop
Anterior Uterine/Posterior uterine prolapse s/p urogynecologic surgery 8 days prior to admission-- Recent cystoscopy hydrodistention of the bladder for interstitial cystitis
Dysphagia in the setting of history of candidal esophagitis --consider EGD--will defer to GI/ID--The patient was started on IV fluconazole yesterday, as well as similarly in the past
Ulcerative colitis--Patient currently on Remicade and immunocompromised
Esophageal dysmotility/gastroparesis--Continue Motegrity and Movantik
GERD--Continue omeprazole
Hypothyroidism--Continue levothyroxine
Anxiety/depression--Continue nortriptyline
Chronic constipation--Continue colchicine
code status --Full code
Original Note:
Today's Communication/Plan
-
.
Assessment / Plan
Assessment / Plan
1. Sepsis (POA)
- Febrile and tachycardic on admission with possible source being seen on CT in an immunocompromised patient (infliximab)
-CT scan shows fluid collection as well as mild wall thickening enhancement involving both small and large bowel possibly enterocolitis
-CT scan shows possibly infected hematoma versus abscess as read by radiologist
-GI, ID, urogynecology, and we are in agreement that abscess/hematoma read on CT is more likely Surgiflo placed intraoperatively and that mild wall thickening is likely from stool burden.
-Repeat CT if patient has worsening abdominal pain, fevers in order to reassess this thickening.
- Anterior Uterine/Posterior uterine prolapse s/p urogynocologic surgery 8 days prior to admission
- Recent cystoscopy hydrodistention of the bladder for interstitial cystitis
- Follow-up blood cultures
- IV fluids
- Patient on day 2 of vancomycin/meropenem
- Appreciate infectious disease/GI/urogyn
2. Leukocytosis
-Possibly caused by enterocolitis, but likely reactive leukocytosis.
-Elevated white count yesterday down to 7.3 today.
3. Dysphagia in the setting of history of candidal esophagitis
-Some oral thrush on examination
-The patient was started on IV fluconazole yesterday, as well as similarly in the past
-Per ID, if fevers or leukocytosis relapse, consider EGD to confirm she truly has persistent esophageal candidiasis
4. Acute enterocolitis
-Follow-up stool culture, C. difficile, norovirus, ova and parasite
5. Ulcerative colitis
-Patient currently on Remicade
6. Esophageal dysmotility/gastroparesis
-Continue Motegrity and Movantik
7. GERD
-Continue omeprazole
8. Hypothyroidism
-Continue levothyroxine
9. Anxiety depression
-Continue nortriptyline
10. Chronic constipation
-Continue colchicine
Full code/SCDs/CLD
Anticipated Discharge: 24 - 48 hours
Subjective/Interval History
-
Date of Service: August 13, 2024
Patient seen and examined while resting in bed, looks mildly uncomfortable. Patient states that she came to the emergency department yesterday due to fever, watery stool in the setting of chronic constipation, 1 episode of vomiting, and trouble
swallowing that is also chronic. Patient states that her fever was 102 at home, took a Motrin, which resolved the fever. The patient notes that she has a history of chronic constipation and had an episode of watery stool yesterday which was
unusual for her. In addition the patient vomited, described as yellow, resolved after 1 episode.
Today patient notes a history of painful swallowing secondary to candidal esophagitis, and this episode is similar. Patient notes some lower abdominal discomfort and just feeling uncomfortable in general.
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
Objective Data
-
Labs:
Laboratory Results
08/13/24
07:24
WBC 7.3
Hgb 11.0 L
Hct 32.6 L
Plt Count 309
Sodium 135
Potassium 3.9
Chloride 101
Carbon Dioxide 24
BUN 8
Creatinine 0.5 L
Glucose 92
Calcium 8.6
Total Bilirubin 0.6
AST 33
ALT 43 H
Alkaline Phosphatase 73
Vital Signs:
Vital Signs
Temp Pulse Resp BP Pulse Ox
97.0 F 82 16 98/62 97
08/13/24 15:15 08/13/24 15:15 08/13/24 15:15 08/13/24 15:15 08/13/24 15:15
I&O
08/12/24 08/13/24 08/14/24
06:59 06:59 06:59
Output Total 150 / 150
Balance -150 / -150
Review of Systems
-
History Source: Patient
Constitutional: Reports No Symptoms
Respiratory: Reports No Symptoms
Cardiac: Reports No Symptoms
Abdomen/GI: Reports Other (abdominal discomfort)
Genitourinary: Reports No Symptoms
Neuro: Reports No Symptoms
Physical Exam
-
General: Conversant and Other (appears uncomfortable, appears thin)
HEENT: Normocephalic, Atraumatic and Anicteric
Respiratory: Clear to Auscultation
Cardiac: Regular Rhythm and S1/S2
GI: Soft, Nondistended and Other (mild tenderness to palpation of the LLQ and suprapubic area)
Musculoskeletal: No Clubbing, No Cyanosis and No Edema
Skin: Warm and Dry
Neuro: Awake and Alert
Psych: Calm
Data Reviewed
-
CT Scan: Report Reviewed by me and Discussed with Patient
Labs: Labs Reviewed by me and Discussed with Patient
[2024-08-13] MEDS: COLCHICINE PO (22:22)
[2024-08-13] MEDS: MELATONIN 5 MG PO (22:49)
[2024-08-13 23:10] VITALS: BP 99/65
[2024-08-14] MEDS: DIFLUCAN 200 MG 100 IV (01:13)
[2024-08-14] MEDS: MERREM 1000 MG IV (01:14)
[2024-08-14] MEDS: STERILE WATER FOR INJECTION 20 ML IV (01:14)
[2024-08-14] MEDS: VANCOCIN 150 IV (06:24)
[2024-08-14] MEDS: NSS 1000 IV (06:27)
[2024-08-14 07:02] VITALS: BP 105/70
--- NOTE | 2024-08-14 07:17 | W.PN.GI.CBS2 ---
Addendum entered and electronically signed by RYLIE Anaya 08/14/24 07:38:
pt is scheduled GI follow up 11/13/[address] Graham-- added to discharge
Original Note:
Today's Communication / Plan
-
Etiology of fever unclear-- no recurrence since admission
Ct likely not abscess but surgiflo
s/p colon cleanse with concern for post-op constipation with multiple stools
she was also taking Colchicine which she states she uses as needed will change to PRN dosing
c-diff norovirus neg other cx pending
ok to resume regular diet with supplement daily with weight loss
pt was on Motegrity and Movantik (currently ordered but not given as not on formulary) -- asked pt 08/13 to bring from home-- can likely resume to prevent recurrent constipation issues
other cx neg so far
ID following for abx therapy
cont Nortriptyline with hx esophageal issues
pt concerned for ongoing salvador-- will add tentative EGD for AM-- she will consider if wants to proceed vs OP EGD at [facility] who is following pt for esophageal issues
cont PPI remains on Fluconazole per ID
OP follows with Dr. Graham and at [facility]
OP Infliximab with hx IBD
will follow
Assessment / Plan
-
The patient is a 54-year-old female, with a past medical history significant for ulcerative colitis on infliximab every 6 weeks, chronic constipation, gastroparesis, pelvic floor dysfunction, esophageal dysmotility with work up at [facility] with
esophageal disorder on daily medication with some improvement, GERD on chronic PPI, immunodeficiency disorder with work up at [facility], hemorrhoids with eventual follow up with colorectal for intervention, salvador esophagitis-
recurrent on current Fluconazole, UTI with recent treatment prior to surgery, aspiration pneumonia, Seizure disorder, von willebrand's, interstitial cystitis, POTS, anxiety, Raynaud's, ADD, asthma, uterine anterior and posterior prolapse.
She had admission in April 2024 with abdominal cramping, vomiting after eating [employer] food. 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
contrast of the small bowel which does not reach the colon until 3 hours and 45 minutes after administration. Per office noted she also follow with Dr. Mg, She had an esophagram and EGD done with noted - EGD 05/23 LA Grade C esophagitis,
irregular Z line, GE flap valve Hill grade II, stomach/duodenum normal, FIP performed with some spasticity'; esophagram 06/03 'thickened fold with punctate ad linear barium densitis in the lower thoracic esophagus c/w esophagitis, small sliding HH,
substantial GERD, somewhat prominent extrinsic compression upper thoracic esophagus by the aortic arch not obstructive to the flow of thin barium liquid, hang up of barium at thoracic inlet, prominent area could be gastritis. ' She was hospitalized
again June 26 after having a pudendal block under full anesthesia June 19. She had esophageal spasm and burning chest pain concerned with aspiration as well as white coating on her throat and tongue with severe salvador. She was also noted with
uterine anterior and posterior prolapse and completed 08/04/24 patient underwent sacrospinous ligament fixation, anterior posterior colporrhaphy and perineoplasty, cystoscopy and hydrodistension with Dr. Webster and Dr. Limon. She is also due
for future interstim. She now is noted with fever. CT on admission with right supralevator collection measuring 5.5 cm in length by 1.5 cm diameter. The differential includes evolving hematoma with surgical Gelfoam versus abscess. No upper
abdominal free air or ascites. No upper abdominal focal collection or abscess.Bowel assessment is limited by lack of oral contrast. No evidence of bowel obstruction. Mild to moderate colonic fecal burden in the rectosigmoid colon. Small amount of
solid fecal residue and liquid fecal material in the remainder the colon which is normal in caliber. There is mild wall thickening and enhancement involving both small and large bowel. Inflammatory bowel disease or infectious enterocolitis may be
considered in the proper clinical setting.No obstructive uropathy. Small renal cysts.
-fever/concern for sepsis on admission
-CT with 5.5 cm supralevator collection per CT vs surgiflo related
-possible enterocolitis noted on CT
-chronic constipation with worsening symptoms post-op then diarrhea prior to admission -- CT with some residual stool noted
- recently completed 08/04/24 patient underwent sacrospinous ligament fixation, anterior posterior colporrhaphy and perineoplasty, cystoscopy and hydrodistension with Dr. Webster and Dr. Limon for eventual InterStim per patient
-thrombosed hemorrhoids due for eventual intervention with colorectal surgery
-wt loss
-Dysphagia/esophageal spasm -- follow at [facility] s/p EGD/esophagram as above on chronic Nortriptyline
-recurrent Oral candidiasis
-concern for immunodeficiency disorder
-hx PNA
-Hx Gastroparesis
-Ulcerative Colitis on infliximab
-hx labialplasty
-von Willebrand's
-POTS
-interstitial cystitis/recent UTI
-anxiety/ADD
-Raynaud's
-asthma
-seizures d/o
-gout
-hormonal deficiency
-hypothyroidism
Plan:
Etiology of fever unclear-- no recurrence since admission
Ct likely not abscess but surgiflo
s/p colon cleanse with concern for post-op constipation with multiple stools
she was also taking Colchicine which she states she uses as needed will change to PRN dosing
c-diff norovirus neg other cx pending
ok to resume regular diet with supplement daily with weight loss
pt was on Motegrity and Movantik (currently ordered but not given as not on formulary) -- asked pt 08/13 to bring from home-- can likely resume to prevent recurrent constipation issues
other cx neg so far
ID following for abx therapy
cont Nortriptyline with hx esophageal issues
pt concerned for ongoing salvador-- will add tentative EGD for AM-- she will consider if wants to proceed vs OP EGD at [facility] who is following pt for esophageal issues
cont PPI remains on Fluconazole per ID
OP follows with Dr. Graham and at [facility]
OP Infliximab with hx IBD
will follow
Subjective
Subjective
Date of Service: August 14, 2024
Pt with multiple stools overnight with some incontinence with bowl prep cleanse and pt states she was also taking colchicine which she usually uses as needed, also some complaints of dysphagia with concern for ongoing salvador
Objective
Data Reviewed
Laboratory Data:
Laboratory Results
Total Bilirubin 0.6 mg/dl (0.2-1.3) 08/13/24 07:24
AST 33 U/L (14-36) 08/13/24 07:24
ALT 43 U/L (0-35) H 08/13/24 07:24
Alkaline Phosphatase 73 U/L (38-126) 08/13/24 07:24
Vital Signs and I&O:
Vital Signs
Temp Pulse Resp BP Pulse Ox
98.3 F 79 16 105/70 97
08/14/24 07:02 08/14/24 07:02 08/14/24 07:02 08/14/24 07:02 08/14/24 07:02
I&O
08/13/24 08/14/24 08/15/24
06:59 06:59 06:59
Intake Total 1440 / 1440
Output Total 150 / 150
Balance 1290 / 1290
Physical Exam
Physical Exam
HEENT: Anicteric and Moist mucous membranes
Cardiology: Normal Sinus Rhythm
Pulmonary: Clear
GI: Soft, Non Distended and Non Tender
Extremities: No Edema
Neuro: Non Focal
[2024-08-14 07:39] LABS: % Eosinophils 1.7 % (0-6); % Immature Granulocytes 0.4 % (0-0.5); % Lymphocytes 45.4 % (20.5-51.1); % Monocytes 7.3 % (1.7-9.3); % Neutrophils 44.2 % (42.2-75.2); Absolute Basophils 0.1 10^3/uL (0-0.2); Absolute Eosinophils 0.1 10^3/uL (0-0.7); Absolute Lymphocytes 2.4 10^3/uL (1.2-3.4); Absolute Monocytes 0.4 10^3/uL (0.1-0.6); Absolute Neutrophils 2.3 10^3/uL (1.4-6.5); Hematocrit 30.1 % (37.0-47.0); Hemoglobin 9.8 g/dL (12.0-16.0); Mean Corp Hgb Conc. 32.6 g/dL (33.0-37.0); Mean Corpuscular Hgb 27.8 pg (27.0-31.0); Mean Corpuscular Volume 85.5 fL (81.0-99.0); Mean Platelet Volume 10.3 fL (7.4-10.4); Nucleated Red Blood Cells % 0 %; Platelet Count 272 10^3/uL (130-400); Red Blood Cell Count 3.52 10^6/uL (4.20-5.40); Red Cell Dist. Width 13.2 % (11.5-14.5); White Blood Cell Count 5.2 10^3/uL (4.8-10.8)
[2024-08-14 08:00] LABS: ALT (SGPT) 45 U/L (0-35); AST (SGOT) 39 U/L (14-36); Albumin 2.8 g/dl (3.5-5.0); Alkaline Phosphatase 58 U/L (38-126); Blood Urea Nitrogen 6 mg/dl (7-17); Calcium 8.2 mg/dl (8.4-10.2); Carbon Dioxide 23 mmol/L (22-30); Chloride 105 mmol/L (98-107); Estimated Creatinine Clearance 78 ml/min; Glucose 86 mg/dl (70-99); Potassium 3.8 mmol/L (3.5-5.1); Sodium 136 mmol/L (135-145); Total Bilirubin 0.7 mg/dl (0.2-1.3); Total Protein 5.3 g/dl (6.3-8.2); eGFR > 60.00
--- NOTE | 2024-08-14 08:10 | CONS.URO ---
Medical History
History of Present Illness
54yoF with past medical history of ulcerative colitis on Remicade, esophageal dysmotility, gastroparesis, oral thrush, possible candidal esophagitis, asthma, GERD, seizure disorder, hypothyroidism, Raynaud's, POTS disease, von Willebrand disease,
interstitial cystitis, uterine anterior and posterior prolapse s/p sacrospinous ligament fixation, anterior posterior colporrhaphy and perineoplasty, cystoscopy and hydrodistension on 08/04 admitted on 08/[address] A/P noted possible
fluid collection in pelvis which of note is where surgiflo was placed, possible enterocolitis in setting of UC.
Patient was started on Vanc/Merrem and blood cultures, vaginal cultures were collected. ID and GI were consulted yesterday.
Patient's WBC had returned to normal and she has been afebrile x 24hrs. It is likely that her leukocytosis was reactive to her constipation and enterocolitis. Upon discussion with ID and GI teams she can likely be taken off IV antibiotics and
antifungals due to low likelihood of infectious fluid collection as well as no documented prior cultures of salvador in the past.
Patient was evaluated on AM rounds today. She reported improvement of her symptoms. She had diarrhea yesterday after colchecine and polyethylene glycol. She continues to have mild incisional pain in vagina with minimal discharge and occasional
dysuria. She notes having some dysfunctional voiding which can be in setting of postop inflammation and constipation. Reports complete bladder emptying. Patient notes having continued dysphagia and difficulty swallowing pills this AM. Denies vaginal
bleeding, diffuculty swallowing liquids, cough, nausea, vomiting, sob, chest pain, pelvic pain.
Allergies/Home Medications
Allergies
Allergy/AdvReac Type Severity Reaction Status Date / Time
adhesive Allergy Rash Verified 08/12/24 16:14
latex Allergy Rash Verified 08/12/24 16:14
levetiracetam Allergy MATTY Verified 08/12/24 16:14
JOHNSONS
SYNDROME
silver Allergy Redness, Verified 08/12/24 16:14
[From Tegaderm AG Mesh] eczema
reaction
ciprofloxacin [From Cipro] AdvReac Nausea / Verified 08/13/24 16:19
Vomiting
levofloxacin [From Levaquin] AdvReac Phlebitis Verified 08/13/24 16:19
at IV site
during
infusion
Home Medications
�Medication �Instructions �Recorded �Confirmed �Type
estradiol cypionate 1 dose IM MOTH@0800 Hormonal Agent 11/15/23 08/12/24 History
infliximab 100 mg intravenous 0 mg IV Q6W Ulcerative Colitis 11/15/23 08/12/24 History
solution (Remicade)
testosterone cypionate 200 mg/mL 10 mg IM MOTH@0800 Hormonal Agent 11/15/23 08/12/24 History
intramuscular oil
Amitriptyline-Baclofen 1 dose vaginal DAILYPRN PRN pelvic 04/29/24 08/12/24 History
pain
albuterol sulfate 90 mcg/actuation 2 puff inhalation R QIDPRN PRN sob 04/29/24 08/12/24 History
aerosol inhaler (Ventolin HFA)
diazepam 15 mg WV TIDPRN PRN pelvic floor 04/29/24 08/12/24 History
disorder
dibucaine 1 dose WV TIDPRN PRN rectal pain 05/05/24 08/12/24 History
Lactobac no.2-Bifidobac no.1-S. 1 cap PO DAILY probiotic 06/25/24 08/12/24 History
thermo 112.5 billion cell capsule
(Visbiome)
clotrimazole 10 mg lindsay 10 mg mucous membrane DAILYPRN PRN 06/25/24 08/12/24 History
with oral antibiotics
cyclosporine 0.05 % eye drops in a 1 drp BOTH EYES TID Eye Condition 06/25/24 08/12/24 History
dropperette
nortriptyline 10 mg capsule 10 mg PO TID mental health 06/25/24 08/12/24 History
omeprazole 40 mg capsule,delayed 40 mg PO DAILY Gastrointestinal 06/25/24 08/12/24 History
release Issue
ondansetron 4 mg disintegrating 4 mg PO DAILYPRN PRN nausea 06/25/24 08/12/24 History
tablet
prucalopride 2 mg tablet 2 mg PO DAILY Gastrointestinal 06/25/24 08/12/24 History
(Motegrity) Issue
tretinoin 0.025 % topical cream 1 applic topical HS face 06/25/24 08/12/24 History
Mylanta 1 dose PO MEALS Gastrointestinal 08/01/24 08/12/24 History
Issue
acetaminophen 325 mg tablet 650 mg PO Q4HPRN PRN mild pain 08/01/24 08/12/24 History
(Tylenol)
cholecalciferol (vitamin D3) 50 50 mcg PO DAILY Supplement 08/01/24 08/12/24 History
mcg (2,000 unit) tablet (Vitamin
D3)
colchicine 0.6 mg capsule 0.6 mg PO TID Gout 08/04/24 08/12/24 History
diazepam 5 mg tablet 5 mg PO DAILY Mental Health/Anxiety 08/12/24 08/12/24 History
fluconazole 200 mg tablet 200 mg PO Q72H Infection 08/12/24 08/12/24 History
ibuprofen 600 mg tablet 600 mg PO Q8HPRN PRN mild pain 08/12/24 08/12/24 History
naloxegol 25 mg tablet (Movantik) 25 mg PO DAILY Gastrointestinal 08/12/24 08/12/24 History
Issue
oxycodone 5 mg tablet 5 mg PO Q6HPRN PRN severe pain 08/12/24 08/12/24 History
progesterone micronized 200 mg 200 mg PO HS Hormonal Agent 08/12/24 08/12/24 History
capsule
sennosides 8.6 mg-docusate sodium 2 tab-cap PO HS Gastrointestinal 08/12/24 08/12/24 History
50 mg tablet (Senexon-S) Issue
thyroid (pork) 90 mg tablet 90 mg PO DAILY Thyroid 08/12/24 08/12/24 History
([place] Thyroid)
Review of Systems
-
Constitutional: Reports See HPI
EENT: Reports See HPI
Respiratory: Reports See HPI
Cardiac: Reports See HPI
Abdomen/GI: Reports See HPI
: Reports See HPI
Musculoskeletal: Reports See HPI
Skin: Reports See HPI
Neurological: Reports See HPI
Endocrine: Reports See HPI
Hematologic/Lymphatic: Reports See HPI
Psych: Reports See HPI
Physical Exam
Vital Signs
Vital Signs
Temp Pulse Resp BP Pulse Ox
98.3 F 79 16 105/70 97
08/14/24 07:02 08/14/24 07:02 08/14/24 07:02 08/14/24 07:02 08/14/24 07:02
Lab / Testing Results
Laboratory Results
08/14/24 06:29
08/14/24 06:29
Physical Exam
General: Well Developed and Well Nourished
Respiratory: Non Labored Respirations
Cardiac: Regular Rhythm
GI: Soft, Non Tender and Non Distended
Genito-urinary: Other (Minimal creamy discharge in underwear, no suprapubic tenderness)
Skin: Warm
Neuro: Awake and Alert
Psych: Calm
Assessment / Plan
-
54yoF POD10 s/p sacrospinous ligament fixation, anterior posterior colporrhaphy and perineoplasty, cystoscopy and hydrodistension of bladder admitted 08/12 with fevers/leukocytosis and found to have 5/5cm pelvic fluid collection on CT.
Likely this collection is 2/2 surgiflo. Leukocytosis may be reactive to constipation/enterocolitis in setting of UC. WBC had normalized and patient has been afebrile for 24hrs. Constipation had improved after bowel regimen yesterday.
Followup ID recommendations
Followup GI recommendations
Followup blood and vaginal cultures
Consider repeating CT A/P if fevers or abdominal pain were to return
will continue to follow
[2024-08-14] MEDS: VALIUM 5 MG PO (10:11)
[2024-08-14] MEDS: RESTASIS 0.05% OPHTHALMIC EMULSION 1 DROPS BOTH EYES ×3 (10:26→21:54)
--- NOTE | 2024-08-14 11:05 | CM ---
Reviewed the chart notes and spoke with the patient at the bedside. Patient reports improvement. Per GI notes, patient will be tentatively scheduled for an EGD in the morning. CM continues to be available to patient/family and is monitoring
medical plan for needs at discharge.
Plan: Discharge to home when medically stable. No needs anticipated at this time.
--- NOTE | 2024-08-14 11:11 | W.PN.UPDATE ---
Addendum entered and electronically signed by Juanpablo Robbins, DO 08/14/24 13:48:
Discussed with both ID and Urogyn yesterday evening regarding prior CT imaging and very low suspicion or other concern for an intra-abdominal abscess. Additionally, given concern for recurrent oral candidiasis and potential esophageal candidiasis
will proceed with EGD given symptoms. Plan for EGD tomorrow AM with Dr. Rick.
See previous consultation dated from yesterday, 08/13, regarding additional details.
Original Note:
Update Note
Progress Note Update
Pt concerned with interaction with GI MD in past and plan for EGD tomorrow. Reviewed with patient that GI MD round in AM has not met patient with no prior notes inpatient or outpatient. She is agreeable to proceed. Support given. Reviewed with
nursing staff and Dr. Noriega. All questions answered.
--- NOTE | 2024-08-14 11:11 | W.PN.ID1 ---
Date of Service
Date of Service: August 14, 2024
Today's Communication
- wound culture - aerobic and anaerobic of cervix were done in the ER - with GNR - not typical vaginal andreina, unclear significance, may be a colonizer
- start ceftriaxone, stop vancomycin and meropenem;
- lactobacillus probiotic to continue
Assessment / Plan
Fever - outpatient, currently afebrile
Leukocytosis
Immunosuppression - Remicaide for UC
Possible Enterocolitis, known UC
Cachexia
ADR with levaquin and ciprofloxacin -
Note that surgiflo was put in the area in question on the CT scan and likely explains the collection seen there
- blood cultures x2 in progress
- wound culture - aerobic and anaerobic of cervix were done in the ER - with GNR - not typical vaginal andreina, unclear significance, may be a colonizer
- start ceftriaxone, stop vancomycin and meropenem;
- lactobacillus probiotic to continue
- ua without pyuria and high number of squamous cells- not consistent with a UTI, most likely her known interstitial cystitis
Recurrent Oral candidiasis
Also h/o esophageal dysmotility
- suspect remicaide may be contributing to recurrences, however appears to have a difficult to control case of inflammatory bowel disease
- HIV negative x2 this year; not diabetic
- outpatient workup for immunodeficiency already in progress - she tells me she has been a vaccine nonresponder to pneumovax, she will continue to follow up with immunology
- currently on fluconazole, also recently completed a 10 day course of fluconazole in addition to several other courses
- EGD and culture if esophageal candidiasis would be helpful in directing next steps
Ruled out Von Willibrand Disease
- was tested here and it was negative
Chief Complaint
-: Fever
Subjective / Review of Systems
afebrile
bp stable
initially constipated, now with loose stools after bowel regimen with polyethylene glycol and colchicine also
c diff, norovirus negative; crypto/giardia unlikely in my opinion given recent long period of constipation, sent per another service
possible EGD in the AM
Vital Signs / Physical Exam
Vital Signs
Vital Signs
Temp Pulse Resp BP Pulse Ox
98.3 F 79 16 105/70 97
08/14/24 07:02 08/14/24 07:02 08/14/24 07:02 08/14/24 07:02 08/14/24 07:02
Physical Exam
Constitutional: No Acute Distress
Cardiovascular: Regular Rate and S1/S2; Negative Murmur or Rub
Pulmonary: Clear and Symmetric; Negative Wheezes or Rales
Gastrointestinal: Soft, Non Tender, Non Distended and Normal Bowel Sounds
Skin: Warm and Dry; Negative Rash or Jaundice
Objective Data
Lab Data
Lab Results
08/14/24 06:29
08/14/24 06:29
Estimated Creat Clear 78 ml/min 08/14/24 06:29
Lactic Acid 0.7 mmol/L (0.7-2.0) 08/13/24 02:19
Total Bilirubin 0.7 mg/dl (0.2-1.3) 08/14/24 06:29
AST 39 U/L (14-36) H 08/14/24 06:29
ALT 45 U/L (0-35) H 08/14/24 06:29
Alkaline Phosphatase 58 U/L (38-126) 08/14/24 06:29
Most recent labs reviewed.
Micro Results:
08/13/24 17:05 Salmonella/Shigella Culture - Pending
Feces/Stool Campylobacter Culture - Pending
Shiga Toxin Test - Final
No E. coli Shiga Toxin 1 or 2 detected.
08/12/24 23:20 Wound Culture - Preliminary
Tissue Gram negative bacilli
Gram Stain - Preliminary
08/12/24 23:20 Wound Culture - Preliminary
Skin Surface Gram negative bacilli
Gram Stain - Preliminary
08/12/24 23:20 Blood Culture - Preliminary
Blood/Venous No Growth in 24 hours- Final report to follow
08/12/24 22:04 Blood Culture - Preliminary
Blood/Venous No Growth in 24 hours- Final report to follow
08/13/24 17:05 C. difficile GDH Antigen & Toxins - Final
Feces/Stool Negative for toxigenic C.difficile
- Final
Negative for Norovirus GI and GII.
08/13/24 17:05 Cryptosporidium/Giardia - Pending
Feces/Stool
08/12/24 16:18 Influenza Types A & B (TORI) - Final
Nasal Swab Negative for Influenza A & B, NAAT
Negative results must be combined with clinical observations
and patient history.
Nucleic Acid Amplification test (NAAT)performed on the
[employer] platform.
[2024-08-14] MEDS: VISBIOME PO (11:27)
[2024-08-14] MEDS: STERILE WATER FOR INJECTION 10 ML IV (11:29)
[2024-08-14] MEDS: ROCEPHIN 1000 MG IV (11:29)
[2024-08-14] MEDS: PAMELOR PO ×2 (11:30→12:35)
[2024-08-14] MEDS: ARMOUR THYROID 90 MG PO (11:31)
[2024-08-14] MEDS: VITAMIN D3 (cholecalciferol) 50 MCG PO (11:32)
[2024-08-14] MEDS: PROTONIX 40 MG PO (11:32)
[2024-08-14] MEDS: VISBIOME 1 CAP PO (12:29)
--- NOTE | 2024-08-14 13:05 | W.PN.HOSP.TC ---
Addendum entered and electronically signed by Gabriela Noriega MD 08/14/24 13:36:
I saw and evaluated the patient independently. I reviewed the resident�s note and agree with findings and plan as documented by Dr. Canales.
GENERAL: well developed, well nourished, female in no apparent distress
HEENT: NC/AT
HEART: regular rate and rhythm, +S1, +S2
LUNGS : clear to auscultation bilaterally
ABDOM: soft, nontender, nondistended, + bowel sounds
EXT: no cyanosis, clubbing, or edema
NEUROLOGIC: grossly intact
Sepsis (POA) (fever, tachy)--apprec GI/ID/UroGYN--CT scan likely not abscess or infectious colitis--Surgiflo placed in that spot by UroGYN--WBC likely reactive to constipation--cervical culture done in ED shows gm neg bacilli, identification
pending-- vanco/meropenem stopped and rocephin started
Anterior Uterine/Posterior uterine prolapse s/p urogynecologic surgery 8 days prior to admission-- Recent cystoscopy hydrodistention of the bladder for interstitial cystitis
Dysphagia in the setting of history of candidal esophagitis -- EGD likely tomorrow--apprec GI/ID--The patient was started on IV fluconazole, as well as similarly in the past
Ulcerative colitis--Patient currently on Remicade and immunocompromised
Esophageal dysmotility/gastroparesis--Continue Motegrity and Movantik
GERD--Continue omeprazole
Hypothyroidism--Continue levothyroxine
Anxiety/depression--Continue nortriptyline
Chronic constipation--Continue colchicine
code status --Full code
Original Note:
Today's Communication/Plan
-
.
Assessment / Plan
Assessment / Plan
1. Sepsis (POA)
- Febrile and tachycardic on admission with possible source being seen on CT in an immunocompromised patient (infliximab)
-CT scan shows fluid collection as well as mild wall thickening enhancement involving both small and large bowel possibly enterocolitis
-CT scan shows possibly infected hematoma versus abscess as read by radiologist
-GI, ID, urogynecology, and we are in agreement that abscess/hematoma read on CT is more likely Surgiflo placed intraoperatively and that mild wall thickening is likely from stool burden.
-Repeat CT if patient has worsening abdominal pain, fevers in order to reassess this thickening.
- Anterior Uterine/Posterior uterine prolapse s/p urogynocologic surgery 8 days prior to admission
- Recent cystoscopy hydrodistention of the bladder for interstitial cystitis
- Follow-up blood cultures; no growth so far.
- IV fluids
- Patient had 2 days of vancomycin/meropenem. Switched to ceftriaxone by ID today
- Appreciate infectious disease/GI/urogyn
2. Leukocytosis
-Possibly caused by enterocolitis, but likely reactive leukocytosis.
-Elevated white count on admission. WBC count normal and stable for 48 hours.
3. Dysphagia in the setting of history of candidal esophagitis
-Some oral thrush on examination initially.
-The patient was started on IV fluconazole yesterday, as well as similarly in the past
-EGD to be performed by GI.
4. Acute enterocolitis
-C. difficile negative, norovirus negative. Follow up other infectious labs.
5. Ulcerative colitis
-Patient currently on Remicade
6. Esophageal dysmotility/gastroparesis
-Continue Motegrity and Movantik
7. GERD
-Continue omeprazole
8. Hypothyroidism
-Continue levothyroxine
9. Anxiety depression
-Continue nortriptyline
10. Chronic constipation
-Continue colchicine
Full code/SCDs/CLD
Anticipated Discharge: Within 24 hours
Subjective/Interval History
-
Date of Service: August 14, 2024
Patient seen and examined resting comfortably in bed. Patient looks more comfortable today than yesterday. Patient notes that her lower abdominal pain has improved since yesterday. However, she notes that her pain with swallowing is worse than
yesterday, and that she believes her voice sounds 'funky'. Patient denies chest pain, shortness of breath, lower extremity pain. Patient notes that she has had multiple bowel movements since last night secondary to bowel prep and home medication
colchicine.
Patient also alerted me that she did not want an EGD done with the GI MD who performed her last EGD. At the time she was willing to leave AMA for EGD at [place]. However upon speaking with the gastroenterology team, it was noted that she had
never met that specific GI MD or had a procedure performed by him/her. Patient is now in agreement to have EGD done by the GI team here.
Objective Data
-
Labs:
Laboratory Results
08/14/24
06:29
WBC 5.2
Hgb 9.8 L
Hct 30.1 L
Plt Count 272
Sodium 136
Potassium 3.8
Chloride 105
Carbon Dioxide 23
BUN 6 L
Creatinine 0.5 L
Glucose 86
Calcium 8.2 L
Total Bilirubin 0.7
AST 39 H
ALT 45 H
Alkaline Phosphatase 58
Vital Signs:
Vital Signs
Temp Pulse Resp BP Pulse Ox
98.3 F 79 16 105/70 97
08/14/24 07:02 08/14/24 07:02 08/14/24 07:02 08/14/24 07:02 08/14/24 07:02
I&O
08/13/24 08/14/24 08/15/24
06:59 06:59 06:59
Intake Total 1440 / 1440
Output Total 150 / 150
Balance 1290 / 1290
Review of Systems
-
History Source: Patient
Constitutional: Reports No Symptoms
EENT: Reports Sore Throat
Respiratory: Reports No Symptoms
Cardiac: Reports No Symptoms
Abdomen/GI: Reports Abdominal Pain
Musculoskeletal: Reports No Symptoms
Physical Exam
-
General: No Apparent Distress and Other (appears thin)
HEENT: Normocephalic and Atraumatic
Respiratory: Clear to Auscultation
Cardiac: Regular Rhythm and S1/S2
GI: Soft, Nondistended, Normal Bowel Sounds and Other (mild tenderness of the left side of the abdomen)
Musculoskeletal: No Clubbing, No Cyanosis and No Edema
Skin: Warm and Dry
Neuro: Awake, Alert and Oriented
Psych: Calm
Data Reviewed
-
Labs: Labs Reviewed by me and Discussed with Patient
[2024-08-14 15:25] VITALS: BP 124/82
[2024-08-14] MEDS: PAMELOR 30 MG PO (21:54)
[2024-08-14] MEDS: MELATONIN 5 MG PO (23:02)
[2024-08-14 23:35] VITALS: BP 120/79
[2024-08-15] MEDS: DIFLUCAN 200 MG 100 IV (00:54)
[2024-08-15 07:18] VITALS: BP 120/82
--- NOTE | 2024-08-15 07:32 | W.PN.HOSP.TC ---
Addendum entered and electronically signed by Beka Roth MD 08/15/24 17:14:
Seen and examined by me independently in collaboration with the medical interpreter.
Lab data and imaging data reviewed.
Addendum as below :
Patient back from EGD. Findings noted. Cleared by GI for discharge. Advised the patient to follow-up with GI for biopsy reports. Continue with her PPI.
ID and uro-ANTISQUEAK APPLIER input noted currently no indications of active postop infection including surgical or UTI. Off of antibiotics and antifungals.
Patient seems to have a left corneal abrasion post anesthesia based clinically .Not able to do split lamp exam in hospital. Advised hypertonic solution eyedrops, and prophylactic antibiotics. Advised to follow-up with her primary senior data architect.
Medically stable for DC
Total time of DC 32 min.
Original Note:
Today's Communication/Plan
-
.
Assessment / Plan
Assessment / Plan
1. Sepsis (POA)
- Febrile and tachycardic on admission with possible source being seen on CT in an immunocompromised patient (infliximab)
-CT scan shows fluid collection as well as mild wall thickening enhancement involving both small and large bowel possibly enterocolitis
-CT scan shows possibly infected hematoma versus abscess as read by radiologist
-GI, ID, urogynecology, and we are in agreement that abscess/hematoma read on CT is more likely Surgiflo placed intraoperatively and that mild wall thickening is likely from stool burden.
-Repeat CT if patient has worsening abdominal pain, fevers in order to reassess this thickening.
- Anterior Uterine/Posterior uterine prolapse s/p urogynocologic surgery 8 days prior to admission
- Recent cystoscopy hydrodistention of the bladder for interstitial cystitis
- Blood cultures remained negative through admission.
- Patient had 2 days of vancomycin/meropenem. Switched to ceftriaxone by ID yesterday.
-Cervical culture revealed E. coli, Enterococcus, lactobacillus; cleared by ID; no outpatient antibiotics or antifungals.
- Appreciate infectious disease/GI/urogyn
2. Leukocytosis
-Possibly caused by enterocolitis, but likely reactive leukocytosis.
-Elevated white count on admission. WBC count normal and stable for 72 hours.
3. Dysphagia in the setting of history of candidal esophagitis
-EGD: Nonsevere reflux esophagitis with no bleeding. Orrtanna-colored mucosa suspicious for short segment Joaquin's esophagus. Few gastric polyps biopsied.
-Cleared by GI for d/c.
4. Acute enterocolitis
-Symptoms improved, all infectious testing negative.
5. Ulcerative colitis
-Patient currently on Remicade
6. Esophageal dysmotility/gastroparesis
-Continue Motegrity and Movantik
7. GERD
-Continue omeprazole
8. Hypothyroidism
-Continue levothyroxine
9. Anxiety depression
-Continue nortriptyline
10. Chronic constipation
-Continue colchicine
11. Corneal Abrasion
-Consulted Ophthalmology: recommended erythromycin ointment; follow-up on Sunday if symptoms have not improved.
Full code/SCDs/CLD
Anticipated Discharge: Today
Subjective/Interval History
-
Date of Service: August 15, 2024
Patient seen and examined while resting comfortably in bed. Patient states that she is feeling much better today, less abdominal pain, still complains of mild dysphagia. Patient was negative for EGD around noon today. While in the postanesthesia
care unit, patient started scratching at her left eye. When patient fully recovered from anaesthesia, noted blurry vision in left eye. Patient has a history of corneal abrasions, most recently following similar circumstances after a procedure in
the postanesthesia care unit.
Objective Data
-
Labs:
Laboratory Results
08/15/24
06:00
WBC Pending
Hgb Pending
Hct Pending
Plt Count Pending
PT Pending
INR Pending
Sodium Pending
Potassium Pending
Chloride Pending
Carbon Dioxide Pending
BUN Pending
Creatinine Pending
Glucose Pending
Calcium Pending
Total Bilirubin Pending
AST Pending
ALT Pending
Alkaline Phosphatase Pending
Vital Signs:
Vital Signs
Temp Pulse Resp BP Pulse Ox
97.1 F 96 16 120/82 96
08/15/24 07:18 08/15/24 07:18 08/15/24 07:18 08/15/24 07:18 08/15/24 07:18
I&O
08/14/24 08/15/24 08/16/24
06:59 06:59 06:59
Intake Total 1440 / 1440 1300 / 1300
Output Total 150 / 150
Balance 1290 / 1290 1300 / 1300
Review of Systems
-
History Source: Patient
EENT: Reports Blurry Vision (left eye)
Respiratory: Reports No Symptoms
Cardiac: Reports No Symptoms
Abdomen/GI: Reports No Symptoms
Physical Exam
-
General: No Apparent Distress and Comfortable
HEENT: Normocephalic and Atraumatic
Respiratory: Clear to Auscultation
Cardiac: Regular Rhythm and S1/S2
GI: Soft and Nontender
Musculoskeletal: No Cyanosis and No Edema
Skin: Warm and Dry
Neuro: Awake, Alert and Oriented
Psych: Calm
Data Reviewed
-
Labs: Labs Reviewed by me and Discussed with Patient
--- NOTE | 2024-08-15 07:55 | CONS.URO ---
Medical History
History of Present Illness
54yoF PMH of ulcerative colitis on Remicade, esophageal dysmotility, gastroparesis, oral thrush, possible candidal esophagitis, asthma, GERD, seizure disorder, hypothyroidism, Raynaud's, POTS disease, von Willebrand disease, interstitial cystitis,
uterine anterior and posterior prolapse s/p sacrospinous ligament fixation, anterior posterior colporrhaphy and perineoplasty, cystoscopy and hydrodistension on 08/04 admitted on 08/[address] A/P noted possible fluid collection in
pelvis which of note is where surgiflo was placed, possible enterocolitis in setting of UC.
Patient was started on Vanc/Merrem and blood cultures, vaginal cultures were collected. ID and GI were consulted.
Likely that the collection noted on CT was due to Surgiflo rather than infected hematoma. It is likely that her leukocytosis was reactive to her constipation and enterocolitis. Blood cultures have been negative x 48hrs. Wound culture (from cervix)
positive for gram negative bacilli. Per ID patient was switched to Rocephin. Course was complicated by dysphagia possibly due to oral candidiasis. Patient was started on IV fluconazole and pending EGD today.
Patient was evaluated on AM rounds today. She has been afebrile x 48hrs. WBC normal. Patient currently s/p colchicine for constipation. She reports having diarrhea after colchicine and now having return of constipation after it was stopped. She
notes this is her normal especially if not moving around much or drinking much.
We discussed with patient regarding her increased liklihood of harboring GI andreina in vagina at her postmenopausal state; vaginal estrogen cream can decrease the overgrowth.
Patient denies vaginal discharge or bleeding, pelvic pain, difficulty swallowing liquids, cough, nausea, vomiting, sob, chest pain.
Allergies/Home Medications
Allergies
Allergy/AdvReac Type Severity Reaction Status Date / Time
adhesive Allergy Rash Verified 08/12/24 16:14
latex Allergy Rash Verified 08/12/24 16:14
levetiracetam Allergy MATTY Verified 08/12/24 16:14
JOHNSONS
SYNDROME
silver Allergy Redness, Verified 08/12/24 16:14
[From Tegaderm AG Mesh] eczema
reaction
ciprofloxacin [From Cipro] AdvReac Nausea / Verified 08/13/24 16:19
Vomiting
levofloxacin [From Levaquin] AdvReac Phlebitis Verified 08/13/24 16:19
at IV site
during
infusion
Home Medications
�Medication �Instructions �Recorded �Confirmed �Type
estradiol cypionate 1 dose IM MOTH@0800 Hormonal Agent 11/15/23 08/12/24 History
infliximab 100 mg intravenous 0 mg IV Q6W Ulcerative Colitis 11/15/23 08/12/24 History
solution (Remicade)
testosterone cypionate 200 mg/mL 4 mg IM MOTH@0800 Hormonal Agent 11/15/23 08/14/24 History
intramuscular oil
Amitriptyline-Baclofen 1 dose vaginal DAILYPRN PRN pelvic 04/29/24 08/12/24 History
pain
albuterol sulfate 90 mcg/actuation 2 puff inhalation R QIDPRN PRN sob 04/29/24 08/12/24 History
aerosol inhaler (Ventolin HFA)
diazepam 15 mg ID TIDPRN PRN pelvic floor 04/29/24 08/12/24 History
disorder
dibucaine 1 dose ID TIDPRN PRN rectal pain 05/05/24 08/12/24 History
Lactobac no.2-Bifidobac no.1-S. 1 cap PO DAILY probiotic 06/25/24 08/12/24 History
thermo 112.5 billion cell capsule
(Visbiome)
clotrimazole 10 mg lindsay 10 mg mucous membrane DAILYPRN PRN 06/25/24 08/12/24 History
with oral antibiotics
cyclosporine 0.05 % eye drops in a 1 drp BOTH EYES TID Eye Condition 06/25/24 08/12/24 History
dropperette
nortriptyline 10 mg capsule 30 mg PO HS spasmatic esophagus 06/25/24 08/14/24 History
omeprazole 40 mg capsule,delayed 40 mg PO DAILY Gastrointestinal 06/25/24 08/12/24 History
release Issue
ondansetron 4 mg disintegrating 4 mg PO DAILYPRN PRN nausea 06/25/24 08/12/24 History
tablet
prucalopride 2 mg tablet 2 mg PO DAILY Gastrointestinal 06/25/24 08/12/24 History
(Motegrity) Issue
tretinoin 0.025 % topical cream 1 applic topical HS face 06/25/24 08/12/24 History
Mylanta 1 dose PO MEALS Gastrointestinal 08/01/24 08/12/24 History
Issue
acetaminophen 325 mg tablet 650 mg PO Q4HPRN PRN mild pain 08/01/24 08/12/24 History
(Tylenol)
cholecalciferol (vitamin D3) 50 50 mcg PO DAILY Supplement 08/01/24 08/12/24 History
mcg (2,000 unit) tablet (Vitamin
D3)
colchicine 0.6 mg capsule 0.6 mg PO TID Gout 08/04/24 08/12/24 History
diazepam 5 mg tablet 5 mg PO DAILY Mental Health/Anxiety 08/12/24 08/12/24 History
fluconazole 200 mg tablet 200 mg PO Q72H Infection 08/12/24 08/12/24 History
ibuprofen 600 mg tablet 600 mg PO Q8HPRN PRN mild pain 08/12/24 08/12/24 History
naloxegol 25 mg tablet (Movantik) 25 mg PO DAILY Gastrointestinal 08/12/24 08/12/24 History
Issue
oxycodone 5 mg tablet 5 mg PO Q6HPRN PRN severe pain 08/12/24 08/12/24 History
progesterone micronized 200 mg 200 mg PO HS Hormonal Agent 08/12/24 08/12/24 History
capsule
sennosides 8.6 mg-docusate sodium 2 tab-cap PO HS Gastrointestinal 08/12/24 08/12/24 History
50 mg tablet (Senexon-S) Issue
thyroid (pork) 90 mg tablet 90 mg PO DAILY Thyroid 08/12/24 08/12/24 History
([place] Thyroid)
Review of Systems
-
Constitutional: Reports See HPI
EENT: Reports See HPI
Respiratory: Reports See HPI
Cardiac: Reports See HPI
Abdomen/GI: Reports See HPI
: Reports See HPI
Musculoskeletal: Reports See HPI
Skin: Reports See HPI
Neurological: Reports See HPI
Hematologic/Lymphatic: Reports See HPI
Physical Exam
Vital Signs
Vital Signs
Temp Pulse Resp BP Pulse Ox
97.1 F 96 16 120/82 96
08/15/24 07:18 08/15/24 07:18 08/15/24 07:18 08/15/24 07:18 08/15/24 07:18
Lab / Testing Results
AM labs pending
Physical Exam
General: Well Developed
HEENT: Normocephalic
Respiratory: Non Labored Respirations
Cardiac: Regular Rhythm
GI: Soft, Non Tender and Non Distended
Genito-urinary: Suprapubic Tube (no suprapubic tenderness, minimal creamy vaginal discharge, no bleeding noted)
Neuro: Awake and Alert
Psych: Calm
Assessment / Plan
-
54yoF POD11 s/p sacrospinous ligament fixation, anterior posterior colporrhaphy and perineoplasty, cystoscopy and hydrodistension of bladder admitted 08/12 with fevers/leukocytosis and found to have 5/5cm pelvic fluid collection on CT.
Likely this collection is 2/2 surgiflo. Leukocytosis may be reactive to constipation/enterocolitis in setting of UC. WBC had normalized and patient has been afebrile since admission. Constipation had improved after bowel regimen.
Blood cultures negative to date. Wound culture (cervix) growing gram negative bacilli. Patient currently on Rocephin. It is more likely that the gram negative bacilli are from her vaginal andreina (postmenopausal patients have higher liklihood of GI
andreina presence integrated in vaginal andreina) rather than infection.
Followup ID recommendations
Followup GI recommendations (pending EGD today for dysphagia)
Consider repeating CT A/P if fevers or abdominal pain were to return
Patient will start vaginal estrogen cream after 2wks postop (this will promote growth of patient's normal vaginal andreina)
Patient is scheduled to followup with on discharge for postop eval [phone]
will continue to follow
[2024-08-15 08:47] LABS: INR 0.96; PT 13.1 Sec (11.4-14.6)
[2024-08-15 08:56] LABS: Hematocrit 32.9 % (37.0-47.0); Hemoglobin 11.1 g/dL (12.0-16.0); Mean Corp Hgb Conc. 33.7 g/dL (33.0-37.0); Mean Corpuscular Hgb 28.5 pg (27.0-31.0); Mean Corpuscular Volume 84.6 fL (81.0-99.0); Mean Platelet Volume 10.2 fL (7.4-10.4); Platelet Count 300 10^3/uL (130-400); Red Blood Cell Count 3.89 10^6/uL (4.20-5.40); Red Cell Dist. Width 13.2 % (11.5-14.5); White Blood Cell Count 5.6 10^3/uL (4.8-10.8)
[2024-08-15 09:15] LABS: ALT (SGPT) 47 U/L (0-35); AST (SGOT) 37 U/L (14-36); Albumin 3.4 g/dl (3.5-5.0); Alkaline Phosphatase 67 U/L (38-126); Blood Urea Nitrogen 4 mg/dl (7-17); Calcium 8.9 mg/dl (8.4-10.2); Carbon Dioxide 26 mmol/L (22-30); Chloride 102 mmol/L (98-107); Estimated Creatinine Clearance 78 ml/min; Glucose 94 mg/dl (70-99); Potassium 3.5 mmol/L (3.5-5.1); Sodium 135 mmol/L (135-145); Total Bilirubin 0.6 mg/dl (0.2-1.3); Total Protein 5.9 g/dl (6.3-8.2); eGFR > 60.00
--- NOTE | 2024-08-15 11:06 | W.PN.ID1 ---
Date of Service
Date of Service: August 15, 2024
Today's Communication
stable for dc from ID perspective without antibiotics or antifungals
Assessment / Plan
Fever - resolved
Leukocytosis - resolved
Immunosuppression - Remicaide for UC
Cachexia
ADR with levaquin and ciprofloxacin -
Note that surgiflo was put in the area in question on the CT scan and likely explains the collection seen there
- blood cultures x2 in progress - no growth to date
- cervical culture - E coli and enterococcus - possibly normal andreina as post menopausal; stop antibiotics
- lactobacillus probiotic to continue for at least two weeks
- topical estrogen per urology
- ua without pyuria and high number of squamous cells- not consistent with a UTI, most likely her known interstitial cystitis
Recurrent Oral candidiasis
Also h/o esophageal dysmotility
- suspect remicaide may be contributing to recurrences, however appears to have a difficult to control case of inflammatory bowel disease
- HIV negative x2 this year; not diabetic
- outpatient workup for immunodeficiency already in progress - she tells me she has been a vaccine nonresponder to pneumovax, she will continue to follow up with immunology
- no evidence of candidal infection on egd - discussed with GI and stopped fluconazole
Ruled out Von Willibrand Disease
- was tested here and it was negative
stable for dc from ID perspective
Chief Complaint
-: Fever
Subjective / Review of Systems
afebrile
bp stable
no events overnight
endoscopy - not consistent with candidal infection
Vital Signs / Physical Exam
Vital Signs
Vital Signs
Temp Pulse Resp BP Pulse Ox
97.1 F 96 16 120/82 96
08/15/24 07:18 08/15/24 07:18 08/15/24 07:18 08/15/24 07:18 08/15/24 07:18
Physical Exam
Constitutional: No Acute Distress
Cardiovascular: Regular Rate
Pulmonary: Symmetric and Non Labored
Skin: Dry; Negative Rash or Jaundice
Neurological: Awake
Objective Data
Lab Data
Lab Results
08/15/24 07:33
08/15/24 07:33
PT 13.1 Sec (11.4-14.6) 08/15/24 07:33
INR 0.96 08/15/24 07:33
Estimated Creat Clear 78 ml/min 08/15/24 07:33
Lactic Acid 0.7 mmol/L (0.7-2.0) 08/13/24 02:19
Total Bilirubin 0.6 mg/dl (0.2-1.3) 08/15/24 07:33
AST 37 U/L (14-36) H 08/15/24 07:33
ALT 47 U/L (0-35) H 08/15/24 07:33
Alkaline Phosphatase 67 U/L (38-126) 08/15/24 07:33
Most recent labs reviewed.
Micro Results:
08/12/24 23:20 Wound Culture - Preliminary
Skin Surface Escherichia coli
Gram Stain - Preliminary
08/12/24 23:20 Wound Culture - Preliminary
Tissue Escherichia coli
Enterococcus species
Lactobacillus species
Gram Stain - Final
08/13/24 17:05 Salmonella/Shigella Culture - Final
Feces/Stool No Salmonella, Shigella, Aeromonas or Plesiomonas species
isolated.
Campylobacter Culture - Final
No Campylobacter species isolated.
Shiga Toxin Test - Final
No E. coli Shiga Toxin 1 or 2 detected.
08/12/24 23:20 Blood Culture - Preliminary
Blood/Venous No Growth in 48 hours- Final report to follow
08/12/24 22:04 Blood Culture - Preliminary
Blood/Venous No Growth in 48 hours- Final report to follow
08/13/24 17:05 Cryptosporidium/Giardia - Final
Feces/Stool Negative for Cryptosporidium and/or Giardia Lamblia
antigens.
08/13/24 17:05 C. difficile GDH Antigen & Toxins - Final
Feces/Stool Negative for toxigenic C.difficile
- Final
Negative for Norovirus GI and GII.
08/12/24 16:18 Influenza Types A & B (TORI) - Final
Nasal Swab Negative for Influenza A & B, NAAT
Negative results must be combined with clinical observations
and patient history.
Nucleic Acid Amplification test (NAAT)performed on the
[employer] platform.
[2024-08-15 12:31] VITALS: BP 106/74; BP_SYST 17
[2024-08-15 12:45] VITALS: BP 108/74; BP_SYST 17
[2024-08-15 13:07] VITALS: BP 101/71
[2024-08-15] MEDS: ARMOUR THYROID 90 MG PO (13:43)
[2024-08-15] MEDS: VITAMIN D3 (cholecalciferol) 50 MCG PO (13:43)
[2024-08-15] MEDS: VISBIOME 1 CAP PO (13:43)
[2024-08-15] MEDS: VALIUM 5 MG PO (13:43)
[2024-08-15] MEDS: RESTASIS 0.05% OPHTHALMIC EMULSION BOTH EYES ×2 (13:43→17:24)
[2024-08-15] MEDS: PROTONIX 40 MG PO (13:43)
--- NOTE | 2024-08-15 14:46 | PTCARENOTE ---
Pt back from GI lab at aprox 1300. I was told from report that her left eye may be scratched and eye drops have been ordered for post op. TT to Dr Roth sent as pt is requesting an eye dr to evaluate and/or antibiotic ointment for the eye as this
has happened before to her.
[2024-08-15 16:40] VITALS: BP 115/77
--- NOTE | 2024-08-15 19:05 | W.DCSUMMARY ---
Discharge Summary
Discharge Data
Date of Admission: 08/12/24
Date of Discharge: 08/15/24
Total time spent discharging patient (in min): 32
-
Pending Results: Yes
Additional Pending Results:
Biopsy of gastric polyps.
Biopsy of salmon colored esophageal mucosa.
Hospital Course
Ms. Persaud is a 54-year-old female with a past medical history of ulcerative colitis on Remicade, esophageal dysmotility, gastroparesis, oral thrush, Stephenie esophagitis, asthma, GERD, seizure disorder, hypothyroidism, Raynaud's phenomenon, pots
disease, interstitial cystitis, uterine anterior and posterior prolapse (with recent urogynecological procedure) who presented to the emergency department at [facility] on 08/12/2024 presenting with fever.
The patient had recently undergone a urogynecological procedure on 08/04/2024, and although she felt she was healing well after the surgery, she developed a fever 8 days afterwards. Patient was also complaining of lower abdominal discomfort, however
she noted that she was generally constipated due to a motility disorder but was concerned when she started developing loose watery stools. Patient also complained of urinary burning and frequency. In addition, the patient felt that she could not
swallow due to a scratchy sore throat and pain with swallowing. She noted that she intermittently gets candidal infections of the esophagus. In the emergency department, the patient's white count was 14.4 K with a mild transaminitis.
Abdominal Discomfort
A CT scan of the abdomen pelvis was performed in the emergency department which showed a fluid collection as well as mild wall thickening. This was initially interpreted as a potential hematoma or abscess. Upon admission, the patient was started
on vancomycin and meropenem. GI, infectious disease, and urogynecology were consulted. After discussion, the conclusion was reached that this radiological finding was more likely Surgi-Sanju that was inserted into the abdomen intentionally during
the urogynecological procedure. Over the course of the patient's admission, the patient's abdominal discomfort gradually improved. In addition, since the patient had a history of constipation (which likely led to the potential colitis), the
patient received a low dose of colonoscopy prep in order to evacuate her bowels, which was successful.
Dysphagia
The patient noted a history of recurrent oral thrush and candidal esophagitis. Initially, IV fluconazole was started. In conjunction with GI, an EGD was scheduled and performed on 08/15/2024 which showed nonsevere reflux esophagitis,
salmon-colored mucosa that was suspicious for short segment Joaquin's esophagus (biopsied) and a few gastric polyps (biopsied). Given these findings, the patient was cleared for discharge without antibiotics or antifungals.
Corneal Abrasion
Following the EGD procedure, the patient was in the postanesthesia unit and while waking up, started to scratch her eye. The patient noted afterwards that this is a common occurrence when she undergoes anesthesia. She notes a procedure recently,
where she scratched her eye in a similar fashion and suffered a corneal abrasion. She stated that her eye felt the same as that episode, and she was having blurry vision of the left eye. Ophthalmology was consulted, and erythromycin ointment was
suggested. The patient was also sent home on hypertonic solution eyedrops. 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 Isidro on Sunday.
Discharge Plan
-
Patient Disposition: Home (Routine Discharge)
Discharge Diagnosis/Procedures: Esophagitis, Short segment of Elroy color mucosa of esophagus? Barretts
Recent post op Hysteropexy with sacrospinous ligament fixation and Anterior-posterior colporrhaphy with perineoplasty without evidence of active infection.
Condition: Good
Diet: Regular
Activity: As tolerated
Driving Restrictions: As prior to admission
Bathing Restrictions: None
Referrals:
Hien Graham MD [Active] - 11/13/24 12:00 pm (follow up with Dr. Graham as scheduled )
Amilcar Webster MD [Active] - in one to two weeks
(as planned before
)
UNKNOWN - PT DOES,NOT KNOW [Family Provider] - in less than 1 week
Prescriptions:
New
ketorolac 0.5 % Drops
1 drp ophthalmic (eye) QIDPRN PRN (Reason: affected eye pain) 3 Days Qty: 5 0RF
sodium chloride [Dirk 128] 5 % drops
1 drp ophthalmic (eye) TID Qty: 15 0RF
erythromycin 5 mg/gram (0.5 %) ointment
0.5 inch ophthalmic (eye) TID Qty: 3.5 0RF
Continued
infliximab [Remicade] 100 mg Recon Soln
0 mg IV Q6W
testosterone cypionate 200 mg/mL Oil
4 mg IM MOTH@0800
estradiol cypionate 5 mg/ml oil
1 dose IM MOTH@0800
Amitriptyline-Baclofen cream
1 dose vaginal DAILYPRN PRN (Reason: pelvic pain)
albuterol sulfate [Ventolin HFA] 90 mcg/actuation Hfa Aerosol Inhaler
2 puff INHALATION R QIDPRN PRN (Reason: sob)
dibucaine
1 dose SC TIDPRN PRN (Reason: rectal pain)
diazepam 15 mg suppository
15 mg SC TIDPRN PRN (Reason: pelvic floor disorder )
tretinoin 0.025 % Cream
1 applic TOPICAL HS
omeprazole 40 mg Capsule,Delayed Release(Dr/Ec)
40 mg PO DAILY
nortriptyline 10 mg Capsule
30 mg PO HS
ondansetron 4 mg Tablet,Disintegrating
4 mg PO DAILYPRN PRN (Reason: nausea)
cyclosporine 0.05 % Dropperette
1 drp BOTH EYES TID
Visbiome 112.5 billion cell Capsule
1 cap PO DAILY
Motegrity 2 mg Tablet
2 mg PO DAILY
clotrimazole 10 mg lindsay
10 mg mucous membrane DAILYPRN PRN (Reason: with oral antibiotics)
acetaminophen [Tylenol] 325 mg Tablet
650 mg PO Q4HPRN PRN (Reason: mild pain)
cholecalciferol (vitamin D3) [Vitamin D3] 50 mcg (2,000 unit) Tablet
50 mcg PO DAILY
Mylanta
1 dose PO MEALS
colchicine 0.6 mg Capsule
0.6 mg PO TID
sennosides-docusate sodium [Senexon-S] 8.6-50 mg Tablet
2 tab-cap PO HS
progesterone micronized 200 mg Capsule
200 mg PO HS
ibuprofen 600 mg Tablet
600 mg PO Q8HPRN PRN (Reason: mild pain)
diazepam 5 mg Tablet
5 mg PO DAILY
oxycodone 5 mg Tablet
5 mg PO Q6HPRN PRN (Reason: severe pain)
thyroid (pork) [[place] Thyroid] 90 mg Tablet
90 mg PO DAILY
Movantik 25 mg Tablet
25 mg PO DAILY
fluconazole 200 mg tablet
200 mg PO Q72H
Discharge Orders:
Discharge Patient (As Directed); Ordered 08/15/24
Ordered By: Milan Canales
Discharge Date and Time
Discharge Date/Time: 08/15/24 18:29
Print Language: SRI LANKAN
== END 2024-08-15 18:29 | disposition home or self-care (01) | DRG 872 ==
LOC: 2 NORTH 22:37
PROVIDERS: Nurse Practitioner Adult Health; Physician Assistant; Registered Nurse; Specialist; ADMITTING PHYSICIAN Hospitalist; ATTENDING PHYSICIAN Internal Medicine; CONSULT PHYSICIAN Obstetrics & Gynecology; CONSULT PHYSICIAN Student in an Organized Health Care Education/Training Program; EMERGENCY PHYSICIAN Emergency Medicine
PROC: 0DB58ZX Excision of Esophagus, Via Natural or Artificial Opening Endoscopic, Diagnostic (ICD-10-PCS; 2024-08-15)
PROC: 0DB68ZX Excision of Stomach, Via Natural or Artificial Opening Endoscopic, Diagnostic (ICD-10-PCS; 2024-08-15)
DX: A41.9 Sepsis, unspecified organism (principal); K51.90 Ulcerative colitis, unspecified, without complications; D68.00 Von Willebrand disease, unspecified; D84.821 Immunodeficiency due to drugs; R64 Cachexia; Z68.1 Body mass index [BMI] 19.9 or less, adult; R50.82 Postprocedural fever; N30.10 Interstitial cystitis (chronic) without hematuria; K22.4 Dyskinesia of esophagus; K22.70 Barrett's esophagus without dysplasia; K31.84 Gastroparesis; K21.00 Gastro-esophageal reflux disease with esophagitis, without bleeding; E03.9 Hypothyroidism, unspecified; F41.8 Other specified anxiety disorders; K59.02 Outlet dysfunction constipation; S05.00XA Injury of conjunctiva and corneal abrasion without foreign body, unspecified eye, initial encounter; K31.7 Polyp of stomach and duodenum; J45.909 Unspecified asthma, uncomplicated; Z79.899 Other long term (current) drug therapy; Z88.0 Allergy status to penicillin; Z88.2 Allergy status to sulfonamides; Z91.040 Latex allergy status; Z88.1 Allergy status to other antibiotic agents; Z79.620 Long term (current) use of immunosuppressive biologic; Z80.0 Family history of malignant neoplasm of digestive organs; Z87.01 Personal history of pneumonia (recurrent); I73.00 Raynaud's syndrome without gangrene; G40.909 Epilepsy, unspecified, not intractable, without status epilepticus; G90.A Postural orthostatic tachycardia syndrome [POTS]; F41.9 Anxiety disorder, unspecified; F32.A Depression, unspecified; K64.5 Perianal venous thrombosis; M10.9 Gout, unspecified; E78.00 Pure hypercholesterolemia, unspecified; G89.29 Other chronic pain; Z82.49 Family history of ischemic heart disease and other diseases of the circulatory system; N20.0 Calculus of kidney; N28.1 Cyst of kidney, acquired; Z11.52 Encounter for screening for COVID-19; X58.XXXA Exposure to other specified factors, initial encounter
CPT/HCPCS: 88305; 74177; 80053; 81003; 81015; 83605; 85025; 85027; 85610; 87040; 87045; 87046; 87070; 87077; 87186; 87205; 87324; 87328; 87329; 87427; 87449; 87502; 87798; 87811; 99285; J2185; Q9967

== ENCOUNTER → 2024-10-15 14:49 | Outpatient (REF) | payer OTHER, SELFPAY | LOC: HWRAD 14:49 | PROVIDERS: ATTENDING PHYSICIAN Obstetrics & Gynecology; FAMILY PHYSICIAN Family Medicine; REFERRING PHYSICIAN Urology | DX: N20.0 Calculus of kidney (principal) | CPT/HCPCS: 76770 ==

== ENCOUNTER → 2024-10-22 13:09 | Outpatient (REF) | payer OTHER, SELFPAY | LOC: HWRAD 13:09 | PROVIDERS: ATTENDING PHYSICIAN Obstetrics & Gynecology; FAMILY PHYSICIAN Family Medicine; REFERRING PHYSICIAN Urology | DX: N20.0 Calculus of kidney (principal) | CPT/HCPCS: 74176 ==

== ENCOUNTER → 2024-11-18 17:02 | Outpatient (REF) | payer OTHER, SELFPAY ==
[2024-11-18 17:42] LABS: % Basophils 0.2 % (0-2); % Eosinophils 0.3 % (0-6); % Immature Granulocytes 0.6 % (0-0.5); % Lymphocytes 13.4 % (20.5-51.1); % Monocytes 8.4 % (1.7-9.3); % Neutrophils 77.1 % (42.2-75.2); Absolute Eosinophils 0.1 10^3/uL (0-0.7); Absolute Immature Granulocytes 0.1 10^3/uL (0-0.05); Absolute Monocytes 1.2 10^3/uL (0.1-0.6); Absolute Neutrophils 11.3 10^3/uL (1.4-6.5); Hematocrit 36.1 % (37.0-47.0); Hemoglobin 12.2 g/dL (12.0-16.0); Mean Corp Hgb Conc. 33.8 g/dL (33.0-37.0); Mean Corpuscular Hgb 28.9 pg (27.0-31.0); Mean Corpuscular Volume 85.5 fL (81.0-99.0); Mean Platelet Volume 10.4 fL (7.4-10.4); Nucleated Red Blood Cells % 0 %; Platelet Count 298 10^3/uL (130-400); Red Blood Cell Count 4.22 10^6/uL (4.20-5.40); Red Cell Dist. Width 12.8 % (11.5-14.5); White Blood Cell Count 14.7 10^3/uL (4.8-10.8)
== END ==
LOC: REG 17:02
PROVIDERS: ATTENDING PHYSICIAN Urology; FAMILY PHYSICIAN Family Medicine
DX: Z01.818 Encounter for other preprocedural examination (principal); R89.9 Unspecified abnormal finding in specimens from other organs, systems and tissues
CPT/HCPCS: 36415; 85025

== ENCOUNTER → 2024-11-19 12:46 | Outpatient (REF) | payer OTHER, SELFPAY | LOC: RAD 12:46 | PROVIDERS: ATTENDING PHYSICIAN Nurse Practitioner Family; FAMILY PHYSICIAN Family Medicine | DX: R05.1 Acute cough (principal) | CPT/HCPCS: 71046 ==

== ENCOUNTER 2024-11-24 06:11 | Day surgery (SDC) | payer OTHER, SELFPAY ==
[2024-11-11 11:23] LABS: Urine Albumin 2+ (Neg - Trace); Urine Bilirubin Negative (Negative); Urine Character Slightly Cloudy (Clear); Urine Color Yellow; Urine Glucose Negative (Negative); Urine Ketone Negative (Negative); Urine Leukocyte 1+ (Negative); Urine Nitrite Negative (Negative); Urine Occult Blood 2+ (Negative); Urine Urobilinogen Negative (Neg - 1+)
[2024-11-11 11:24] LABS: Hematocrit 40.4 % (37.0-47.0); Hemoglobin 13.8 g/dL (12.0-16.0); Mean Corp Hgb Conc. 34.2 g/dL (33.0-37.0); Mean Corpuscular Hgb 29.1 pg (27.0-31.0); Mean Corpuscular Volume 85.1 fL (81.0-99.0); Mean Platelet Volume 11.2 fL (7.4-10.4); Platelet Count 310 10^3/uL (130-400); Red Blood Cell Count 4.75 10^6/uL (4.20-5.40); Red Cell Dist. Width 12.7 % (11.5-14.5); White Blood Cell Count 19.6 10^3/uL (4.8-10.8)
[2024-11-11 11:31] LABS: Urine Mucus Many
[2024-11-11 11:32] LABS: Urine Bacteria Moderate (Negative)
[2024-11-11 12:06] LABS: Blood Urea Nitrogen 17 mg/dl (7-17); Calcium 9.9 mg/dl (8.4-10.2); Carbon Dioxide 23 mmol/L (22-30); Chloride 98 mmol/L (98-107); Glucose 84 mg/dl (70-99); Potassium 3.6 mmol/L (3.5-5.1); Sodium 136 mmol/L (135-145); eGFR > 60.00
[2024-11-11 14:13] VITALS: BMI 17.5
--- NOTE | 2024-11-14 16:09 | PTCARENOTE ---
Abn Urine Culture - Leslie at Dr. Pettit's office made aware.
[2024-11-24] VITALS (7 sets, daily range): BP systolic 119–139; BP diastolic 77–88; BMI 17.5
[2024-11-24] MEDS: NORMOSOL-R/PLASMALYTE-A 1000 IV (06:41)
[2024-11-24 07:41] LABS: Urine Albumin Negative (Neg - Trace); Urine Bilirubin Negative (Negative); Urine Character Clear (Clear); Urine Color Yellow; Urine Glucose Negative (Negative); Urine Ketone Negative (Negative); Urine Leukocyte Negative (Negative); Urine Nitrite Negative (Negative); Urine Occult Blood Negative (Negative); Urine Specific Gravity 1.005 (<1.030); Urine Urobilinogen Negative (Neg - 1+)
[2024-11-24] MEDS: ROXICODONE 5 MG PO ×2 (08:30→09:02)
[2024-11-24] MEDS: TYLENOL 650 MG PO (08:31)
== END 2024-11-24 10:15 | disposition home or self-care (01) ==
LOC: SDS 06:11
PROVIDERS: ATTENDING PHYSICIAN Urology; FAMILY PHYSICIAN Family Medicine
DX: N39.41 Urge incontinence (principal); R35.0 Frequency of micturition
CPT/HCPCS: 64590; 64561; 36415; 72170; 76000; 80048; 81003; 81015; 85027; 87086; C1778; C1787; C1820; L8681

== ENCOUNTER → 2024-12-17 13:44 | Outpatient (REF) | payer OTHER, SELFPAY | LOC: HWRAD 13:44 | PROVIDERS: ATTENDING PHYSICIAN Physical Medicine & Rehabilitation; FAMILY PHYSICIAN Family Medicine | DX: S22.000A Wedge compression fracture of unspecified thoracic vertebra, initial encounter for closed fracture (principal) | CPT/HCPCS: 72128 ==

== ENCOUNTER → 2024-12-25 14:52 | Outpatient (REF) | payer OTHER, SELFPAY | LOC: HWRAD 14:52 | PROVIDERS: ATTENDING PHYSICIAN Family Medicine | DX: M81.0 Age-related osteoporosis without current pathological fracture (principal); Z13.820 Encounter for screening for osteoporosis | CPT/HCPCS: 77080 ==

== ENCOUNTER 2025-01-22 16:39 | Outpatient (RCR) | payer OTHER, SELFPAY | END 2025-01-22 23:59 | disposition home or self-care (01) | LOC: RPT 16:39 | PROVIDERS: ATTENDING PHYSICIAN Obstetrics & Gynecology; FAMILY PHYSICIAN Family Medicine | DX: M62.89 Other specified disorders of muscle (principal); N30.10 Interstitial cystitis (chronic) without hematuria; R10.2 Pelvic and perineal pain; Z73.6 Limitation of activities due to disability; N81.6 Rectocele; R26.89 Other abnormalities of gait and mobility; Z87.440 Personal history of urinary (tract) infections | CPT/HCPCS: 97163; 97530 ==

== ENCOUNTER 2025-01-28 06:41 | Day surgery (SDC) | payer OTHER, SELFPAY ==
[2025-01-28] VITALS (9 sets, daily range): BP systolic 105–124; BP diastolic 65–80; BMI 18.3
[2025-01-28] MEDS: Pyridium 200 MG PO (09:12)
[2025-01-28] MEDS: NORMOSOL-R/PLASMALYTE-A 1000 IV (09:24)
== END 2025-01-28 14:40 | disposition home or self-care (01) ==
LOC: SDS 06:41
PROVIDERS: ATTENDING PHYSICIAN Obstetrics & Gynecology
DX: T19.2XXA Foreign body in vulva and vagina, initial encounter (principal); Y76.2 Prosthetic and other implants, materials and accessory obstetric and gynecological devices associated with adverse incidents
CPT/HCPCS: 15851; J1580

== ENCOUNTER 2025-02-13 12:08 | Outpatient (RCR) | payer OTHER, SELFPAY | END 2025-02-13 23:59 | disposition home or self-care (01) | LOC: RPT 12:08 | PROVIDERS: ATTENDING PHYSICIAN Obstetrics & Gynecology; FAMILY PHYSICIAN Family Medicine | DX: M62.89 Other specified disorders of muscle (principal); N30.10 Interstitial cystitis (chronic) without hematuria; R10.2 Pelvic and perineal pain; Z73.6 Limitation of activities due to disability; N81.6 Rectocele; R26.89 Other abnormalities of gait and mobility; Z87.440 Personal history of urinary (tract) infections | CPT/HCPCS: 97112; 97530 ==

== ENCOUNTER 2025-03-11 14:31 | Outpatient (RCR) | payer OTHER, SELFPAY | END 2025-03-11 23:59 | disposition home or self-care (01) | LOC: RPT 14:31 | PROVIDERS: ATTENDING PHYSICIAN Obstetrics & Gynecology; FAMILY PHYSICIAN Family Medicine | DX: M62.89 Other specified disorders of muscle (principal); N30.10 Interstitial cystitis (chronic) without hematuria; R10.2 Pelvic and perineal pain; Z73.6 Limitation of activities due to disability; N81.6 Rectocele; R26.89 Other abnormalities of gait and mobility; Z87.440 Personal history of urinary (tract) infections | CPT/HCPCS: 97014; 97112; 97140; 97530 ==

== ENCOUNTER 2025-04-08 12:08 | Outpatient (RCR) | payer OTHER, SELFPAY | END 2025-04-08 23:59 | disposition home or self-care (01) | LOC: RPT 12:08 | PROVIDERS: ATTENDING PHYSICIAN Obstetrics & Gynecology; FAMILY PHYSICIAN Family Medicine | DX: M62.89 Other specified disorders of muscle (principal); N30.10 Interstitial cystitis (chronic) without hematuria; R10.2 Pelvic and perineal pain; Z73.6 Limitation of activities due to disability; N81.6 Rectocele; R26.89 Other abnormalities of gait and mobility; Z87.440 Personal history of urinary (tract) infections | CPT/HCPCS: 97112; 97140; 97530 ==

== ENCOUNTER → 2025-05-19 14:43 | Outpatient (REF) | payer OTHER, SELFPAY ==
[2025-05-19 15:56] LABS: Urine Character Clear (Clear)
== END ==
LOC: REG 14:43
PROVIDERS: ATTENDING PHYSICIAN Urology; FAMILY PHYSICIAN Family Medicine
DX: N39.0 Urinary tract infection, site not specified (principal)
CPT/HCPCS: 81003; 87086

== ENCOUNTER 2025-05-25 06:23 | Day surgery (SDC) | payer OTHER, SELFPAY ==
[2025-05-15 11:03] LABS: Urine Character Cloudy (Clear)
[2025-05-15 11:05] LABS: Hematocrit 39.9 % (37.0-47.0); Hemoglobin 13.0 g/dL (12.0-16.0); Mean Corp Hgb Conc. 32.6 g/dL (33.0-37.0); Mean Corpuscular Volume 87.1 fL (81.0-99.0); Nucleated Red Blood Cells % 0 %; Platelet Count 329 10^3/uL (130-400); Red Cell Dist. Width 13.3 % (11.5-14.5)
[2025-05-15 11:10] LABS: Urine Squamous Cell >30 /LPF (Few)
[2025-05-15 13:48] LABS: Blood Urea Nitrogen 14 mg/dl (7-17); Calcium 9.5 mg/dl (8.4-10.2); Carbon Dioxide 24 mmol/L (22-30); Chloride 107 mmol/L (98-107); Glucose 81 mg/dl (70-99); Potassium 3.8 mmol/L (3.5-5.1); Sodium 137 mmol/L (135-145); eGFR > 60.00
--- NOTE | 2025-05-15 15:44 | PTCARENOTE ---
Patients 05/15 UA w/ many bacteria- Michelle @ Dr. Camacho office notified
[2025-05-15 16:25] VITALS: BMI 19.2
[2025-05-25] VITALS (8 sets, daily range): BP systolic 103–131; BP diastolic 69–91; BMI 19.2
[2025-05-25] MEDS: NORMOSOL-R/PLASMALYTE-A 1000 IV (07:41)
[2025-05-25] MEDS: SUBLIMAZE 50 MCG IV (09:55)
[2025-05-25] MEDS: VALIUM 5 MG PO (10:05)
[2025-05-25] MEDS: ROXICODONE 10 MG PO (10:44)
== END 2025-05-25 10:59 | disposition home or self-care (01) ==
LOC: SDS 06:23
PROVIDERS: ATTENDING PHYSICIAN Urology; FAMILY PHYSICIAN Family Medicine
DX: N30.10 Interstitial cystitis (chronic) without hematuria (principal)
CPT/HCPCS: 52260; 36415; 80048; 81003; 81015; 85025; 87086

== ENCOUNTER → 2025-06-11 14:12 | Outpatient (REF) | payer OTHER, SELFPAY | LOC: RAD 14:12 | PROVIDERS: ATTENDING PHYSICIAN Internal Medicine Gastroenterology; FAMILY PHYSICIAN Family Medicine | DX: R10.84 Generalized abdominal pain (principal) | CPT/HCPCS: 74177; Q9967 ==

== ENCOUNTER 2025-06-25 14:11 | Outpatient (RCR) | payer OTHER, SELFPAY | END 2025-06-25 23:59 | disposition home or self-care (01) | LOC: RPT 14:11 | PROVIDERS: ATTENDING PHYSICIAN Obstetrics & Gynecology; FAMILY PHYSICIAN Family Medicine | DX: M62.89 Other specified disorders of muscle (principal); N30.10 Interstitial cystitis (chronic) without hematuria; R10.2 Pelvic and perineal pain; Z73.6 Limitation of activities due to disability; N81.6 Rectocele; R10.20 Pelvic and perineal pain unspecified side; R26.89 Other abnormalities of gait and mobility; Z87.440 Personal history of urinary (tract) infections | CPT/HCPCS: 97140; 97530 ==

== ENCOUNTER → 2025-06-25 15:32 | Outpatient (REF) | payer OTHER, SELFPAY | LOC: RAD 15:32 | PROVIDERS: FAMILY PHYSICIAN Family Medicine | DX: N94.12 Deep dyspareunia (principal) | CPT/HCPCS: 76830; 76856 ==

== ENCOUNTER 2025-07-05 17:07 | Emergency (ER) | payer OTHER, SELFPAY ==
[2025-07-05 17:16] VITALS: BP 127/92
[2025-07-05] MEDS: TYLENOL 1000 MG PO (21:05)
[2025-07-06] MEDS: MOTRIN 600 MG PO (01:00)
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
== END 2025-07-06 10:42 | disposition home or self-care (01) ==
LOC: EMR 17:07
PROVIDERS: EMERGENCY PHYSICIAN Student in an Organized Health Care Education/Training Program
DX: S62.637A Displaced fracture of distal phalanx of left little finger, initial encounter for closed fracture (principal); S90.122A Contusion of left lesser toe(s) without damage to nail, initial encounter; Y04.2XXA Assault by strike against or bumped into by another person, initial encounter; T76.11XA Adult physical abuse, suspected, initial encounter; T76.21XA Adult sexual abuse, suspected, initial encounter; R03.0 Elevated blood-pressure reading, without diagnosis of hypertension; E78.00 Pure hypercholesterolemia, unspecified; D68.00 Von Willebrand disease, unspecified; G90.A Postural orthostatic tachycardia syndrome [POTS]; J45.909 Unspecified asthma, uncomplicated; E03.9 Hypothyroidism, unspecified; K31.84 Gastroparesis; K21.9 Gastro-esophageal reflux disease without esophagitis; K51.90 Ulcerative colitis, unspecified, without complications; N30.10 Interstitial cystitis (chronic) without hematuria; I73.00 Raynaud's syndrome without gangrene; F98.8 Other specified behavioral and emotional disorders with onset usually occurring in childhood and adolescence
CPT/HCPCS: 99291; 70450; 72125; 73130; 73630

== ENCOUNTER 2025-07-21 10:22 | Outpatient (RCR) | payer OTHER, SELFPAY | END 2025-07-21 23:59 | disposition home or self-care (01) | LOC: RPT 10:22 | PROVIDERS: ATTENDING PHYSICIAN Obstetrics & Gynecology; FAMILY PHYSICIAN Family Medicine | DX: M62.89 Other specified disorders of muscle (principal); N30.10 Interstitial cystitis (chronic) without hematuria; Z73.6 Limitation of activities due to disability; R10.2 Pelvic and perineal pain; N81.6 Rectocele; R10.20 Pelvic and perineal pain unspecified side; R26.89 Other abnormalities of gait and mobility; Z87.440 Personal history of urinary (tract) infections | CPT/HCPCS: 97112; 97140; 97530 ==

== ENCOUNTER 2025-08-24 11:49 | Outpatient (RCR) | payer OTHER, SELFPAY | END 2025-08-24 23:59 | disposition home or self-care (01) | LOC: RPT 11:49 | PROVIDERS: ATTENDING PHYSICIAN Obstetrics & Gynecology; FAMILY PHYSICIAN Family Medicine | DX: M62.89 Other specified disorders of muscle (principal); N30.10 Interstitial cystitis (chronic) without hematuria; Z73.6 Limitation of activities due to disability; N81.6 Rectocele; R10.20 Pelvic and perineal pain unspecified side; R26.89 Other abnormalities of gait and mobility; Z87.440 Personal history of urinary (tract) infections; R10.2 Pelvic and perineal pain | CPT/HCPCS: 97110; 97112; 97140; 97530 ==